=== PATIENT | male | born 1970 | race American Indian/Alaskan Native ===

== ENCOUNTER 2019-11-04 17:10 | Emergency (ER) | payer MEDICARE, MEDICAID ==
[2019-11-04 18:23] LABS: BLOOD UREA NITROGEN,BUN 11 mg/dL (7.0-18.0); CARBON DIOXIDE,CO2 25.1 mmol/L (21.0-32.0); CHLORIDE,CL 106 mmol/L (98-107); GLUCOSE RANDOM 159 mg/dL (74-106); POTASSIUM,K 3.9 mmol/L (3.5-5.1); SODIUM,NA 140 mmol/L (136-148)
[2019-11-04] MEDS ORDERED: HYDROmorphone 1 MG/ML Syringe IVPUSH ONE (18:59)
[2019-11-04] MEDS ORDERED: Ondansetron 4 MG/2 ML SDV IVPUSH ONE (18:59)
--- NOTE | 2019-11-04 19:00 | CR ---
Chest: Portable view of the chest was obtained. Comparison: Prior chest x-ray of 09/29/19. Heart size and mediastinum are normal. Lungs are clear with no acute parenchymal change. Bony structures are grossly intact. Impression: 1. Nothing acute is seen on portable chest x-ray. Diagnostic code #1 This report was dictated in MDT
[2019-11-04] MEDS ORDERED: Iopamidol 755 MG/ML 200 ML Multipack Bottle IVPUSH ONE (19:15)
[2019-11-04] MEDS ORDERED: Iopamidol 755 Mg/ML 100 ML Bottle IVPUSH ONE (19:16)
--- NOTE | 2019-11-04 19:49 | CT ---
CT chest Technique: Multiple axial sections through the chest were obtained. Intravenous contrast was not was utilized. Comparison: Prior CT chest of 09/29/19. Findings: Visualized upper abdominal structures shows no abnormality. No pericardial thickening is seen. Mild coronary artery calcification is seen. Aorta shows no aneurysm. Mediastinum and hilar region show no adenopathy. Lungs are clear with no acute parenchymal change. No pleural effusions are seen. Bone window settings were reviewed which shows no acute osseous finding. Impression: 1. Nothing acute is appreciated on CT study of the chest. Diagnostic code #1 This report was dictated in MDT
--- NOTE | 2019-11-04 19:49 | CT ---
CT abdomen and pelvis Technique: Multiple axial sections were obtained from above the dome of the diaphragm inferiorly through the pubic symphysis. Intravenous contrast was utilized. No oral contrast has been given. Comparison: No prior abdominal imaging is available. Liver contains no focal abnormality. Spleen appears within normal limits. Adrenal glands show no nodule. Pancreas is normal. Gallbladder contains no calcified gallstones. Aorta shows no aneurysm. Mild atherosclerotic calcification is noted within the aorta and iliac vessels. Right kidney shows no hydronephrosis or mass. No left kidney is seen. No pelvic mass or adenopathy is seen. No free fluid or inflammator change is seen. Small fat-containing bilateral inguinal hernias are noted. Bone window settings were reviewed which shows no acute osseous finding. Mild scattered degenerative change is seen within the spine. Slight areas of abdominal wall thinning are seen with mild bulging containing fat. Mild subcutaneous edema noted within the right lateral and anterior abdomen. Impression: 1. Subcutaneous edema within the fat within the anterior and right lateral abdomen. 2. Absent left kidney. 3. No other acute finding is seen on CT abdomen and pelvis study. Diagnostic code #2 This report was dictated in MDT
--- NOTE | 2019-11-04 20:28 | EDM.PDOC ---
ED HPI GENERAL MEDICAL PROBLEM - General Chief Complaint: Abdominal Pain Stated Complaint: BRUSING ON ABDOMIN Time Seen by Provider: 11/04/19 17:30 Source of Information: Reports: Patient History Limitations: Reports: No Limitations - History of Present Illness INITIAL COMMENTS - FREE TEXT/NARRATIVE: This 49 year old male is admitted to the ED with a chief complaint of pain in his left upper abdomen and left lateral rib cage after falling striking the left side of his body on the side of his toilet Wednesday night. He states that his daughter applied ice to the injured area but because he was not getting better he decided to come in for evaluation. Abdomen Pain Score (Numeric/FACES): 9 - Related Data Allergies Allergy/AdvReac Type Severity Reaction Status Date / Time No Known Allergies Allergy Verified 11/04/19 17:20 Home Meds: Home Meds metFORMIN [Glucophage] 850 mg PO BIDMEALS 09/29/19 [History] Aspirin 81 mg PO DAILY #30 tab.chew 09/30/19 [Rx] atorvaSTATin [Lipitor] 40 mg PO BEDTIME #30 tablet 09/30/19 [Rx] Dutasteride [Avodart] 0.5 mg PO DAILY #30 cap 10/01/19 [Rx] Gabapentin [Neurontin] 300 mg PO TID #15 cap 10/01/19 [Rx] Tamsulosin HCl [Flomax] 0.4 mg PO BID #60 capsule 10/01/19 [Rx] oxyCODONE ER [OxyCONTIN] 10 mg PO Q12H PRN #10 tab.er 10/01/19 [Rx] Mag Hydrox/Aluminum Hyd/Simeth [Maalox Maximum Strength Susp] 1 ml PO DAILY PRN 11/04/19 [History] oxyCODONE HCl/Acetaminophen [Percocet 7.5-325 mg Tablet] 1 each PO Q8HR PRN 4 Days #12 tablet 11/04/19 [Rx] Past Medical History HEENT History: Reports: Impaired Vision Cardiovascular History: Reports: Hypertension Respiratory History: Reports: None Gastrointestinal History: Reports: None Genitourinary History: Reports: BPH Other Genitourinary History: Renal CA, Left Kidney removed. Musculoskeletal History: Reports: Back Pain, Chronic Neurological History: Reports: Neuropathy, Diabetic, Neuropathy, Peripheral Psychiatric History: Reports: None Endocrine/Metabolic History: Reports: Diabetes, Type II, Obesity/BMI 30+ Hematologic History: Reports: None Immunologic History: Reports: None Oncologic (Cancer) History: Reports: Renal Dermatologic History: Reports: Cellulitis - Infectious Disease History Infectious Disease History: Reports: MRSA Other Infectious Disease History: MRSA - Past Surgical History Head Surgeries/Procedures: Reports: None HEENT Surgical History: Reports: None Cardiovascular Surgical History: Reports: None GI Surgical History: Reports: Hernia, Abdominal Male Surgical History: Reports: Nephrectomy Endocrine Surgical History: Reports: None Neurological Surgical History: Reports: None Musculoskeletal Surgical History: Reports: Amputation Other Musculoskeletal Surgeries/Procedures:: L BTK amputation Oncologic Surgical History: Reports: None Dermatological Surgical History: Reports: None Social & Family History - Family History Family Medical History: Noncontributory - Tobacco Use Smoking Status *Q: Current Every Day Smoker Years of Tobacco use: 24 Packs/Tins Daily: 0.4 - Caffeine Use Caffeine Use: Reports: Tea - Recreational Drug Use Recreational Drug Use: No Review of Systems - Review of Systems Review Of Systems: See Below Constitutional: Reports: No Symptoms Eyes: Reports: No Symptoms Ears: Reports: No Symptoms Nose: Reports: No Symptoms Mouth/Throat: Reports: No Symptoms Respiratory: Reports: No Symptoms Cardiovascular: Reports: No Symptoms GI/Abdominal: Reports: Abdominal Pain (abdominal wall pain on the left), Other ( pain in left upper abdomen with large bruise.) Genitourinary: Reports: No Symptoms Musculoskeletal: Reports: Other (pain over left anterior lateral 6-10 ribs. Status post AKA) Skin: Reports: No Symptoms Neurological: Reports: No Symptoms ED EXAM, GENERAL - Physical Exam Exam: See Below Exam Limited By: No Limitations General Appearance: Alert, WD/WN, Moderate Distress (complaining of pain in left upper abdomen. Very large area of ecchymosis noted with probable hematoma of same. Also complains of pain in the left lateral lower chest area) Eye Exam: Bilateral Eye: EOMI, Normal Inspection, PERRL Ears: Normal External Exam, Normal Canal, Hearing Grossly Normal, Normal TMs Nose: Normal Inspection, Normal Mucosa, No Blood Throat/Mouth: Normal Inspection, Normal Oropharynx Head: Atraumatic, Normocephalic Neck: Normal Inspection, Supple, Non-Tender Respiratory/Chest: No Respiratory Distress, Lungs Clear, Normal Breath Sounds, Other (Tenderness is noted over left anterior lateral chest wall around the 7- 10th ribs. No crepitus.). No: Decreased Breath Sounds, Crackles, Rales Cardiovascular: Normal Peripheral Pulses, Regular Rate, Rhythm, No Edema, No Rub GI/Abdominal: Normal Bowel Sounds, Soft, Tender (over the entire upper abdomen with a extensive area of ecchymosis and hematoma.). No: Guarding, Rigid, Rebound (Male) Exam: Deferred Rectal (Males) Exam: Deferred Back Exam: Normal Inspection Extremities: No Pedal Edema, Normal Capillary Refill (of all extremities except for the left leg which is an AKA) Neurological: Alert, Oriented, CN II-XII Intact, Normal Cognition, Normal Reflexes, No Motor/Sensory Deficits Psychiatric: Normal Affect, Normal Mood Skin Exam: Warm, Dry, Intact, Normal Color, No Rash Lymphatic: No Adenopathy Course - Vital Signs Text/Narrative:: I reviewed all of the patients imaging studies. No acute pathology. I discussed this with the patient. He will be discharged. He agrees with the discharge plan. Last Recorded V/S: Last Vital Signs Temp 98.9 F 11/04/19 17:22 Pulse 89 11/04/19 17:22 Resp 19 11/04/19 17:22 BP 155/105 H 11/04/19 17:22 Pulse Ox 99 11/04/19 17:22 - Orders/Labs/Meds Orders: Active Orders 24 hr Category Date Time Status EKG Documentation Completion [RC] STAT Care 11/04/19 17:50 Active UA RFX JEFFERY AND CULT IF INDIC [URIN] Stat Lab 11/04/19 17:50 Ordered Labs: Laboratory Tests 11/04/19 11/04/19 11/04/19 Range/Units 17:47 17:47 17:47 WBC 7.90 (4.0-11.0) K/uL RBC 5.04 (4.50-5.90) M/uL Hgb 12.4 L (13.0-17.0) g/dL Hct 38.9 (38.0-50.0) % MCV 77.2 L (80.0-98.0) fL MCH 24.6 L (27.0-32.0) pg MCHC 31.9 (31.0-37.0) g/dL RDW Std Deviation 47.7 (28.0-62.0) fl RDW Coeff of Candy 17 H (11.0-15.0) % Plt Count 357 (150-400) K/uL MPV 9.40 (7.40-12.00) fL Neut % (Auto) 56.0 (48.0-80.0) % Lymph % (Auto) 33.7 (16.0-40.0) % Sen[place] % (Auto) 5.8 (0.0-15.0) % Eos % (Auto) 4.1 (0.0-7.0) % Baso % (Auto) 0.4 (0.0-1.5) % Neut # (Auto) 4.4 (1.4-5.7) K/uL Lymph # (Auto) 2.7 H (0.6-2.4) K/uL Seneca # (Auto) 0.5 (0.0-0.8) K/uL Eos # (Auto) 0.3 (0.0-0.7) K/uL Baso # (Auto) 0.0 (0.0-0.1) K/uL Nucleated RBC % 0.0 /100WBC Nucleated RBCs # 0 K/uL INR 0.90 Sodium 140 (136-148) mmol/L Potassium 3.9 (3.5-5.1) mmol/L Chloride 106 (98-107) mmol/L Carbon Dioxide 25.1 (21.0-32.0) mmol/L BUN 11 (7.0-18.0) mg/dL Creatinine 1.0 (0.8-1.3) mg/dL Est Cr Clr Drug Dosing 81.52 mL/min Estimated GFR (MDRD) > 60.0 ml/min Glucose 159 H (74-106) mg/dL POC Glucose (60-110) mg/dL Calcium 8.8 (8.5-10.1) mg/dL Magnesium 1.9 (1.8-2.4) mg/dL Total Bilirubin 0.3 (0.2-1.0) mg/dL AST 16 (15-37) IU/L ALT 21 (14-63) IU/L Alkaline Phosphatase 122 H (46-116) U/L Troponin I < 0.050 (0.000-0.056) ng/mL Total Protein 7.7 (6.4-8.2) g/dL Albumin 3.6 (3.4-5.0) g/dL Globulin 4.1 H (2.6-4.0) g/dL Albumin/Globulin Ratio 0.9 (0.9-1.6) 11/04/19 Range/Units 17:48 WBC (4.0-11.0) K/uL RBC (4.50-5.90) M/uL Hgb (13.0-17.0) g/dL Hct (38.0-50.0) % MCV (80.0-98.0) fL MCH (27.0-32.0) pg MCHC (31.0-37.0) g/dL RDW Std Deviation (28.0-62.0) fl RDW Coeff of Candy (11.0-15.0) % Plt Count (150-400) K/uL MPV (7.40-12.00) fL Neut % (Auto) (48.0-80.0) % Lymph % (Auto) (16.0-40.0) % Seneca % (Auto) (0.0-15.0) % Eos % (Auto) (0.0-7.0) % Baso % (Auto) (0.0-1.5) % Neut # (Auto) (1.4-5.7) K/uL Lymph # (Auto) (0.6-2.4) K/uL Seneca # (Auto) (0.0-0.8) K/uL Eos # (Auto) (0.0-0.7) K/uL Baso # (Auto) (0.0-0.1) K/uL Nucleated RBC % /100WBC Nucleated RBCs # K/uL INR Sodium (136-148) mmol/L Potassium (3.5-5.1) mmol/L Chloride (98-107) mmol/L Carbon Dioxide (21.0-32.0) mmol/L BUN (7.0-18.0) mg/dL Creatinine (0.8-1.3) mg/dL Est Cr Clr Drug Dosing mL/min Estimated GFR (MDRD) ml/min Glucose (74-106) mg/dL POC Glucose 163 H (60-110) mg/dL Calcium (8.5-10.1) mg/dL Magnesium (1.8-2.4) mg/dL Total Bilirubin (0.2-1.0) mg/dL AST (15-37) IU/L ALT (14-63) IU/L Alkaline Phosphatase (46-116) U/L Troponin I (0.000-0.056) ng/mL Total Protein (6.4-8.2) g/dL Albumin (3.4-5.0) g/dL Globulin (2.6-4.0) g/dL Albumin/Globulin Ratio (0.9-1.6) Meds: Medications Discontinued Medications Generic Name Dose Route Start Last Admin Trade Name Freq PRN Reason Stop Dose Admin Hydromorphone HCl 1 mg 11/04/19 18:59 11/04/19 19:50 Dilaudid IVPUSH 11/04/19 19:00 1 mg Q1H ONE Administration Iopamidol 100 ml 11/04/19 19:15 Isovue Multipack-370 (76%) IVPUSH 11/04/19 19:16 ONETIME ONE Iopamidol 100 ml 11/04/19 19:16 11/04/19 19:16 Isovue-370 (76%) IVPUSH 11/04/19 19:17 100 ml ONETIME ONE Administration Ondansetron HCl 4 mg 11/04/19 18:59 11/04/19 19:50 Zofran IVPUSH 11/04/19 19:00 4 mg ONETIME ONE Administration Departure - Departure Time of Disposition: 20:38 Disposition: Home, Self-Care 01 Condition: Good Clinical Impression: Abdominal wall contusion Qualifiers: Encounter type: initial encounter Qualified Code(s): S30.1XXA - Contusion of abdominal wall, initial encounter Chest wall contusion Qualifiers: Encounter type: initial encounter Laterality: left Qualified Code(s): S20.212A - Contusion of left front wall of thorax, initial encounter - Discharge Information *PRESCRIPTION DRUG MONITORING PROGRAM REVIEWED*: Yes *COPY OF PRESCRIPTION DRUG MONITORING REPORT IN PATIENT JUDY: Yes Instructions: Blunt Abdominal Trauma, Blunt Chest Trauma Referrals: PCP,None [Primary Care Provider] - Additional Instructions: Take all medications as directed. Follow up with your PCP in the next two to four days. Rest for the next 24 hours. Return to the ED if your condition gets worse or should you have any questions or concerns. The following information is given to patients seen in the emergency department who are being discharged to home. This information is to outline your options for follow-up care. We provide all patients seen in our emergency department with a follow-up referral. The need for follow-up, as well as the timing and circumstances, are variable depending upon the specifics of your emergency department visit. If you don't have a primary care physician on staff, we will provide you with a referral. We always advise you to contact your personal physician following an emergency department visit to inform them of the circumstance of the visit and for follow-up with them and/or the need for any referrals to a consulting specialist. The emergency department will also refer you to a specialist when appropriate. This referral assures that you have the opportunity for follow-up care with a specialist. All of these measure are taken in an effort to provide you with optimal care, which includes your follow-up. Under all circumstances we always encourage you to contact your private physician who remains a resource for coordinating your care. When calling for follow-up care, please make the office aware that this follow-up is from your recent emergency room visit. If for any reason you are refused follow-up, please contact the [facility] Emergency Department at and asked to speak to the emergency department charge nurse. Sepsis Event Note - Evaluation Sepsis Screening Result: No Definite Risk - Focused Exam Vital Signs: Vital Signs Temp Pulse Resp BP Pulse Ox 11/04/19 17:22 98.9 F 89 19 155/105 H 99 Date Exam was Performed: 11/04/19 Time Exam was Performed: 20:22 - My Orders Last 24 Hours: My Active Orders 11/04/19 17:50 EKG Documentation Completion [RC] STAT UA RFX JEFFERY AND CULT IF INDIC [URIN] Stat - Assessment/Plan Last 24 Hours: My Active Orders 11/04/19 17:50 EKG Documentation Completion [RC] STAT UA RFX JEFFERY AND CULT IF INDIC [URIN] Stat
== END 2019-11-04 21:04 | disposition home or self-care (01) ==
LOC: MW.ED 17:10
DX: S30.1XXA Contusion of abdominal wall, initial encounter (principal); S20.212A Contusion of left front wall of thorax, initial encounter; I10 Essential (primary) hypertension; E11.42 Type 2 diabetes mellitus with diabetic polyneuropathy; E66.9 Obesity, unspecified; F17.210 Nicotine dependence, cigarettes, uncomplicated; Z79.82 Long term (current) use of aspirin; Z79.899 Other long term (current) drug therapy; Z68.37 Body mass index [BMI] 37.0-37.9, adult; W22.8XXA Striking against or struck by other objects, initial encounter
CPT/HCPCS: 36415; 71045; 71260; 74177; 80053; 81001; 82962; 83735; 84484; 85025; 85610; 93005; 96374; 96375; 99284; J1170; J2405; Q9967

== ENCOUNTER 2019-11-23 05:04 | Emergency (ER) | payer MEDICARE, MEDICAID ==
--- NOTE | 2019-11-23 05:33 | EDM.PDOC ---
ED HPI GENERAL MEDICAL PROBLEM - General Chief Complaint: Lower Extremity Injury/Pain Stated Complaint: RIGHT FOOT PAIN AND SWELLING Time Seen by Provider: 11/23/19 05:23 - History of Present Illness INITIAL COMMENTS - FREE TEXT/NARRATIVE: 49-year-old male presents with right foot pain. Patient reports a 4 days ago he ran over his right foot with a "rascal." This is a small immobilization device that is battery driven. Patient reports increasing pain for the past 4 days. He reports he now is unable to walk on his right foot. There is increasing pain and swelling. Patient endorses previous dysesthesia of that foot secondary to diabetes. Patient denies any other injury or illness. No chest pain, shortness of breath, fever chills, nausea vomiting, loose stools. No harleen weakness. Patient has been taking Tylenol for the pain and also took a gabapentin the last 12 hours which did not seem to help much either. Pain is sharp, worse with movement and weightbearing, of 8/10 in severity. Most the pain is on the lateral aspect of the foot. right foot Pain Score (Numeric/FACES): 9 - Related Data Allergies Allergy/AdvReac Type Severity Reaction Status Date / Time No Known Allergies Allergy Verified 11/23/19 05:19 Home Meds: Home Meds metFORMIN [Glucophage] 850 mg PO BIDMEALS 09/29/19 [History] Aspirin 81 mg PO DAILY #30 tab.chew 09/30/19 [Rx] atorvaSTATin [Lipitor] 40 mg PO BEDTIME #30 tablet 09/30/19 [Rx] Dutasteride [Avodart] 0.5 mg PO DAILY #30 cap 10/01/19 [Rx] Gabapentin [Neurontin] 300 mg PO TID #15 cap 10/01/19 [Rx] Tamsulosin HCl [Flomax] 0.4 mg PO BID #60 capsule 10/01/19 [Rx] oxyCODONE ER [OxyCONTIN] 10 mg PO Q12H PRN #10 tab.er 10/01/19 [Rx] Mag Hydrox/Aluminum Hyd/Simeth [Maalox Maximum Strength Susp] 1 ml PO DAILY PRN 11/04/19 [History] oxyCODONE HCl/Acetaminophen [Percocet 7.5-325 mg Tablet] 1 each PO Q8HR PRN 4 Days #12 tablet 04/25/20 [Rx] Clindamycin HCl 450 mg PO Q6HR 7 Days #84 capsule 11/23/19 [Rx] Lactobacillus Rhamnosus GG [Culturelle] 1 cap PO DAILY 10 Days #10 cap 11/23/19 [Rx] Past Medical History HEENT History: Reports: Impaired Vision Cardiovascular History: Reports: Hypertension Respiratory History: Reports: None Gastrointestinal History: Reports: None Genitourinary History: Reports: BPH Other Genitourinary History: Renal CA, Left Kidney removed. 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 Hematologic History: Reports: None Immunologic History: Reports: None Oncologic (Cancer) History: Reports: Renal Dermatologic History: Reports: Cellulitis - Infectious Disease History Infectious Disease History: Reports: None Other Infectious Disease History: MRSA - Past Surgical History Head Surgeries/Procedures: Reports: None HEENT Surgical History: Reports: None Cardiovascular Surgical History: Reports: None GI Surgical History: Reports: Hernia, Abdominal Male Surgical History: Reports: Nephrectomy Endocrine Surgical History: Reports: None Neurological Surgical History: Reports: None Musculoskeletal Surgical History: Reports: Amputation Other Musculoskeletal Surgeries/Procedures:: L BTK amputation Oncologic Surgical History: Reports: None Dermatological Surgical History: Reports: None Social & Family History - Family History Family Medical History: Noncontributory - Tobacco Use Smoking Status *Q: Current Every Day Smoker Years of Tobacco use: 10 Packs/Tins Daily: 0.5 - Caffeine Use Caffeine Use: Reports: Tea - Recreational Drug Use Recreational Drug Use: No Review of Systems - Review of Systems Review Of Systems: Comprehensive ROS is negative, except as noted in HPI. ED EXAM, GENERAL - Physical Exam Exam: See Below Free Text/Narrative:: General: No acute distress from pain. Extremities: Some mild erythema of the lateral dorsal right foot. DP and PT pulses noted. Some discomfort with circular compression of the distal lower leg. The discomfort is actually more in the proximal lower leg with the lower leg compression. Patient can wiggle his toes. Tenderness on the distal dorsal foot along the metatarsals. Course - Vital Signs Text/Narrative:: Foot appears to be primarily traumatic. There is no evidence of fracture after high-quality imaging. We will place the patient in a boot given his report of significant pain. Will have him reassessed by orthopedics first available appointment. He also has concern for infection. This is clearly not a significantly infected foot but there is some mild erythema around the distal dorsal fourth and fifth digits. Will start clindamycin. We discussed the risk of GI infection using this medication. Lactobacillus ordered as well. Patient need to follow-up with primary care as well as orthopedics. Return precautions for any worsening redness, swelling. Overall presentation not consistent with compartment syndrome or deep space infection given the 4-day time course with very gradual slow progression. Last Recorded V/S: Last Vital Signs Temp 97.7 F 11/23/19 05:15 Pulse 87 11/23/19 05:15 Resp 18 11/23/19 05:15 BP 170/94 H 11/23/19 05:15 Pulse Ox 96 11/23/19 05:15 - Orders/Labs/Meds Orders: Active Orders 24 hr Category Date Time Status DME for Discharge [COMM] Stat Oth 11/23/19 06:09 Ordered Meds: Medications Discontinued Medications Generic Name Dose Route Start Last Admin Trade Name Lori PRN Reason Stop Dose Admin Naproxen 250 mg 11/23/19 05:38 11/23/19 05:45 Naprosyn PO 11/23/19 05:39 250 mg ONETIME ONE Administration Departure - Departure Time of Disposition: 06:11 Disposition: Home, Self-Care 01 Condition: Good Clinical Impression: Foot pain, right - Discharge Information Prescriptions: Clindamycin HCl 450 mg PO Q6HR 7 Days #84 capsule Lactobacillus Rhamnosus GG [Culturelle] 1 cap PO DAILY 10 Days #10 cap Instructions: Ankle Pain, Foot Pain Referrals: Jose Paul MD [Primary Care Provider] - Forms: ED Department Discharge Additional Instructions: You to follow-up with your primary care provider to have your foot reassessed for any possible infection. This is because you have a small break in the skin by your right fifth digit nail. Cuticular lactobacillus to help decrease the chances of abdominal infection. You also need to follow-up with an orthopedic doctor to have your foot reassessed. There is no evidence of fracture but your report of pain suggest the possibility of a hidden fracture. Follow-up with orthopedics first available appointment. You can use your existing pain medication for pain control. You can also use anti-inflammatories as needed although there is a risk with these medications of causing kidney irritation, heart attack and stroke. Call: [facility] [address] [place] [address], [address] [place] [address] The following information is given to patients seen in the emergency department who are being discharged to home. This information is to outline your options for follow-up care. We provide all patients seen in our emergency department with a follow-up referral. The need for follow-up, as well as the timing and circumstances, are variable depending upon the specifics of your emergency department visit. If you don't have a primary care physician on staff, we will provide you with a referral. We always advise you to contact your personal physician following an emergency department visit to inform them of the circumstance of the visit and for follow-up with them and/or the need for any referrals to a consulting specialist. The emergency department will also refer you to a specialist when appropriate. This referral assures that you have the opportunity for follow-up care with a specialist. All of these measure are taken in an effort to provide you with optimal care, which includes your follow-up. Under all circumstances we always encourage you to contact your private physician who remains a resource for coordinating your care. When calling for follow-up care, please make the office aware that this follow-up is from your recent emergency room visit. If for any reason you are refused follow-up, please contact the [facility] Emergency Department at and asked to speak to the emergency department charge nurse. Sepsis Event Note - Evaluation Sepsis Screening Result: No Definite Risk - Focused Exam Vital Signs: Vital Signs Temp Pulse Resp BP Pulse Ox 11/23/19 05:15 97.7 F 87 18 170/94 H 96 Date Exam was Performed: 11/23/19 Time Exam was Performed: 06:27 - My Orders Last 24 Hours: My Active Orders 11/23/19 06:09 DME for Discharge [COMM] Stat - Assessment/Plan Last 24 Hours: My Active Orders 11/23/19 06:09 DME for Discharge [COMM] Stat
[2019-11-23] MEDS ORDERED: Naproxen 500 MG Tab PO ONE (05:38)
--- NOTE | 2019-11-23 06:06 | CR ---
Indication: Pain involving the right foot and right ankle Technique: Three images of the right ankle and 3 images of the right foot were acquired. Comparison: None Findings: There is no lytic or blastic lesion, fracture or dislocation identified. There are moderate degenerative changes diffusely. There is small plantar and dorsal calcaneal spurs. There is no visible fracture, dislocation or destructive process. No radiopaque foreign body, gas within soft tissues or periosteal reaction. Impression: Degenerative changes. Calcaneal spurs. No visible acute finding. Dictated by Wesley Lopez MD @ Nov 23 2019 6:03AM Signed by Dr. Wesley Lopez @ Nov 23 2019 6:05AM
--- NOTE | 2019-11-23 06:08 | CR ---
Indication: Pain involving the right foot and right ankle Technique: Three images of the right ankle and 3 images of the right foot were acquired. Comparison: None Findings: There is no lytic or blastic lesion, fracture or dislocation identified. There are moderate degenerative changes diffusely. There is small plantar and dorsal calcaneal spurs. There is no visible fracture, dislocation or destructive process. No radiopaque foreign body, gas within soft tissues or periosteal reaction. Impression: Degenerative changes. Calcaneal spurs. No visible acute finding. Dictated by Wesley Lopez MD @ Nov 23 2019 6:05AM Signed by Dr. Wesley Lopez @ Nov 23 2019 6:06AM
== END 2019-11-23 06:40 | disposition home or self-care (01) ==
LOC: MW.ED 05:04
DX: M79.671 Pain in right foot (principal); I10 Essential (primary) hypertension; E11.42 Type 2 diabetes mellitus with diabetic polyneuropathy; E66.9 Obesity, unspecified; Z68.39 Body mass index [BMI] 39.0-39.9, adult; Z79.82 Long term (current) use of aspirin; Z79.84 Long term (current) use of oral hypoglycemic drugs; Z79.899 Other long term (current) drug therapy
CPT/HCPCS: 73610; 73630; 99283; A9270

== ENCOUNTER 2020-02-16 20:55 | Emergency (ER) | payer MEDICARE, MEDICAID ==
--- NOTE | 2020-02-16 21:14 | EDM.PDOC ---
<Pawan Henderson - Last Filed: 02/17/20 03:00> ED HPI GENERAL MEDICAL PROBLEM - General Chief Complaint: Back Pain or Injury Stated Complaint: FELL AND INJURED BACK Time Seen by Provider: 02/16/20 21:05 - Related Data Allergies Allergy/AdvReac Type Severity Reaction Status Date / Time No Known Allergies Allergy Verified 02/16/20 21:12 Home Meds: Home Meds metFORMIN [Glucophage] 850 mg PO BIDMEALS 09/29/19 [History] Aspirin 81 mg PO DAILY #30 tab.chew 09/30/19 [Rx] atorvaSTATin [Lipitor] 40 mg PO BEDTIME #30 tablet 09/30/19 [Rx] Dutasteride [Avodart] 0.5 mg PO DAILY #30 cap 10/01/19 [Rx] Tamsulosin HCl [Flomax] 0.4 mg PO BID #60 capsule 10/01/19 [Rx] oxyCODONE ER [OxyCONTIN] 10 mg PO Q12H PRN #10 tab.er 10/01/19 [Rx] Mag Hydrox/Aluminum Hyd/Simeth [Maalox Maximum Strength Susp] 1 ml PO DAILY PRN 11/04/19 [History] Lactobacillus Rhamnosus GG [Culturelle] 1 cap PO DAILY 10 Days #10 cap 11/23/19 [Rx] Gabapentin [Neurontin] 400 mg PO TID 02/16/20 [History] Gabapentin [Neurontin] 400 mg PO TID 14 Days #42 cap 02/17/20 [Rx] oxyCODONE ER [OxyCONTIN] 10 mg PO Q12H 7 Days #14 tab.er 02/17/20 [Rx] ED ROS GENERAL - Review of Systems Review Of Systems: See Below ED EXAM, UPPER BACK/NECK PAIN - Physical Exam Exam: See Below Course - Re-Assessments/Exams Free Text/Narrative Re-Assessment/Exam: 02/17/20 03:01 possible L2 fracture, otherwise unremarkable imaging spine. Ground glass opacities in CT chest w/ lymphadenopathy; COVID-19 swab negative. Will tx pain, d/c with PMD f/u Departure - Departure Time of Disposition: 02:51 Disposition: Home, Self-Care 01 Condition: Good (e) Clinical Impression: Back pain Qualifiers: Back pain location: low back pain Chronicity: acute Back pain laterality: midline Sciatica presence: without sciatica Qualified Code(s): M54.5 - Low back pain Compression fracture of L2 Qualifiers: Encounter type: initial encounter Qualified Code(s): S32.020A - Wedge compression fracture of second lumbar vertebra, initial encounter for closed fracture - Discharge Information Prescriptions: Gabapentin [Neurontin] 400 mg PO TID 14 Days #42 cap oxyCODONE ER [OxyCONTIN] 10 mg PO Q12H 7 Days #14 tab.er Instructions: Lumbar Spine Fracture Referrals: PCP,None [Primary Care Provider] - Forms: ED Department Discharge Additional Instructions: The following information is given to patients seen in the emergency department who are being discharged to home. This information is to outline your options for follow-up care. We provide all patients seen in our emergency department with a follow-up referral. The need for follow-up, as well as the timing and circumstances, are variable depending upon the specifics of your emergency department visit. If you don't have a primary care physician on staff, we will provide you with a referral. We always advise you to contact your personal physician following an emergency department visit to inform them of the circumstance of the visit and for follow-up with them and/or the need for any referrals to a consulting specialist. The emergency department will also refer you to a specialist when appropriate. This referral assures that you have the opportunity for follow-up care with a specialist. All of these measure are taken in an effort to provide you with optimal care, which includes your follow-up. Under all circumstances we always encourage you to contact your private physician who remains a resource for coordinating your care. When calling for follow-up care, please make the office aware that this follow-up is from your recent emergency room visit. If for any reason you are refused follow-up, please contact the [facility] Emergency Department at and asked to speak to the emergency department charge nurse. <Tiana Briscoe - Last Filed: 02/17/20 10:21> ED HPI GENERAL MEDICAL PROBLEM - General Source of Information: Reports: Patient History Limitations: Reports: No Limitations - History of Present Illness INITIAL COMMENTS - FREE TEXT/NARRATIVE: HISTORY AND PHYSICAL: History of present illness: Patient is a 50-year-old male who presents to the emergency room with complaints of various complaints. Patient states he fell while in the shower approximately 1 week ago landing on his back. He denies hitting his head or having any loss of consciousness. He has an [id number] amputation and does experience falls occasionally balance issues. He states the fall was related to slipping, was not experiencing any stomach complaints. He states he was able to get up and into his wheelchair although had moderate back pain. He states it was tolerable as he does have pain medications prescribed to him for his chronic pain related to his amputation. He ran out of this medication 2 days ago. He has attempted to make an appointment with his primary care provider, although Dr Scanlon has been working in the respiratory clinic and has not been available. He decided to come to the emergency room for evaluation and pain management. He does have neuropathy in the existing right lower extremity and states he has been able to ambulate without any difficulty, weakness or increase in numbness/tingling sensation. He states over the past 1 month he has had some frequency with urination and feeling like he is not fully emptying his bladder. He states this is concerning to him as he was admitted and hospitalized at [facility] for urosepsis. Patient denies any fever, chills, headache, change in vision, syncope or near syncope. Denies any chest pain, back pain, shortness of breath or cough. Denies any abdominal pain, nausea, vomiting, diarrhea, constipation or dysuria. Has not noted any blood in urine or stool. Patient has been eating and drinking appropriately. Review of systems: As per history of present illness and below otherwise all systems reviewed and negative. Past medical history: As per history of present illness and as reviewed below otherwise noncontributory. Surgical history: As per history of present illness and as reviewed below otherwise noncontributory. Social history: See social history for further information Family history: As per history of present illness and as reviewed below otherwise noncontributory. Physical exam: General: Well-developed and well-nourished 50-year-old male. Alert and oriented. Nontoxic-appearing and in no acute distress. HEENT: Atraumatic, normocephalic, pupils equal and reactive bilaterally, negative for conjunctival pallor or scleral icterus, mucous membranes moist, TMs normal bilaterally, throat clear, neck supple, nontender, trachea midline. No drooling or trismus noted. No meningeal signs. No hot potato voice noted. Lungs: Clear to auscultation, breath sounds equal bilaterally, chest nontender. Heart: S1S2, regular rate and rhythm without overt murmur Abdomen: Soft, nondistended, nontender. Negative for masses or hepatosplenomegaly. Negative for costovertebral tenderness. Pelvis: Stable nontender. C-spine/Back: No pinpoint vertebral tenderness upon palpation. No crepitus, step-offs or obvious deformities. Generalized paraspinous tenderness from cervical spine to tailbone. Patient is ambulatory while in the emergency room without difficulty or deficit, per patient baseline without assistance but does use a wheelchair for main ambulation purposes. Able to rock back on heels and walk on toes. Denies any urinary or fecal incontinence. Denies any numbness, tingling or saddle paresthesia. No concerns of serious infection, fracture or cord compression, or cauda equina syndrome. Deep tendon reflexes brisk bilaterally. Skin: Midline healing scar to lumbar region of back. Intact, warm, dry. No lesions or rashes noted. Hematologic: No petechiae or purpra. Mucosa appropriate color and normal nail bed color and refill. Extremities: Atraumatic, moves all extremities per self without difficulty or deficits, negative for cords or calf pain. Has an [id number] amputation of the left lower extremity. Patient has baseline of neuropathy to his right distal extremity, no worse than past history. Neurovascular unremarkable. Neuro: Awake, alert, oriented. Cranial nerves II through XII unremarkable. Cerebellum unremarkable. Motor and sensory unremarkable throughout. Exam nonfocal. Notes: Dr Henderson, attending ED physician, was involved in this case. I am waiting for lab and imaging results. Dr Henderson will disposition patient appropriately. Please see his note for details. Diagnostics: CBC, CMP, EKG, lactate, C-spine/thoracic/lumbar spine CT Therapeutics: Morphine Impression: Back pain Encounter for pain management Definitive disposition and diagnosis as appropriate pending reevaluation and review of above. back and chest Pain Score (Numeric/FACES): 10 Past Medical History HEENT History: Reports: Impaired Vision Cardiovascular History: Reports: Hypertension Respiratory History: Reports: None Gastrointestinal History: Reports: None Genitourinary History: Reports: BPH Other Genitourinary History: Renal CA, Left Kidney removed. Musculoskeletal History: Reports: Back Pain, Chronic Neurological History: Reports: Neuropathy, Diabetic, Neuropathy, Peripheral Psychiatric History: Reports: None Endocrine/Metabolic History: Reports: Diabetes, Type II, Obesity/BMI 30+ Insulin Pump Model and Economic Consultant: None Hematologic History: Reports: None Immunologic History: Reports: None Oncologic (Cancer) History: Reports: Renal Dermatologic History: Reports: Cellulitis - Infectious Disease History Infectious Disease History: Reports: None Other Infectious Disease History: MRSA - Past Surgical History Head Surgeries/Procedures: Reports: None HEENT Surgical History: Reports: None Cardiovascular Surgical History: Reports: None GI Surgical History: Reports: Hernia, Abdominal Male Surgical History: Reports: Nephrectomy Endocrine Surgical History: Reports: None Neurological Surgical History: Reports: None Musculoskeletal Surgical History: Reports: Amputation Other Musculoskeletal Surgeries/Procedures:: L BTK amputation Oncologic Surgical History: Reports: None Dermatological Surgical History: Reports: None Social & Family History - Family History Family Medical History: Noncontributory - Caffeine Use Caffeine Use: Reports: Tea ED ROS GENERAL - Review of Systems Review Of Systems: Comprehensive ROS is negative, except as noted in HPI. ED EXAM, UPPER BACK/NECK PAIN - Physical Exam Exam: See Below (See dictation) Course - Vital Signs Last Recorded V/S: Last Vital Signs Temp 211.3 F H 02/16/20 21:09 Pulse 78 02/17/20 03:05 Resp 18 02/17/20 03:05 BP 135/60 02/17/20 03:05 Pulse Ox 99 02/17/20 03:05 - Orders/Labs/Meds Orders: Active Orders 24 hr Category Date Time Status EKG 12 Lead [EKG Documentation Completion] [RC] ROUTINE Care 02/16/20 21:12 Active Saline Lock Insert [OM.PC] Stat Oth 02/16/20 21:15 Ordered Labs: Laboratory Tests 02/16/20 02/16/20 02/16/20 Range/Units 21:15 21:15 21:15 WBC 10.56 (4.0-11.0) K/uL RBC 5.21 (4.50-5.90) M/uL Hgb 12.5 L (13.0-17.0) g/dL Hct 39.3 (38.0-50.0) % MCV 75.4 L (80.0-98.0) fL MCH 24.0 L (27.0-32.0) pg MCHC 31.8 (31.0-37.0) g/dL RDW Std Deviation 43.9 (28.0-62.0) fl RDW Coeff of Candy 16 H (11.0-15.0) % Plt Count 382 (150-400) K/uL MPV 9.60 (7.40-12.00) fL Neut % (Auto) 66.2 (48.0-80.0) % Lymph % (Auto) 20.9 (16.0-40.0) % Piatt % (Auto) 7.9 (0.0-15.0) % Eos % (Auto) 4.5 (0.0-7.0) % Baso % (Auto) 0.5 (0.0-1.5) % Neut # (Auto) 7.0 H (1.4-5.7) K/uL Lymph # (Auto) 2.2 (0.6-2.4) K/uL Piatt # (Auto) 0.8 (0.0-0.8) K/uL Eos # (Auto) 0.5 (0.0-0.7) K/uL Baso # (Auto) 0.1 (0.0-0.1) K/uL Nucleated RBC % 0.0 /100WBC Nucleated RBCs # 0 K/uL Sodium 131 L (136-148) mmol/L Potassium 3.9 (3.5-5.1) mmol/L Chloride 96 L (98-107) mmol/L Carbon Dioxide 24.7 (21.0-32.0) mmol/L BUN 11 (7.0-18.0) mg/dL Creatinine 1.2 (0.8-1.3) mg/dL Est Cr Clr Drug Dosing 67.20 mL/min Estimated GFR (MDRD) > 60.0 ml/min Glucose 375 H (74-106) mg/dL Calcium 8.6 (8.5-10.1) mg/dL Total Bilirubin 0.3 (0.2-1.0) mg/dL AST 18 (15-37) IU/L ALT 22 (14-63) IU/L Alkaline Phosphatase 150 H (46-116) U/L Troponin I < 0.050 (0.000-0.056) ng/mL Total Protein 8.3 H (6.4-8.2) g/dL Albumin 3.3 L (3.4-5.0) g/dL Globulin 5.0 H (2.6-4.0) g/dL Albumin/Globulin Ratio 0.7 L (0.9-1.6) Urine Color Urine Appearance Urine pH (5.0-8.0) Ur Specific [place] (1.001-1.035) Urine Protein (NEGATIVE) mg/dL Urine Glucose (UA) (NEGATIVE) mg/dL Urine Ketones (NEGATIVE) mg/dL Urine Occult Blood (NEGATIVE) Urine Nitrite (NEGATIVE) Urine Bilirubin (NEGATIVE) Urine Urobilinogen (<2.0) EU/dL Ur Leukocyte Esterase (NEGATIVE) Urine RBC (0-2/HPF) Urine WBC (0-5/HPF) Ur Epithelial Cells (NONE-FEW) Urine Bacteria (NEGATIVE) COVID-19 (ISABEL) (NEGATIVE) 02/16/20 02/17/20 Range/Units 21:17 01:55 WBC (4.0-11.0) K/uL RBC (4.50-5.90) M/uL Hgb (13.0-17.0) g/dL Hct (38.0-50.0) % MCV (80.0-98.0) fL MCH (27.0-32.0) pg MCHC (31.0-37.0) g/dL RDW Std Deviation (28.0-62.0) fl RDW Coeff of Candy (11.0-15.0) % Plt Count (150-400) K/uL MPV (7.40-12.00) fL Neut % (Auto) (48.0-80.0) % Lymph % (Auto) (16.0-40.0) % Piatt % (Auto) (0.0-15.0) % Eos % (Auto) (0.0-7.0) % Baso % (Auto) (0.0-1.5) % Neut # (Auto) (1.4-5.7) K/uL Lymph # (Auto) (0.6-2.4) K/uL Piatt # (Auto) (0.0-0.8) K/uL Eos # (Auto) (0.0-0.7) K/uL Baso # (Auto) (0.0-0.1) K/uL Nucleated RBC % /100WBC Nucleated RBCs # K/uL Sodium (136-148) mmol/L Potassium (3.5-5.1) mmol/L Chloride (98-107) mmol/L Carbon Dioxide (21.0-32.0) mmol/L BUN (7.0-18.0) mg/dL Creatinine (0.8-1.3) mg/dL Est Cr Clr Drug Dosing mL/min Estimated GFR (MDRD) ml/min Glucose (74-106) mg/dL Calcium (8.5-10.1) mg/dL Total Bilirubin (0.2-1.0) mg/dL AST (15-37) IU/L ALT (14-63) IU/L Alkaline Phosphatase (46-116) U/L Troponin I (0.000-0.056) ng/mL Total Protein (6.4-8.2) g/dL Albumin (3.4-5.0) g/dL Globulin (2.6-4.0) g/dL Albumin/Globulin Ratio (0.9-1.6) Urine Color YELLOW Urine Appearance SLT CLOUDY Urine pH 6.0 (5.0-8.0) Ur Specific [place] 1.020 (1.001-1.035) Urine Protein 30 H (NEGATIVE) mg/dL Urine Glucose (UA) >=1000 (NEGATIVE) mg/dL Urine Ketones NEGATIVE (NEGATIVE) mg/dL Urine Occult Blood LARGE H (NEGATIVE) Urine Nitrite NEGATIVE (NEGATIVE) Urine Bilirubin NEGATIVE (NEGATIVE) Urine Urobilinogen 1.0 (<2.0) EU/dL Ur Leukocyte Esterase NEGATIVE (NEGATIVE) Urine RBC 35-40 (0-2/HPF) Urine WBC 0-1 (0-5/HPF) Ur Epithelial Cells RARE (NONE-FEW) Urine Bacteria RARE (NEGATIVE) COVID-19 (ISABEL) NEGATIVE (NEGATIVE) Meds: Medications Discontinued Medications Generic Name Dose Route Start Last Admin Trade Name Freq PRN Reason Stop Dose Admin Aspirin Confirm 02/16/20 22:28 02/16/20 22:32 Aspirin Administered 02/16/20 22:29 Not Given Dose 324 mg .ROUTE .STK-MED ONE Aspirin 324 mg 02/16/20 22:30 08/07/20 22:31 Aspirin PO 02/16/20 22:31 324 mg ONETIME ONE Administration Sodium Chloride 1,000 mls @ 999 mls/hr 02/16/20 22:15 02/16/20 22:16 Normal Saline IV 999 mls/hr ASDIRECTED CAYDEN Administration Iopamidol 75 ml 02/17/20 02:34 02/17/20 02:35 Isovue-370 (76%) IVPUSH 02/17/20 02:35 75 ml ONETIME STA Administration Morphine Sulfate 4 mg 02/16/20 21:15 02/16/20 21:22 Morphine IVPUSH 02/16/20 21:16 4 mg ONETIME ONE Administration Morphine Sulfate 4 mg 02/16/20 22:06 02/16/20 22:18 Morphine IVPUSH 02/16/20 22:07 4 mg ONETIME ONE Administration Morphine Sulfate 4 mg 02/17/20 02:52 02/17/20 03:02 Morphine IVPUSH 02/17/20 02:53 4 mg ONETIME ONE Administration Sodium Chloride 10 ml 02/16/20 21:15 Saline Flush FLUSH ASDIRECTED PRN Keep Vein Open Sodium Chloride 2.5 ml 02/16/20 21:15 Saline Flush FLUSH ASDIRECTED PRN Keep Vein Open Sepsis Event Note (ED) - Evaluation Sepsis Screening Result: No Definite Risk - Focused Exam Vital Signs: Vital Signs Pulse Resp BP Pulse Ox 02/17/20 03:05 78 18 135/60 99 02/17/20 02:51 71 18 129/75 94 L 02/17/20 02:37 82 18 116/84 97 02/17/20 02:18 78 20 119/69 97 - My Orders Last 24 Hours: My Active Orders 02/16/20 21:12 EKG 12 Lead [EKG Documentation Completion] [RC] ROUTINE 02/16/20 21:15 Saline Lock Insert [OM.PC] Stat - Assessment/Plan Last 24 Hours: My Active Orders 02/16/20 21:12 EKG 12 Lead [EKG Documentation Completion] [RC] ROUTINE 02/16/20 21:15 Saline Lock Insert [OM.PC] Stat
[2020-02-16] MEDS ORDERED: Morphine 4 MG/ML Syringe IVPUSH ONE ×2 (21:15→22:06)
[2020-02-16] MEDS ORDERED: Sodium Chloride 0.9% 10 ML Syringe FLUSH PRN (21:15)
[2020-02-16] MEDS ORDERED: Sodium Chloride 0.9% 2.5 ML Syringe FLUSH PRN (21:15)
[2020-02-16 21:58] LABS: BLOOD UREA NITROGEN,BUN 11 mg/dL (7.0-18.0); CARBON DIOXIDE,CO2 24.7 mmol/L (21.0-32.0); CHLORIDE,CL 96 mmol/L (98-107); GLUCOSE RANDOM 375 mg/dL (74-106); POTASSIUM,K 3.9 mmol/L (3.5-5.1); SODIUM,NA 131 mmol/L (136-148)
[2020-02-16] MEDS ORDERED: Sodium Chloride 0.9% 1,000 ML IV SCH (22:15)
[2020-02-16] MEDS ORDERED: Aspirin 81 MG Tab.Chew ONE (22:28)
[2020-02-16] MEDS ORDERED: Aspirin 81 MG Tab.Chew PO ONE (22:30)
--- NOTE | 2020-02-16 22:51 | CR ---
Chest: Portable view of the chest was obtained. Comparison: Prior chest x-ray of 11/04/19. Heart size and mediastinum are within normal limits for portable technique. Parenchymal density is noted within the left upper chest. Lucency is noted along the lateral left chest and difficult to exclude a pneumothorax at this time. Slight parenchymal density is also noted within the right upper chest. Impression: 1. Possible areas of pneumonia within the left and right upper chest. 2. Difficult to exclude left-sided pneumothorax. Upright PA, expiratory and lateral chest x-ray recommended to further evaluate. Diagnostic code #5 This report was dictated in MDT
--- NOTE | 2020-02-17 00:03 | CT ---
INDICATION: Status post cervical spine injury from fall 1 week ago TECHNIQUE: CT cervical spine without i.v. contrast. Coronal and sagittal reformats were obtained. COMPARISON: None FINDINGS: Alignment: Straightening of the cervical spine is noted. Bone: No acute fractures or aggressive bone lesions are identified. Hypoplasia of the C1 ring is present and causes mild central canal stenosis. Disc: The disc spaces are unremarkable in appearance. The facet joints are unremarkable. Soft tissue: The prevertebral soft tissues are unremarkable in appearance. A region of geographic ground-glass infiltrate is seen in the left apex, better characterized by recent chest CT. IMPRESSION: 1. No acute osseous injuries are identified. Dictated by Herson Martinez MD @ 02/17/2020 12:03:13 AM Please note that all CT scans at this facility use dose modulation, iterative reconstruction, and/or weight-based dosing when appropriate to reduce radiation dose to as low as reasonably achievable. Dictated by: Herson Martinez MD @ 02/17/2020 00:03:16 (Electronically Signed)
--- NOTE | 2020-02-17 00:26 | CT ---
INDICATION: Chest pain radiating to the left shoulder from a fall 1 week ago TECHNIQUE: CT chest with i.v. contrast using pulmonary angiographic technique. Coronal and sagittal reformats were obtained. CONTRAST: 75 mL Isovue 370 COMPARISON: None FINDINGS: Cardiovascular: No CT evidence of central pulmonary embolism seen. The 3rd and higher order pulmonary vessels cannot be evaluated due to patient motion. Moderate biventricular cardiomegaly is present. No sign of aneurysm in the thoracic aorta. Mediastinum: Multiple right paratracheal lymph nodes are present measuring up to 1 4 cm. Bilateral hilar adenopathy is seen the large left lymph node measuring 2.2 cm and the largest on right measuring 1.6 cm. There is a subcarinal lymph node measuring 1.9 cm. Lung: Geographic areas of ground-glass infiltrates are present in the central aspects of both upper lobes. Pleura and pericardium: No sign of pleural effusion seen. No significant pericardial effusion is present. Chest wall and axilla: No mass or adenopathy seen. Bone: Unremarkable for age. Upper abdomen: Unremarkable. IMPRESSIONS: 1. No CT evidence of central pulmonary embolism seen. The 3rd and higher order pulmonary vessels cannot be evaluated due to patient motion. 2. Moderate to severe mediastinal and bilateral hilar adenopathy seen. Clinical correlation is recommended to exclude granulomatous disease, lymphoma, or metastatic disease. 3. Geographic areas of ground-glass infiltrates are present in the central aspects of both upper lobes. The differential diagnosis includes viral pneumonia, cryptogenic organizing pneumonia, eosinophilic pneumonia, or pulmonary edema. Dictated by Herson Martinez MD @ 02/17/2020 12:24:40 AM Please note that all CT scans at this facility use dose modulation, iterative reconstruction, and/or weight-based dosing when appropriate to reduce radiation dose to as low as reasonably achievable. Dictated by: Herson Martinez MD @ 02/17/2020 00:25:01 (Electronically Signed)
--- NOTE | 2020-02-17 00:37 | CT ---
INDICATION: Status post lumbar spine injury from Fall for 1 week TECHNIQUE: CT lumbar spine without i.v. contrast. Coronal and sagittal reformats were obtained. 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 Bone: No acute fractures or aggressive bone lesions are identified. On image 114, there is a linear lucency at the junction of the L2 vertebral body and the right pedicle. Disc: Broad-based disc protrusions are present at L3-4 and L4-5. Severe right facet osteoarthritis is present at L5-S1. Moderate bilateral facet osteoarthritis noted L2-3 through L4-5. Soft tissue: The perivertebral soft tissues and visualized retroperitoneum are unremarkable in appearance. IMPRESSION: 1. On image 114, there is a linear lucency at the junction of the L2 vertebral body and the right pedicle. Correlation with physical exam for focal tenderness in this region is recommended to distinguish between an incomplete fracture or a nutrient vessel. Dictated by Herson Martinez MD @ 02/17/2020 12:35:21 AM Please note that all CT scans at this facility use dose modulation, iterative reconstruction, and/or weight-based dosing when appropriate to reduce radiation dose to as low as reasonably achievable. Dictated by: Herson Martinez MD @ 02/17/2020 00:35:27 (Electronically Signed)
[2020-02-17] MEDS ORDERED: Iopamidol 755 Mg/ML 100 ML Bottle IVPUSH STA (02:34)
--- NOTE | 2020-02-17 02:38 | CT ---
Indication: Back pain status post fall 1 week ago. Technique: Noncontrast axial CT of the thoracic spine with coronal and sagittal reformats are provided. Comparison: No prior studies available for comparison at this institution. Findings: Thoracic kyphosis is preserved. There is mild dextrocurvature of the lumbar spine in this supine nonweightbearing study. No convincing evidence of suspicious bony fragments narrowing the central canal or neural foramina. Sagittal and coronal reformats are limited by misregistration artifacts. Mild bilateral neural foraminal narrowing at T8-9 due to facet osteophytes. No significant spinal canal stenosis. Prevertebral and paraspinal soft tissues are within normal limits. Ground-glass infiltrates in the left upper lobe is discussed in separate report. Impression: 1. No convincing radiographic evidence of acute osseous injury. 2. No significant spinal canal stenosis or neural foramen narrowing. 3. There is mild dextrocurvature of the lumbar spine in this supine nonweightbearing study. 4. Ground-glass infiltrates in the left upper lobe is discussed in separate report. Please note that all CT scans at this facility use dose modulation, iterative reconstruction, and/or weight-based dosing when appropriate to reduce radiation dose to as low as reasonably achievable. Dictated by Nilson Simpson MD @ Feb 17 2020 9:01AM Signed by Dr. Nilson Simpson @ Feb 17 2020 9:10AM
[2020-02-17] MEDS ORDERED: Morphine 4 MG/ML Syringe IVPUSH ONE (02:52)
== END 2020-02-17 03:21 | disposition home or self-care (01) ==
LOC: MW.ED 20:55
DX: S32.029A Unspecified fracture of second lumbar vertebra, initial encounter for closed fracture (principal); I10 Essential (primary) hypertension; E11.42 Type 2 diabetes mellitus with diabetic polyneuropathy; E66.9 Obesity, unspecified; Z20.828 Contact with and (suspected) exposure to other viral communicable diseases; Z79.82 Long term (current) use of aspirin; Z79.84 Long term (current) use of oral hypoglycemic drugs; Z79.899 Other long term (current) drug therapy; W18.2XXA Fall in (into) shower or empty bathtub, initial encounter
CPT/HCPCS: 36415; 71045; 71275; 72125; 72128; 72131; 80053; 81001; 84484; 85025; 93005; 96374; 96376; 99284; A9270; J2270; J7030; Q9967; U0002; 72129

== ENCOUNTER 2020-03-16 13:03 | Emergency (ER) | payer MEDICARE, MEDICAID ==
--- NOTE | 2020-03-16 13:48 | EDM.PDOC ---
ED HPI GENERAL MEDICAL PROBLEM - General Chief Complaint: Back Pain or Injury Stated Complaint: BACK PAIN Time Seen by Provider: 03/16/20 13:09 Source of Information: Reports: Patient History Limitations: Reports: No Limitations - History of Present Illness INITIAL COMMENTS - FREE TEXT/NARRATIVE: HISTORY AND PHYSICAL: History of present illness: Patient is a 50-year-old male who presents to the emergency room requesting a refill of his OxyContin. He states that he has been having to take his OxyContin sooner than every 12 hours and is running out of his medication. He is unable to fill his prescription until 03/23/2020 and would like this filled sooner. He denies no new injury, trauma or falls. Does have a history of an L2 compression fracture, that is why he is taking the pain medication. Patient denies any fever, chills, headache, change in vision, syncope or near syncope. Denies any chest pain, back pain, shortness of breath or cough. Denies any abdominal pain, nausea, vomiting, diarrhea, constipation or dysuria. Has not noted any blood in urine or stool. Patient has been eating and drinking appropriately. Review of systems: As per history of present illness and below otherwise all systems reviewed and negative. Past medical history: As per history of present illness and as reviewed below otherwise noncontributory. Surgical history: As per history of present illness and as reviewed below otherwise noncontributory. Social history: See social history for further information Family history: As per history of present illness and as reviewed below otherwise noncontributory. Physical exam: General: Well developed and well nourished 50 year old male. Alert and orientated x 3. Nontoxic in appearance and in no acute distress. Vital signs are stable and have been reviewed by me. Nursing notes were reviewed. HEENT: Atraumatic, normocephalic, pupils equal and reactive bilaterally, negative for conjunctival pallor or scleral icterus, mucous membranes moist, trachea midline. No drooling or trismus noted. No meningeal signs. No hot potato voice noted. Lungs: Clear to auscultation, breath sounds equal bilaterally, chest nontender. Normal work of breathing, no accessory muscles used. Heart: S1S2, regular rate and rhythm without overt murmur Abdomen: Soft, nondistended, nontender. Skin: Intact, warm, dry. No lesions or rashes noted. C-spine/Back: No pinpoint vertebral tenderness upon palpation. No crepitus, step-offs or obvious deformities. Patient is in wheelchair due to back pain and LLE BKE. Denies any urinary or fecal incontinence. Denies any numbness, tingling or saddle paresthesia. No concerns of serious infection, fracture or cord compression, or cauda equina syndrome. Deep tendon reflexes brisk Hematologic: No petechiae or purpra. Mucosa appropriate color and normal nail bed color and refill. 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 Neurovascular unremarkable. Neuro: Awake, alert, oriented. Cranial nerves II through XII unremarkable. Cerebellum unremarkable. Motor and sensory unremarkable throughout. Exam nonfocal. Notes: Patient did just have an MRI of the lumbar spine by his primary care provider. He denies any new injury, trauma or falls. No new symptoms or concerns other than requesting to have his narcotic pain medication refilled. I did call his pharmacy and they stated he filled his medications on 02/22/2020, #60 of oxycodone 10 and 20 tablets of [place]. Informed the patient I would not be refilling his narcotics and did offer him some Toradol while he was here. We discussed signs and symptoms that would prompt them to return to the Emergency Department. Medication, follow up and supportive care measures were reviewed and discussed. Voices understanding and is agreeable to plan of care. Denies any further questions or concerns at this time. Diagnostics: None Therapeutics: Toradol Prescription: Diclofenac Impression: Encounter for pain medication refill Plan: 1. The medications you are taking for your chronic back pain are controlled and are monitored by the state. Your OxyContin prescription is not yet to be filled until February 20. If you have any concerns of this you need to talk to your primary care provider or see a pain specialist for further care and management. 2. When resting please lay on a flat firm surface. Limit your immobility to prevent muscle stiffness. Get up to ambulate/move around/gentle stretching multiple times throughout the day. May alternate heat and ice to the painful areas 3. Tylenol as needed for back pain. Diclofenac is an anti-inflammatory so do not take any additional NSAIDs with this medication, such as ibuprofen or Aleve. 4. Please follow-up with your primary care provider as we discussed. Return to the ED as needed and as discussed. Definitive disposition and diagnosis as appropriate pending reevaluation and review of above. Lower Back Pain Score (Numeric/FACES): 10 - Related Data Allergies Allergy/AdvReac Type Severity Reaction Status Date / Time No Known Allergies Allergy Verified 03/16/20 13:20 Home Meds: Home Meds metFORMIN [Glucophage] 850 mg PO BIDMEALS 09/29/19 [History] Aspirin 81 mg PO DAILY #30 tab.chew 09/30/19 [Rx] atorvaSTATin [Lipitor] 40 mg PO BEDTIME #30 tablet 09/30/19 [Rx] Dutasteride [Avodart] 0.5 mg PO DAILY #30 cap 10/01/19 [Rx] Tamsulosin HCl [Flomax] 0.4 mg PO BID #60 capsule 10/01/19 [Rx] oxyCODONE ER [OxyCONTIN] 10 mg PO Q12H PRN #10 tab.er 10/01/19 [Rx] Mag Hydrox/Aluminum Hyd/Simeth [Maalox Maximum Strength Susp] 1 ml PO DAILY PRN 11/04/19 [History] Lactobacillus Rhamnosus GG [Culturelle] 1 cap PO DAILY 10 Days #10 cap 11/23/19 [Rx] Gabapentin [Neurontin] 400 mg PO TID 02/16/20 [History] Gabapentin [Neurontin] 400 mg PO TID 14 Days #42 cap 02/17/20 [Rx] oxyCODONE ER [OxyCONTIN] 10 mg PO Q12H 7 Days #14 tab.er 02/17/20 [Rx] Diclofenac Sodium [Voltaren] 75 mg PO BIDMEALS PRN #30 tab.cr 03/16/20 [Rx] Past Medical History HEENT History: Reports: Impaired Vision Cardiovascular History: Reports: Hypertension Respiratory History: Reports: None Gastrointestinal History: Reports: None Genitourinary History: Reports: BPH Other Genitourinary History: Renal CA, Left Kidney removed. 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 Hematologic History: Reports: None Immunologic History: Reports: None Oncologic (Cancer) History: Reports: Renal Dermatologic History: Reports: Cellulitis - Infectious Disease History Infectious Disease History: Reports: None Other Infectious Disease History: MRSA - Past Surgical History Head Surgeries/Procedures: Reports: None HEENT Surgical History: Reports: None Cardiovascular Surgical History: Reports: None GI Surgical History: Reports: Hernia, Abdominal Male Surgical History: Reports: Nephrectomy Endocrine Surgical History: Reports: None Neurological Surgical History: Reports: None Musculoskeletal Surgical History: Reports: Amputation Other Musculoskeletal Surgeries/Procedures:: L BTK amputation Oncologic Surgical History: Reports: None Dermatological Surgical History: Reports: None Social & Family History - Family History Family Medical History: Noncontributory - Tobacco Use Smoking Status *Q: Current Every Day Smoker Years of Tobacco use: 10 Packs/Tins Daily: 0.3 - Caffeine Use Caffeine Use: Reports: Tea - Recreational Drug Use Recreational Drug Use: No ED ROS GENERAL - Review of Systems Review Of Systems: Comprehensive ROS is negative, except as noted in HPI. ED EXAM,LOWER BACK PAIN/INJURY - Physical Exam Exam: See Below (See dictation) Course - Vital Signs Last Recorded V/S: Last Vital Signs Temp 96.6 F L 03/16/20 13:17 Pulse 102 H 03/16/20 13:17 Resp 18 03/16/20 13:17 BP 132/103 H 03/16/20 13:17 Pulse Ox 98 03/16/20 13:17 - Orders/Labs/Meds Meds: Medications Discontinued Medications Generic Name Dose Route Start Last Admin Trade Name Freq PRN Reason Stop Dose Admin Ketorolac Tromethamine 60 mg 03/16/20 13:51 03/16/20 13:58 Toradol IM 03/16/20 13:52 60 mg ONETIME ONE Administration Departure - Departure Time of Disposition: 14:08 Disposition: Home, Self-Care 01 Clinical Impression: Encounter for medication refill - Discharge Information Prescriptions: Diclofenac Sodium [Voltaren] 75 mg PO BIDMEALS PRN #30 tab.cr PRN Reason: Pain Instructions: Medicine Refill at the Emergency Department Referrals: Jerome Witt MD [Primary Care Provider] - Forms: ED Department Discharge Additional Instructions: The following information is given to patients seen in the emergency department who are being discharged to home. This information is to outline your options for follow-up care. We provide all patients seen in our emergency department with a follow-up referral. The need for follow-up, as well as the timing and circumstances, are variable depending upon the specifics of your emergency department visit. If you don't have a primary care physician on staff, we will provide you with a referral. We always advise you to contact your personal physician following an emergency department visit to inform them of the circumstance of the visit and for follow-up with them and/or the need for any referrals to a consulting specialist. The emergency department will also refer you to a specialist when appropriate. This referral assures that you have the opportunity for follow-up care with a specialist. All of these measure are taken in an effort to provide you with optimal care, which includes your follow-up. Under all circumstances we always encourage you to contact your private physician who remains a resource for coordinating your care. When calling for follow-up care, please make the office aware that this follow-up is from your recent emergency room visit. If for any reason you are refused follow-up, please contact the [facility] Emergency Department at and asked to speak to the emergency department charge nurse. [facility] [address] [place] [address] [place] [address] Thank you for choosing the [facility] emergency department in [place] for your medical needs today. It was a pleasure caring for you. Today you were seen in the emergency department for medication refill. 1. The medications you are taking for your chronic back pain are controlled and are monitored by the state. Your OxyContin prescription is not yet to be filled until February 20. If you have any concerns of this you need to talk to your primary care provider or see a pain specialist for further care and management. 2. When resting please lay on a flat firm surface. Limit your immobility to prevent muscle stiffness. Get up to ambulate/move around/gentle stretching multiple times throughout the day. May alternate heat and ice to the painful areas 3. Tylenol as needed for back pain. Diclofenac is an anti-inflammatory so do not take any additional NSAIDs with this medication, such as ibuprofen or Aleve. 4. Please follow-up with your primary care provider as we discussed. Return to the ED as needed and as discussed. Sepsis Event Note (ED) - Evaluation Sepsis Screening Result: No Definite Risk - Focused Exam Vital Signs: Vital Signs Temp Pulse Resp BP Pulse Ox 03/16/20 13:17 96.6 F L 102 H 18 132/103 H 98
[2020-03-16] MEDS ORDERED: Ketorolac 60 MG/2 ML SDV IM ONE (13:51)
[2020-03-16] MEDS ORDERED: diphenhydrAMINE 50 MG/ML SDV IM ONE (14:13)
== END 2020-03-16 14:54 | disposition home or self-care (01) ==
LOC: MW.ED 13:03
DX: Z76.0 Encounter for issue of repeat prescription (principal); N40.0 Benign prostatic hyperplasia without lower urinary tract symptoms; F17.210 Nicotine dependence, cigarettes, uncomplicated; E11.42 Type 2 diabetes mellitus with diabetic polyneuropathy; E66.9 Obesity, unspecified; I10 Essential (primary) hypertension; Z68.41 Body mass index [BMI] 40.0-44.9, adult; Z79.82 Long term (current) use of aspirin; Z79.899 Other long term (current) drug therapy; Z79.84 Long term (current) use of oral hypoglycemic drugs
CPT/HCPCS: 96372; 99281; J1200; J1885

== ENCOUNTER 2020-03-22 15:21 | Emergency (ER) | payer MEDICARE, MEDICAID ==
[2020-03-22] MEDS ORDERED: Sodium Chloride 0.9% 2.5 ML Syringe FLUSH PRN (15:38)
[2020-03-22] MEDS ORDERED: Sodium Chloride 0.9% 10 ML Syringe FLUSH PRN (15:38)
[2020-03-22] MEDS ORDERED: Morphine 4 MG/ML Syringe IVPUSH ONE (15:38)
[2020-03-22] MEDS ORDERED: Sodium Chloride 0.9% 1,000 ML IV ONE (15:38)
[2020-03-22] MEDS ORDERED: Ketorolac 15 MG/ML SDV IVPUSH ONE (15:38)
--- NOTE | 2020-03-22 15:50 | EDM.PDOC ---
<Miles Salcedo - Last Filed: 03/22/20 21:05> ED HPI GENERAL MEDICAL PROBLEM - General Chief Complaint: Abdominal Pain Stated Complaint: ABDOMINAL PAIN RT SIDE BACK PAIN Time Seen by Provider: 03/22/20 15:26 - Related Data Allergies Allergy/AdvReac Type Severity Reaction Status Date / Time ketorolac Allergy Hives Verified 03/22/20 15:40 Home Meds: Home Meds metFORMIN [Glucophage] 850 mg PO BIDMEALS 09/29/19 [History] Aspirin 81 mg PO DAILY #30 tab.chew 09/30/19 [Rx] atorvaSTATin [Lipitor] 40 mg PO BEDTIME #30 tablet 09/30/19 [Rx] Dutasteride [Avodart] 0.5 mg PO DAILY #30 cap 10/01/19 [Rx] Tamsulosin HCl [Flomax] 0.4 mg PO BID #60 capsule 10/01/19 [Rx] Mag Hydrox/Aluminum Hyd/Simeth [Maalox Maximum Strength Susp] 1 ml PO DAILY PRN 11/04/19 [History] Gabapentin [Neurontin] 400 mg PO TID 14 Days #42 cap 02/17/20 [Rx] oxyCODONE ER [OxyCONTIN] 10 mg PO Q12H 7 Days #14 tab.er 02/17/20 [Rx] oxyCODONE HCl/Acetaminophen [Percocet 10-325 mg Tablet] 1 each PO Q6H PRN #4 tablet 03/22/20 [Rx] Course - Vital Signs Text/Narrative:: Patient continues to have pain. He points to the right costal margin in the mid to anterior axillary line. There is prominence of the costal margin there and he says since he fell a few weeks ago that is where his pain is. His chronic pain is in his back and left AKA stump. 8:58 PM the patient's ultrasound showed some sludge in the gallbladder but otherwise unremarkable except for fatty infiltration of the liver. This patient is a chronic pain patient. It is the beginning of the weekend. I give him a prescription for 4 double strength Percocets to take in the evening for the next 2 nights until he can talk to his pain management doctor and primary doctor on Wednesday. Departure - Departure Time of Disposition: 21:05 Disposition: Home, Self-Care 01 Condition: Good Clinical Impression: Abdominal pain - Discharge Information Prescriptions: oxyCODONE HCl/Acetaminophen [Percocet 10-325 mg Tablet] 1 each PO Q6H PRN #4 tablet PRN Reason: Pain Instructions: Abdominal Pain, Adult, [id number] Referrals: Thang Weiner [Primary Care Provider] - Forms: ED Department Discharge Additional Instructions: The following information is given to patients seen in the emergency department who are being discharged to home. This information is to outline your options for follow-up care. We provide all patients seen in our emergency department with a follow-up referral. The need for follow-up, as well as the timing and circumstances, are variable depending upon the specifics of your emergency department visit. If you don't have a primary care physician on staff, we will provide you with a referral. We always advise you to contact your personal physician following an emergency department visit to inform them of the circumstance of the visit and for follow-up with them and/or the need for any referrals to a consulting specialist. The emergency department will also refer you to a specialist when appropriate. This referral assures that you have the opportunity for follow-up care with a specialist. All of these measure are taken in an effort to provide you with optimal care, which includes your follow-up. Under all circumstances we always encourage you to contact your private physician who remains a resource for coordinating your care. When calling for follow-up care, please make the office aware that this follow-up is from your recent emergency room visit. If for any reason you are refused follow-up, please contact the [facility] Emergency Department at and asked to speak to the emergency department charge nurse. <Carmel Martines - Last Filed: 03/23/20 07:45> ED HPI GENERAL MEDICAL PROBLEM - General Source of Information: Reports: Patient - History of Present Illness INITIAL COMMENTS - FREE TEXT/NARRATIVE: History of present illness: 50-year-old male presenting with right flank and right upper quadrant pain, ongoing for the last 2 weeks and has been slowly worsening. Currently he saw his PCP 2 days ago who did a urine sample and today called him and told him there was blood in the urine they recommended he come to the ER to get a CT scan. Reports his pain is 10 out of 10. He does report he has had some feeling of need to pass stool when the pain becomes more severe. He also reports the pain on the right side is similar to the pain that he previously had on the left side when he had a nephrectomy for renal cell carcinoma. Review of systems: As per history of present illness and below otherwise all systems reviewed and negative. Past medical history: As per history of present illness and as reviewed below otherwise noncontributory. Diabetes, renal cell carcinoma Surgical history: As per history of present illness and as reviewed below otherwise noncontributory. Left leg amputation, left nephrectomy, hernia repair Social history: No reported history of drug or alcohol abuse. Daily tobacco smoker Family history: As per history of present illness and as reviewed below otherwise noncontributory. Physical exam: GEN: Mild distress due to pain, obese, otherwise generally well appearing HEENT: Atraumatic, normocephalic, mucous membranes moist, Neck: supple, nontender, trachea midline. Lungs: No respiratory distress. Heart: RRR Abdomen: Soft, tender to palpation right upper quadrant, right lower quadrant and right CVA, distended, no rebound or guarding Back: right CVA tenderness, no left CVA tenderness. Extremities: Left lower extremity amputation. Neurovascularly intact. Neuro: Awake, alert, oriented. Neuro Exam nonfocal. Skin: warm, dry, no lesions Diagnostics: Lab, EKG, UA, CT abdomen/pelvis, ultrasound right upper quadrant Therapeutics: Morphine, Dilaudid MDM: Impression: [] Plan: [] Definitive disposition and diagnosis as appropriate pending reevaluation and review of above. Abdominal Pain Score (Numeric/FACES): 10 Past Medical History HEENT History: Reports: Impaired Vision Cardiovascular History: Reports: Hypertension Respiratory History: Reports: None Gastrointestinal History: Reports: None Genitourinary History: Reports: BPH Other Genitourinary History: Renal CA, Left Kidney removed. Musculoskeletal History: Reports: Back Pain, Chronic Neurological History: Reports: Neuropathy, Diabetic, Neuropathy, Peripheral Psychiatric History: Reports: None Endocrine/Metabolic History: Reports: Diabetes, Type II, Obesity/BMI 30+ Insulin Pump Model and Rv Detailer: None Hematologic History: Reports: None Immunologic History: Reports: None Oncologic (Cancer) History: Reports: Renal Dermatologic History: Reports: Cellulitis - Infectious Disease History Infectious Disease History: Reports: None Other Infectious Disease History: MRSA - Past Surgical History Head Surgeries/Procedures: Reports: None HEENT Surgical History: Reports: None Cardiovascular Surgical History: Reports: None GI Surgical History: Reports: Hernia, Abdominal Male Surgical History: Reports: Nephrectomy Endocrine Surgical History: Reports: None Neurological Surgical History: Reports: None Musculoskeletal Surgical History: Reports: Amputation Other Musculoskeletal Surgeries/Procedures:: L BTK amputation Oncologic Surgical History: Reports: None Dermatological Surgical History: Reports: None Social & Family History - Family History Family Medical History: Noncontributory - Caffeine Use Caffeine Use: Reports: Tea ED ROS GENERAL - Review of Systems Review Of Systems: See Below (See HPI) ED EXAM, GI/ABD - Physical Exam Exam: See Below (See HPI) EKG INTERPRETATION EKG Interpretation Comments: EKG performed today at 4:06 PM, sinus tachycardia, rate 104, borderline intraventricular conduction delay with left axis deviation, QTC 490, no acute ischemia, no STEMI. Independently interpreted by me Course - Vital Signs Text/Narrative:: Patient with right-sided abdominal pain, right upper quadrant, right lower quadrant and right CVA. Outpatient labs showed hematuria. He did have mild hematuria here on lab work as well. CT scan shows intrarenal stones though no ureteral stones. Pain continued despite pain medications and therefore ultrasound was checked to evaluate the gallbladder as well. Bilirubin not elevated in serum or urine. However his glucose is elevated both in serum and urine. He is a diabetic and takes metformin twice daily. No ketones. Patient signed out to Dr. Salcedo pending ultrasound completion. Last Recorded V/S: Last Vital Signs Temp 98.4 F 03/22/20 15:50 Pulse 95 03/22/20 18:24 Resp 16 03/22/20 18:24 BP 119/84 03/22/20 18:24 Pulse Ox 98 03/22/20 18:24 - Orders/Labs/Meds Orders: Active Orders 24 hr Category Date Time Status Saline Lock Insert [OM.PC] Stat Oth 03/22/20 15:39 Ordered Labs: Laboratory Tests 03/22/20 03/22/20 03/22/20 Range/Units 16:12 16:12 16:30 WBC 7.63 (4.0-11.0) K/uL RBC 5.19 (4.50-5.90) M/uL Hgb 12.6 L (13.0-17.0) g/dL Hct 39.4 (38.0-50.0) % MCV 75.9 L (80.0-98.0) fL MCH 24.3 L (27.0-32.0) pg MCHC 32.0 (31.0-37.0) g/dL RDW Std Deviation 46.0 (28.0-62.0) fl RDW Coeff of Candy 17 H (11.0-15.0) % Plt Count 303 (150-400) K/uL MPV 9.60 (7.40-12.00) fL Neut % (Auto) 60.3 (48.0-80.0) % Lymph % (Auto) 25.0 (16.0-40.0) % Stanley % (Auto) 6.3 (0.0-15.0) % Eos % (Auto) 7.9 H (0.0-7.0) % Baso % (Auto) 0.5 (0.0-1.5) % Neut # (Auto) 4.6 (1.4-5.7) K/uL Lymph # (Auto) 1.9 (0.6-2.4) K/uL Stanley # (Auto) 0.5 (0.0-0.8) K/uL Eos # (Auto) 0.6 (0.0-0.7) K/uL Baso # (Auto) 0.0 (0.0-0.1) K/uL Nucleated RBC % 0.0 /100WBC Nucleated RBCs # 0 K/uL Sodium 132 L (136-148) mmol/L Potassium 4.2 (3.5-5.1) mmol/L Chloride 97 L (98-107) mmol/L Carbon Dioxide 22.2 (21.0-32.0) mmol/L BUN 10 (7.0-18.0) mg/dL Creatinine 1.2 (0.8-1.3) mg/dL Est Cr Clr Drug Dosing 67.20 mL/min Estimated GFR (MDRD) > 60.0 ml/min Glucose 428 H (74-106) mg/dL Calcium 8.7 (8.5-10.1) mg/dL Total Bilirubin 0.3 (0.2-1.0) mg/dL AST 25 (15-37) IU/L ALT 29 (14-63) IU/L Alkaline Phosphatase 124 H (46-116) U/L Total Protein 7.4 (6.4-8.2) g/dL Albumin 3.3 L (3.4-5.0) g/dL Globulin 4.1 H (2.6-4.0) g/dL Albumin/Globulin Ratio 0.8 L (0.9-1.6) Urine Color YELLOW Urine Appearance HAZY Urine pH 5.5 (5.0-8.0) Ur Specific Maxwell 1.020 (1.001-1.035) Urine Protein NEGATIVE (NEGATIVE) mg/dL Urine Glucose (UA) >=1000 (NEGATIVE) mg/dL Urine Ketones NEGATIVE (NEGATIVE) mg/dL Urine Occult Blood LARGE H (NEGATIVE) Urine Nitrite NEGATIVE (NEGATIVE) Urine Bilirubin NEGATIVE (NEGATIVE) Urine Urobilinogen 1.0 (<2.0) EU/dL Ur Leukocyte Esterase NEGATIVE (NEGATIVE) Urine RBC 10-15 (0-2/HPF) Urine WBC 0-2 (0-5/HPF) Ur Epithelial Cells RARE (NONE-FEW) Urine Bacteria RARE (NEGATIVE) Meds: Medications Discontinued Medications Generic Name Dose Route Start Last Admin Trade Name Freq PRN Reason Stop Dose Admin Hydromorphone HCl 1 mg 03/22/20 17:28 03/22/20 17:34 Dilaudid IVPUSH 03/22/20 17:29 1 mg ONETIME ONE Administration Hydromorphone HCl 0.5 mg 03/22/20 20:48 03/22/20 20:53 Dilaudid IVPUSH 03/22/20 20:49 0.5 mg ONETIME ONE Administration Sodium Chloride 1,000 mls @ 999 mls/hr 03/22/20 15:38 03/22/20 16:10 Normal Saline IV 03/22/20 16:38 999 mls/hr .Bolus ONE Administration Ketorolac Tromethamine 15 mg 03/22/20 15:38 03/22/20 16:11 Toradol IVPUSH 03/22/20 15:39 Not Given ONETIME ONE Morphine Sulfate 4 mg 03/22/20 15:38 03/22/20 16:10 Morphine IVPUSH 03/22/20 15:39 4 mg ONETIME ONE Administration Sodium Chloride 10 ml 03/22/20 15:38 03/22/20 16:11 Saline Flush FLUSH 10 ml ASDIRECTED PRN Administration Keep Vein Open Sodium Chloride 2.5 ml 03/22/20 15:38 03/22/20 16:11 Saline Flush FLUSH 2.5 ml ASDIRECTED PRN Administration Keep Vein Open - Re-Assessments/Exams Free Text/Narrative Re-Assessment/Exam: 03/22/20 17:29 Patient reports that he is still in moderate to severe pain after returning from the CT scan where he had to lay flat. The pain is now more located in the right upper quadrant. I did discuss the results of the CT scan, blood work and urinalysis with the patient. There are some stones in the kidney intrarenally though no ureteral stones and not clear if this is the etiology of his pain the likely the etiology of the hematuria. No UTI. Does have an elevated glucose level. I did discuss this with the patient. He reports he is taking metformin 850 mg twice daily and I discussed with the patient he will likely need to increase his dose and discuss with his primary care physician if he needs to be started on insulin if his glucose is still this high and he did take his metformin earlier today. As the pain is still moderate to severe and in the right upper quadrant I will order an ultrasound although his liver function tests and bilirubin levels were not elevated and CT scan showed no gallstones. - My Orders Last 24 Hours: My Active Orders 03/22/20 15:39 Saline Lock Insert [OM.PC] Stat - Assessment/Plan Last 24 Hours: My Active Orders 03/22/20 15:39 Saline Lock Insert [OM.PC] Stat
[2020-03-22 16:45] LABS: BLOOD UREA NITROGEN,BUN 10 mg/dL (7.0-18.0); CARBON DIOXIDE,CO2 22.2 mmol/L (21.0-32.0); CHLORIDE,CL 97 mmol/L (98-107); GLUCOSE RANDOM 428 mg/dL (74-106); POTASSIUM,K 4.2 mmol/L (3.5-5.1); SODIUM,NA 132 mmol/L (136-148)
--- NOTE | 2020-03-22 17:17 | CT ---
The abdomen and pelvis Technique: Multiple axial sections were obtained from above the dome of the diaphragm inferiorly through the pubic symphysis. Intravenous and oral contrast not utilized. Comparison: Prior CT abdomen and pelvis exam of 11/04/19. Findings: Visualized lung bases show nothing acute. Noncontrast appearance of the liver shows no discrete abnormality. Spleen appears within normal limits. Adrenal glands show no nodule. Pancreas shows no discrete abnormality. Gallbladder contains no calcified gallstones. Right kidney is visualized and show several nonobstructing calculi. No ureteral dilatation or ureteral stone is seen. Absent left kidney is noted. Aorta shows atherosclerotic calcification which continues into the iliac vessels. No aneurysm is seen. No retroperitoneal adenopathy or mesenteric abnormalities are seen. No pelvic mass or adenopathy is seen. Fat-containing bilateral inguinal hernias are noted. No free fluid or inflammatory change is appreciated. Appendix is seen and appears normal in size. Cecal diverticulum is seen without diverticulitis. Bone window settings were reviewed. Scoliosis and degenerative change is noted within the spine. No acute osseous abnormality is appreciated. Impression: 1. Findings as described above. 2. Nothing acute is appreciated on noncontrast CT study of the abdomen and pelvis. No etiology is seen for the patient's right flank pain or hematuria. Diagnostic code #2 This report was dictated in MDT
[2020-03-22] MEDS ORDERED: HYDROmorphone 1 MG/ML Syringe IVPUSH ONE ×2 (17:28→20:48)
--- NOTE | 2020-03-22 20:56 | US ---
Limited abdominal ultrasound: Multiple real-time images of the right upper abdomen were obtained. Note: This exam was not sent to me for interpretation by the scanning technologist, study needed to be retrieved directly from the hospital which resulted in delayed time for dictation. Comparison: Prior abdominal and pelvic CT study performed earlier on the same day (4:53 PM). Findings: Liver is slightly enlarged and appears echogenic most likely representing fatty infiltration. Gallbladder shows no calcified gallstones but shows evidence of sludge. No gallbladder wall thickening is seen. No biliary duct dilatation is seen. Right kidney shows no hydronephrosis or discrete mass. Right kidney has a length of 13.3 cm. Inferior acute vena cava, pancreas and aorta not well seen due to bowel gas. Impression: 1. Mild fatty infiltration within the liver with liver size being slightly prominent. 2. Sludge within the gallbladder with no gallstones. 3. Limited evaluation of the inferior vena cava, pancreas and aorta due to bowel gas. Diagnostic code #3 This report was dictated in MDT
== END 2020-03-22 21:27 | disposition home or self-care (01) ==
LOC: MW.ED 15:21
DX: R10.11 Right upper quadrant pain (principal); R10.31 Right lower quadrant pain; R31.9 Hematuria, unspecified; I10 Essential (primary) hypertension; E11.42 Type 2 diabetes mellitus with diabetic polyneuropathy; E66.9 Obesity, unspecified; Z88.6 Allergy status to analgesic agent; Z79.82 Long term (current) use of aspirin; Z79.84 Long term (current) use of oral hypoglycemic drugs; Z79.899 Other long term (current) drug therapy; Z68.41 Body mass index [BMI] 40.0-44.9, adult
CPT/HCPCS: 36415; 74176; 76705; 80053; 81001; 85025; 96361; 96374; 96375; 96376; 99284; J1170; J2270; J7030

== ENCOUNTER 2020-04-28 19:59 | Emergency (ER) | payer MEDICARE, MEDICAID, OTHER ==
--- NOTE | 2020-04-28 20:17 | EDM.PDOC ---
ED HPI GENERAL MEDICAL PROBLEM - General Chief Complaint: General Stated Complaint: COUGH, FEVER, STOMACH PAIN Time Seen by Provider: 04/28/20 20:01 Source of Information: Reports: Patient History Limitations: Reports: No Limitations - History of Present Illness INITIAL COMMENTS - FREE TEXT/NARRATIVE: HISTORY AND PHYSICAL: History of present illness: Patient is a 50-year-old male who is well-known to our emergency department who presents with complaints of cough, subjective fever and rib pain. Patient states he has had a cough and fever for the past 1 week. "I have been coughing so hard my ribs hurt". This morning he was trying to get out of his wheelchair when he fell from seated wheelchair height to the ground and his epigastric/left anterior lower chest hit his wheelchair, now has pain at the site. Increased pain with deep breathes and palpation. Denies hitting his head or having any LOC. Patient does have multiple chronic health problems: hypertension, renal cancer with (L) nephrectomy, neuropathy, type 2 diabetes, left below the knee amputation, and chronic pain. He does take gabapentin and OxyContin routinely for his pain, but states his OxyContin is not working for him today after hitting his chest this morning. Patient denies any headache, change in vision, syncope or near syncope. Denies any chest pain, back pain, shortness of breath or neck pain/stiffness. Denies any abdominal pain, nausea, vomiting, diarrhea, constipation or dysuria. Has not noted any blood in urine or stool. Patient has been eating and drinking appropriately. Review of systems: As per history of present illness and below otherwise all systems reviewed and negative. Past medical history: As per history of present illness and as reviewed below otherwise noncontribu tory. Surgical history: As per history of present illness and as reviewed below otherwise noncontributory. Social history: See social history for further information Family history: As per history of present illness and as reviewed below otherwise noncontributory. Physical exam: General: Well developed and well nourished. Alert and orientated x 3. Nontoxic in appearance and in no acute distress. Vital signs are stable and have been reviewed by me. Nursing notes were reviewed. HEENT: Atraumatic, normocephalic, pupils equal and reactive bilaterally, negative for conjunctival pallor or scleral icterus, mucous membranes moist, trachea midline. No drooling or trismus noted. No meningeal signs. No hot potato voice noted. Lungs: Slightly diminished to auscultation, breath sounds equal bilaterally, left sided anterior chest tenderness. Normal work of breathing, no accessory muscles used. Heart: S1S2, regular rate and rhythm without overt murmur Abdomen: Soft, nondistended, nontender. Negative for masses or hepatosplenomegaly. Negative for costovertebral tenderness. Pelvis: Stable nontender. C-spine/Back: No pinpoint vertebral tenderness upon palpation. No crepitus, step-offs or obvious deformities. (He has chronic back pain he reports -nothing new on today's assessment). Patient is ambulatory from wheelchair to chair without difficulty (has a left BKA - usually requires assistive devices - no changes). Denies any urinary or fecal incontinence. Denies any numbness, tingling or saddle paresthesia. No concerns of serious infection, fracture or cord compression, or cauda equina syndrome. Deep tendon reflexes brisk Skin: Intact, warm, dry. No lesions or rashes noted. Hematologic: No petechiae or purpra. Mucosa appropriate color and normal nail bed color and refill. Extremities: Atraumatic, moves all extremities per self without difficulty or deficits, negative for cords or calf pain of RLE. Neurovascular unremarkable. Neuro: Awake, alert, oriented. Cerebellum unremarkable. Motor and sensory unremarkable throughout. Exam nonfocal. Psychiatric: Mood and affect are appropriate. Normal thought process. Answering questions appropriately. Notes: Chest x-ray shows very small lung volumes are present with diffuse groundglass opacities and more confluent opacity in the right lung base. Findings may be due to perihilar and right basilar atelectasis. The radiologist recommends a repeat erect x-ray to exclude pulmonary edema. Patient's oxygen saturation is between 99 and 100% on room air. He has no edema to his right lower extremity. He denies any shortness of breath. EKG shows sinus rhythm rate of 84. Denies any history of congestive heart failure or ever having to take any form of diuretics in the past. COVID screening is negative. After speaking with the attending physician, I do not feel that repeat chest x-ray or adding a CT of his chest will change the plan of care. With the patient's physical examination being within normal limits and his vital signs in normal limits as well. We will treat with azithromycin for viral versus bacterial right lower lobe pneumonia. Patient's heart score is 3, low. I have spoken with the patient and discussed today's findings, in addition to providing specific details for plan of care. Reassessment at the time of disposition demonstrates that the patient is in no acute distress. The patient has remained stable throughout the entire ED visit and is without objective evidence for acute process requiring urgent intervention or hospitalization. The patient is stable for discharge, counseling was provided and we discussed in great detail signs and symptoms that would prompt them to return to the Emergency Department. Medication, follow up and supportive care measures were reviewed and discussed. Voices understanding and is agreeable to plan of care. Denies any further questions or concerns at this time. Diagnostics: CBC, CMP, EKG, CXR 2 view, COVID Therapeutics: Tramadol, Lidoderm patch, azithromycin Prescription: Azithromycin Impression: Viral vs bacterial pneumonia Rib injury from fall Plan: 1. Today your lab work is within normal limits. Your chest x-ray does show a possible right lower lobe pneumonia, azithromycin has been given to you while here and you can sisal picker the remaining 4 days for home. Your COVID-19 screening . 2. Take your home prescription pain medication as directed. 3. We encourage you to follow up with your primary care provider and/or recommended specialist in the next few days for re-evaluation and further care/management. If your symptoms should worsen, new symptoms develop or any of the signs and symptoms we discussed should arise please return to the emergency room or call 911 (if needed). Definitive disposition and diagnosis as appropriate pending reevaluation and review of above. Middleback Pain Score (Numeric/FACES): 9 - Related Data Allergies Allergy/AdvReac Type Severity Reaction Status Date / Time ketorolac Allergy Hives Verified 04/28/20 20:07 Home Meds: Home Meds metFORMIN [Glucophage] 850 mg PO BIDMEALS 09/29/19 [History] Aspirin 81 mg PO DAILY #30 tab.chew 09/30/19 [Rx] Dutasteride [Avodart] 0.5 mg PO DAILY #30 cap 10/01/19 [Rx] Tamsulosin HCl [Flomax] 0.4 mg PO BID #60 capsule 10/01/19 [Rx] Gabapentin [Neurontin] 400 mg PO TID 14 Days #42 cap 02/17/20 [Rx] oxyCODONE ER [OxyCONTIN] 10 mg PO Q12H 7 Days #14 tab.er 02/17/20 [Rx] lisinopriL [Lisinopril] 10 mg PO DAILY 04/28/20 [History] Past Medical History HEENT History: Reports: Impaired Vision Cardiovascular History: Reports: Hypertension Respiratory History: Reports: None Gastrointestinal History: Reports: None Genitourinary History: Reports: BPH Other Genitourinary History: Renal CA, Left Kidney removed. Musculoskeletal History: Reports: Back Pain, Chronic Neurological History: Reports: Neuropathy, Diabetic, Neuropathy, Peripheral Psychiatric History: Reports: None Endocrine/Metabolic History: Reports: Diabetes, Type II, Obesity/BMI 30+ Insulin Pump Model and Agent Broker: None Hematologic History: Reports: None Immunologic History: Reports: None Oncologic (Cancer) History: Reports: Renal Dermatologic History: Reports: Cellulitis - Infectious Disease History Infectious Disease History: Reports: None Other Infectious Disease History: MRSA - Past Surgical History Head Surgeries/Procedures: Reports: None HEENT Surgical History: Reports: None Cardiovascular Surgical History: Reports: None GI Surgical History: Reports: Hernia, Abdominal Male Surgical History: Reports: Nephrectomy Endocrine Surgical History: Reports: None Neurological Surgical History: Reports: None Musculoskeletal Surgical History: Reports: Amputation Other Musculoskeletal Surgeries/Procedures:: L BTK amputation Oncologic Surgical History: Reports: None Dermatological Surgical History: Reports: None Social & Family History - Family History Family Medical History: Noncontributory - Caffeine Use Caffeine Use: Reports: Tea ED ROS GENERAL - Review of Systems Review Of Systems: Comprehensive ROS is negative, except as noted in HPI. ED EXAM, GENERAL - Physical Exam Exam: See Below (See dictation) Course - Vital Signs Last Recorded V/S: Last Vital Signs Temp 98.7 F 04/28/20 20:10 Pulse 80 04/28/20 20:54 Resp 18 04/28/20 20:54 BP 118/95 H 04/28/20 20:54 Pulse Ox 100 04/28/20 20:54 - Orders/Labs/Meds Orders: Active Orders 24 hr Category Date Time Status EKG 12 Lead [EKG Documentation Completion] [RC] STAT Care 04/28/20 20:15 Active CORONAVIRUS COVID-19 PCR PHL Stat Lab 04/28/20 20:15 Received Labs: Laboratory Tests 04/28/20 04/28/20 04/28/20 Range/Units 20:50 20:50 20:50 WBC 7.48 (4.0-11.0) K/uL RBC 5.34 (4.50-5.90) M/uL Hgb 13.0 (13.0-17.0) g/dL Hct 40.7 (38.0-50.0) % MCV 76.2 L (80.0-98.0) fL MCH 24.3 L (27.0-32.0) pg MCHC 31.9 (31.0-37.0) g/dL RDW Std Deviation 50.0 (28.0-62.0) fl RDW Coeff of Candy 18 H (11.0-15.0) % Plt Count 344 (150-400) K/uL MPV 9.50 (7.40-12.00) fL Neut % (Auto) 71.0 (48.0-80.0) % Lymph % (Auto) 18.9 (16.0-40.0) % Granite % (Auto) 5.1 (0.0-15.0) % Eos % (Auto) 4.7 (0.0-7.0) % Baso % (Auto) 0.3 (0.0-1.5) % Neut # (Auto) 5.3 (1.4-5.7) K/uL Lymph # (Auto) 1.4 (0.6-2.4) K/uL Granite # (Auto) 0.4 (0.0-0.8) K/uL Eos # (Auto) 0.4 (0.0-0.7) K/uL Baso # (Auto) 0.0 (0.0-0.1) K/uL Nucleated RBC % 0.0 /100WBC Nucleated RBCs # 0 K/uL Sodium 134 L (136-148) mmol/L Potassium 3.8 (3.5-5.1) mmol/L Chloride 99 (98-107) mmol/L Carbon Dioxide 24.1 (21.0-32.0) mmol/L BUN 4 L (7.0-18.0) mg/dL Creatinine 1.0 (0.8-1.3) mg/dL Est Cr Clr Drug Dosing 80.64 mL/min Estimated GFR (MDRD) > 60.0 ml/min Glucose 342 H (74-106) mg/dL Calcium 8.5 (8.5-10.1) mg/dL Total Bilirubin 0.4 (0.2-1.0) mg/dL AST 25 (15-37) IU/L ALT 18 (14-63) IU/L Alkaline Phosphatase 128 H (46-116) U/L Troponin I < 0.050 (0.000-0.056) ng/mL Total Protein 7.3 (6.4-8.2) g/dL Albumin 2.9 L (3.4-5.0) g/dL Globulin 4.4 H (2.6-4.0) g/dL Albumin/Globulin Ratio 0.7 L (0.9-1.6) SARS CoV-2 RNA Rapid ISABEL NEGATIVE (NEGATIVE) Meds: Medications Discontinued Medications Generic Name Dose Route Start Last Admin Trade Name Freq PRN Reason Stop Dose Admin Azithromycin 500 mg 04/28/20 21:32 Zithromax PO 04/28/20 21:33 NOW STA Lidocaine 700 mg 04/28/20 21:37 Lidoderm 5% TOP 04/28/20 21:38 ONETIME ONE Tramadol HCl 50 mg 04/28/20 20:51 04/28/20 20:58 Ultram PO 04/28/20 20:52 50 mg ONETIME ONE Administration Departure - Departure Time of Disposition: 21:43 Disposition: Home, Self-Care 01 Clinical Impression: Rib contusion Qualifiers: Encounter type: initial encounter Laterality: unspecified laterality Qualified Code(s): S20.219A - Contusion of unspecified front wall of thorax, initial encounter Pneumonia Qualifiers: Pneumonia type: due to unspecified organism Laterality: right Lung location: lower lobe of lung Qualified Code(s): J18.9 - Pneumonia, unspecified organism - Discharge Information Instructions: Contusion, [id number] Referrals: PCP,Not In Area [Primary Care Provider] - Forms: ED Department Discharge Additional Instructions: The following information is given to patients seen in the emergency department who are being discharged to home. This information is to outline your options for follow-up care. We provide all patients seen in our emergency department with a follow-up referral. The need for follow-up, as well as the timing and circumstances, are variable depending upon the specifics of your emergency department visit. If you don't have a primary care physician on staff, we will provide you with a referral. We always advise you to contact your personal physician following an emergency department visit to inform them of the circumstance of the visit and for follow-up with them and/or the need for any referrals to a consulting specialist. The emergency department will also refer you to a specialist when appropriate. This referral assures that you have the opportunity for follow-up care with a specialist. All of these measure are taken in an effort to provide you with optimal care, which includes your follow-up. Under all circumstances we always encourage you to contact your private physician who remains a resource for coordinating your care. When calling for follow-up care, please make the office aware that this follow-up is from your recent emergency room visit. If for any reason you are refused follow-up, please contact the [facility] Emergency Department at and asked to speak to the emergency department charge nurse. [facility] [address] [place] [id number] [place] [address] Thank you for choosing the [facility] emergency department in [place] for your medical needs today. It was a pleasure caring for you. Today you were seen in the emergency department for rib injury and cough. 1. Today your lab work is within normal limits. Your chest x-ray does show a possible right lower lobe pneumonia, azithromycin has been given to you while here and you can sisal picker the remaining 4 days for home. Your COVID-19 screening . 2. Take your home prescription pain medication as directed. 3. We encourage you to follow up with your primary care provider and/or recommended specialist in the next few days for re-evaluation and further care/management. If your symptoms should worsen, new symptoms develop or any of the signs and symptoms we discussed should arise please return to the emergency room or call 911 (if needed). Sepsis Event Note (ED) - Focused Exam Vital Signs: Vital Signs Temp Pulse Resp BP Pulse Ox 04/28/20 20:54 80 18 118/95 H 100 04/28/20 20:10 98.7 F 87 20 139/93 H 98 - My Orders Last 24 Hours: My Active Orders 04/28/20 20:15 EKG 12 Lead [EKG Documentation Completion] [RC] STAT CORONAVIRUS COVID-19 PCR PHL Stat - Assessment/Plan Last 24 Hours: My Active Orders 04/28/20 20:15 EKG 12 Lead [EKG Documentation Completion] [RC] STAT CORONAVIRUS COVID-19 PCR PHL Stat
--- NOTE | 2020-04-28 20:42 | CR ---
INDICATION: Cough, hit chest on wheelchair TECHNIQUE: Chest radiograph 2 views COMPARISON: 02/16/2020 FINDINGS: Severe degradation of image quality noted due to body habitus. Mediastinum: The cardiac silhouette and mediastinum are unremarkable. Lungs: Very small lung volumes are present with diffuse ground-glass opacities and more confluent opacity in the right lung base. IMPRESSION: 1. Very small lung volumes are present with diffuse ground-glass opacities and more confluent opacity in the right lung base. Findings may be due to perihilar and right basilar atelectasis. Repeat erect radiograph may be helpful to exclude pulmonary edema. Dictated by Herson Martinez MD @ 04/28/2020 8:40:15 PM Dictated by: Herson Martinez MD @ 04/28/2020 20:41:13 (Electronically Signed)
--- NOTE | 2020-04-28 20:49 | PCM.SN.2 ---
#1 Interpretation EKG Date: 04/28/20 Time: 20:34 Rhythm: NSR Rate (Beats/Min): 84 [place]: LAD-Left [place] Deviation P-Wave: Present QRS: Normal ST-T: Normal QT: Normal Comparison: No Change (compared to 03/22/2020) EKG Interpretation Comments: Sinus Rhythm with inferior and anterior Q waves unchanged from prior EKG
[2020-04-28] MEDS ORDERED: traMADol 50 MG Tab PO ONE (20:51)
[2020-04-28 21:24] LABS: BLOOD UREA NITROGEN,BUN 4 mg/dL (7.0-18.0); CARBON DIOXIDE,CO2 24.1 mmol/L (21.0-32.0); CHLORIDE,CL 99 mmol/L (98-107); GLUCOSE RANDOM 342 mg/dL (74-106); POTASSIUM,K 3.8 mmol/L (3.5-5.1); SODIUM,NA 134 mmol/L (136-148)
[2020-04-28] MEDS ORDERED: Azithromycin 250 MG Tab PO STA (21:32)
[2020-04-28] MEDS ORDERED: Lidocaine 5% 700 MG Patch TOP ONE (21:37)
== END 2020-04-28 22:15 | disposition home or self-care (01) ==
LOC: MW.ED 19:59
DX: S20.212A Contusion of left front wall of thorax, initial encounter (principal); J18.9 Pneumonia, unspecified organism; I10 Essential (primary) hypertension; E11.42 Type 2 diabetes mellitus with diabetic polyneuropathy; E66.9 Obesity, unspecified; N40.0 Benign prostatic hyperplasia without lower urinary tract symptoms; Z90.5 Acquired absence of kidney; Z79.82 Long term (current) use of aspirin; Z79.899 Other long term (current) drug therapy; Z79.84 Long term (current) use of oral hypoglycemic drugs; Z20.828 Contact with and (suspected) exposure to other viral communicable diseases; Z88.6 Allergy status to analgesic agent; Z68.39 Body mass index [BMI] 39.0-39.9, adult; W05.0XXA Fall from non-moving wheelchair, initial encounter
CPT/HCPCS: 36415; 71046; 80053; 84484; 85025; 93005; 99284; A9270; U0002; 93010

== ENCOUNTER 2020-05-24 17:23 | Emergency (ER) | payer MEDICARE, MEDICAID ==
[2020-05-24] MEDS ORDERED: Sulfamethoxazole/Trimethoprim 800-160 MG Tab PO ONE (17:55)
[2020-05-24] MEDS ORDERED: Acetaminophen/HYDROcodone 325-5 MG Tab PO ONE ×2 (18:00→19:13)
--- NOTE | 2020-05-24 18:00 | EDM.PDOC ---
ED HPI GENERAL MEDICAL PROBLEM - General Chief Complaint: Skin Complaint Stated Complaint: BLEEDING ON THE NECK Time Seen by Provider: 05/24/20 17:24 Source of Information: Reports: Patient History Limitations: Reports: No Limitations - History of Present Illness INITIAL COMMENTS - FREE TEXT/NARRATIVE: HISTORY AND PHYSICAL: History of present illness: Patient is a 50-year-old male who presents to the emergency room with complaints of drainage from a boil that he had I&D done on 05/21/2020. States the general surgeon, Dr Zayas looked at the site and an I&D was done at the bedside. He is concerned as it "has not stopped bleeding". He did call the clinic office today informing them of his concerns and the encouraged him to come to the emergency room as they felt he needed to be placed on Bactrim DS. He is also concerned as he is out of his OxyContin for pain, would like pain medication refill. Patient denies any fever, chills, headache, change in vision, syncope or near syncope. Denies any chest pain, back pain, shortness of breath or cough. Denies any abdominal pain, nausea, vomiting, diarrhea, constipation or dysuria. Has not noted any blood in urine or stool. Patient has been eating and drinking appropriately. Past medical history of left below knee amputation, hypertension, type 2 diabetes and chronic pain. Review of systems: As per history of present illness and below otherwise all systems reviewed and negative. Past medical history: As per history of present illness and as reviewed below otherwise noncontributory. Surgical history: As per history of present illness and as reviewed below otherwise noncontributory. Social history: See social history for further information Family history: As per history of present illness and as reviewed below otherwise noncontributory. Physical exam: General: Well developed and well nourished. Alert and orientated x 3. Nontoxic in appearance and in no acute distress. Vital signs are stable and have been reviewed by me. Nursing notes were reviewed. HEENT: Atraumatic, normocephalic, pupils equal and reactive bilaterally, negative for conjunctival pallor or scleral icterus, mucous membranes moist, TMs normal bilaterally, throat clear, neck supple, nontender, trachea midline. No drooling or trismus noted. No meningeal signs. No hot potato voice noted. Lungs: Clear to auscultation, breath sounds equal bilaterally, chest nontender. Normal work of breathing, no accessory muscles used. Heart: S1S2, regular rate and rhythm without overt murmur Abdomen: Soft, nondistended, nontender. Skin: Quarter sized area to posterior neck that was previously drained. Now is firm to touch with mild erythema around its border. Noted a small amount of purulent/serosanguineous drainage noted on the 4 x 4. Remaining skin is intact, warm, dry. No lesions or rashes noted. Hematologic: No petechiae or purpra. Mucosa appropriate color and normal nail bed color and refill. Extremities: Atraumatic, moves all extremities per self without difficulty or deficits, negative for cords or calf pain. Longstanding history of below the knee amputation, left. Neurovascular unremarkable. Neuro: Awake, alert, oriented. Cranial nerves II through XII unremarkable. Cerebellum unremarkable. Motor and sensory unremarkable throughout. Exam nonfocal. Psychiatric: Mood and affect are appropriate. Normal thought process. Answering questions appropriately. Notes: Patient states he has not changed the dressing on the back of his neck in several hours, upon removing the dressing there is only a small amount of puru lent/serosanguineous drainage noted on the 4 x 4. The site does not appear to be able to be drained any further. We will do some basic lab work at this time. CMP shows the patient is slightly dehydrated, spoke with the patient about increasing his fluids. We will give him some IV fluids as his lactate slightly elevated. He states he needs OxyContin for his pain, had previously given him Branscomb. With his chronic pain medication I am not comfortable adding an additional OxyContin on top of what he is already received. He is very disgruntled about not receiving his OxyContin and states he is now having pain to where he previously had a port site in his left upper chest, just below his clavicle. I have ordered a chest x-ray and EKG which are unremarkable. He does have a follow-up with his primary care provider for reevaluation of his I&D site and refill of his Oxycotin on Wednesday. Will start on Bactrim DS as I feel this is appropriate, and was recommended by his primary care provider - patient statement. I have talked with the patient about today's findings, in addition to providing specific details for plan of care. Reassessment at the time of disposition demonstrates that the patient is in no acute distress. The patient is stable for discharge, counseling was provided and we discussed in great detail signs and symptoms that would prompt them to return to the Emergen cy Department. Medication, follow up and supportive care measures were reviewed and discussed. Voices understanding and is agreeable to plan of care. Denies any further questions or concerns at this time. Diagnostics: CBC, CMP, lactate Therapeutics: Bactrim DS, Branscomb Prescription: Bactrim DS, Percocet (#15) Impression: Infected Wound Dehydration Encounter for pain management Plan: 1. Today your lab work shows you are slightly dehydration. Increase your fluids at home. Take your antibiotic as directed. Otherwise your lab work is normal. The drainage on your dressing is within normal limits. 2. Gently wash the wound with mild soap and water, dressing changes as directed. 3. We encourage you to follow up with your primary care provider and/or recommended specialist in the next few days for re-evaluation and further care/management. If your symptoms should worsen, new symptoms develop or any of the signs and symptoms we discussed should arise please return to the emergency room or call 911 (if needed). Definitive disposition and diagnosis as appropriate pending reevaluation and review of above. Duration: Day(s): Location: Reports: Neck neck Pain Score (Numeric/FACES): 8 - Related Data Allergies Allergy/AdvReac Type Severity Reaction Status Date / Time ketorolac Allergy Hives Verified 05/24/20 17:50 Home Meds: Home Meds metFORMIN [Glucophage] 850 mg PO BIDMEALS 09/29/19 [History] Aspirin 81 mg PO DAILY #30 tab.chew 09/30/19 [Rx] Tamsulosin HCl [Flomax] 0.4 mg PO BID #60 capsule 10/01/19 [Rx] Gabapentin [Neurontin] 400 mg PO TID 14 Days #42 cap 02/17/20 [Rx] lisinopriL [Lisinopril] 10 mg PO DAILY 04/28/20 [History] Acetaminophen/oxyCODONE [Percocet 325-5 MG] 1 each PO TID #15 tab 05/24/20 [Rx] Sulfamethoxazole/Trimethoprim [Bactrim Ds Tablet] 1 each PO BID 7 Days #14 tablet 05/24/20 [Rx] Past Medical History HEENT History: Reports: Impaired Vision Cardiovascular History: Reports: Hypertension Respiratory History: Reports: None Gastrointestinal History: Reports: None Genitourinary History: Reports: BPH Other Genitourinary History: Renal CA, Left Kidney removed. 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 Maintenance: None Hematologic History: Reports: None Immunologic History: Reports: None Oncologic (Cancer) History: Reports: Renal Dermatologic History: Reports: Cellulitis - Infectious Disease History Infectious Disease History: Reports: None Other Infectious Disease History: MRSA - Past Surgical History Head Surgeries/Procedures: Reports: None HEENT Surgical History: Reports: None Cardiovascular Surgical History: Reports: None Respiratory Surgical History: Reports: None GI Surgical History: Reports: Hernia, Abdominal Male Surgical History: Reports: Nephrectomy Endocrine Surgical History: Reports: None Neurological Surgical History: Reports: None Musculoskeletal Surgical History: Reports: Amputation Other Musculoskeletal Surgeries/Procedures:: L BTK amputation Oncologic Surgical History: Reports: None Dermatological Surgical History: Reports: None Social & Family History - Family History Family Medical History: No Pertinent Family History - Tobacco Use Tobacco Use Status *Q: Current Every Day Tobacco User Years of Tobacco use: 25 Packs/Tins Daily: 0.1 - Caffeine Use Caffeine Use: Reports: Tea - Recreational Drug Use Recreational Drug Use: No ED ROS GENERAL - Review of Systems Review Of Systems: Comprehensive ROS is negative, except as noted in HPI. ED EXAM, SKIN/RASH Exam: See Below (See dictation) Course - Vital Signs Last Recorded V/S: Last Vital Signs Temp 98.8 F 05/24/20 17:53 Pulse 83 05/24/20 20:35 Resp 18 05/24/20 20:35 BP 134/82 05/24/20 20:35 Pulse Ox 99 05/24/20 20:35 - Orders/Labs/Meds Orders: Active Orders 24 hr Category Date Time Status EKG Documentation Completion [RC] STAT Care 05/24/20 19:32 Active LACTATE WITH REFLEX [BG] Stat Lab 05/24/20 21:03 Received Acetaminophen/oxyCODONE [Percocet 325-10 MG] Med 05/24/20 21:24 Once 1 tab PO ONETIME ONE Labs: Laboratory Tests 05/24/20 05/24/20 05/24/20 Range/Units 18:10 18:10 18:10 WBC 9.49 (4.0-11.0) K/uL RBC 5.05 (4.50-5.90) M/uL Hgb 12.4 L (13.0-17.0) g/dL Hct 39.2 (38.0-50.0) % MCV 77.6 L (80.0-98.0) fL MCH 24.6 L (27.0-32.0) pg MCHC 31.6 (31.0-37.0) g/dL RDW Std Deviation 51.8 (28.0-62.0) fl RDW Coeff of Candy 18 H (11.0-15.0) % Plt Count 381 (150-400) K/uL MPV 9.40 (7.40-12.00) fL Neut % (Auto) 68.4 (48.0-80.0) % Lymph % (Auto) 20.1 (16.0-40.0) % Leslie % (Auto) 6.1 (0.0-15.0) % Eos % (Auto) 5.1 (0.0-7.0) % Baso % (Auto) 0.3 (0.0-1.5) % Neut # (Auto) 6.5 H (1.4-5.7) K/uL Lymph # (Auto) 1.9 (0.6-2.4) K/uL Leslie # (Auto) 0.6 (0.0-0.8) K/uL Eos # (Auto) 0.5 (0.0-0.7) K/uL Baso # (Auto) 0.0 (0.0-0.1) K/uL Nucleated RBC % 0.0 /100WBC Nucleated RBCs # 0 K/uL Lactate 2.8 H* (0.20-2.00) mmol/L Sodium 125 L (136-148) mmol/L Potassium 3.1 L (3.5-5.1) mmol/L Chloride 95 L (98-107) mmol/L Carbon Dioxide 23.8 (21.0-32.0) mmol/L BUN 4 L (7.0-18.0) mg/dL Creatinine 0.9 (0.8-1.3) mg/dL Est Cr Clr Drug Dosing 89.60 mL/min Estimated GFR (MDRD) > 60.0 ml/min Glucose 324 H (74-106) mg/dL Calcium 8.4 L (8.5-10.1) mg/dL Total Bilirubin 0.3 (0.2-1.0) mg/dL AST 12 L (15-37) IU/L ALT 12 L (14-63) IU/L Alkaline Phosphatase 109 (46-116) U/L Total Protein 7.3 (6.4-8.2) g/dL Albumin 3.0 L (3.4-5.0) g/dL Globulin 4.3 H (2.6-4.0) g/dL Albumin/Globulin Ratio 0.7 L (0.9-1.6) Meds: Medications Discontinued Medications Generic Name Dose Route Start Last Admin Trade Name Freq PRN Reason Stop Dose Admin Hydrocodone Bitart/Acetaminophen 1 tab 05/24/20 18:00 05/24/20 18:29 Branscomb 325-5 Mg PO 05/24/20 18:01 1 tab ONETIME ONE Administration Hydrocodone Bitart/Acetaminophen 1 tab 05/24/20 19:13 05/24/20 19:27 Branscomb 325-5 Mg PO 05/24/20 19:14 1 tab ONETIME ONE Administration Sodium Chloride 1,000 mls @ 999 mls/hr 05/24/20 19:51 05/24/20 20:19 Normal Saline IV 05/24/20 20:51 999 mls/hr STAT ONE Administration Sodium Chloride 1,000 mls @ 999 mls/hr 05/24/20 19:52 Normal Saline IV 05/24/20 20:52 STAT ONE Trimethoprim/Sulfamethoxazole 1 tab 05/24/20 17:55 05/24/20 18:29 Septra Ds PO 05/24/20 17:56 1 tab ONETIME ONE Administration Departure - Departure Time of Disposition: 19:02 Disposition: Home, Self-Care 01 Clinical Impression: Infected wound, Dehydration, Encounter for pain management - Discharge Information Prescriptions: Sulfamethoxazole/Trimethoprim [Bactrim Ds Tablet] 1 each PO BID 7 Days #14 tablet Acetaminophen/oxyCODONE [Percocet 325-5 MG] 1 each PO TID #15 tab Instructions: Cellulitis, Adult, [id number] Referrals: PCP,None [Primary Care Provider] - Forms: ED Department Discharge Additional Instructions: The following information is given to patients seen in the emergency department who are being discharged to home. This information is to outline your options for follow-up care. We provide all patients seen in our emergency department with a follow-up referral. The need for follow-up, as well as the timing and circumstances, are variable depending upon the specifics of your emergency department visit. If you don't have a primary care physician on staff, we will provide you with a referral. We always advise you to contact your personal physician following an emergency department visit to inform them of the circumstance of the visit and for follow-up with them and/or the need for any referrals to a consulting specialist. The emergency department will also refer you to a specialist when appropriate. This referral assures that you have the opportunity for follow-up care with a specialist. All of these measure are taken in an effort to provide you with optimal care, which includes your follow-up. Under all circumstances we always encourage you to contact your private physician who remains a resource for coordinating your care. When calling for follow-up care, please make the office aware that this follow-up is from your recent emergency room visit. If for any reason you are refused follow-up, please contact the [facility] Emergency Department at and asked to speak to the emergency department charge nurse. [facility] [address] [place] [id number] [address] [address] Thank you for choosing the [facility] emergency department in [place] for your medical needs today. It was a pleasure caring for you. Today you were seen in the emergency department for evaluation of wound. 1. Today your lab work shows you are slightly dehydration. Increase your fluids at home. Take your antibiotic as directed. Otherwise your lab work is normal. The drainage on your dressing is within normal limits. 2. Gently wash the wound with mild soap and water, dressing changes as directed. 3. We encourage you to follow up with your primary care provider and/or recommended specialist in the next few days for re-evaluation and further care/management. If your symptoms should worsen, new symptoms develop or any of the signs and symptoms we discussed should arise please return to the emergency room or call 911 (if needed). Sepsis Event Note (ED) - Evaluation Sepsis Screening Result: No Definite Risk - Focused Exam Vital Signs: Vital Signs Temp Pulse Resp BP Pulse Ox 05/24/20 20:35 83 18 134/82 99 05/24/20 19:07 96 18 126/80 96 05/24/20 18:32 105 H 20 139/89 100 05/24/20 17:53 98.8 F 100 16 133/103 H 98 - My Orders Last 24 Hours: My Active Orders 05/24/20 19:32 EKG Documentation Completion [RC] STAT 05/24/20 21:03 LACTATE WITH REFLEX [BG] Stat 05/24/20 21:24 Acetaminophen/oxyCODONE [Percocet 325-10 MG] 1 tab PO ONETIME ONE - Assessment/Plan Last 24 Hours: My Active Orders 05/24/20 19:32 EKG Documentation Completion [RC] STAT 05/24/20 21:03 LACTATE WITH REFLEX [BG] Stat 05/24/20 21:24 Acetaminophen/oxyCODONE [Percocet 325-10 MG] 1 tab PO ONETIME ONE
[2020-05-24 18:39] LABS: BLOOD UREA NITROGEN,BUN 4 mg/dL (7.0-18.0); CARBON DIOXIDE,CO2 23.8 mmol/L (21.0-32.0); CHLORIDE,CL 95 mmol/L (98-107); GLUCOSE RANDOM 324 mg/dL (74-106); POTASSIUM,K 3.1 mmol/L (3.5-5.1); SODIUM,NA 125 mmol/L (136-148)
[2020-05-24] MEDS ORDERED: Sodium Chloride 0.9% 1,000 ML IV ONE ×2 (19:51→19:52)
--- NOTE | 2020-05-24 19:51 | PCM.SN.2 ---
- Free Text/Narrative Note: EKG done 05/24/2020 at 745 for chest pain. Sinus rhythm heart rate 86 WV interval 182 and axis -28. QT 438. There R waves that are diminished in inferior and anterior leads raising the possibility of old infarct. This EKG is compared to 03/22/2020 and there is no change impression no acute injury
--- NOTE | 2020-05-24 19:56 | CR ---
Indication: Pain and shortness of breath Comparison: Single view chest February 16, 2020 Technique: Single AP view chest Findings: There is increased interstitial markings seen throughout the bilateral hemithoraces with questionable basilar atelectasis versus infiltrates. The cardiac silhouette is stably prominence. The bony thorax is grossly intact. Impression: Increased interstitial markings seen throughout the bilateral hemithoraces which may represent pulmonary vascular congestion with basilar atelectasis versus infiltrate. Dictated by Aniceto Braxton MD @ May 24 2020 7:54PM Signed by Dr. Aniceto Braxton @ May 24 2020 7:55PM
[2020-05-24] MEDS ORDERED: Acetaminophen/oxyCODONE 325-10 MG Tab PO ONE (21:24)
== END 2020-05-24 21:53 | disposition home or self-care (01) ==
LOC: MW.ED 17:23
DX: T81.49XA Infection following a procedure, other surgical site, initial encounter (principal); E86.0 Dehydration; I10 Essential (primary) hypertension; N40.0 Benign prostatic hyperplasia without lower urinary tract symptoms; E11.42 Type 2 diabetes mellitus with diabetic polyneuropathy; F17.210 Nicotine dependence, cigarettes, uncomplicated; E66.9 Obesity, unspecified; Z68.39 Body mass index [BMI] 39.0-39.9, adult; Z79.899 Other long term (current) drug therapy; Z88.5 Allergy status to narcotic agent; Z79.82 Long term (current) use of aspirin
CPT/HCPCS: 36415; 71045; 80053; 83605; 85025; 93005; 99284; A9270; J7030; 93010

== ENCOUNTER 2020-09-02 14:04 | Emergency (ER) | payer MEDICARE, MEDICAID ==
[2020-09-02] MEDS ORDERED: Morphine 4 MG/ML Syringe IVPUSH ONE (14:26)
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
[2020-09-02 15:24] LABS: BLOOD UREA NITROGEN,BUN 7 mg/dL (7.0-18.0); CARBON DIOXIDE,CO2 25.1 mmol/L (21.0-32.0); CHLORIDE,CL 97 mmol/L (98-107); GLUCOSE RANDOM 373 mg/dL (74-106); LIPASE 380 U/L (73-393); POTASSIUM,K 3.9 mmol/L (3.5-5.1); SODIUM,NA 134 mmol/L (136-148)
[2020-09-02] MEDS ORDERED: Iopamidol 755 MG/ML 500 ML Multipack Bottle IVPUSH STA (16:04)
--- NOTE | 2020-09-02 16:40 | CT ---
INDICATION: Abdominal pain TECHNIQUE: CT abdomen and pelvis acquired with 100 cc Isovue 370 IV contrast. COMPARISON: March 22, 2020 FINDINGS: Lower chest: Unremarkable. Liver: Hepatic steatosis. Spleen: Unremarkable. Pancreas: Unremarkable. Gallbladder and bile ducts: Unremarkable. Adrenal glands: Unremarkable. Kidneys: There is a solitary right kidney. GI tract: Unremarkable. Vascular structures: Unremarkable. Lymph nodes: Unremarkable. Miscellaneous: Unremarkable. No free air or significant free fluid. Pelvic Organs: Unremarkable. Bones: Mild levoscoliosis of the lumbar spine. IMPRESSION: Solitary right kidney. Hepatic steatosis. Please note that all CT scans at this facility use dose modulation, iterative reconstruction, and/or weight-based dosing when appropriate to reduce radiation dose to as low as reasonably achievable. Dictated by Harleen Camargo MD @ Sep 02 2020 4:26PM Signed by Dr. Harleen Camargo @ Sep 02 2020 4:40PM
[2020-09-02] MEDS ORDERED: 50% Dextrose in Water 50 ML Syringe IV PRN (16:55)
[2020-09-02] MEDS ORDERED: Gabapentin 100 MG Cap PO ONE (16:55)
[2020-09-02] MEDS ORDERED: Glucagon,Human Recombinant 1 MG Vial IM PRN (16:55)
[2020-09-02] MEDS ORDERED: Insulin Regular, Human 100 Units/ML 10 ML Vial SUBCUT ONE (16:55)
== END 2020-09-02 17:39 | disposition home or self-care (01) ==
LOC: MW.ED 14:04
DX: R10.84 Generalized abdominal pain (principal); I10 Essential (primary) hypertension; N40.0 Benign prostatic hyperplasia without lower urinary tract symptoms; E11.42 Type 2 diabetes mellitus with diabetic polyneuropathy; E66.9 Obesity, unspecified; Z68.38 Body mass index [BMI] 38.0-38.9, adult; Z88.8 Allergy status to other drugs, medicaments and biological substances; Z79.82 Long term (current) use of aspirin; Z79.899 Other long term (current) drug therapy
CPT/HCPCS: 36415; 74177; 80053; 81001; 82550; 82962; 83690; 83735; 84100; 84484; 85025; 85730; 96374; 99284; A9270; J2270; Q9967; 99283; J1815-GY

== ENCOUNTER 2020-09-06 17:26 | Emergency (ER) | payer MEDICARE, MEDICAID ==
--- NOTE | 2020-09-06 18:03 | EDM.PDOC ---
ED HPI GENERAL MEDICAL PROBLEM - General Chief Complaint: Genitourinary Problem Stated Complaint: SICK Time Seen by Provider: 09/06/20 17:35 Source of Information: Reports: Patient History Limitations: Reports: No Limitations - History of Present Illness INITIAL COMMENTS - FREE TEXT/NARRATIVE: Patient is a 50-year-old male who presents today for urinary retention. Patient went to his PMD office today and was sent here because he had a large bladder. Patient states he has not urinated since yesterday. Patient also reports not having bowel movements but was seen here few days ago for same complaint and CT scan was negative. Patient denies any fever chills nausea vomiting other complaints. Abdomen Pain Score (Numeric/FACES): 10 - Related Data Allergies Allergy/AdvReac Type Severity Reaction Status Date / Time ketorolac Allergy Hives Verified 09/06/20 17:45 Home Meds: Home Meds metFORMIN [Glucophage] 850 mg PO BIDMEALS 09/29/19 [History] Aspirin 81 mg PO DAILY #30 tab.chew 09/30/19 [Rx] Tamsulosin HCl [Flomax] 0.4 mg PO BID #60 capsule 10/01/19 [Rx] Gabapentin [Neurontin] 400 mg PO TID 14 Days #42 cap 02/17/20 [Rx] lisinopriL [Lisinopril] 10 mg PO DAILY 04/28/20 [History] Acetaminophen/oxyCODONE [Percocet 325-5 MG] 1 each PO TID #15 tab 05/24/20 [Rx] Acetaminophen/HYDROcodone [Alvin 325-5 MG] 1 tab PO Q4H PRN 3 Days #12 tablet 09/02/20 [Rx] Past Medical History HEENT History: Reports: Impaired Vision Cardiovascular History: Reports: Hypertension Respiratory History: Reports: None Gastrointestinal History: Reports: None Genitourinary History: Reports: BPH Other Genitourinary History: Renal CA, Left Kidney removed. Musculoskeletal History: Reports: Back Pain, Chronic Neurological History: Reports: Neuropathy, Diabetic, Neuropathy, Peripheral Psychiatric History: Reports: None Endocrine/Metabolic History: Reports: Diabetes, Type II, Obesity/BMI 30+ Insulin Pump Model and Bankruptcy Judge: None Hematologic History: Reports: None Immunologic History: Reports: None Oncologic (Cancer) History: Reports: Renal Dermatologic History: Reports: Cellulitis - Infectious Disease History Infectious Disease History: Reports: None, MRSA Other Infectious Disease History: MRSA - Past Surgical History Head Surgeries/Procedures: Reports: None HEENT Surgical History: Reports: None Cardiovascular Surgical History: Reports: None Respiratory Surgical History: Reports: None GI Surgical History: Reports: Hernia, Abdominal Male Surgical History: Reports: Nephrectomy Endocrine Surgical History: Reports: None Neurological Surgical History: Reports: None Musculoskeletal Surgical History: Reports: Amputation Other Musculoskeletal Surgeries/Procedures:: L BTK amputation Oncologic Surgical History: Reports: None Dermatological Surgical History: Reports: None Social & Family History - Family History Family Medical History: No Pertinent Family History - Tobacco Use Tobacco Use Status *Q: Current Every Day Tobacco User Years of Tobacco use: 30 Packs/Tins Daily: 0.2 - Caffeine Use Caffeine Use: Reports: Coffee, Soda - Recreational Drug Use Recreational Drug Use: No ED ROS GENERAL - Review of Systems Review Of Systems: See Below Constitutional: Reports: No Symptoms HEENT: Reports: No Symptoms Respiratory: Reports: No Symptoms Cardiovascular: Reports: No Symptoms Endocrine: Reports: No Symptoms GI/Abdominal: Reports: Abdominal Pain : Reports: Incontinence Musculoskeletal: Reports: No Symptoms Skin: Reports: No Symptoms Neurological: Reports: No Symptoms Psychiatric: Reports: No Symptoms Hematologic/Lymphatic: Reports: No Symptoms Immunologic: Reports: No Symptoms ED EXAM, RENAL/ - Physical Exam Exam: See Below Exam Limited By: No Limitations General Appearance: Alert, WD/WN Respiratory/Chest: No Respiratory Distress, Lungs Clear Cardiovascular: Normal Peripheral Pulses, Regular Rate, Rhythm GI/Abdominal: Normal Bowel Sounds, Soft, Non-Tender Extremities: Other (bka) Neurological: Alert, Oriented Course - Vital Signs Last Recorded V/S: Last Vital Signs Temp 97.4 F 09/06/20 17:42 Pulse 122 H 09/06/20 17:42 Resp 20 09/06/20 17:42 BP 136/79 09/06/20 17:42 Pulse Ox 96 09/06/20 17:42 - Orders/Labs/Meds Orders: Active Orders 24 hr Category Date Time Status Casillas Catheter Insertion [Insert Urinary Catheter] [OM. Care 09/06/20 18:00 Ordered PC] Q24H Urinary Catheter Assessment [RC] ASDIRECTED Care 09/06/20 17:50 Active Labs: Laboratory Tests 09/06/20 09/06/20 09/06/20 Range/Units 17:55 18:00 18:00 WBC 8.83 (4.0-11.0) K/uL RBC 5.43 (4.50-5.90) M/uL Hgb 14.3 (13.0-17.0) g/dL Hct 44.0 (38.0-50.0) % MCV 81.0 (80.0-98.0) fL MCH 26.3 L (27.0-32.0) pg MCHC 32.5 (31.0-37.0) g/dL RDW Std Deviation 50.5 (28.0-62.0) fl RDW Coeff of Candy 17 H (11.0-15.0) % Plt Count 353 (150-400) K/uL MPV 9.90 (7.40-12.00) fL Neut % (Auto) 56.4 (48.0-80.0) % Lymph % (Auto) 32.7 (16.0-40.0) % [place] % (Auto) 6.5 (0.0-15.0) % Eos % (Auto) 3.9 (0.0-7.0) % Baso % (Auto) 0.5 (0.0-1.5) % Neut # (Auto) 5.0 (1.4-5.7) K/uL Lymph # (Auto) 2.9 H (0.6-2.4) K/uL [place] # (Auto) 0.6 (0.0-0.8) K/uL Eos # (Auto) 0.3 (0.0-0.7) K/uL Baso # (Auto) 0.0 (0.0-0.1) K/uL Nucleated RBC % 0.0 /100WBC Nucleated RBCs # 0 K/uL Sodium 132 L (136-148) mmol/L Potassium 4.1 (3.5-5.1) mmol/L Chloride 96 L (98-107) mmol/L Carbon Dioxide 25.3 (21.0-32.0) mmol/L BUN 8 (7.0-18.0) mg/dL Creatinine 1.0 (0.8-1.3) mg/dL Est Cr Clr Drug Dosing 80.64 mL/min Estimated GFR (MDRD) > 60.0 ml/min Glucose 394 H (74-106) mg/dL Calcium 9.0 (8.5-10.1) mg/dL Urine Color YELLOW Urine Appearance CLEAR Urine pH 7.0 (5.0-8.0) Ur Specific [place] 1.010 (1.001-1.035) Urine Protein TRACE H (NEGATIVE) mg/dL Urine Glucose (UA) >=1000 (NEGATIVE) mg/dL Urine Ketones NEGATIVE (NEGATIVE) mg/dL Urine Occult Blood NEGATIVE (NEGATIVE) Urine Nitrite NEGATIVE (NEGATIVE) Urine Bilirubin NEGATIVE (NEGATIVE) Urine Urobilinogen 1.0 (<2.0) EU/dL Ur Leukocyte Esterase NEGATIVE (NEGATIVE) Urine RBC 1-3 (0-2/HPF) Urine WBC 0-1 (0-5/HPF) Ur Epithelial Cells RARE (NONE-FEW) Urine Bacteria RARE (NEGATIVE) Meds: Medications Discontinued Medications Generic Name Dose Route Start Last Admin Trade Name Freq PRN Reason Stop Dose Admin Hydromorphone HCl 1 mg 09/06/20 18:08 09/06/20 18:16 Dilaudid IVPUSH 09/06/20 18:09 1 mg ONETIME ONE Administration - Re-Assessments/Exams Free Text/Narrative Re-Assessment/Exam: 09/06/20 18:26 Patient had a Casillas placed and less than 500 cc an hour. Will leave Casillas in and patient will see urology this Wednesday. Patient creatinine review is normal. Patient has an elevated glucose as he take his Metformin but not symptomatic patient will be discharged home. 09/06/20 18:28 Patient second visit. Patient initial CAT scan was negative. Patient PMD Dr. Juan states the patient had a large bladder here patient only had 500 cc of output in Casillas bag. Patient states his pain was still present even after the Casillas was placed and bladder decompressed. Patient was then given Dilaudid patient pain is improved. For the patient PMD patient PMD will and should provide the patient pain control and switch the patient next week. Departure - Departure Time of Disposition: 18:26 Disposition: Home, Self-Care 01 Condition: Good Clinical Impression: Urinary retention - Discharge Information *PRESCRIPTION DRUG MONITORING PROGRAM REVIEWED*: Not Applicable *COPY OF PRESCRIPTION DRUG MONITORING REPORT IN PATIENT JUDY: Not Applicable Instructions: Indwelling Urinary Catheter Care, Adult Referrals: Thang Weiner [Primary Care Provider] - Forms: ED Department Discharge Additional Instructions: The following information is given to patients seen in the emergency department who are being discharged to home. This information is to outline your options for follow-up care. We provide all patients seen in our emergency department with a follow-up referral. The need for follow-up, as well as the timing and circumstances, are variable depending upon the specifics of your emergency department visit. If you don't have a primary care physician on staff, we will provide you with a referral. We always advise you to contact your personal physician following an emergency department visit to inform them of the circumstance of the visit and for follow-up with them and/or the need for any referrals to a consulting specialist. The emergency department will also refer you to a specialist when appropriate. This referral assures that you have the opportunity for follow-up care with a specialist. All of these measure are taken in an effort to provide you with optimal care, which includes your follow-up. Under all circumstances we always encourage you to contact your private physician who remains a resource for coordinating your care. When calling for follow-up care, please make the office aware that this follow-up is from your recent emergency room visit. If for any reason you are refused follow-up, please contact the [facility] Emergency Department at and asked to speak to the emergency department charge nurse. Please follow up with your primary care physician. If you do not have a primary care physician, see below: [facility] [address] [place] [address] [id number] [address] [address] [facility] [address] [place] [id number] Please follow-up with urology next week. We will leave the Casillas in place. We will give instructions on how to deal with the leg bag. If you have any increased pain fever chills please call your primary care physician. Sepsis Event Note (ED) - Evaluation Sepsis Screening Result: No Definite Risk - Focused Exam Vital Signs: Vital Signs Temp Pulse Resp BP Pulse Ox 09/06/20 17:42 97.4 F 122 H 20 136/79 96 - My Orders Last 24 Hours: My Active Orders 09/06/20 17:50 Urinary Catheter Assessment [RC] ASDIRECTED 09/06/20 18:00 Casillas Catheter Insertion [Insert Urinary Catheter] [OM.PC] Q24H - Assessment/Plan Last 24 Hours: My Active Orders 09/06/20 17:50 Urinary Catheter Assessment [RC] ASDIRECTED 09/06/20 18:00 Casillas Catheter Insertion [Insert Urinary Catheter] [OM.PC] Q24H Plan: Patient is a 50-year-old male presents today for urinary retention. Patient has a bladder more than a liter. Will insert Casillas check creatinine and reassess.
[2020-09-06] MEDS ORDERED: HYDROmorphone 1 MG/ML Syringe IVPUSH ONE (18:08)
[2020-09-06 18:18] LABS: BLOOD UREA NITROGEN,BUN 8 mg/dL (7.0-18.0); CARBON DIOXIDE,CO2 25.3 mmol/L (21.0-32.0); CHLORIDE,CL 96 mmol/L (98-107); GLUCOSE RANDOM 394 mg/dL (74-106); POTASSIUM,K 4.1 mmol/L (3.5-5.1); SODIUM,NA 132 mmol/L (136-148)
== END 2020-09-06 19:12 | disposition home or self-care (01) ==
LOC: MW.ED 17:26
DX: N40.1 Benign prostatic hyperplasia with lower urinary tract symptoms (principal); R33.8 Other retention of urine; I10 Essential (primary) hypertension; E11.42 Type 2 diabetes mellitus with diabetic polyneuropathy; E66.9 Obesity, unspecified; Z68.41 Body mass index [BMI] 40.0-44.9, adult; Z79.82 Long term (current) use of aspirin; Z79.84 Long term (current) use of oral hypoglycemic drugs; Z72.0 Tobacco use
CPT/HCPCS: 36415; 51702; 80048; 81001; 85025; 96374; 99283; J1170

== ENCOUNTER 2020-10-28 16:44 | Emergency (ER) | payer MEDICARE, MEDICAID ==
[2020-10-28] MEDS ORDERED: Acetaminophen 500 MG Tab PO ONE (17:20)
[2020-10-28] MEDS ORDERED: Acetaminophen/oxyCODONE 325-5 MG Tab PO ONE (17:20)
--- NOTE | 2020-10-28 17:47 | PCM.EKG ---
#1 Interpretation EKG Date: 10/28/20 Time: 17:46 EKG Interpretation Comments: Sinus rhythm rate of 96 Q waves anteriorly could suggest old infarct but no acute ischemia isolated PVC intervals unremarkable.
--- NOTE | 2020-10-28 19:28 | CT ---
Indication: Fall, injury Technique: Nonenhanced axial CT imaging through the thoracic spine. Sagittal and coronal reconstructions are provided. Comparison: CT thoracic spine without contrast at 7:20 Findings: Examination is severely motion degraded. The thoracic vertebral bodies are normal in height. No fracture is demonstrated. There is no prevertebral edema or paraspinal hematoma. There is normal spinal alignment. Mild degenerative changes are present. There is no significant narrowing of the spinal canal and neural foramina. Impression: No acute fracture or traumatic malalignment. Please note that all CT scans at this facility use dose modulation, iterative reconstruction, and/or weight-based dosing when appropriate to reduce radiation dose to as low as reasonably achievable. Dictated by Su Roque MD @ Oct 28 2020 7:11PM Signed by Dr. Su Roque @ Oct 28 2020 7:26PM
--- NOTE | 2020-10-28 19:36 | EDM.PDOC ---
ED HPI GENERAL MEDICAL PROBLEM - General Chief Complaint: Back Pain or Injury Stated Complaint: FALL YESTERDAY, BACK PAIN Time Seen by Provider: 10/28/20 16:52 Source of Information: Reports: Patient History Limitations: Reports: No Limitations - History of Present Illness INITIAL COMMENTS - FREE TEXT/NARRATIVE: HISTORY AND PHYSICAL: History of present illness: Patient is a 50-year-old male who presents to the ED today with concern of mid back injury that occurred earlier this morning when patient was showering. Patient states that he has a handicap shower but his daughter had used the shower. Patient states that she had moved his shower chair and had "conditioner all over the bottom of the shower "and patient states that due to only having 1 leg, he slipped on the conditioner and hit his mid back on the shower chair. Patient states that he did not hit his head or lose consciousness but since then has had mid back pain. Patient states that he has been able to move per his usual, and uses a wheelchair at baseline to get around but has pain with doing so. 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 He denies any other symptoms or concerns. Patient denies fever, chills, chest pain, shortness of breath, or cough. Denies headache, neck stiff ness, change in vision, syncope, or near syncope. Denies nausea, vomiting, abdominal pain, diarrhea, constipation, or dysuria. Has not noted any blood in urine or stool. Patient has been eating and drinking appropriately. Review of systems: As per history of present illness and below otherwise all systems reviewed and negative. Past medical history: As per history of present illness and as reviewed below otherwise noncontributory. Surgical history: As per history of present illness and as reviewed below otherwise noncontributory. Social history: See social history for further information Family history: As per history of present illness and as reviewed below otherwise noncontributory. Physical exam: General: Patient is alert, oriented, and in no acute distress. Patient sitting comfortably on exam table. Vitals stable and reviewed by me. HEENT: There is a 2cm mass noted to the posterior neck without erythema, increased warmth, fluctuance, or edema. Otherwise, atraumatic, normocephalic, pupils equal and reactive bilaterally, negative for conjunctival pallor or scleral icterus, mucous membranes moist, TMs normal bilaterally, throat clear, neck supple, nontender, trachea midline. No drooling or trismus noted. No meningeal signs. No hot potato voice noted. Lungs: Clear to auscultation, breath sounds equal bilaterally, chest nontender. Heart: S1S2, regular rate and rhythm without overt murmur Abdomen: Soft, nondistended, nontender. Negative for masses or hepatosplenomegaly. Negative for costovertebral tenderness. Pelvis: Stable nontender. Genitourinary: Deferred. Rectal: Deferred. Skin: Intact, warm, dry. No lesions or rashes noted. Extremities: No obvious deformity of the complete spine. No step-offs or crepitus noted to palpation of the complete spine. Patient does have moderate to severe pain with palpation of the thoracic spine without any obvious deformity. Patient was able to stand up and ambulate according to his baseline into the ED today. Below left thigh amputation of the LLE noted. Otherwise, atraumatic, negative for cords or calf pain. Neurovascular unremarkable. Neuro: Awake, alert, oriented. Cranial nerves II through XII unremarkable. Cerebellum unremarkable. Motor and sensory unremarkable throughout. Exam nonfocal. Notes: Upon arrival to the ED, patient is non toxic, vitally stable, and in no acute distress. He does have significant tenderness of his thoracic spine. Due to the amount of discomfort patient is exhibiting, will obtain CT scan of his thoracic spine given nature of injury. While awaiting diagnostic completion, patient mentioned to nursing staff that he would like to address the "cyst" on his neck "while he is here." He states that he has had this cyst drained multiple times by the ER and primary care providers and "blood and clear stuff" comes out. He states that the "cyst" grows back and has been back for 3 months now. While patient was down in imaging, he states he was trying to "pop" the cyst and it opened up and started draining while in the CT scanner. On my reevaluation of the mass of his posterior neck, noted to have sebum/blood/ purulent drainage. I did completely drain the remaining fluid. Will place patient on antibiotics for possible subcutaneous abscess. Due to medication interaction with Bactrim, will place on Clindamycin Thoracic spine CT shows no acute fracture or traumatic malalignment. Upon reevaluation of patient, he is more comfortable given therapeutics today in the emergency room. Due to patients reoccurrence of possible abscess vs cyst, will refer to dermatology. Symptoms are prompt return the ED thoroughly discussed with patient. 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 Denies any further questions or concerns at this time. Diagnostics: Thoracic spine CT Therapeutics: Oxycodone, Tylenol Prescription: Clindamycin Impression: Mid back injury Subcutaneous abscess, posterior neck, reoccurring Plan: 1. Take medication as prescribed. You can alternate ibuprofen and Tylenol as directed for pain and discomfort. 2. Follow-up with a primary care provider / ball mill operator as discussed. Return to the ED as needed and as discussed. Definitive disposition and diagnosis as appropriate pending reevaluation and review of above. back Pain Score (Numeric/FACES): 9 - Related Data Allergies Allergy/AdvReac Type Severity Reaction Status Date / Time ketorolac Allergy Hives Verified 10/28/20 17:02 Home Meds: Home Meds metFORMIN [Glucophage] 850 mg PO BIDMEALS 09/29/19 [History] Aspirin 81 mg PO DAILY #30 tab.chew 09/30/19 [Rx] Tamsulosin HCl [Flomax] 0.4 mg PO BID #60 capsule 10/01/19 [Rx] Gabapentin [Neurontin] 400 mg PO TID 14 Days #42 cap 02/17/20 [Rx] lisinopriL [Lisinopril] 10 mg PO DAILY 04/28/20 [History] Clindamycin HCl 300 mg PO TID 10 Days #30 capsule 10/28/20 [Rx] Past Medical History HEENT History: Reports: Impaired Vision Cardiovascular History: Reports: Hypertension Respiratory History: Reports: None Gastrointestinal History: Reports: None Genitourinary History: Reports: BPH Other Genitourinary History: Renal CA, Left Kidney removed. Musculoskeletal History: Reports: Back Pain, Chronic Neurological History: Reports: Neuropathy, Diabetic, Neuropathy, Peripheral Psychiatric History: Reports: None Endocrine/Metabolic History: Reports: Diabetes, Type II, Obesity/BMI 30+ Insulin Pump Model and Machinery Dismantler: None Hematologic History: Reports: None Immunologic History: Reports: None Oncologic (Cancer) History: Reports: Renal Dermatologic History: Reports: Cellulitis - Infectious Disease History Infectious Disease History: Reports: None, MRSA Other Infectious Disease History: MRSA - Past Surgical History Head Surgeries/Procedures: Reports: None HEENT Surgical History: Reports: None Cardiovascular Surgical History: Reports: None Respiratory Surgical History: Reports: None GI Surgical History: Reports: Hernia, Abdominal Male Surgical History: Reports: Nephrectomy Endocrine Surgical History: Reports: None Neurological Surgical History: Reports: None Musculoskeletal Surgical History: Reports: Amputation Other Musculoskeletal Surgeries/Procedures:: L BTK amputation Oncologic Surgical History: Reports: None Dermatological Surgical History: Reports: None Social & Family History - Family History Family Medical History: No Pertinent Family History - Tobacco Use Tobacco Use Status *Q: Current Every Day Tobacco User Years of Tobacco use: 10 Packs/Tins Daily: 1 - Caffeine Use Caffeine Use: Reports: Coffee - Recreational Drug Use Recreational Drug Use: No ED ROS GENERAL - Review of Systems Review Of Systems: Comprehensive ROS is negative, except as noted in HPI. ED EXAM, GENERAL - Physical Exam Exam: See Below (see dictation) Course - Vital Signs Last Recorded V/S: Last Vital Signs Temp 96.0 F L 10/28/20 17:03 Pulse 99 10/28/20 19:26 Resp 18 10/28/20 19:26 BP 128/76 10/28/20 19:26 Pulse Ox 98 10/28/20 19:26 - Orders/Labs/Meds Meds: Medications Discontinued Medications Generic Name Dose Route Start Last Admin Trade Name Lori PRN Reason Stop Dose Admin Acetaminophen 1,000 mg 10/28/20 17:20 10/28/20 17:49 Acetaminophen 500 Mg Tab PO 10/28/20 17:21 1,000 mg ONETIME ONE Administration Oxycodone/Acetaminophen 1 tab 10/28/20 17:20 10/28/20 17:49 Acetaminophen/Oxycodone 325-5 Mg Tab PO 10/28/20 17:21 1 tab ONETIME ONE Administration Departure - Departure Time of Disposition: 19:34 Disposition: Home, Self-Care 01 Clinical Impression: Back injury Qualifiers: Encounter type: initial encounter Qualified Code(s): S39.92XA - Unspecified injury of lower back, initial encounter Subcutaneous abscess Qualifiers: Site of cutaneous abscess: neck Qualified Code(s): L02.11 - Cutaneous abscess of neck - Discharge Information Prescriptions: Clindamycin HCl 300 mg PO TID 10 Days #30 capsule Referrals: Zeyad Juan MD [Primary Care Provider] - Forms: ED Department Discharge Additional Instructions: The following information is given to patients seen in the emergency department who are being discharged to home. This information is to outline your options for follow-up care. We provide all patients seen in our emergency department with a follow-up referral. The need for follow-up, as well as the timing and circumstances, are variable depending upon the specifics of your emergency department visit. If you don't have a primary care physician on staff, we will provide you with a referral. We always advise you to contact your personal physician following an emergency department visit to inform them of the circumstance of the visit and for follow-up with them and/or the need for any referrals to a consulting specialist. The emergency department will also refer you to a specialist when appropriate. This referral assures that you have the opportunity for follow-up care with a specialist. All of these measure are taken in an effort to provide you with optimal care, which includes your follow-up. Under all circumstances we always encourage you to contact your private physician who remains a resource for coordinating your care. When calling for follow-up care, please make the office aware that this follow-up is from your recent emergency room visit. If for any reason you are refused follow-up, please contact the [facility] Emergency Department at and asked to speak to the emergency department charge nurse. [facility] / Dermatology [address] [place] [address] [place] [address] 1. Take medication as prescribed. You can alternate ibuprofen and Tylenol as directed for pain and discomfort. 2. Follow-up with a primary care provider / ball mill operator as discussed. Return to the ED as needed and as discussed. Sepsis Event Note (ED) - Evaluation Sepsis Screening Result: No Definite Risk - Focused Exam Vital Signs: Vital Signs Temp Pulse Resp BP Pulse Ox 10/28/20 19:26 99 18 128/76 98 10/28/20 18:03 90 17 130/84 96 10/28/20 17:03 96.0 F L 115 H 20 149/108 H 98
== END 2020-10-28 19:39 | disposition home or self-care (01) ==
LOC: MW.ED 16:44
DX: S29.9XXA Unspecified injury of thorax, initial encounter (principal); L02.11 Cutaneous abscess of neck; I10 Essential (primary) hypertension; N40.0 Benign prostatic hyperplasia without lower urinary tract symptoms; E11.42 Type 2 diabetes mellitus with diabetic polyneuropathy; E66.9 Obesity, unspecified; Z68.41 Body mass index [BMI] 40.0-44.9, adult; Z79.82 Long term (current) use of aspirin; Z79.84 Long term (current) use of oral hypoglycemic drugs; Z79.899 Other long term (current) drug therapy; Z72.0 Tobacco use; W01.10XA Fall on same level from slipping, tripping and stumbling with subsequent striking against unspecified object, initial encounter
CPT/HCPCS: 72128; 93005; 99284; A9270; 99283

== ENCOUNTER 2020-12-23 17:48 | Inpatient (IN) | payer MEDICARE, MEDICAID ==
[2020-12-23] MEDS ORDERED: Sodium Chloride 0.9% 2.5 ML Syringe FLUSH PRN (18:47)
[2020-12-23] MEDS ORDERED: Sodium Chloride 0.9% 1,000 ML IV ONE ×2 (18:47→19:53)
[2020-12-23] MEDS ORDERED: Sodium Chloride 0.9% 10 ML Syringe FLUSH PRN (18:47)
--- NOTE | 2020-12-23 18:56 | PCM.EKG ---
#1 Interpretation EKG Date: 12/23/20 Time: 18:49 Rhythm: NSR Rate (Beats/Min): 119 P-Wave: Present QRS: Normal ST-T: Normal QT: Normal TX/PQ Interval: 167 EKG Interpretation Comments: Poor quality EKG secondary to patient movement obscures interpretation however there are no overt ischemic changes noted.
[2020-12-23] MEDS ORDERED: Piperacillin/Tazobactam 3.375 GM in Sodium Chloride 0.9% 50 ML IV ONE (19:09)
[2020-12-23] MEDS ORDERED: Aspirin 81 MG Tab.Chew PO ONE (19:10)
[2020-12-23] MEDS ORDERED: Morphine 4 MG/ML Syringe IVPUSH ONE ×2 (19:11→22:16)
--- NOTE | 2020-12-23 19:43 | CR ---
INDICATION: Pain, shortness of breath TECHNIQUE: Chest 1 view. COMPARISON: 05/24/2020 FINDINGS: Cardiovascular and mediastinum: Stable heart size. Mediastinum is within normal limits. Lungs and pleural space: Lungs are clear. No sign of infiltrate or mass. No sign of pleural effusion. No pneumothorax. Bones and soft tissues: No significant findings. IMPRESSION: No acute pulmonary cardiac abnormalities. Dictated by Nilson Rodríguez MD @ 12/23/2020 7:42:[address] Nilson Rodríguez @ Dec 23 2020 7:42PM
[2020-12-23 19:48] LABS: BLOOD UREA NITROGEN,BUN 8 mg/dL (7.0-18.0); CHLORIDE,CL 101 mmol/L (98-107); GLUCOSE RANDOM 322 mg/dL (74-106); LIPASE 493 U/L (73-393); POTASSIUM,K 4.1 mmol/L (3.5-5.1); SODIUM,NA 137 mmol/L (136-148)
--- NOTE | 2020-12-23 19:52 | PCM.EKG ---
#1 Interpretation EKG Date: 12/23/20 Time: 19:52 EKG Interpretation Comments: Sinus tachycardia rate of 116 no findings of acute ischemia unremarkable intervals.
[2020-12-23 20:10] LABS: CORONAVIRUS COVID-19 NAA NEGATIVE (NEGATIVE); INFLUENZA A NAA NEGATIVE (NEGATIVE); INFLUENZA B NAA NEGATIVE (NEGATIVE)
--- NOTE | 2020-12-23 20:12 | EDM.PDOC ---
<Alton Dawson - Last Filed: 12/24/20 00:16> ED HPI GENERAL MEDICAL PROBLEM - General Chief Complaint: Skin Complaint Stated Complaint: BACK OF NECK PAIN Time Seen by Provider: 12/23/20 18:10 - Related Data Allergies Allergy/AdvReac Type Severity Reaction Status Date / Time ketorolac Allergy Hives Verified 12/23/20 18:22 Home Meds: Home Meds metFORMIN [Glucophage] 1,000 mg PO BIDMEALS 09/29/19 [History] Aspirin 81 mg PO DAILY #30 tab.chew 09/30/19 [Rx] Tamsulosin HCl [Flomax] 0.4 mg PO BID #60 capsule 10/01/19 [Rx] lisinopriL [Lisinopril] 10 mg PO DAILY 04/28/20 [History] Hydrocodone/Acetaminophen [Hydrocodone-Acetamin 7.5-325] 12/23/20 [History] Gabapentin [Neurontin] 600 mg PO QID 12/24/20 [History] metFORMIN [Glucophage] 1,000 mg PO BIDMEALS 12/24/20 [History] oxyCODONE 10 mg PO Q6H 12/24/20 [History] Departure - Departure Time of Disposition: 00:20 Disposition: Admitted As Inpatient 67 Condition: Good Clinical Impression: Cellulitis and abscess of neck UTI (urinary tract infection) Qualifiers: Urinary tract infection type: site unspecified Hematuria presence: without hematuria Qualified Code(s): N39.0 - Urinary tract infection, site not specified - Discharge Information *PRESCRIPTION DRUG MONITORING PROGRAM REVIEWED*: Not Applicable *COPY OF PRESCRIPTION DRUG MONITORING REPORT IN PATIENT JUDY: Not Applicable - Assessment/Plan Assessment:: Patient received in signout from prior provider at [address] scans pending to assess for any deep space infection of the neck pulmonary embolism or acute intra-abdominal process given the signs of sepsis with UTI, known neck abscess, and pancreatitis. Patient will likely need admission but final disposition pending imaging results. Abscess with serosanguineous drainage on packing material. 2340: CT scan shows the expected abscess cavity with some signs of an overlying cellulitis again as expected. Patient is already received IV antibiotics. I repacked the abscess. Regarding the chest abdomen pelvis no other acute pathology is found. Given his mildly elevated lactic acid and his mild leukocytosis the signs of mild cellulitis over his neck wound as well as the urinary tract infection I think he requires admission for further evaluation and care. Will discuss with hospitalist. 0015: Patient discussed in full with Dr. Zayas. He will be admitted for further care and evaluation. Patient also discussed with Dr. Davis the general surgeon on-call and he will evaluate the patient in the morning. <Kavita Carreno - Last Filed: 12/24/20 10:22> ED HPI GENERAL MEDICAL PROBLEM - General Source of Information: Reports: Patient History Limitations: Reports: No Limitations - History of Present Illness INITIAL COMMENTS - FREE TEXT/NARRATIVE: HISTORY AND PHYSICAL: History of present illness: Patient is a 50-year-old male that presents emergency department secondary to a 1 week history of increasing neck pain and discharge from an abscess he had drained on the back of his neck approximately 1 month ago by someone in [place] but he is unsure of the provider. Patient reports that 1 month ago he was seen for an abscess on the back of his neck and at that time the doctors drained and packed the abscess. Patient reports that at that time the doctors wanted to k eep him in the hospital and start him on an IV antibiotic for concerns of sepsis. Patient reports that where he lives prevented him from staying in the hospital receiving antibiotics through an IV. Patient reports that he was given pain medications and started on a course of Bactrim for approximately 28 days. Patient reports that during the course of his antibiotics that his symptoms had generally improved. Patient reports that after stopping his antibiotics 1 week ago, and finishing his prescription for pain medications that his neck pain increased and he noted that his wound site had increased drainage. Patient attempted to schedule an appointment with his primary care provider but his provider did not have any appointments available short-term so they advised him to come to the emergency department. Patient also reports that over the last week he had a fever of 101. Patient states that over the last couple of days he has started to have chest pain which is squeezing in nature but comes and goes and is non exertional. Patient believes that his chest pain is related to the pain in his neck and radiates into his upper abdomen. Patient denies chills, shortness of breath, or cough. Denies headache, change in vision, syncope, or near syncope. Denies nausea, vomiting, diarrhea, constipation, or dysuria. Has not noted any blood in urine or stool. Patient has been eating and drinking appropriately. Review of systems: As per history of present illness and below otherwise all systems reviewed and negative. Past medical history: As per history of present illness and as reviewed below otherwise noncontributory. Surgical history: As per history of present illness and as reviewed below otherwise noncontributory. Social history: See social history for further information Family history: As per history of present illness and as reviewed below otherwise noncontributory. Physical exam: General: Patient is alert, oriented, and in mild distress holding posterior neck and lower chest. Patient sitting on exam table. Patient is noted to be tachycardic in the 110s but is otherwise vitally stable. HEENT: There is a 2 cm incision on the left just off midline in the posterior of the neck with iodoform packing, there is mild erythema of the left of the abscess and mild induration around the area, tender to palpation around the incision, no drainage noted but bandages noted to have blood/serosanguineous fluid, 4 cm scar noted on right side from previous abscess I&D. Otherwise atraumatic, normocephalic, pupils equal and reactive bilaterally, negative for conjunctival pallor or scleral icterus, mucous membranes moist, TMs normal bilaterally, throat clear, neck supple, nontender, trachea midline. No drooling or trismus noted. No meningeal signs. No hot potato voice noted. Lungs: Mild expiratory wheeze left lower lung field. Otherwise, clear to auscultation, breath sounds equal bilaterally, chest nontender. Heart: S1S2, regular rate and rhythm without overt murmur Abdomen: Scarring of abdomen consistent with surgical history and well healed. Soft, nondistended,tender to palpation right upper and right lower quadrant no rebound tenderness negative Bennett's. Negative for masses or hepatosplenomegaly. Positive for for costovertebral tenderness on right side. Pelvis: Stable nontender. Genitourinary: Deferred. Rectal: Deferred. Skin: Intact, warm, dry. No lesions or rashes noted. Extremities: [id number] amputation of the left leg. Otherwise atraumatic, negative for cords or calf pain. Neurovascular unremarkable. Neuro: Awake, alert, oriented. Cranial nerves II through XII unremarkable. Cerebellum unremarkable. Motor and sensory unremarkable throughout. Exam nonfocal. Notes: Patient is a 50-year-old male who presents the emergency department secondary to a 1 week history of increasing neck pain and drainage from an incision where he had an abscess drained and packed in his neck approximately 1 month ago. On examination patient is noted to be tachycardic in the 110s but is otherwise vitally stable. Patient is in mild distress and rocking back and forth is complaining of significant pain in the back of his neck and up into his scalp. Inspection of the abscess incision site demonstrates a 2 cm incision with packing with noted tenderness around the incision. Area around the incision is mildly fluctuant but has no erythema no discharge noted coming from the incision at this time. Bandaging covering the abscess is noted to have blood with some serosanguineous fluid. Patient is noted to have mild expiratory wheezes in the left side, otherwise lungs are clear to auscultation. During examination patient noted that he was having chest pain which was coming and going and seem to be increasing in intensity. Will obtain cardiac evaluation, blood cultures x2, lactate, soft tissue contrast CT of neck. Upon arrival to the ED, concern for possible SEPSIS given source of abscess on the back of neck and tachycardia. Fluid bolus initiated. For official EKG interpretation see Dr. Dawson dictation, otherwise sinus tachycardia with no signs of ischemia or STEMI. Patient was started on a bolus of normal saline and IV vancomycin and Zosyn was started for SEPSIS given soft tissue infection of posterior neck and tachycardia. Patient CBC shows WBC mildly elevated at 11.08, platelet count 424, lymph percent 15.0, and neutrophil count 8.7. D-dimer elevated 0.67 (will obtain Ang CT chest). CMP shows glucose elevated 322, POC glucose 270, lactic acid elevated 2.5, alkaline phosphatase elevated 133, globulin 4.7, Albumin/globulin ratio 1.7, and lipase elevated 493 (will obtain abd/pelvic ct w cont for pancreatitis concern. UA shows urine protein 100, glucose 500, occult blood large, nitrite positive, leukocyte esterase small, and bacteria 2+ concerning for UTI. Troponin negative. On reexamination following fluid bolus for SEPSIS reevaluation, patient is more comfortable at 21:40. HR normalized to 87 bmp, BP stable 130/90. Vitals otherwise stable. Dr. Dawson has assumed care of patient at 22:00 pending Ang Chest, Soft tissue neck CT and Abd/Pelvic CT and will follow remaining diagnostics and disposition for patient. Diagnostics: CBC, CMP, blood cultures x2, troponin, D-dimer, lipase, lactate, UA, chest x- ray, soft tissue contrast CT of neck, chest CTA, CT of chest abdomen pelvis with contrast Therapeutics: NS, morphine, IV vancomycin, Zosyn, ASA Prescription: Impression: SIRS r/o sepsis Abscess, posterior neck Urinary tract infection Pancreatitis Hyperglycemia with diabetes Plan: Definitive disposition and diagnosis as appropriate pending reevaluation and review of above. back of neck Pain Score (Numeric/FACES): 5 Past Medical History HEENT History: Reports: Impaired Vision Cardiovascular History: Reports: Hypertension Respiratory History: Reports: None Gastrointestinal History: Reports: None Genitourinary History: Reports: BPH Other Genitourinary History: Renal CA, Left Kidney removed. Musculoskeletal History: Reports: Back Pain, Chronic Neurological History: Reports: Neuropathy, Diabetic, Neuropathy, Peripheral Psychiatric History: Reports: None Endocrine/Metabolic History: Reports: Diabetes, Type II, Obesity/BMI 30+ Insulin Pump Model and Security Systems Integrator: None Hematologic History: Reports: None Immunologic History: Reports: None Oncologic (Cancer) History: Reports: Renal Dermatologic History: Reports: Cellulitis - Infectious Disease History Infectious Disease History: Reports: None, MRSA Other Infectious Disease History: MRSA - Past Surgical History Head Surgeries/Procedures: Reports: None HEENT Surgical History: Reports: None Cardiovascular Surgical History: Reports: None Respiratory Surgical History: Reports: None GI Surgical History: Reports: Hernia, Abdominal Male Surgical History: Reports: Nephrectomy Endocrine Surgical History: Reports: None Neurological Surgical History: Reports: None Musculoskeletal Surgical History: Reports: Amputation Other Musculoskeletal Surgeries/Procedures:: L BTK amputation Oncologic Surgical History: Reports: None Dermatological Surgical History: Reports: None Social & Family History - Family History Family Medical History: No Pertinent Family History - Tobacco Use Tobacco Use Status *Q: Current Every Day Tobacco User Years of Tobacco use: 25 Packs/Tins Daily: 0.2 - Caffeine Use Caffeine Use: Reports: None - Recreational Drug Use Recreational Drug Use: No ED ROS GENERAL - Review of Systems Review Of Systems: Comprehensive ROS is negative, except as noted in HPI. ED EXAM, GENERAL - Physical Exam Exam: See Below (see dictation) Course - Vital Signs Last Recorded V/S: Last Vital Signs Temp 97.1 F 12/24/20 08:30 Pulse 68 12/24/20 08:30 Resp 18 12/24/20 08:30 BP 108/75 06/15/21 08:30 Pulse Ox 98 12/24/20 08:30 - Orders/Labs/Meds Orders: Active Orders 24 hr Category Date Time Status Patient Status [ADT] Routine ADT 12/24/20 00:22 Active CULTURE BLOOD [BC] Stat Lab 12/23/20 19:08 Received CULTURE BLOOD [BC] Stat Lab 12/23/20 19:27 Received CULTURE URINE [MREF] Stat Lab 12/23/20 19:02 Received Sodium Chloride 0.9% [Saline Flush] Med 12/23/20 18:47 Active 10 ml FLUSH ASDIRECTED PRN Sodium Chloride 0.9% [Saline Flush] Med 12/23/20 18:47 Active 2.5 ml FLUSH ASDIRECTED PRN Blood Culture x2 Reflex Set [OM.PC] Stat Oth 12/23/20 19:09 Ordered Saline Lock Insert [OM.PC] Stat Oth 12/23/20 18:47 Ordered Medication Orders Albuterol (Albuterol 0.083% 2.5 Mg/3 Ml Neb Soln) 2.5 mg NEB ONETIME PRN PRN Reason: Wheezing Dextrose/Water (50% Dextrose In Water 50 Ml Syringe) 50 ml IVPUSH ASDIRECTED PRN PRN Reason: Hypoglycemia Droperidol (Droperidol 5 Mg/2 Ml Sdv) 0.625 mg IVPUSH ONETIME PRN PRN Reason: Nausea/Vomiting Fentanyl (Fentanyl 100 Mcg/2 Ml Sdv) 50 mcg IVPUSH Q5M PRN PRN Reason: Pain (mild 1-3) Gabapentin (Gabapentin 300 Mg Cap) 600 mg PO QID [facility] Last Admin: 12/24/20 06:29 Dose: 600 mg Documented by: Admin: 12/24/20 02:37 Dose: 600 mg Documented by: JUANPABLO Glucagon (Glucagon,Human Recombinant 1 Mg Vial) 1 mg IM ASDIRECTED PRN PRN Reason: Hypoglycemia Heparin Sodium (Porcine) (Heparin Sodium 5,000 Units/Ml Vial) 5,000 units SUBCUT Q8H [facility] Last Admin: 12/24/20 09:00 Dose: 5,000 units Documented by: Admin: 12/24/20 02:12 Dose: 5,000 units Documented by: JUANPABLO Hydromorphone HCl (Hydromorphone 2 Mg/Ml Syringe) 0.5 mg IVPUSH Q10M PRN PRN Reason: Pain (moderate 4-6) Vancomycin HCl 1.5 gm/ Premix 300 mls @ 200 mls/hr IV Q12H [facility] Last Admin: 12/24/20 06:30 Dose: 200 mls/hr Documented by: JUANPABLO Piperacillin Sod/Tazobactam (Sod 3.375 gm/ Sodium Chloride) 50 mls @ 100 mls/hr IV Q6H [facility] Last Admin: 12/24/20 08:52 Dose: 100 mls/hr Documented by: Infusion: 12/24/20 03:10 Dose: 100 mls/hr Documented by: Admin: 12/24/20 02:40 Dose: 100 mls/hr Documented by: JUANPABLO Sodium Chloride (Normal Saline) 1,000 mls @ 150 mls/hr IV ASDIRECTED [facility] Last Admin: 12/24/20 02:31 Dose: 150 mls/hr Documented by: JUANPABLO Insulin Aspart (Insulin Aspart 100 Units/Ml 3 Ml Pen) [facility]; Protocol Last Admin: 12/24/20 07:38 Dose: Not Given Documented by: JUANPABLO Lisinopril (Lisinopril 10 Mg Tab) 10 mg PO DAILY [facility] Last Admin: 12/24/20 08:30 Dose: Not Given Documented by: RUSSELL Metoclopramide HCl (Metoclopramide 10 Mg/2 Ml Sdv) 10 mg IVPUSH ONETIME PRN PRN Reason: Nausea/Vomiting Morphine Sulfate (Morphine 2 Mg/Ml Syringe) 2 mg IVPUSH Q2H PRN PRN Reason: Pain (severe 7-10) Stop: 12/25/20 01:18 Last Admin: 12/24/20 08:51 Dose: 2 mg Documented by: Admin: 12/24/20 06:26 Dose: 2 mg Documented by: Admin: 12/24/20 02:07 Dose: 2 mg Documented by: JUANPABLO Naloxone HCl (Naloxone 0.4 Mg/Ml Syringe) 0.1 mg IVPUSH ASDIRECTED PRN PRN Reason: Respiratory Depression Ondansetron HCl (Ondansetron 4 Mg/2 Ml Sdv) 4 mg IVPUSH ONETIME PRN PRN Reason: Nausea/Vomiting Oxycodone HCl (Oxycodone 5 Mg Tab) 5 mg PO Q4H PRN PRN Reason: Pain (moderate 4-6) Last Admin: 12/24/20 07:49 Dose: 5 mg Documented by: JUANPABLO Sodium Chloride (Sodium Chloride 0.9% 10 Ml Syringe) 10 ml FLUSH ASDIRECTED PRN PRN Reason: Keep Vein Open Sodium Chloride (Sodium Chloride 0.9% 2.5 Ml Syringe) 2.5 ml FLUSH ASDIRECTED PRN PRN Reason: Keep Vein Open Tamsulosin HCl (Tamsulosin 0.4 Mg Cap.Er) 0.4 mg PO BID [facility] Last Admin: 12/24/20 09:26 Dose: Not Given Documented by: Admin: 12/24/20 02:37 Dose: 0.4 mg Documented by: JUANPABLO Vancomycin HCl (Pharmacy To Dose - Vancomycin) 1 dose .XX ASDIRECTED [facility] Labs: Laboratory Tests 12/23/20 12/23/20 12/23/20 Range/Units 19:02 19:08 19:08 WBC 11.08 H (4.0-11.0) K/uL RBC 5.23 (4.50-5.90) M/uL Hgb 15.1 (13.0-17.0) g/dL Hct 44.4 (38.0-50.0) % MCV 84.9 (80.0-98.0) fL MCH 28.9 (27.0-32.0) pg MCHC 34.0 (31.0-37.0) g/dL RDW Std Deviation 46.9 (28.0-62.0) fl RDW Coeff of Candy 15 (11.0-15.0) % Plt Count 424 H (150-400) K/uL MPV 10.10 (7.40-12.00) fL Neut % (Auto) 78.0 (48.0-80.0) % Lymph % (Auto) 15.0 L (16.0-40.0) % Eaton % (Auto) 5.7 (0.0-15.0) % Eos % (Auto) 1.1 (0.0-7.0) % Baso % (Auto) 0.2 (0.0-1.5) % Neut # (Auto) 8.7 H (1.4-5.7) K/uL Lymph # (Auto) 1.7 (0.6-2.4) K/uL Eaton # (Auto) 0.6 (0.0-0.8) K/uL Eos # (Auto) 0.1 (0.0-0.7) K/uL Baso # (Auto) 0.0 (0.0-0.1) K/uL Nucleated RBC % 0.0 /100WBC Nucleated RBCs # 0 K/uL D-Dimer, Quantitative (0.0-0.50) mg/L FEU Sodium 137 (136-148) mmol/L Potassium 4.1 (3.5-5.1) mmol/L Chloride 101 (98-107) mmol/L Carbon Dioxide 22.0 (21.0-32.0) mmol/L BUN 8 (7.0-18.0) mg/dL Creatinine 1.1 (0.8-1.3) mg/dL Est Cr Clr Drug Dosing 73.31 mL/min Estimated GFR (MDRD) > 60.0 ml/min Glucose 322 H (74-106) mg/dL POC Glucose (70-99) mg/dL Lactic Acid (0.4-2.0) mmol/L Calcium 9.5 (8.5-10.1) mg/dL Total Bilirubin 0.5 (0.2-1.0) mg/dL AST 26 (15-37) IU/L ALT 23 (14-63) IU/L Alkaline Phosphatase 133 H (46-116) U/L Troponin I < 0.050 (0.000-0.056) ng/mL Total Protein 8.2 (6.4-8.2) g/dL Albumin 3.5 (3.4-5.0) g/dL Globulin 4.7 H (2.6-4.0) g/dL Albumin/Globulin Ratio 0.7 L (0.9-1.6) Lipase 493 H (73-393) U/L Urine Color YELLOW Urine Appearance SLT CLOUDY Urine pH 6.0 (5.0-8.0) Ur Specific Mayo 1.015 (1.001-1.035) Urine Protein 100 H (NEGATIVE) mg/dL Urine Glucose (UA) 500 H (NEGATIVE) mg/dL Urine Ketones NEGATIVE (NEGATIVE) mg/dL Urine Occult Blood LARGE H (NEGATIVE) Urine Nitrite POSITIVE H (NEGATIVE) Urine Bilirubin NEGATIVE (NEGATIVE) Urine Urobilinogen 1.0 (<2.0) EU/dL Ur Leukocyte Esterase SMALL H (NEGATIVE) Urine RBC 8-10 (0-2/HPF) Urine WBC 3-5 (0-5/HPF) Ur Epithelial Cells FEW (NONE-FEW) Urine Bacteria 2+ H (NEGATIVE) Influenza Type A RNA (NEGATIVE) Influenza Type B RNA (NEGATIVE) SARS-CoV-2 RNA (ISABEL) (NEGATIVE) 12/23/20 12/23/20 12/23/20 Range/Units 19:08 19:08 19:15 WBC (4.0-11.0) K/uL RBC (4.50-5.90) M/uL Hgb (13.0-17.0) g/dL Hct (38.0-50.0) % MCV (80.0-98.0) fL MCH (27.0-32.0) pg MCHC (31.0-37.0) g/dL RDW Std Deviation (28.0-62.0) fl RDW Coeff of Candy (11.0-15.0) % Plt Count (150-400) K/uL MPV (7.40-12.00) fL Neut % (Auto) (48.0-80.0) % Lymph % (Auto) (16.0-40.0) % Eaton % (Auto) (0.0-15.0) % Eos % (Auto) (0.0-7.0) % Baso % (Auto) (0.0-1.5) % Neut # (Auto) (1.4-5.7) K/uL Lymph # (Auto) (0.6-2.4) K/uL Eaton # (Auto) (0.0-0.8) K/uL Eos # (Auto) (0.0-0.7) K/uL Baso # (Auto) (0.0-0.1) K/uL Nucleated RBC % /100WBC Nucleated RBCs # K/uL D-Dimer, Quantitative 0.67 H (0.0-0.50) mg/L FEU Sodium (136-148) mmol/L Potassium (3.5-5.1) mmol/L Chloride (98-107) mmol/L Carbon Dioxide (21.0-32.0) mmol/L BUN (7.0-18.0) mg/dL Creatinine (0.8-1.3) mg/dL Est Cr Clr Drug Dosing mL/min Estimated GFR (MDRD) ml/min Glucose (74-106) mg/dL POC Glucose (70-99) mg/dL Lactic Acid 2.5 H* (0.4-2.0) mmol/L Calcium (8.5-10.1) mg/dL Total Bilirubin (0.2-1.0) mg/dL AST (15-37) IU/L ALT (14-63) IU/L Alkaline Phosphatase (46-116) U/L Troponin I (0.000-0.056) ng/mL Total Protein (6.4-8.2) g/dL Albumin (3.4-5.0) g/dL Globulin (2.6-4.0) g/dL Albumin/Globulin Ratio (0.9-1.6) Lipase (73-393) U/L Urine Color Urine Appearance Urine pH (5.0-8.0) Ur Specific Mayo (1.001-1.035) Urine Protein (NEGATIVE) mg/dL Urine Glucose (UA) (NEGATIVE) mg/dL Urine Ketones (NEGATIVE) mg/dL Urine Occult Blood (NEGATIVE) Urine Nitrite (NEGATIVE) Urine Bilirubin (NEGATIVE) Urine Urobilinogen (<2.0) EU/dL Ur Leukocyte Esterase (NEGATIVE) Urine RBC (0-2/HPF) Urine WBC (0-5/HPF) Ur Epithelial Cells (NONE-FEW) Urine Bacteria (NEGATIVE) Influenza Type A RNA NEGATIVE (NEGATIVE) Influenza Type B RNA NEGATIVE (NEGATIVE) SARS-CoV-2 RNA (ISABEL) NEGATIVE (NEGATIVE) 12/23/20 12/24/20 Range/Units 19:36 00:00 WBC (4.0-11.0) K/uL RBC (4.50-5.90) M/uL Hgb (13.0-17.0) g/dL Hct (38.0-50.0) % MCV (80.0-98.0) fL MCH (27.0-32.0) pg MCHC (31.0-37.0) g/dL RDW Std Deviation (28.0-62.0) fl RDW Coeff of Candy (11.0-15.0) % Plt Count (150-400) K/uL MPV (7.40-12.00) fL Neut % (Auto) (48.0-80.0) % Lymph % (Auto) (16.0-40.0) % Eaton % (Auto) (0.0-15.0) % Eos % (Auto) (0.0-7.0) % Baso % (Auto) (0.0-1.5) % Neut # (Auto) (1.4-5.7) K/uL Lymph # (Auto) (0.6-2.4) K/uL Eaton # (Auto) (0.0-0.8) K/uL Eos # (Auto) (0.0-0.7) K/uL Baso # (Auto) (0.0-0.1) K/uL Nucleated RBC % /100WBC Nucleated RBCs # K/uL D-Dimer, Quantitative (0.0-0.50) mg/L FEU Sodium (136-148) mmol/L Potassium (3.5-5.1) mmol/L Chloride (98-107) mmol/L Carbon Dioxide (21.0-32.0) mmol/L BUN (7.0-18.0) mg/dL Creatinine (0.8-1.3) mg/dL Est Cr Clr Drug Dosing mL/min Estimated GFR (MDRD) ml/min Glucose (74-106) mg/dL POC Glucose 270 H (70-99) mg/dL Lactic Acid 1.3 (0.4-2.0) mmol/L Calcium (8.5-10.1) mg/dL Total Bilirubin (0.2-1.0) mg/dL AST (15-37) IU/L ALT (14-63) IU/L Alkaline Phosphatase (46-116) U/L Troponin I (0.000-0.056) ng/mL Total Protein (6.4-8.2) g/dL Albumin (3.4-5.0) g/dL Globulin (2.6-4.0) g/dL Albumin/Globulin Ratio (0.9-1.6) Lipase (73-393) U/L Urine Color Urine Appearance Urine pH (5.0-8.0) Ur Specific Mayo (1.001-1.035) Urine Protein (NEGATIVE) mg/dL Urine Glucose (UA) (NEGATIVE) mg/dL Urine Ketones (NEGATIVE) mg/dL Urine Occult Blood (NEGATIVE) Urine Nitrite (NEGATIVE) Urine Bilirubin (NEGATIVE) Urine Urobilinogen (<2.0) EU/dL Ur Leukocyte Esterase (NEGATIVE) Urine RBC (0-2/HPF) Urine WBC (0-5/HPF) Ur Epithelial Cells (NONE-FEW) Urine Bacteria (NEGATIVE) Influenza Type A RNA (NEGATIVE) Influenza Type B RNA (NEGATIVE) SARS-CoV-2 RNA (ISABEL) (NEGATIVE) Meds: Medications Generic Name Dose Route Start Last Admin Trade Name Freq PRN Reason Stop Dose Admin Albuterol 2.5 mg 12/24/20 09:10 Albuterol 0.083% 2.5 Mg/3 Ml Neb Soln NEB ONETIME PRN Wheezing Dextrose/Water 50 ml 12/24/20 00:56 50% Dextrose In Water 50 Ml Syringe IVPUSH ASDIRECTED PRN Hypoglycemia Droperidol 0.625 mg 12/24/20 09:10 Droperidol 5 Mg/2 Ml Sdv IVPUSH ONETIME PRN Nausea/Vomiting Fentanyl 50 mcg 12/24/20 09:10 Fentanyl 100 Mcg/2 Ml Sdv IVPUSH Q5M PRN Pain (mild 1-3) Gabapentin 600 mg 12/24/20 02:17 12/24/20 06:29 Gabapentin 300 Mg Cap PO 600 mg QID [facility] Administration Glucagon 1 mg 12/24/20 00:56 Glucagon,Human Recombinant 1 Mg Vial IM ASDIRECTED PRN Hypoglycemia Heparin Sodium (Porcine) 5,000 units 12/24/20 01:30 12/24/20 09:00 Heparin Sodium 5,000 Units/Ml Vial SUBCUT 5,000 units Q8H [facility] Administration Hydromorphone HCl 0.5 mg 12/24/20 09:10 Hydromorphone 2 Mg/Ml Syringe IVPUSH Q10M PRN Pain (moderate 4-6) Vancomycin HCl 1.5 gm/ Premix 300 mls @ 200 mls/hr 12/24/20 07:00 12/24/20 06:30 IV 200 mls/hr Q12H [facility] Administration Piperacillin Sod/Tazobactam 50 mls @ 100 mls/hr 12/24/20 03:00 12/24/20 08:52 Sod 3.375 gm/ Sodium Chloride IV 100 mls/hr Q6H [facility] Administration Sodium Chloride 1,000 mls @ 150 mls/hr 12/24/20 01:30 12/24/20 02:31 Normal Saline IV 150 mls/hr ASDIRECTED [facility] Administration Insulin Aspart 0 unit 12/24/20 07:30 12/24/20 07:38 Insulin Aspart 100 Units/Ml 3 Ml Pen SUBCUT Not Given TIDAC [facility] Protocol Lisinopril 10 mg 12/24/20 09:00 12/24/20 08:30 Lisinopril 10 Mg Tab PO Not Given DAILY [facility] Metoclopramide HCl 10 mg 12/24/20 09:10 Metoclopramide 10 Mg/2 Ml Sdv IVPUSH ONETIME PRN Nausea/Vomiting Morphine Sulfate 2 mg 12/24/20 01:17 12/24/20 08:51 Morphine 2 Mg/Ml Syringe IVPUSH 12/25/20 01:18 2 mg Q2H PRN Administration Pain (severe 7-10) Naloxone HCl 0.1 mg 12/24/20 09:10 Naloxone 0.4 Mg/Ml Syringe IVPUSH ASDIRECTED PRN Respiratory Depression Ondansetron HCl 4 mg 12/24/20 09:10 Ondansetron 4 Mg/2 Ml Sdv IVPUSH ONETIME PRN Nausea/Vomiting Oxycodone HCl 5 mg 12/24/20 01:17 12/24/20 07:49 Oxycodone 5 Mg Tab PO 5 mg Q4H PRN Administration Pain (moderate 4-6) Sodium Chloride 10 ml 12/23/20 18:47 Sodium Chloride 0.9% 10 Ml Syringe FLUSH ASDIRECTED PRN Keep Vein Open Sodium Chloride 2.5 ml 12/23/20 18:47 Sodium Chloride 0.9% 2.5 Ml Syringe FLUSH ASDIRECTED PRN Keep Vein Open Tamsulosin HCl 0.4 mg 12/24/20 02:30 12/24/20 09:26 Tamsulosin 0.4 Mg Cap.Er PO Not Given BID [facility] Vancomycin HCl 1 dose 12/24/20 01:00 Pharmacy To Dose - Vancomycin .XX ASDIRECTED CAYDEN Discontinued Medications Generic Name Dose Route Start Last Admin Trade Name Lori PRN Reason Stop Dose Admin Aspirin 243 mg 12/23/20 19:10 12/23/20 19:30 Aspirin 81 Mg Tab.Chew PO 12/23/20 19:11 243 mg ONETIME ONE Administration Sodium Chloride 1,000 mls @ 999 mls/hr 12/23/20 18:47 12/23/20 19:10 Normal Saline IV 12/23/20 19:47 999 mls/hr BOLUS ONE Administration Piperacillin Sod/Tazobactam 50 mls @ 100 mls/hr 12/23/20 19:09 12/23/20 19:30 Sod 3.375 gm/ Sodium Chloride IV 12/23/20 19:38 100 mls/hr ONETIME ONE Administration Vancomycin HCl 1 gm/ Sodium 250 mls @ 166 mls/hr 12/23/20 19:09 12/23/20 19:30 Chloride IV 12/23/20 20:39 166 mls/hr ONETIME ONE Administration Sodium Chloride 1,000 mls @ 999 mls/hr 12/23/20 19:53 12/23/20 20:32 Normal Saline IV 12/23/20 20:53 999 mls/hr STAT ONE Administration Piperacillin Sod/Tazobactam 50 mls @ 100 mls/hr 12/24/20 01:00 12/24/20 03:27 Sod 3.375 gm/ Sodium Chloride IV Not Given Q6H CAYDEN Iopamidol 140 ml 12/23/20 21:41 12/23/20 21:43 Iopamidol 755 Mg/Ml 500 Ml Multipack Bottle IVPUSH 12/23/20 21:42 140 ml ONETIME STA Administration Morphine Sulfate 4 mg 12/23/20 19:11 12/23/20 19:29 Morphine 4 Mg/Ml Syringe IVPUSH 12/23/20 19:12 4 mg ONETIME ONE Administration Morphine Sulfate 2 mg 12/23/20 20:22 12/23/20 20:31 Morphine 2 Mg/Ml Syringe IVPUSH 12/23/20 20:23 2 mg ONETIME ONE Administration Morphine Sulfate 4 mg 12/23/20 22:16 12/23/20 22:24 Morphine 4 Mg/Ml Syringe IVPUSH 12/23/20 22:17 4 mg ONETIME ONE Administration Sepsis Event Note (ED) - Evaluation Sepsis Screening Result: Possible Sepsis Risk - Focused Exam Vital Signs: Vital Signs Pulse Resp BP Pulse Ox 12/23/20 22:25 78 20 133/82 99 - My Orders Last 24 Hours: My Active Orders 12/23/20 18:47 Sodium Chloride 0.9% [Saline Flush] 10 ml FLUSH ASDIRECTED PRN Sodium Chloride 0.9% [Saline Flush] 2.5 ml FLUSH ASDIRECTED PRN Saline Lock Insert [OM.PC] Stat 12/23/20 19:02 CULTURE URINE [MREF] Stat 12/23/20 19:08 CULTURE BLOOD [BC] Stat 12/23/20 19:09 Blood Culture x2 Reflex Set [OM.PC] Stat 12/23/20 19:27 CULTURE BLOOD [BC] Stat - Assessment/Plan Last 24 Hours: My Active Orders 12/23/20 18:47 Sodium Chloride 0.9% [Saline Flush] 10 ml FLUSH ASDIRECTED PRN Sodium Chloride 0.9% [Saline Flush] 2.5 ml FLUSH ASDIRECTED PRN Saline Lock Insert [OM.PC] Stat 12/23/20 19:02 CULTURE URINE [MREF] Stat 12/23/20 19:08 CULTURE BLOOD [BC] Stat 12/23/20 19:09 Blood Culture x2 Reflex Set [OM.PC] Stat 12/23/20 19:27 CULTURE BLOOD [BC] Stat
[2020-12-23] MEDS ORDERED: Morphine 2 MG/ML SYRINGE IVPUSH ONE (20:22)
[2020-12-23] MEDS ORDERED: Iopamidol 755 MG/ML 500 ML Multipack Bottle IVPUSH STA (21:41)
--- NOTE | 2020-12-23 22:56 | CT ---
INDICATION: Shortness breath and tachycardia. Chest pain. COMPARISON: CT pulmonary angiogram from 02/16/[address] of the abdomen from 09/02/2020 TECHNIQUE: CT examination of the chest was performed with the uneventful intravenous administration of 80 cc of Isovue 370 while 1 and 3 mm thick axial sections were obtained through the pulmonary arteries. Please note that all CT scans at this facility use dose modulation, iterative reconstruction, and/or weight-based dosing when appropriate to reduce radiation dose to as low as reasonably achievable. FINDINGS: : There is no sign of pulmonary embolism, with normal enhancement and branching of the pulmonary arteries. The lungs are clear with no sign of significant infiltrate or mass. There is no sign of mediastinal or hilar mass or adenopathy. The heart is normal in appearance for the patient`s age. There is age appropriate appearance of the thoracic aorta and ascending great vessels. There is no sign of supraclavicular or axillary mass or adenopathy. The visualized superior liver, spleen, pancreas, right kidney, and adrenals are normal in appearance. The left kidney is again seen to be absent. The osseous structures are normal in appearance for the patient`s age. IMPRESSION: No sign of pulmonary embolism. Normal CT of the chest with contrast. Again seen is absence of the left kidney. Please note that all CT scans at this facility use dose modulation, iterative reconstruction, and/or weight-based dosing when appropriate to reduce radiation dose to as low as reasonably achievable. Dictated by Deny Chicas MD @ 12/23/2020 10:54:[address] Deny Chicas @ Dec 23 2020 10:54PM
--- NOTE | 2020-12-23 23:10 | CT ---
INDICATION: Tachycardia, chest pain. Elevated lipase, concern for pancreatitis. Concern for systemic inflammatory response syndrome. COMPARISON: CT of the abdomen and pelvis with contrast from 09/02/2020 TECHNIQUE: CT examination of the abdomen and pelvis was performed with the uneventful intravenous administration of Isovue 370 as part of the accompanying CT pulmonary angiogram while 2.5 mm thick axial sections were obtained from the lung bases through the pubic symphysis. Oral contrast was not administered. Please note that all CT scans at this facility use dose modulation, iterative reconstruction, and/or weight-based dosing when appropriate to reduce radiation dose to as low as reasonably achievable. FINDINGS: In the abdomen, the liver remains mildly low in density, representing mild fatty infiltration. There is no sign of mass. The spleen, pancreas and adrenals are normal in appearance. Again seen is a solitary right kidney. The kidney is normal in appearance with no sign of mass, calculus, or hydronephrosis. The gallbladder is normal in appearance. The abdominal aorta is normal in caliber with no sign of dilatation. There is no sign of retroperitoneal mass or adenopathy. The stomach, loops of small bowel, and colon in the abdomen are normal in appearance. Again seen is mesh hernia repair of the mid abdominal ventral wall at the midline. There is no sign of any recurrence of a hernia. In the pelvis, the appendix is normal in appearance with no sign of inflammatory process. The loops of small bowel and colon in the pelvis are normal in appearance. The prostate is normal in appearance. The urinary bladder is normal in appearance. There is no sign of pelvic or inguinal mass or adenopathy. There is no sign of free air or free fluid in the abdomen or pelvis. The lung bases are clear. There is developmental abnormality of segmentation of the L2 vertebral body, with 2 pairs of pedicles on the left resulting in increased height of the left L2 vertebral body. This results in the moderate scoliosis of the lumbar spine convex towards the left. IMPRESSION: CT of the abdomen shows normal appearance of the pancreas with nothing seen to suggest pancreatitis. Stable mild fatty infiltration of the liver. Again seen is a solitary right kidney. Stable satisfactory appearance of mesh hernia repair of midline mid abdominal ventral hernia. Normal CT of the pelvis with contrast. 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 No sign of any deep-seated inflammatory process or infection in the abdomen or pelvis. Please note that all CT scans at this facility use dose modulation, iterative reconstruction, and/or weight-based dosing when appropriate to reduce radiation dose to as low as reasonably achievable. Dictated by Deny Chicas MD @ 12/23/2020 11:10:[address] Deny Chicas @ Dec 23 2020 11:10PM
--- NOTE | 2020-12-23 23:23 | CT ---
INDICATION: Worsening abscess of the posterior neck. COMPARISON: CT of the chest from today and from 02/16/2020 TECHNIQUE: CT examination of the neck is performed using spiral technique during the uneventful intravenous administration of 60 cc of Isovue 370. 3 mm thick axial sections were made along with coronal and sagittal sections. Please note that all CT scans at this facility use dose modulation, iterative reconstruction, and/or weight-based dosing when appropriate to reduce radiation dose to as low as reasonably achievable. FINDINGS: There is a deep ulcer in the posterior left paramedian subcutaneous fat of the superior neck at the C2 level. The area of inflammation and central cavity measures 3.2 x 2.0 x 2.4 centimeters. The inflammation extends to the left posterior paraspinous muscles which are moderately thickened. There is high-density material within the central portion of the ulcer which extends to the skin surface which could be hemorrhage. This could also be extravasated intravenous contrast, although I think this is less likely since I do not see any dilated feeding vessels. There is mild diffuse soft tissue stranding throughout the deep subcutaneous fat around the ulceration, consistent with cellulitis. There is an area of scarring with retraction in the posterior-lateral right neck at the C4 level consistent with previous inflammation. This is not associated with any active appearing inflammatory findings. There is mild patchy inflammatory stranding in the subcutaneous fat of the left posterior-lateral mid neck located at the C4 level which could be additional cellulitis. There is mild soft tissue stranding in the subcutaneous fat of the posterior left upper chest, unchanged from the previous CT from 2019, consistent with previous inflammatory disease. The airway structures are normal in appearance. There is no sign of cervical mass or adenopathy on today`s study. The salivary glands are normal in appearance. The visualized posterior fossa, mastoids, skull base, and orbits are normal in appearance. The paranasal sinuses are clear. The great vessels are unremarkable. The thyroid gland is normal in appearance. The visualized upper chest is clear. The visualized upper mediastinum is normal in appearance. The osseous structures are unremarkable. IMPRESSION: Deep ulcer in the posterior left paramedian subcutaneous fat of the superior neck measuring 3.2 x 2.0 x 2.4 centimeters, extending to the posterior paraspinous muscles which are moderately thickened. Separate appearing area of mild cellulitis located more inferiorly and laterally in the left posterior mid neck. Area of scarring from previous inflammatory disease in the right posterior-lateral mid neck. Please note that all CT scans at this facility use dose modulation, iterative reconstruction, and/or weight-based dosing when appropriate to reduce radiation dose to as low as reasonably achievable. Dictated by Deny Chicas MD @ 12/23/2020 11:22:[address] Deny Chicas @ Dec 23 2020 11:22PM
[2020-12-24] MEDS ORDERED: 50% Dextrose in Water 50 ML Syringe IVPUSH PRN (00:56)
[2020-12-24] MEDS ORDERED: Glucagon,Human Recombinant 1 MG Vial IM PRN (00:56)
[2020-12-24] MEDS ORDERED: Piperacillin/Tazobactam 3.375 GM in Sodium Chloride 0.9% 50 ML IV SCH (01:00)
[2020-12-24] MEDS ORDERED: oxyCODONE 5 MG Tab PO PRN (01:17)
--- NOTE | 2020-12-24 01:27 | PCM.HP.2 ---
H&P History of Present Illness - General Date of Service: 12/24/20 Admit Problem/Dx: Admission Diagnosis/Problem Admission Diagnosis/Problem Cellulitis - History of Present Illness Initial Comments - Free Text/Narative: 50 yo male with pmh BKA, HTN, Dm type 2, renal cell ca with subsequent L nephrectomy and recent hospitalization for posterior neck abscess. Patient reports he was hospitalized for a week and a half in [place] with IV antibiotics after and I&D of his neck abscess with bacteremia. He was then on Bactrim for 28 days. He finished his antibiotics last week. He reports he was on oxycodone 30mg at discharge. [facility] had him on 7.5mg prior to his admission. Patient reports he ran out of his pain medications and does not have refills until Wednesday. He has reported an increase in his neck pain as well as fevers and chills. He reports increase drainage from his neck wound. Jhon lo also reports pain in his right flank radiated to his mid abdomen. He tried to get in to his PCP clinic but they did not have any availability so he came to the ED. back of neck Pain Score (Numeric/FACES): 5 - Related Data Allergies/Adverse Reactions: Allergies Allergy/AdvReac Type Severity Reaction Status Date / Time ketorolac Allergy Hives Verified 12/27/20 21:03 Home Medications: Home Meds metFORMIN [Glucophage] 1,000 mg PO BIDMEALS 09/29/19 [History] Aspirin 81 mg PO DAILY #30 tab.chew 09/30/19 [Rx] Tamsulosin HCl [Flomax] 0.4 mg PO BID #60 capsule 10/01/19 [Rx] lisinopriL [Lisinopril] 20 mg PO DAILY 04/28/20 [History] Hydrocodone/Acetaminophen [Hydrocodone-Acetamin 7.5-325] 12/23/20 [History] Gabapentin [Neurontin] 600 mg PO QID 12/24/20 [History] metFORMIN [Glucophage] 1,000 mg PO BIDMEALS 12/24/20 [History] levoFLOXacin [Levaquin] 750 mg PO DAILY 11 Days #11 tab 12/26/20 [Rx] oxyCODONE 10 mg PO Q6H 3 Days #24 tab 12/26/20 [Rx] Past Medical History HEENT History: Reports: Impaired Vision Cardiovascular History: Reports: Hypertension Respiratory History: Reports: None Gastrointestinal History: Reports: None Genitourinary History: Reports: BPH Other Genitourinary History: Renal CA, Left Kidney removed. Musculoskeletal History: Reports: Back Pain, Chronic Neurological History: Reports: Neuropathy, Diabetic, Neuropathy, Peripheral Psychiatric History: Reports: None Endocrine/Metabolic History: Reports: Diabetes, Type II, Obesity/BMI 30+ Insulin Pump Model and Echocardiograph Technician: None Hematologic History: Reports: None Immunologic History: Reports: None Oncologic (Cancer) History: Reports: Renal Dermatologic History: Reports: Cellulitis - Infectious Disease History Infectious Disease History: Reports: None, MRSA Other Infectious Disease History: MRSA - Past Surgical History Head Surgeries/Procedures: Reports: None HEENT Surgical History: Reports: None Cardiovascular Surgical History: Reports: None Respiratory Surgical History: Reports: None GI Surgical History: Reports: Hernia, Abdominal Male Surgical History: Reports: Nephrectomy Endocrine Surgical History: Reports: None Neurological Surgical History: Reports: None Musculoskeletal Surgical History: Reports: Amputation Other Musculoskeletal Surgeries/Procedures:: L BTK amputation Oncologic Surgical History: Reports: None Dermatological Surgical History: Reports: None Social & Family History - Family History Family Medical History: No Pertinent Family History - Tobacco Use Tobacco Use Status *Q: Current Every Day Tobacco User Years of Tobacco use: 25 Packs/Tins Daily: 0.2 - Caffeine Use Caffeine Use: Reports: None - Recreational Drug Use Recreational Drug Use: No H&P Review of Systems - Review of Systems: Review Of Systems: Comprehensive ROS is negative, except as noted in HPI. Exam - Exam Exam: See Below - Vital Signs Vital Signs: Last Vital Signs Temp 36.6 C 12/23/20 18:17 Pulse 66 12/24/20 00:39 Resp 20 12/24/20 00:39 BP 133/82 12/24/20 00:39 Pulse Ox 95 12/24/20 00:39 Weight: 109.316 kg - Exam General: Alert, Oriented Neck: Other (3-4mm wound with backing, mild induration surounding wound) Lungs: Clear to Auscultation, Normal Respiratory Effort Cardiovascular: Regular Rate, Regular Rhythm GI/Abdominal Exam: Normal Bowel Sounds, Soft, Non-Tender Back Exam: CVA Tenderness (R). No: CVA Tenderness (L) Extremities: Non-Tender, No Pedal Edema Skin: Warm, Dry, Intact Neurological: Cranial Nerves Intact. No: Focal Deficit - Patient Data Lab Results Last 24 hrs: Laboratory Results - last 24 hr 12/23/20 12/23/20 12/23/20 Range/Units 19:02 19:08 19:08 WBC 11.08 H (4.0-11.0) K/uL RBC 5.23 (4.50-5.90) M/uL Hgb 15.1 (13.0-17.0) g/dL Hct 44.4 (38.0-50.0) % MCV 84.9 (80.0-98.0) fL MCH 28.9 (27.0-32.0) pg MCHC 34.0 (31.0-37.0) g/dL RDW Std Deviation 46.9 (28.0-62.0) fl RDW Coeff of Candy 15 (11.0-15.0) % Plt Count 424 H (150-400) K/uL MPV 10.10 (7.40-12.00) fL Neut % (Auto) 78.0 (48.0-80.0) % Lymph % (Auto) 15.0 L (16.0-40.0) % Door % (Auto) 5.7 (0.0-15.0) % Eos % (Auto) 1.1 (0.0-7.0) % Baso % (Auto) 0.2 (0.0-1.5) % Neut # (Auto) 8.7 H (1.4-5.7) K/uL Lymph # (Auto) 1.7 (0.6-2.4) K/uL Door # (Auto) 0.6 (0.0-0.8) K/uL Eos # (Auto) 0.1 (0.0-0.7) K/uL Baso # (Auto) 0.0 (0.0-0.1) K/uL Nucleated RBC % 0.0 /100WBC Nucleated RBCs # 0 K/uL D-Dimer, Quantitative (0.0-0.50) mg/L FEU Sodium 137 (136-148) mmol/L Potassium 4.1 (3.5-5.1) mmol/L Chloride 101 (98-107) mmol/L Carbon Dioxide 22.0 (21.0-32.0) mmol/L BUN 8 (7.0-18.0) mg/dL Creatinine 1.1 (0.8-1.3) mg/dL Est Cr Clr Drug Dosing 73.31 mL/min Estimated GFR (MDRD) > 60.0 ml/min Glucose 322 H (74-106) mg/dL POC Glucose (70-99) mg/dL Lactic Acid (0.4-2.0) mmol/L Calcium 9.5 (8.5-10.1) mg/dL Total Bilirubin 0.5 (0.2-1.0) mg/dL AST 26 (15-37) IU/L ALT 23 (14-63) IU/L Alkaline Phosphatase 133 H (46-116) U/L Troponin I < 0.050 (0.000-0.056) ng/mL Total Protein 8.2 (6.4-8.2) g/dL Albumin 3.5 (3.4-5.0) g/dL Globulin 4.7 H (2.6-4.0) g/dL Albumin/Globulin Ratio 0.7 L (0.9-1.6) Lipase 493 H (73-393) U/L Urine Color YELLOW Urine Appearance SLT CLOUDY Urine pH 6.0 (5.0-8.0) Ur Specific [place] 1.015 (1.001-1.035) Urine Protein 100 H (NEGATIVE) mg/dL Urine Glucose (UA) 500 H (NEGATIVE) mg/dL Urine Ketones NEGATIVE (NEGATIVE) mg/dL Urine Occult Blood LARGE H (NEGATIVE) Urine Nitrite POSITIVE H (NEGATIVE) Urine Bilirubin NEGATIVE (NEGATIVE) Urine Urobilinogen 1.0 (<2.0) EU/dL Ur Leukocyte Esterase SMALL H (NEGATIVE) Urine RBC 8-10 (0-2/HPF) Urine WBC 3-5 (0-5/HPF) Ur Epithelial Cells FEW (NONE-FEW) Urine Bacteria 2+ H (NEGATIVE) Influenza Type A RNA (NEGATIVE) Influenza Type B RNA (NEGATIVE) SARS-CoV-2 RNA (ISABEL) (NEGATIVE) 12/23/20 12/23/20 12/23/20 Range/Units 19:08 19:08 19:15 WBC (4.0-11.0) K/uL RBC (4.50-5.90) M/uL Hgb (13.0-17.0) g/dL Hct (38.0-50.0) % MCV (80.0-98.0) fL MCH (27.0-32.0) pg MCHC (31.0-37.0) g/dL RDW Std Deviation (28.0-62.0) fl RDW Coeff of Candy (11.0-15.0) % Plt Count (150-400) K/uL MPV (7.40-12.00) fL Neut % (Auto) (48.0-80.0) % Lymph % (Auto) (16.0-40.0) % Door % (Auto) (0.0-15.0) % Eos % (Auto) (0.0-7.0) % Baso % (Auto) (0.0-1.5) % Neut # (Auto) (1.4-5.7) K/uL Lymph # (Auto) (0.6-2.4) K/uL Door # (Auto) (0.0-0.8) K/uL Eos # (Auto) (0.0-0.7) K/uL Baso # (Auto) (0.0-0.1) K/uL Nucleated RBC % /100WBC Nucleated RBCs # K/uL D-Dimer, Quantitative 0.67 H (0.0-0.50) mg/L FEU Sodium (136-148) mmol/L Potassium (3.5-5.1) mmol/L Chloride (98-107) mmol/L Carbon Dioxide (21.0-32.0) mmol/L BUN (7.0-18.0) mg/dL Creatinine (0.8-1.3) mg/dL Est Cr Clr Drug Dosing mL/min Estimated GFR (MDRD) ml/min Glucose (74-106) mg/dL POC Glucose (70-99) mg/dL Lactic Acid 2.5 H* (0.4-2.0) mmol/L Calcium (8.5-10.1) mg/dL Total Bilirubin (0.2-1.0) mg/dL AST (15-37) IU/L ALT (14-63) IU/L Alkaline Phosphatase (46-116) U/L Troponin I (0.000-0.056) ng/mL Total Protein (6.4-8.2) g/dL Albumin (3.4-5.0) g/dL Globulin (2.6-4.0) g/dL Albumin/Globulin Ratio (0.9-1.6) Lipase (73-393) U/L Urine Color Urine Appearance Urine pH (5.0-8.0) Ur Specific [place] (1.001-1.035) Urine Protein (NEGATIVE) mg/dL Urine Glucose (UA) (NEGATIVE) mg/dL Urine Ketones (NEGATIVE) mg/dL Urine Occult Blood (NEGATIVE) Urine Nitrite (NEGATIVE) Urine Bilirubin (NEGATIVE) Urine Urobilinogen (<2.0) EU/dL Ur Leukocyte Esterase (NEGATIVE) Urine RBC (0-2/HPF) Urine WBC (0-5/HPF) Ur Epithelial Cells (NONE-FEW) Urine Bacteria (NEGATIVE) Influenza Type A RNA NEGATIVE (NEGATIVE) Influenza Type B RNA NEGATIVE (NEGATIVE) SARS-CoV-2 RNA (ISABEL) NEGATIVE (NEGATIVE) 12/23/20 12/24/20 Range/Units 19:36 00:00 WBC (4.0-11.0) K/uL RBC (4.50-5.90) M/uL Hgb (13.0-17.0) g/dL Hct (38.0-50.0) % MCV (80.0-98.0) fL MCH (27.0-32.0) pg MCHC (31.0-37.0) g/dL RDW Std Deviation (28.0-62.0) fl RDW Coeff of Candy (11.0-15.0) % Plt Count (150-400) K/uL MPV (7.40-12.00) fL Neut % (Auto) (48.0-80.0) % Lymph % (Auto) (16.0-40.0) % Door % (Auto) (0.0-15.0) % Eos % (Auto) (0.0-7.0) % Baso % (Auto) (0.0-1.5) % Neut # (Auto) (1.4-5.7) K/uL Lymph # (Auto) (0.6-2.4) K/uL Door # (Auto) (0.0-0.8) K/uL Eos # (Auto) (0.0-0.7) K/uL Baso # (Auto) (0.0-0.1) K/uL Nucleated RBC % /100WBC Nucleated RBCs # K/uL D-Dimer, Quantitative (0.0-0.50) mg/L FEU Sodium (136-148) mmol/L Potassium (3.5-5.1) mmol/L Chloride (98-107) mmol/L Carbon Dioxide (21.0-32.0) mmol/L BUN (7.0-18.0) mg/dL Creatinine (0.8-1.3) mg/dL Est Cr Clr Drug Dosing mL/min Estimated GFR (MDRD) ml/min Glucose (74-106) mg/dL POC Glucose 270 H (70-99) mg/dL Lactic Acid 1.3 (0.4-2.0) mmol/L Calcium (8.5-10.1) mg/dL Total Bilirubin (0.2-1.0) mg/dL AST (15-37) IU/L ALT (14-63) IU/L Alkaline Phosphatase (46-116) U/L Troponin I (0.000-0.056) ng/mL Total Protein (6.4-8.2) g/dL Albumin (3.4-5.0) g/dL Globulin (2.6-4.0) g/dL Albumin/Globulin Ratio (0.9-1.6) Lipase (73-393) U/L Urine Color Urine Appearance Urine pH (5.0-8.0) Ur Specific [place] (1.001-1.035) Urine Protein (NEGATIVE) mg/dL Urine Glucose (UA) (NEGATIVE) mg/dL Urine Ketones (NEGATIVE) mg/dL Urine Occult Blood (NEGATIVE) Urine Nitrite (NEGATIVE) Urine Bilirubin (NEGATIVE) Urine Urobilinogen (<2.0) EU/dL Ur Leukocyte Esterase (NEGATIVE) Urine RBC (0-2/HPF) Urine WBC (0-5/HPF) Ur Epithelial Cells (NONE-FEW) Urine Bacteria (NEGATIVE) Influenza Type A RNA (NEGATIVE) Influenza Type B RNA (NEGATIVE) SARS-CoV-2 RNA (ISABEL) (NEGATIVE) Result Diagrams: 12/26/20 05:35 12/26/20 05:35 Sepsis Event Note - Evaluation Sepsis Screening Result: Possible Sepsis Risk - Focused Exam Vital Signs: Vital Signs Temp Pulse Pulse Resp BP Pulse Ox 12/24/20 00:39 66 20 133/82 95 12/23/20 22:25 78 20 133/82 99 12/23/20 20:30 99 20 126/91 H 98 12/23/20 19:55 110 H 20 137/63 95 12/23/20 18:17 36.6 C 114 H 18 135/96 H 98 Problem List Initiated/Reviewed/Updated: Yes Orders Last 24hrs: Active Orders 24 hr Category Date Time Status Patient Status [ADT] Routine ADT 12/24/20 00:22 Active Antiembolic Devices [RC] PER UNIT ROUTINE Care 12/24/20 01:18 Active Blood Glucose Check, Bedside [RC] TIDAC Care 12/24/20 00:56 Active Oxygen Therapy [RC] PRN Care 12/24/20 01:17 Active VTE/DVT Education [RC] PER UNIT ROUTINE Care 12/24/20 01:17 Active Vital Signs [RC] Q4H Care 12/24/20 01:17 Active Nothing per Oral Now Diet [DIET] Diet 12/24/20 Breakfast Active CBC WITH AUTO DIFF [HEME] AM Lab 12/24/20 05:11 Ordered COMPREHENSIVE METABOLIC PN,CMP [CHEM] AM Lab 12/24/20 05:11 Ordered CULTURE BLOOD [BC] Stat Lab 12/23/20 19:08 Received CULTURE BLOOD [BC] Stat Lab 12/23/20 19:27 Received CULTURE URINE [MREF] Stat Lab 12/23/20 19:02 Received LIPASE [CHEM] AM Lab 12/24/20 05:11 Ordered TROPONIN I [CHEM] Q6H Lab 12/24/20 01:19 Ordered TROPONIN I [CHEM] Q6H Lab 12/24/20 07:19 Ordered VANCOMYCIN TROUGH [CHEM] Timed Lab 12/25/20 18:00 Ordered Dextrose 50% in Water Med 12/24/20 00:56 Active 50 ml IVPUSH ASDIRECTED PRN Glucagon,Human Recombinant [GlucaGen] Med 12/24/20 00:56 Active 1 mg IM ASDIRECTED PRN Heparin Sodium Med 12/24/20 01:30 Ordered 5,000 units SUBCUT Q8H Insulin Aspart [NovoLOG] Med 12/24/20 07:30 Active See Protocol SUBCUT TIDAC Morphine Med 12/24/20 01:17 Ordered 2 mg IVPUSH Q2H PRN Pharmacy to Dose - Vancomycin Med 12/24/20 01:00 Pending 1 dose .XX ASDIRECTED Piperacillin/Tazobactam [Piperacil-Tazobact] 3.375 gm Med 12/24/20 01:00 Active Sodium Chloride 0.9% [Normal Saline] 50 ml IV Q6H Sodium Chloride 0.9% [Saline Flush] Med 12/23/20 18:47 Active 10 ml FLUSH ASDIRECTED PRN Sodium Chloride 0.9% [Saline Flush] Med 12/23/20 18:47 Active 2.5 ml FLUSH ASDIRECTED PRN VANCOmycin 1.5 GM/300 ML 1.5 gm Med 12/24/20 07:00 Active Premix Bag 1 bag IV Q12H oxyCODONE Med 12/24/20 01:17 Ordered 5 mg PO Q4H PRN Blood Culture x2 Reflex Set [OM.PC] Stat Ot 12/23/20 19:09 Ordered Obtain Past Medical Record [OM.PC] Routine Ot 12/24/20 01:21 Ordered Saline Lock Insert [OM.PC] Stat Ot 12/23/20 18:47 Ordered Sequential Compression Device [OM.PC] Per Unit Routine Ot 12/24/20 01:17 Ordered Resuscitation Status Routine Resus Stat 12/24/20 01:17 Ordered Medication Orders Dextrose/Water (50% Dextrose In Water 50 Ml Syringe) 50 ml IVPUSH ASDIRECTED PRN PRN Reason: Hypoglycemia Glucagon (Glucagon,Human Recombinant 1 Mg Vial) 1 mg IM ASDIRECTED PRN PRN Reason: Hypoglycemia Heparin Sodium (Porcine) (Heparin Sodium 5,000 Units/Ml Vial) 5,000 units SUBCUT Q8H [facility] Piperacillin Sod/Tazobactam (Sod 3.375 gm/ Sodium Chloride) 50 mls @ 100 mls/hr IV Q6H [facility] Vancomycin HCl 1.5 gm/ Premix 300 mls @ 200 mls/hr IV Q12H [facility] Insulin Aspart (Insulin Aspart 100 Units/Ml 3 Ml Pen) 0 unit SUBCUT TIDAC [facility]; Protocol Morphine Sulfate (Morphine 10 Mg/Ml Syringe) 2 mg IVPUSH Q2H PRN PRN Reason: Pain (severe 7-10) Stop: 12/25/20 01:18 Oxycodone HCl (Oxycodone 5 Mg Tab) 5 mg PO Q4H PRN PRN Reason: Pain (moderate 4-6) Sodium Chloride (Sodium Chloride 0.9% 10 Ml Syringe) 10 ml FLUSH ASDIRECTED PRN PRN Reason: Keep Vein Open Sodium Chloride (Sodium Chloride 0.9% 2.5 Ml Syringe) 2.5 ml FLUSH ASDIRECTED PRN PRN Reason: Keep Vein Open Vancomycin HCl (Pharmacy To Dose - Vancomycin) 1 dose .XX ASDIRECTED [facility] Assessment/Plan Comment:: 50 yo male with pmh BKA, HTN, Dm type 2, renal cell ca with subsequent L nephrectomy who presented with increasing neck, flank and abdominal pain. Differential diagnosis includes, slow to resolve cellulitis with abscess, UTI, Pancreatitis and narcotic withdrawal Cellulitis/abscess: continue packing, vancomycin and Zosyn, pain control with IV morphine, obtain records from recent hospitalization in [place] UTI: on broad spectrum antibiotics, cultures pending Possible mild pancreatitis: IV fluids and bowel rest DM: sliding scale insulin, hold metformin
[2020-12-24] MEDS: Morphine 2 MG/ML SYRINGE IVPUSH PRN ×9 (02:07→23:05)
[2020-12-24] MEDS: Heparin Sodium 5,000 Units/ML Vial SUBCUT SCH ×3 (02:12→18:05)
[2020-12-24] MEDS: Sodium Chloride 0.9% 1,000 ML IV SCH ×3 (02:31→22:50)
[2020-12-24] MEDS: Tamsulosin 0.4 MG Cap.ER PO SCH ×3 (02:37→20:27)
[2020-12-24] MEDS: Gabapentin 300 MG Cap PO SCH ×4 (02:37→17:39)
[2020-12-24] MEDS: Piperacillin/Tazobactam 3.375 GM in Sodium Chloride 0.9% 50 ML IV SCH ×4 (02:40→20:27)
[2020-12-24] MEDS: VANCOmycin 1.5 GM/300 ML 1.5 GM in Premix Bag 1 BAG IV SCH ×2 (06:30→18:05)
[2020-12-24] MEDS: Insulin Aspart 100 Units/ML 3 ML Pen SUBCUT SCH ×3 (07:38→16:01)
[2020-12-24 08:09] LABS: BLOOD UREA NITROGEN,BUN 6 mg/dL (7.0-18.0); CHLORIDE,CL 106 mmol/L (98-107); GLUCOSE RANDOM 124 mg/dL (74-106); LIPASE 146 U/L (73-393); POTASSIUM,K 3.8 mmol/L (3.5-5.1); SODIUM,NA 140 mmol/L (136-148)
[2020-12-24] MEDS: Lisinopril 10 MG Tab PO SCH ×2 (08:30→17:38)
--- NOTE | 2020-12-24 09:09 | PCM.PREANE ---
Preanesthetic Assessment - Anesthesia/Transfusion/Family Hx Anesthesia History: Prior Anesthesia Without Reaction Family History of Anesthesia Reaction: No Transfusion History: Prior Transfusion Without Reaction - Review of Systems General: Fever, Fatigue Pulmonary: No Symptoms Cardiovascular: No Symptoms Gastrointestinal: Abdominal Pain Neurological: Numbness, Paresthesia, Tingling, Weakness Other: Reports: Diabetes - Physical Assessment NPO Status Date: 12/24/20 NPO Status Time: 00:00 Vital Signs: Last Vital Signs Temp 97.1 F 12/24/20 08:30 Pulse 68 12/24/20 08:30 Resp 18 12/24/20 08:30 BP 108/75 12/24/20 08:30 Pulse Ox 98 12/24/20 08:30 Height: 5 ft 6 in Weight: 221 lb 1.6 oz ASA Class: 3E Airway Class: Mallampati = 2 Dentition: Reports: Normal Dentition ROM/Head Extension: Limited/Partial Lungs: Clear to Auscultation, Normal Respiratory Effort Cardiovascular: Regular Rate, Regular Rhythm - Lab Values: Laboratory Last Values WBC 10.27 K/uL (4.0-11.0) 12/24/20 07:29 RBC 4.50 M/uL (4.50-5.90) 12/24/20 07:29 Hgb 12.8 g/dL (13.0-17.0) L 12/24/20 07:29 Hct 39.1 % (38.0-50.0) 12/24/20 07:29 MCV 86.9 fL (80.0-98.0) 12/24/20 07:29 MCH 28.4 pg (27.0-32.0) 12/24/20 07:29 MCHC 32.7 g/dL (31.0-37.0) 12/24/20 07:29 RDW Std Deviation 48.3 fl (28.0-62.0) 12/24/20 07:29 RDW Coeff of Candy 15 % (11.0-15.0) 12/24/20 07:29 Plt Count 313 K/uL (150-400) 12/24/20 07:29 MPV 9.60 fL (7.40-12.00) 12/24/20 07:29 Neut % (Auto) 57.6 % (48.0-80.0) 12/24/20 07:29 Lymph % (Auto) 30.0 % (16.0-40.0) 12/24/20 07: [place] % (Auto) 7.9 % (0.0-15.0) 12/24/20 07: Eos % (Auto) 4.2 % (0.0-7.0) 12/24/20 07: Baso % (Auto) 0.3 % (0.0-1.5) 12/24/20 07:29 Neut # (Auto) 5.9 K/uL (1.4-5.7) H 12/24/20 07: Lymph # (Auto) 3.1 K/uL (0.6-2.4) H 12/24/20 07: [place] # (Auto) 0.8 K/uL (0.0-0.8) 12/24/20 07: Eos # (Auto) 0.4 K/uL (0.0-0.7) 12/24/20 07: Baso # (Auto) 0.0 K/uL (0.0-0.1) 12/24/20 07: Nucleated RBC % 0.0 /100WBC 12/24/20 07: Nucleated RBCs # 0 K/uL 12/24/20 07:29 D-Dimer, Quantitative 0.67 mg/L FEU (0.0-0.50) H 12/23/20 19:08 Sodium 140 mmol/L (136-148) 12/24/20 07:29 Potassium 3.8 mmol/L (3.5-5.1) 12/24/20 07: Chloride 106 mmol/L (98-107) 12/24/20 07:29 Carbon Dioxide 26.0 mmol/L (21.0-32.0) 12/24/20 07:29 BUN 6 mg/dL (7.0-18.0) L 12/24/20 07:29 Creatinine 1.0 mg/dL (0.8-1.3) 12/24/20 07:29 Est Cr Clr Drug Dosing 80.64 mL/min 12/24/20 07:29 Estimated GFR (MDRD) > 60.0 ml/min 12/24/20 07:29 Glucose 124 mg/dL (74-106) H 12/24/20 07:29 POC Glucose 120 mg/dL (70-99) H 12/24/20 07:28 Lactic Acid 1.3 mmol/L (0.4-2.0) 12/24/20 00:00 Calcium 8.3 mg/dL (8.5-10.1) L 12/24/20 07:29 Total Bilirubin 0.7 mg/dL (0.2-1.0) 12/24/20 07:29 AST 15 IU/L (15-37) 12/24/20 07:29 ALT 16 IU/L (14-63) 12/24/20 07:29 Alkaline Phosphatase 105 U/L (46-116) 12/24/20 07:29 Troponin I < 0.050 ng/mL (0.000-0.056) 12/24/20 07:29 Total Protein 6.5 g/dL (6.4-8.2) 12/24/20 07:29 Albumin 2.7 g/dL (3.4-5.0) L 12/24/20 07:29 Globulin 3.8 g/dL (2.6-4.0) 12/24/20 07:29 Albumin/Globulin Ratio 0.7 (0.9-1.6) L 12/24/20 07: Lipase 146 U/L (73-393) 12/24/20 07:29 Urine Color YELLOW 12/23/20 19:02 Urine Appearance SLT CLOUDY 12/23/20 19:02 Urine pH 6.0 (5.0-8.0) 12/23/20 19:02 Ur Specific [place] 1.015 (1.001-1.035) 12/23/20 19:02 Urine Protein 100 mg/dL (NEGATIVE) H 12/23/20 19:02 Urine Glucose (UA) 500 mg/dL (NEGATIVE) H 12/23/20 19:02 Urine Ketones NEGATIVE mg/dL (NEGATIVE) 12/23/20 19:02 Urine Occult Blood LARGE (NEGATIVE) H 12/23/20 19:02 Urine Nitrite POSITIVE (NEGATIVE) H 12/23/20 19:02 Urine Bilirubin NEGATIVE (NEGATIVE) 12/23/20 19: Urine Urobilinogen 1.0 EU/dL (<2.0) 12/23/20 19:02 Ur Leukocyte Esterase SMALL (NEGATIVE) H 12/23/20 19:02 Urine RBC 8-10 (0-2/HPF) 12/23/20 19:02 Urine WBC 3-5 (0-5/HPF) 12/23/20 19:02 Ur Epithelial Cells FEW (NONE-FEW) 12/23/20 19:02 Urine Bacteria 2+ (NEGATIVE) H 12/23/20 19:02 Influenza Type A RNA NEGATIVE (NEGATIVE) 12/23/20 19:15 Influenza Type B RNA NEGATIVE (NEGATIVE) 12/23/20 19:15 SARS-CoV-2 RNA (ISABEL) NEGATIVE (NEGATIVE) 12/23/20 19:15 - Allergies Allergies/Adverse Reactions: Allergies Allergy/AdvReac Type Severity Reaction Status Date / Time ketorolac Allergy Hives Verified 12/23/20 18:22 - Blood Blood Available: No - Acknowledgements Anesthesia Type Planned: General Anesthesia Pt an Appropriate Candidate for the Planned Anesthesia: Yes Alternatives and Risks of Anesthesia Discussed w Pt/Guardian: Yes Pt/Guardian Understands and Agrees with Anesthesia Plan: Yes PreAnesthesia Questionnaire HEENT History: Reports: Impaired Vision, Other (See Below) Other HEENT History: wears glasses Cardiovascular History: Reports: Hypertension Respiratory History: Reports: None Gastrointestinal History: Reports: None Genitourinary History: Reports: BPH Other Genitourinary History: Renal CA, Left Kidney removed. Musculoskeletal History: Reports: Back Pain, Chronic Neurological History: Reports: Neuropathy, Diabetic, Neuropathy, Peripheral Psychiatric History: Reports: None Endocrine/Metabolic History: Reports: Diabetes, Type II, Obesity/BMI 30+ Hematologic History: Reports: Blood Transfusion(s) Immunologic History: Reports: None Oncologic (Cancer) History: Reports: Renal Dermatologic History: Reports: Cellulitis - Infectious Disease History Infectious Disease History: Reports: None, MRSA Other Infectious Disease History: MRSA - Past Surgical History Head Surgeries/Procedures: Reports: None HEENT Surgical History: Reports: None Cardiovascular Surgical History: Reports: None Respiratory Surgical History: Reports: None GI Surgical History: Reports: Colonoscopy, Hernia, Abdominal Male Surgical History: Reports: Nephrectomy Other Male Surgeries/Procedures: nephrectomy 2014 Endocrine Surgical History: Reports: None Neurological Surgical History: Reports: None Musculoskeletal Surgical History: Reports: Amputation Other Musculoskeletal Surgeries/Procedures:: L BTK amputation 2017 Oncologic Surgical History: Reports: None Dermatological Surgical History: Reports: None - SUBSTANCE USE Tobacco Use Status *Q: Light Tobacco User Tobacco Use Within Last Twelve Months: Cigarettes Second Hand Smoke Exposure: No Recreational Drug Use History: No - HOME MEDS Home Medications: Home Meds metFORMIN [Glucophage] 1,000 mg PO BIDMEALS 09/29/19 [History] Aspirin 81 mg PO DAILY #30 tab.chew 09/30/19 [Rx] Tamsulosin HCl [Flomax] 0.4 mg PO BID #60 capsule 10/01/19 [Rx] lisinopriL [Lisinopril] 10 mg PO DAILY 04/28/20 [History] Hydrocodone/Acetaminophen [Hydrocodone-Acetamin 7.5-325] 12/23/20 [History] Gabapentin [Neurontin] 600 mg PO QID 12/24/20 [History] metFORMIN [Glucophage] 1,000 mg PO BIDMEALS 12/24/20 [History] oxyCODONE 10 mg PO Q6H 12/24/20 [History] - CURRENT (IN HOUSE) MEDS Current Meds: Current Medications Dextrose/Water (50% Dextrose In Water 50 Ml Syringe) 50 ml IVPUSH ASDIRECTED PRN PRN Reason: Hypoglycemia Gabapentin (Gabapentin 300 Mg Cap) 600 mg PO QID [facility] Last Admin: 12/24/20 06:29 Dose: 600 mg Documented by: Glucagon (Glucagon,Human Recombinant 1 Mg Vial) 1 mg IM ASDIRECTED PRN PRN Reason: Hypoglycemia Heparin Sodium (Porcine) (Heparin Sodium 5,000 Units/Ml Vial) 5,000 units SUBCUT Q8H [facility] Last Admin: 12/24/20 09:00 Dose: 5,000 units Documented by: Vancomycin HCl 1.5 gm/ Premix 300 mls @ 200 mls/hr IV Q12H [facility] Last Admin: 12/24/20 06:30 Dose: 200 mls/hr Documented by: Piperacillin Sod/Tazobactam (Sod 3.375 gm/ Sodium Chloride) 50 mls @ 100 mls/hr IV Q6H [facility] Last Admin: 12/24/20 08:52 Dose: 100 mls/hr Documented by: Sodium Chloride (Normal Saline) 1,000 mls @ 150 mls/hr IV ASDIRECTED [facility] Last Admin: 12/24/20 02:31 Dose: 150 mls/hr Documented by: Insulin Aspart (Insulin Aspart 100 Units/Ml 3 Ml Pen) 0 unit SUBCUT TIDAC [facility]; Protocol Last Admin: 12/24/20 07:38 Dose: Not Given Documented by: Lisinopril (Lisinopril 10 Mg Tab) 10 mg PO DAILY [facility] Morphine Sulfate (Morphine 2 Mg/Ml Syringe) 2 mg IVPUSH Q2H PRN PRN Reason: Pain (severe 7-10) Stop: 12/25/20 01:18 Last Admin: 12/24/20 08:51 Dose: 2 mg Documented by: Oxycodone HCl (Oxycodone 5 Mg Tab) 5 mg PO Q4H PRN PRN Reason: Pain (moderate 4-6) Last Admin: 12/24/20 07:49 Dose: 5 mg Documented by: Sodium Chloride (Sodium Chloride 0.9% 10 Ml Syringe) 10 ml FLUSH ASDIRECTED PRN PRN Reason: Keep Vein Open Sodium Chloride (Sodium Chloride 0.9% 2.5 Ml Syringe) 2.5 ml FLUSH ASDIRECTED PRN PRN Reason: Keep Vein Open Tamsulosin HCl (Tamsulosin 0.4 Mg Cap.Er) 0.4 mg PO BID [facility] Last Admin: 12/24/20 02:37 Dose: 0.4 mg Documented by: Vancomycin HCl (Pharmacy To Dose - Vancomycin) 1 dose .XX ASDIRECTED [facility] Discontinued Medications Aspirin (Aspirin 81 Mg Tab.Chew) 243 mg PO ONETIME ONE Stop: 12/23/20 19:11 Last Admin: 12/23/20 19:30 Dose: 243 mg Documented by: Sodium Chloride (Normal Saline) 1,000 mls @ 999 mls/hr IV BOLUS ONE Stop: 12/23/20 19:47 Last Admin: 12/23/20 19:10 Dose: 999 mls/hr Documented by: Piperacillin Sod/Tazobactam (Sod 3.375 gm/ Sodium Chloride) 50 mls @ 100 mls/hr IV ONETIME ONE Stop: 12/23/20 19:38 Last Admin: 12/23/20 19:30 Dose: 100 mls/hr Documented by: Vancomycin HCl 1 gm/ Sodium (Chloride) 250 mls @ 166 mls/hr IV ONETIME ONE Stop: 12/23/20 20:39 Last Admin: 12/23/20 19:30 Dose: 166 mls/hr Documented by: Sodium Chloride (Normal Saline) 1,000 mls @ 999 mls/hr IV STAT ONE Stop: 12/23/20 20:53 Last Admin: 12/23/20 20:32 Dose: 999 mls/hr Documented by: Piperacillin Sod/Tazobactam (Sod 3.375 gm/ Sodium Chloride) 50 mls @ 100 mls/hr IV Q6H [facility] Last Admin: 12/24/20 03:27 Dose: Not Given Documented by: Iopamidol (Iopamidol 755 Mg/Ml 500 Ml Multipack Bottle) 140 ml IVPUSH ONETIME STA Stop: 12/23/20 21:42 Last Admin: 12/23/20 21:43 Dose: 140 ml Documented by: Morphine Sulfate (Morphine 4 Mg/Ml Syringe) 4 mg IVPUSH ONETIME ONE Stop: 12/23/20 19:12 Last Admin: 12/23/20 19:29 Dose: 4 mg Documented by: Morphine Sulfate (Morphine 2 Mg/Ml Syringe) 2 mg IVPUSH ONETIME ONE Stop: 12/23/20 20:23 Last Admin: 12/23/20 20:31 Dose: 2 mg Documented by: Morphine Sulfate (Morphine 4 Mg/Ml Syringe) 4 mg IVPUSH ONETIME ONE Stop: 12/23/20 22:17 Last Admin: 12/23/20 22:24 Dose: 4 mg Documented by:
[2020-12-24] MEDS ORDERED: Naloxone 0.4 MG/ML Syringe IVPUSH PRN (09:10)
[2020-12-24] MEDS ORDERED: Albuterol 0.083% 2.5 MG/3 ML Neb Soln NEB PRN (09:10)
[2020-12-24] MEDS ORDERED: Ondansetron 4 MG/2 ML SDV IVPUSH PRN (09:10)
[2020-12-24] MEDS ORDERED: fentaNYL 100 MCG/2 ML SDV IVPUSH PRN (09:10)
[2020-12-24] MEDS ORDERED: HYDROmorphone 2 MG/ML Syringe IVPUSH PRN (09:10)
[2020-12-24] MEDS ORDERED: Metoclopramide 10 MG/2 ML SDV IVPUSH PRN (09:10)
--- NOTE | 2020-12-24 09:13 | PCM.PN ---
- General Info Date of Service: 12/24/20 Admission Dx/Problem (Free Text): Admission Diagnosis/Problem Admission Diagnosis/Problem Cellulitis recurrent left neck abscess Subjective Update: Patient is a 50-year-old male with past medical history of BKA on the left, neph rectomy due to renal cell carcinoma, mellitus, hypertension, peripheral neuropathy. Was admitted for recurrent abscess versus cellulitis on the posterior aspect of his neck. Approximately a week ago he was seen in [place] at [facility] treated for this. Patient returned due to associated pain, fever and chills. This morning states he has not feeling fever chills however has some improvement in the pain due to pain medication. But still has discomfort and concerns regarding the abscess versus cellulitis. Patient was seen at bedside, appears to be stable in no acute distress, was seen by Dr. Davis in surgery and patient is aware that he will be taken to surgery around noon for his I&D. Functional Status: Reports: Pain Controlled - Review of Systems General: Reports: No Symptoms HEENT: Reports: Other (Abscess neck) Pulmonary: Reports: No Symptoms Cardiovascular: Reports: No Symptoms Gastrointestinal: Reports: No Symptoms Genitourinary: Reports: No Symptoms Musculoskeletal: Reports: No Symptoms Skin: Reports: Other (Abscess) - Patient Data Vitals - Most Recent: Last Vital Signs Temp 97.1 F 12/24/20 08:30 Pulse 68 12/24/20 08:30 Resp 18 12/24/20 08:30 BP 108/75 12/24/20 08:30 Pulse Ox 98 12/24/20 08:30 Weight - Most Recent: 221 lb 1.6 oz I&O - Last 24 Hours: Intake & Output 12/23/20 12/24/20 12/24/20 22:59 06:59 14:59 Intake Total 676 Output Total 280 Balance 396 Lab Results Last 24 Hours: Laboratory Results - last 24 hr 12/23/20 12/23/20 12/23/20 Range/Units 19:02 19:08 19:08 WBC 11.08 H (4.0-11.0) K/uL RBC 5.23 (4.50-5.90) M/uL Hgb 15.1 (13.0-17.0) g/dL Hct 44.4 (38.0-50.0) % MCV 84.9 (80.0-98.0) fL MCH 28.9 (27.0-32.0) pg MCHC 34.0 (31.0-37.0) g/dL RDW Std Deviation 46.9 (28.0-62.0) fl RDW Coeff of Candy 15 (11.0-15.0) % Plt Count 424 H (150-400) K/uL MPV 10.10 (7.40-12.00) fL Neut % (Auto) 78.0 (48.0-80.0) % Lymph % (Auto) 15.0 L (16.0-40.0) % Fisher % (Auto) 5.7 (0.0-15.0) % Eos % (Auto) 1.1 (0.0-7.0) % Baso % (Auto) 0.2 (0.0-1.5) % Neut # (Auto) 8.7 H (1.4-5.7) K/uL Lymph # (Auto) 1.7 (0.6-2.4) K/uL Fisher # (Auto) 0.6 (0.0-0.8) K/uL Eos # (Auto) 0.1 (0.0-0.7) K/uL Baso # (Auto) 0.0 (0.0-0.1) K/uL Nucleated RBC % 0.0 /100WBC Nucleated RBCs # 0 K/uL D-Dimer, Quantitative (0.0-0.50) mg/L FEU Sodium 137 (136-148) mmol/L Potassium 4.1 (3.5-5.1) mmol/L Chloride 101 (98-107) mmol/L Carbon Dioxide 22.0 (21.0-32.0) mmol/L BUN 8 (7.0-18.0) mg/dL Creatinine 1.1 (0.8-1.3) mg/dL Est Cr Clr Drug Dosing 73.31 mL/min Estimated GFR (MDRD) > 60.0 ml/min Glucose 322 H (74-106) mg/dL POC Glucose (70-99) mg/dL Lactic Acid (0.4-2.0) mmol/L Calcium 9.5 (8.5-10.1) mg/dL Total Bilirubin 0.5 (0.2-1.0) mg/dL AST 26 (15-37) IU/L ALT 23 (14-63) IU/L Alkaline Phosphatase 133 H (46-116) U/L Troponin I < 0.050 (0.000-0.056) ng/mL Total Protein 8.2 (6.4-8.2) g/dL Albumin 3.5 (3.4-5.0) g/dL Globulin 4.7 H (2.6-4.0) g/dL Albumin/Globulin Ratio 0.7 L (0.9-1.6) Lipase 493 H (73-393) U/L Urine Color YELLOW Urine Appearance SLT CLOUDY Urine pH 6.0 (5.0-8.0) Ur Specific Lucas 1.015 (1.001-1.035) Urine Protein 100 H (NEGATIVE) mg/dL Urine Glucose (UA) 500 H (NEGATIVE) mg/dL Urine Ketones NEGATIVE (NEGATIVE) mg/dL Urine Occult Blood LARGE H (NEGATIVE) Urine Nitrite POSITIVE H (NEGATIVE) Urine Bilirubin NEGATIVE (NEGATIVE) Urine Urobilinogen 1.0 (<2.0) EU/dL Ur Leukocyte Esterase SMALL H (NEGATIVE) Urine RBC 8-10 (0-2/HPF) Urine WBC 3-5 (0-5/HPF) Ur Epithelial Cells FEW (NONE-FEW) Urine Bacteria 2+ H (NEGATIVE) Influenza Type A RNA (NEGATIVE) Influenza Type B RNA (NEGATIVE) SARS-CoV-2 RNA (ISABEL) (NEGATIVE) 12/23/20 12/23/20 12/23/20 Range/Units 19:08 19:08 19:15 WBC (4.0-11.0) K/uL RBC (4.50-5.90) M/uL Hgb (13.0-17.0) g/dL Hct (38.0-50.0) % MCV (80.0-98.0) fL MCH (27.0-32.0) pg MCHC (31.0-37.0) g/dL RDW Std Deviation (28.0-62.0) fl RDW Coeff of Candy (11.0-15.0) % Plt Count (150-400) K/uL MPV (7.40-12.00) fL Neut % (Auto) (48.0-80.0) % Lymph % (Auto) (16.0-40.0) % Fisher % (Auto) (0.0-15.0) % Eos % (Auto) (0.0-7.0) % Baso % (Auto) (0.0-1.5) % Neut # (Auto) (1.4-5.7) K/uL Lymph # (Auto) (0.6-2.4) K/uL Fisher # (Auto) (0.0-0.8) K/uL Eos # (Auto) (0.0-0.7) K/uL Baso # (Auto) (0.0-0.1) K/uL Nucleated RBC % /100WBC Nucleated RBCs # K/uL D-Dimer, Quantitative 0.67 H (0.0-0.50) mg/L FEU Sodium (136-148) mmol/L Potassium (3.5-5.1) mmol/L Chloride (98-107) mmol/L Carbon Dioxide (21.0-32.0) mmol/L BUN (7.0-18.0) mg/dL Creatinine (0.8-1.3) mg/dL Est Cr Clr Drug Dosing mL/min Estimated GFR (MDRD) ml/min Glucose (74-106) mg/dL POC Glucose (70-99) mg/dL Lactic Acid 2.5 H* (0.4-2.0) mmol/L Calcium (8.5-10.1) mg/dL Total Bilirubin (0.2-1.0) mg/dL AST (15-37) IU/L ALT (14-63) IU/L Alkaline Phosphatase (46-116) U/L Troponin I (0.000-0.056) ng/mL Total Protein (6.4-8.2) g/dL Albumin (3.4-5.0) g/dL Globulin (2.6-4.0) g/dL Albumin/Globulin Ratio (0.9-1.6) Lipase (73-393) U/L Urine Color Urine Appearance Urine pH (5.0-8.0) Ur Specific Lucas (1.001-1.035) Urine Protein (NEGATIVE) mg/dL Urine Glucose (UA) (NEGATIVE) mg/dL Urine Ketones (NEGATIVE) mg/dL Urine Occult Blood (NEGATIVE) Urine Nitrite (NEGATIVE) Urine Bilirubin (NEGATIVE) Urine Urobilinogen (<2.0) EU/dL Ur Leukocyte Esterase (NEGATIVE) Urine RBC (0-2/HPF) Urine WBC (0-5/HPF) Ur Epithelial Cells (NONE-FEW) Urine Bacteria (NEGATIVE) Influenza Type A RNA NEGATIVE (NEGATIVE) Influenza Type B RNA NEGATIVE (NEGATIVE) SARS-CoV-2 RNA (ISABEL) NEGATIVE (NEGATIVE) 12/23/20 12/24/20 12/24/20 Range/Units 19:36 00:00 01:30 WBC (4.0-11.0) K/uL RBC (4.50-5.90) M/uL Hgb (13.0-17.0) g/dL Hct (38.0-50.0) % MCV (80.0-98.0) fL MCH (27.0-32.0) pg MCHC (31.0-37.0) g/dL RDW Std Deviation (28.0-62.0) fl RDW Coeff of Candy (11.0-15.0) % Plt Count (150-400) K/uL MPV (7.40-12.00) fL Neut % (Auto) (48.0-80.0) % Lymph % (Auto) (16.0-40.0) % Fisher % (Auto) (0.0-15.0) % Eos % (Auto) (0.0-7.0) % Baso % (Auto) (0.0-1.5) % Neut # (Auto) (1.4-5.7) K/uL Lymph # (Auto) (0.6-2.4) K/uL Fisher # (Auto) (0.0-0.8) K/uL Eos # (Auto) (0.0-0.7) K/uL Baso # (Auto) (0.0-0.1) K/uL Nucleated RBC % /100WBC Nucleated RBCs # K/uL D-Dimer, Quantitative (0.0-0.50) mg/L FEU Sodium (136-148) mmol/L Potassium (3.5-5.1) mmol/L Chloride (98-107) mmol/L Carbon Dioxide (21.0-32.0) mmol/L BUN (7.0-18.0) mg/dL Creatinine (0.8-1.3) mg/dL Est Cr Clr Drug Dosing mL/min Estimated GFR (MDRD) ml/min Glucose (74-106) mg/dL POC Glucose 270 H (70-99) mg/dL Lactic Acid 1.3 (0.4-2.0) mmol/L Calcium (8.5-10.1) mg/dL Total Bilirubin (0.2-1.0) mg/dL AST (15-37) IU/L ALT (14-63) IU/L Alkaline Phosphatase (46-116) U/L Troponin I < 0.050 (0.000-0.056) ng/mL Total Protein (6.4-8.2) g/dL Albumin (3.4-5.0) g/dL Globulin (2.6-4.0) g/dL Albumin/Globulin Ratio (0.9-1.6) Lipase (73-393) U/L Urine Color Urine Appearance Urine pH (5.0-8.0) Ur Specific Lucas (1.001-1.035) Urine Protein (NEGATIVE) mg/dL Urine Glucose (UA) (NEGATIVE) mg/dL Urine Ketones (NEGATIVE) mg/dL Urine Occult Blood (NEGATIVE) Urine Nitrite (NEGATIVE) Urine Bilirubin (NEGATIVE) Urine Urobilinogen (<2.0) EU/dL Ur Leukocyte Esterase (NEGATIVE) Urine RBC (0-2/HPF) Urine WBC (0-5/HPF) Ur Epithelial Cells (NONE-FEW) Urine Bacteria (NEGATIVE) Influenza Type A RNA (NEGATIVE) Influenza Type B RNA (NEGATIVE) SARS-CoV-2 RNA (ISABEL) (NEGATIVE) 12/24/20 12/24/20 12/24/20 Range/Units 01:34 07:28 07:29 WBC 10.27 (4.0-11.0) K/uL RBC 4.50 (4.50-5.90) M/uL Hgb 12.8 L (13.0-17.0) g/dL Hct 39.1 (38.0-50.0) % MCV 86.9 (80.0-98.0) fL MCH 28.4 (27.0-32.0) pg MCHC 32.7 (31.0-37.0) g/dL RDW Std Deviation 48.3 (28.0-62.0) fl RDW Coeff of Candy 15 (11.0-15.0) % Plt Count 313 (150-400) K/uL MPV 9.60 (7.40-12.00) fL Neut % (Auto) 57.6 (48.0-80.0) % Lymph % (Auto) 30.0 (16.0-40.0) % Fisher % (Auto) 7.9 (0.0-15.0) % Eos % (Auto) 4.2 (0.0-7.0) % Baso % (Auto) 0.3 (0.0-1.5) % Neut # (Auto) 5.9 H (1.4-5.7) K/uL Lymph # (Auto) 3.1 H (0.6-2.4) K/uL Fisher # (Auto) 0.8 (0.0-0.8) K/uL Eos # (Auto) 0.4 (0.0-0.7) K/uL Baso # (Auto) 0.0 (0.0-0.1) K/uL Nucleated RBC % 0.0 /100WBC Nucleated RBCs # 0 K/uL D-Dimer, Quantitative (0.0-0.50) mg/L FEU Sodium (136-148) mmol/L Potassium (3.5-5.1) mmol/L Chloride (98-107) mmol/L Carbon Dioxide (21.0-32.0) mmol/L BUN (7.0-18.0) mg/dL Creatinine (0.8-1.3) mg/dL Est Cr Clr Drug Dosing mL/min Estimated GFR (MDRD) ml/min Glucose (74-106) mg/dL POC Glucose 126 H 120 H (70-99) mg/dL Lactic Acid (0.4-2.0) mmol/L Calcium (8.5-10.1) mg/dL Total Bilirubin (0.2-1.0) mg/dL AST (15-37) IU/L ALT (14-63) IU/L Alkaline Phosphatase (46-116) U/L Troponin I (0.000-0.056) ng/mL Total Protein (6.4-8.2) g/dL Albumin (3.4-5.0) g/dL Globulin (2.6-4.0) g/dL Albumin/Globulin Ratio (0.9-1.6) Lipase (73-393) U/L Urine Color Urine Appearance Urine pH (5.0-8.0) Ur Specific Lucas (1.001-1.035) Urine Protein (NEGATIVE) mg/dL Urine Glucose (UA) (NEGATIVE) mg/dL Urine Ketones (NEGATIVE) mg/dL Urine Occult Blood (NEGATIVE) Urine Nitrite (NEGATIVE) Urine Bilirubin (NEGATIVE) Urine Urobilinogen (<2.0) EU/dL Ur Leukocyte Esterase (NEGATIVE) Urine RBC (0-2/HPF) Urine WBC (0-5/HPF) Ur Epithelial Cells (NONE-FEW) Urine Bacteria (NEGATIVE) Influenza Type A RNA (NEGATIVE) Influenza Type B RNA (NEGATIVE) SARS-CoV-2 RNA (ISABEL) (NEGATIVE) 12/24/20 12/24/20 Range/Units 07:29 07:29 WBC (4.0-11.0) K/uL RBC (4.50-5.90) M/uL Hgb (13.0-17.0) g/dL Hct (38.0-50.0) % MCV (80.0-98.0) fL MCH (27.0-32.0) pg MCHC (31.0-37.0) g/dL RDW Std Deviation (28.0-62.0) fl RDW Coeff of Candy (11.0-15.0) % Plt Count (150-400) K/uL MPV (7.40-12.00) fL Neut % (Auto) (48.0-80.0) % Lymph % (Auto) (16.0-40.0) % Fisher % (Auto) (0.0-15.0) % Eos % (Auto) (0.0-7.0) % Baso % (Auto) (0.0-1.5) % Neut # (Auto) (1.4-5.7) K/uL Lymph # (Auto) (0.6-2.4) K/uL Fisher # (Auto) (0.0-0.8) K/uL Eos # (Auto) (0.0-0.7) K/uL Baso # (Auto) (0.0-0.1) K/uL Nucleated RBC % /100WBC Nucleated RBCs # K/uL D-Dimer, Quantitative (0.0-0.50) mg/L FEU Sodium 140 (136-148) mmol/L Potassium 3.8 (3.5-5.1) mmol/L Chloride 106 (98-107) mmol/L Carbon Dioxide 26.0 (21.0-32.0) mmol/L BUN 6 L (7.0-18.0) mg/dL Creatinine 1.0 (0.8-1.3) mg/dL Est Cr Clr Drug Dosing 80.64 mL/min Estimated GFR (MDRD) > 60.0 ml/min Glucose 124 H (74-106) mg/dL POC Glucose (70-99) mg/dL Lactic Acid (0.4-2.0) mmol/L Calcium 8.3 L (8.5-10.1) mg/dL Total Bilirubin 0.7 (0.2-1.0) mg/dL AST 15 (15-37) IU/L ALT 16 (14-63) IU/L Alkaline Phosphatase 105 (46-116) U/L Troponin I < 0.050 (0.000-0.056) ng/mL Total Protein 6.5 (6.4-8.2) g/dL Albumin 2.7 L (3.4-5.0) g/dL Globulin 3.8 (2.6-4.0) g/dL Albumin/Globulin Ratio 0.7 L (0.9-1.6) Lipase 146 (73-393) U/L Urine Color Urine Appearance Urine pH (5.0-8.0) Ur Specific Lucas (1.001-1.035) Urine Protein (NEGATIVE) mg/dL Urine Glucose (UA) (NEGATIVE) mg/dL Urine Ketones (NEGATIVE) mg/dL Urine Occult Blood (NEGATIVE) Urine Nitrite (NEGATIVE) Urine Bilirubin (NEGATIVE) Urine Urobilinogen (<2.0) EU/dL Ur Leukocyte Esterase (NEGATIVE) Urine RBC (0-2/HPF) Urine WBC (0-5/HPF) Ur Epithelial Cells (NONE-FEW) Urine Bacteria (NEGATIVE) Influenza Type A RNA (NEGATIVE) Influenza Type B RNA (NEGATIVE) SARS-CoV-2 RNA (ISABEL) (NEGATIVE) Med Orders - Current: Current Medications Albuterol (Albuterol 0.083% 2.5 Mg/3 Ml Neb Soln) 2.5 mg NEB ONETIME PRN PRN Reason: Wheezing Dextrose/Water (50% Dextrose In Water 50 Ml Syringe) 50 ml IVPUSH ASDIRECTED PRN PRN Reason: Hypoglycemia Droperidol (Droperidol 5 Mg/2 Ml Sdv) 0.625 mg IVPUSH ONETIME PRN PRN Reason: Nausea/Vomiting Fentanyl (Fentanyl 100 Mcg/2 Ml Sdv) 50 mcg IVPUSH Q5M PRN PRN Reason: Pain (mild 1-3) Gabapentin (Gabapentin 300 Mg Cap) 600 mg PO QID [facility] Last Admin: 12/24/20 06:29 Dose: 600 mg Documented by: Glucagon (Glucagon,Human Recombinant 1 Mg Vial) 1 mg IM ASDIRECTED PRN PRN Reason: Hypoglycemia Heparin Sodium (Porcine) (Heparin Sodium 5,000 Units/Ml Vial) 5,000 units SUBCUT Q8H [facility] Last Admin: 12/24/20 09:00 Dose: 5,000 units Documented by: Hydromorphone HCl (Hydromorphone 2 Mg/Ml Syringe) 0.5 mg IVPUSH Q10M PRN PRN Reason: Pain (moderate 4-6) Vancomycin HCl 1.5 gm/ Premix 300 mls @ 200 mls/hr IV Q12H [facility] Last Admin: 12/24/20 06:30 Dose: 200 mls/hr Documented by: Piperacillin Sod/Tazobactam (Sod 3.375 gm/ Sodium Chloride) 50 mls @ 100 mls/hr IV Q6H [facility] Last Admin: 12/24/20 08:52 Dose: 100 mls/hr Documented by: Sodium Chloride (Normal Saline) 1,000 mls @ 150 mls/hr IV ASDIRECTED [facility] Last Admin: 12/24/20 02:31 Dose: 150 mls/hr Documented by: Insulin Aspart (Insulin Aspart 100 Units/Ml 3 Ml Pen) 0 unit SUBCUT TIDAC [facility]; Protocol Last Admin: 12/24/20 07:38 Dose: Not Given Documented by: Lisinopril (Lisinopril 10 Mg Tab) 10 mg PO DAILY [facility] Metoclopramide HCl (Metoclopramide 10 Mg/2 Ml Sdv) 10 mg IVPUSH ONETIME PRN PRN Reason: Nausea/Vomiting Morphine Sulfate (Morphine 2 Mg/Ml Syringe) 2 mg IVPUSH Q2H PRN PRN Reason: Pain (severe 7-10) Stop: 12/25/20 01:18 Last Admin: 12/24/20 08:51 Dose: 2 mg Documented by: Naloxone HCl (Naloxone 0.4 Mg/Ml Syringe) 0.1 mg IVPUSH ASDIRECTED PRN PRN Reason: Respiratory Depression Ondansetron HCl (Ondansetron 4 Mg/2 Ml Sdv) 4 mg IVPUSH ONETIME PRN PRN Reason: Nausea/Vomiting Oxycodone HCl (Oxycodone 5 Mg Tab) 5 mg PO Q4H PRN PRN Reason: Pain (moderate 4-6) Last Admin: 12/24/20 07:49 Dose: 5 mg Documented by: Sodium Chloride (Sodium Chloride 0.9% 10 Ml Syringe) 10 ml FLUSH ASDIRECTED PRN PRN Reason: Keep Vein Open Sodium Chloride (Sodium Chloride 0.9% 2.5 Ml Syringe) 2.5 ml FLUSH ASDIRECTED PRN PRN Reason: Keep Vein Open Tamsulosin HCl (Tamsulosin 0.4 Mg Cap.Er) 0.4 mg PO BID [facility] Last Admin: 12/24/20 02:37 Dose: 0.4 mg Documented by: Vancomycin HCl (Pharmacy To Dose - Vancomycin) 1 dose .XX ASDIRECTED [facility] Discontinued Medications Aspirin (Aspirin 81 Mg Tab.Chew) 243 mg PO ONETIME ONE Stop: 12/23/20 19:11 Last Admin: 12/23/20 19:30 Dose: 243 mg Documented by: Sodium Chloride (Normal Saline) 1,000 mls @ 999 mls/hr IV BOLUS ONE Stop: 12/23/20 19:47 Last Admin: 12/23/20 19:10 Dose: 999 mls/hr Documented by: Piperacillin Sod/Tazobactam (Sod 3.375 gm/ Sodium Chloride) 50 mls @ 100 mls/hr IV ONETIME ONE Stop: 12/23/20 19:38 Last Admin: 12/23/20 19:30 Dose: 100 mls/hr Documented by: Vancomycin HCl 1 gm/ Sodium (Chloride) 250 mls @ 166 mls/hr IV ONETIME ONE Stop: 12/23/20 20:39 Last Admin: 12/23/20 19:30 Dose: 166 mls/hr Documented by: Sodium Chloride (Normal Saline) 1,000 mls @ 999 mls/hr IV STAT ONE Stop: 12/23/20 20:53 Last Admin: 12/23/20 20:32 Dose: 999 mls/hr Documented by: Piperacillin Sod/Tazobactam (Sod 3.375 gm/ Sodium Chloride) 50 mls @ 100 mls/hr IV Q6H [facility] Last Admin: 12/24/20 03:27 Dose: Not Given Documented by: Iopamidol (Iopamidol 755 Mg/Ml 500 Ml Multipack Bottle) 140 ml IVPUSH ONETIME STA Stop: 12/23/20 21:42 Last Admin: 12/23/20 21:43 Dose: 140 ml Documented by: Morphine Sulfate (Morphine 4 Mg/Ml Syringe) 4 mg IVPUSH ONETIME ONE Stop: 12/23/20 19:12 Last Admin: 12/23/20 19:29 Dose: 4 mg Documented by: Morphine Sulfate (Morphine 2 Mg/Ml Syringe) 2 mg IVPUSH ONETIME ONE Stop: 12/23/20 20:23 Last Admin: 12/23/20 20:31 Dose: 2 mg Documented by: Morphine Sulfate (Morphine 4 Mg/Ml Syringe) 4 mg IVPUSH ONETIME ONE Stop: 12/23/20 22:17 Last Admin: 12/23/20 22:24 Dose: 4 mg Documented by: - Patient Data Lab Results Last 24 hrs: Laboratory Results - last 24 hr 12/23/20 12/23/20 12/23/20 Range/Units 19:02 19:08 19:08 WBC 11.08 H (4.0-11.0) K/uL RBC 5.23 (4.50-5.90) M/uL Hgb 15.1 (13.0-17.0) g/dL Hct 44.4 (38.0-50.0) % MCV 84.9 (80.0-98.0) fL MCH 28.9 (27.0-32.0) pg MCHC 34.0 (31.0-37.0) g/dL RDW Std Deviation 46.9 (28.0-62.0) fl RDW Coeff of Candy 15 (11.0-15.0) % Plt Count 424 H (150-400) K/uL MPV 10.10 (7.40-12.00) fL Neut % (Auto) 78.0 (48.0-80.0) % Lymph % (Auto) 15.0 L (16.0-40.0) % Fisher % (Auto) 5.7 (0.0-15.0) % Eos % (Auto) 1.1 (0.0-7.0) % Baso % (Auto) 0.2 (0.0-1.5) % Neut # (Auto) 8.7 H (1.4-5.7) K/uL Lymph # (Auto) 1.7 (0.6-2.4) K/uL Fisher # (Auto) 0.6 (0.0-0.8) K/uL Eos # (Auto) 0.1 (0.0-0.7) K/uL Baso # (Auto) 0.0 (0.0-0.1) K/uL Nucleated RBC % 0.0 /100WBC Nucleated RBCs # 0 K/uL D-Dimer, Quantitative (0.0-0.50) mg/L FEU Sodium 137 (136-148) mmol/L Potassium 4.1 (3.5-5.1) mmol/L Chloride 101 (98-107) mmol/L Carbon Dioxide 22.0 (21.0-32.0) mmol/L BUN 8 (7.0-18.0) mg/dL Creatinine 1.1 (0.8-1.3) mg/dL Est Cr Clr Drug Dosing 73.31 mL/min Estimated GFR (MDRD) > 60.0 ml/min Glucose 322 H (74-106) mg/dL POC Glucose (70-99) mg/dL Lactic Acid (0.4-2.0) mmol/L Calcium 9.5 (8.5-10.1) mg/dL Total Bilirubin 0.5 (0.2-1.0) mg/dL AST 26 (15-37) IU/L ALT 23 (14-63) IU/L Alkaline Phosphatase 133 H (46-116) U/L Troponin I < 0.050 (0.000-0.056) ng/mL Total Protein 8.2 (6.4-8.2) g/dL Albumin 3.5 (3.4-5.0) g/dL Globulin 4.7 H (2.6-4.0) g/dL Albumin/Globulin Ratio 0.7 L (0.9-1.6) Lipase 493 H (73-393) U/L Urine Color YELLOW Urine Appearance SLT CLOUDY Urine pH 6.0 (5.0-8.0) Ur Specific Lucas 1.015 (1.001-1.035) Urine Protein 100 H (NEGATIVE) mg/dL Urine Glucose (UA) 500 H (NEGATIVE) mg/dL Urine Ketones NEGATIVE (NEGATIVE) mg/dL Urine Occult Blood LARGE H (NEGATIVE) Urine Nitrite POSITIVE H (NEGATIVE) Urine Bilirubin NEGATIVE (NEGATIVE) Urine Urobilinogen 1.0 (<2.0) EU/dL Ur Leukocyte Esterase SMALL H (NEGATIVE) Urine RBC 8-10 (0-2/HPF) Urine WBC 3-5 (0-5/HPF) Ur Epithelial Cells FEW (NONE-FEW) Urine Bacteria 2+ H (NEGATIVE) Influenza Type A RNA (NEGATIVE) Influenza Type B RNA (NEGATIVE) SARS-CoV-2 RNA (ISABEL) (NEGATIVE) 12/23/20 12/23/20 12/23/20 Range/Units 19:08 19:08 19:15 WBC (4.0-11.0) K/uL RBC (4.50-5.90) M/uL Hgb (13.0-17.0) g/dL Hct (38.0-50.0) % MCV (80.0-98.0) fL MCH (27.0-32.0) pg MCHC (31.0-37.0) g/dL RDW Std Deviation (28.0-62.0) fl RDW Coeff of Candy (11.0-15.0) % Plt Count (150-400) K/uL MPV (7.40-12.00) fL Neut % (Auto) (48.0-80.0) % Lymph % (Auto) (16.0-40.0) % Fisher % (Auto) (0.0-15.0) % Eos % (Auto) (0.0-7.0) % Baso % (Auto) (0.0-1.5) % Neut # (Auto) (1.4-5.7) K/uL Lymph # (Auto) (0.6-2.4) K/uL Fisher # (Auto) (0.0-0.8) K/uL Eos # (Auto) (0.0-0.7) K/uL Baso # (Auto) (0.0-0.1) K/uL Nucleated RBC % /100WBC Nucleated RBCs # K/uL D-Dimer, Quantitative 0.67 H (0.0-0.50) mg/L FEU Sodium (136-148) mmol/L Potassium (3.5-5.1) mmol/L Chloride (98-107) mmol/L Carbon Dioxide (21.0-32.0) mmol/L BUN (7.0-18.0) mg/dL Creatinine (0.8-1.3) mg/dL Est Cr Clr Drug Dosing mL/min Estimated GFR (MDRD) ml/min Glucose (74-106) mg/dL POC Glucose (70-99) mg/dL Lactic Acid 2.5 H* (0.4-2.0) mmol/L Calcium (8.5-10.1) mg/dL Total Bilirubin (0.2-1.0) mg/dL AST (15-37) IU/L ALT (14-63) IU/L Alkaline Phosphatase (46-116) U/L Troponin I (0.000-0.056) ng/mL Total Protein (6.4-8.2) g/dL Albumin (3.4-5.0) g/dL Globulin (2.6-4.0) g/dL Albumin/Globulin Ratio (0.9-1.6) Lipase (73-393) U/L Urine Color Urine Appearance Urine pH (5.0-8.0) Ur Specific Lucas (1.001-1.035) Urine Protein (NEGATIVE) mg/dL Urine Glucose (UA) (NEGATIVE) mg/dL Urine Ketones (NEGATIVE) mg/dL Urine Occult Blood (NEGATIVE) Urine Nitrite (NEGATIVE) Urine Bilirubin (NEGATIVE) Urine Urobilinogen (<2.0) EU/dL Ur Leukocyte Esterase (NEGATIVE) Urine RBC (0-2/HPF) Urine WBC (0-5/HPF) Ur Epithelial Cells (NONE-FEW) Urine Bacteria (NEGATIVE) Influenza Type A RNA NEGATIVE (NEGATIVE) Influenza Type B RNA NEGATIVE (NEGATIVE) SARS-CoV-2 RNA (ISABEL) NEGATIVE (NEGATIVE) 12/23/20 12/24/20 12/24/20 Range/Units 19:36 00:00 01:30 WBC (4.0-11.0) K/uL RBC (4.50-5.90) M/uL Hgb (13.0-17.0) g/dL Hct (38.0-50.0) % MCV (80.0-98.0) fL MCH (27.0-32.0) pg MCHC (31.0-37.0) g/dL RDW Std Deviation (28.0-62.0) fl RDW Coeff of Candy (11.0-15.0) % Plt Count (150-400) K/uL MPV (7.40-12.00) fL Neut % (Auto) (48.0-80.0) % Lymph % (Auto) (16.0-40.0) % Fisher % (Auto) (0.0-15.0) % Eos % (Auto) (0.0-7.0) % Baso % (Auto) (0.0-1.5) % Neut # (Auto) (1.4-5.7) K/uL Lymph # (Auto) (0.6-2.4) K/uL Fisher # (Auto) (0.0-0.8) K/uL Eos # (Auto) (0.0-0.7) K/uL Baso # (Auto) (0.0-0.1) K/uL Nucleated RBC % /100WBC Nucleated RBCs # K/uL D-Dimer, Quantitative (0.0-0.50) mg/L FEU Sodium (136-148) mmol/L Potassium (3.5-5.1) mmol/L Chloride (98-107) mmol/L Carbon Dioxide (21.0-32.0) mmol/L BUN (7.0-18.0) mg/dL Creatinine (0.8-1.3) mg/dL Est Cr Clr Drug Dosing mL/min Estimated GFR (MDRD) ml/min Glucose (74-106) mg/dL POC Glucose 270 H (70-99) mg/dL Lactic Acid 1.3 (0.4-2.0) mmol/L Calcium (8.5-10.1) mg/dL Total Bilirubin (0.2-1.0) mg/dL AST (15-37) IU/L ALT (14-63) IU/L Alkaline Phosphatase (46-116) U/L Troponin I < 0.050 (0.000-0.056) ng/mL Total Protein (6.4-8.2) g/dL Albumin (3.4-5.0) g/dL Globulin (2.6-4.0) g/dL Albumin/Globulin Ratio (0.9-1.6) Lipase (73-393) U/L Urine Color Urine Appearance Urine pH (5.0-8.0) Ur Specific Lucas (1.001-1.035) Urine Protein (NEGATIVE) mg/dL Urine Glucose (UA) (NEGATIVE) mg/dL Urine Ketones (NEGATIVE) mg/dL Urine Occult Blood (NEGATIVE) Urine Nitrite (NEGATIVE) Urine Bilirubin (NEGATIVE) Urine Urobilinogen (<2.0) EU/dL Ur Leukocyte Esterase (NEGATIVE) Urine RBC (0-2/HPF) Urine WBC (0-5/HPF) Ur Epithelial Cells (NONE-FEW) Urine Bacteria (NEGATIVE) Influenza Type A RNA (NEGATIVE) Influenza Type B RNA (NEGATIVE) SARS-CoV-2 RNA (ISABEL) (NEGATIVE) 12/24/20 12/24/20 12/24/20 Range/Units 01:34 07:28 07:29 WBC 10.27 (4.0-11.0) K/uL RBC 4.50 (4.50-5.90) M/uL Hgb 12.8 L (13.0-17.0) g/dL Hct 39.1 (38.0-50.0) % MCV 86.9 (80.0-98.0) fL MCH 28.4 (27.0-32.0) pg MCHC 32.7 (31.0-37.0) g/dL RDW Std Deviation 48.3 (28.0-62.0) fl RDW Coeff of Candy 15 (11.0-15.0) % Plt Count 313 (150-400) K/uL MPV 9.60 (7.40-12.00) fL Neut % (Auto) 57.6 (48.0-80.0) % Lymph % (Auto) 30.0 (16.0-40.0) % Fisher % (Auto) 7.9 (0.0-15.0) % Eos % (Auto) 4.2 (0.0-7.0) % Baso % (Auto) 0.3 (0.0-1.5) % Neut # (Auto) 5.9 H (1.4-5.7) K/uL Lymph # (Auto) 3.1 H (0.6-2.4) K/uL Fisher # (Auto) 0.8 (0.0-0.8) K/uL Eos # (Auto) 0.4 (0.0-0.7) K/uL Baso # (Auto) 0.0 (0.0-0.1) K/uL Nucleated RBC % 0.0 /100WBC Nucleated RBCs # 0 K/uL D-Dimer, Quantitative (0.0-0.50) mg/L FEU Sodium (136-148) mmol/L Potassium (3.5-5.1) mmol/L Chloride (98-107) mmol/L Carbon Dioxide (21.0-32.0) mmol/L BUN (7.0-18.0) mg/dL Creatinine (0.8-1.3) mg/dL Est Cr Clr Drug Dosing mL/min Estimated GFR (MDRD) ml/min Glucose (74-106) mg/dL POC Glucose 126 H 120 H (70-99) mg/dL Lactic Acid (0.4-2.0) mmol/L Calcium (8.5-10.1) mg/dL Total Bilirubin (0.2-1.0) mg/dL AST (15-37) IU/L ALT (14-63) IU/L Alkaline Phosphatase (46-116) U/L Troponin I (0.000-0.056) ng/mL Total Protein (6.4-8.2) g/dL Albumin (3.4-5.0) g/dL Globulin (2.6-4.0) g/dL Albumin/Globulin Ratio (0.9-1.6) Lipase (73-393) U/L Urine Color Urine Appearance Urine pH (5.0-8.0) Ur Specific Lucas (1.001-1.035) Urine Protein (NEGATIVE) mg/dL Urine Glucose (UA) (NEGATIVE) mg/dL Urine Ketones (NEGATIVE) mg/dL Urine Occult Blood (NEGATIVE) Urine Nitrite (NEGATIVE) Urine Bilirubin (NEGATIVE) Urine Urobilinogen (<2.0) EU/dL Ur Leukocyte Esterase (NEGATIVE) Urine RBC (0-2/HPF) Urine WBC (0-5/HPF) Ur Epithelial Cells (NONE-FEW) Urine Bacteria (NEGATIVE) Influenza Type A RNA (NEGATIVE) Influenza Type B RNA (NEGATIVE) SARS-CoV-2 RNA (ISABEL) (NEGATIVE) 12/24/20 12/24/20 Range/Units 07:29 07:29 WBC (4.0-11.0) K/uL RBC (4.50-5.90) M/uL Hgb (13.0-17.0) g/dL Hct (38.0-50.0) % MCV (80.0-98.0) fL MCH (27.0-32.0) pg MCHC (31.0-37.0) g/dL RDW Std Deviation (28.0-62.0) fl RDW Coeff of Candy (11.0-15.0) % Plt Count (150-400) K/uL MPV (7.40-12.00) fL Neut % (Auto) (48.0-80.0) % Lymph % (Auto) (16.0-40.0) % Fisher % (Auto) (0.0-15.0) % Eos % (Auto) (0.0-7.0) % Baso % (Auto) (0.0-1.5) % Neut # (Auto) (1.4-5.7) K/uL Lymph # (Auto) (0.6-2.4) K/uL Fisher # (Auto) (0.0-0.8) K/uL Eos # (Auto) (0.0-0.7) K/uL Baso # (Auto) (0.0-0.1) K/uL Nucleated RBC % /100WBC Nucleated RBCs # K/uL D-Dimer, Quantitative (0.0-0.50) mg/L FEU Sodium 140 (136-148) mmol/L Potassium 3.8 (3.5-5.1) mmol/L Chloride 106 (98-107) mmol/L Carbon Dioxide 26.0 (21.0-32.0) mmol/L BUN 6 L (7.0-18.0) mg/dL Creatinine 1.0 (0.8-1.3) mg/dL Est Cr Clr Drug Dosing 80.64 mL/min Estimated GFR (MDRD) > 60.0 ml/min Glucose 124 H (74-106) mg/dL POC Glucose (70-99) mg/dL Lactic Acid (0.4-2.0) mmol/L Calcium 8.3 L (8.5-10.1) mg/dL Total Bilirubin 0.7 (0.2-1.0) mg/dL AST 15 (15-37) IU/L ALT 16 (14-63) IU/L Alkaline Phosphatase 105 (46-116) U/L Troponin I < 0.050 (0.000-0.056) ng/mL Total Protein 6.5 (6.4-8.2) g/dL Albumin 2.7 L (3.4-5.0) g/dL Globulin 3.8 (2.6-4.0) g/dL Albumin/Globulin Ratio 0.7 L (0.9-1.6) Lipase 146 (73-393) U/L Urine Color Urine Appearance Urine pH (5.0-8.0) Ur Specific [place] (1.001-1.035) Urine Protein (NEGATIVE) mg/dL Urine Glucose (UA) (NEGATIVE) mg/dL Urine Ketones (NEGATIVE) mg/dL Urine Occult Blood (NEGATIVE) Urine Nitrite (NEGATIVE) Urine Bilirubin (NEGATIVE) Urine Urobilinogen (<2.0) EU/dL Ur Leukocyte Esterase (NEGATIVE) Urine RBC (0-2/HPF) Urine WBC (0-5/HPF) Ur Epithelial Cells (NONE-FEW) Urine Bacteria (NEGATIVE) Influenza Type A RNA (NEGATIVE) Influenza Type B RNA (NEGATIVE) SARS-CoV-2 RNA (ISABEL) (NEGATIVE) Result Diagrams: 12/24/20 07:29 12/24/20 07:29 Sepsis Event Note - Evaluation Sepsis Screening Result: No Definite Risk - Focused Exam Vital Signs: Vital Signs Temp Pulse Pulse Resp BP Pulse Ox 12/24/20 08:30 97.1 F 68 18 108/75 98 12/24/20 04:00 97.5 F 65 16 107/85 100 12/24/20 01:33 97.8 F 69 18 126/78 100 12/24/20 00:39 66 20 133/82 95 12/23/20 22:25 78 20 133/82 99 - My Orders Last 24 Hours: My Active Orders 12/24/20 08:22 Consult to Physician [CONS] Routine 12/24/20 08:24 Notify Provider Consults [RC] ASDIRECTED - Plan Plan:: 50 yo male with pmh BKA, HTN, Dm type 2, renal cell ca with subsequent L nephrectomy who presented with increasing neck, flank and abdominal pain. Differential diagnosis includes, slow to resolve cellulitis with abscess, UTI, Pancreatitis and narcotic withdrawal Cellulitis/abscess: continue packing, vancomycin and Zosyn, pain control with IV morphine, obtain records from recent hospitalization in [place] UTI: on broad spectrum antibiotics, cultures pending Possible mild pancreatitis: IV fluids and bowel rest DM: sliding scale insulin, hold metformin
--- NOTE | 2020-12-24 09:46 | PCM.CONS ---
H&P History of Present Illness - General Date of Service: 12/24/20 Admit Problem/Dx: Admission Diagnosis/Problem Admission Diagnosis/Problem Cellulitis recurrent left neck abscess Source of Information: Patient History Limitations: Reports: No Limitations - History of Present Illness Initial Comments - Free Text/Narative: Patient is a 50 y/o gentleman who presented to the ER late last night with a recurrent left neck abscess. he had this drained in [place] about 3 weeks ago. The wound was packed open. Then he was placed on antibiotics. He did not stay hospitalized with a full run of IV antibiotics and was discharged on Bactrim. For the last 2 days. He's been having more neck pain, and running fevers. CT scan of the neck done in the emergency room last night does reveal what appears to be a recurrent left neck abscess. Patient is currently a DNR but does agree to be a full code perioperatively and for at least 24 hours. Onset of Symptoms: Reports: Other (3-4 weeks ago) Duration of Symptoms: Reports: Getting Worse Location: Reports: Neck Quality: Reports: Burning, Pressure, Throbbing Severity: Moderate Improves with: Reports: None Worsens with: Reports: None Context: Reports: Sick Contact Associated Symptoms: Reports: Confusion, Fever/Chills back of neck Pain Score (Numeric/FACES): 9 - Related Data Allergies/Adverse Reactions: Allergies Allergy/AdvReac Type Severity Reaction Status Date / Time ketorolac Allergy Hives Verified 12/23/20 18:22 Home Medications: Home Meds metFORMIN [Glucophage] 1,000 mg PO BIDMEALS 09/29/19 [History] Aspirin 81 mg PO DAILY #30 tab.chew 09/30/19 [Rx] Tamsulosin HCl [Flomax] 0.4 mg PO BID #60 capsule 10/01/19 [Rx] lisinopriL [Lisinopril] 10 mg PO DAILY 04/28/20 [History] Hydrocodone/Acetaminophen [Hydrocodone-Acetamin 7.5-325] 12/23/20 [History] Gabapentin [Neurontin] 600 mg PO QID 12/24/20 [History] metFORMIN [Glucophage] 1,000 mg PO BIDMEALS 12/24/20 [History] oxyCODONE 10 mg PO Q6H 12/24/20 [History] Past Medical History HEENT History: Reports: Impaired Vision, Other (See Below) Other HEENT History: wears glasses Cardiovascular History: Reports: Hypertension Respiratory History: Reports: None Gastrointestinal History: Reports: None Genitourinary History: Reports: BPH Other Genitourinary History: Renal CA, Left Kidney removed. 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 Cardiovascular Surgical History: Reports: None Respiratory Surgical History: Reports: None GI Surgical History: Reports: Colonoscopy, Hernia, Abdominal Male Surgical History: Reports: Nephrectomy (left) Other Male Surgeries/Procedures: nephrectomy 2014 Endocrine Surgical History: Reports: None Neurological Surgical History: Reports: None Musculoskeletal Surgical History: Reports: Amputation Other Musculoskeletal Surgeries/Procedures:: L BTK amputation 2017 Oncologic Surgical History: Reports: None Dermatological Surgical History: Reports: None Social & Family History - Family History Family Medical History: No Pertinent Family History - Tobacco Use Tobacco Use Status *Q: Light Tobacco User Years of Tobacco use: 15 Packs/Tins Daily: 0 Used Tobacco, but Quit: No Second Hand Smoke Exposure: No - Caffeine Use Caffeine Use: Reports: Coffee, Tea - Recreational Drug Use Recreational Drug Use: No H&P Review of Systems - Review of Systems: Review Of Systems: See Below General: Reports: Fever, Malaise, Decreased Appetite HEENT: Reports: Other (recurrent left neck abscess) Pulmonary: Denies: Shortness of Breath, Wheezing, Pleuritic Chest Pain Cardiovascular: Denies: Chest Pain, Palpitations, Lightheadedness, Syncope Gastrointestinal: Reports: Anorexia. Denies: Abdominal Pain, Black Stool, Bloody Stool, Constipation, Diarrhea, Nausea, Vomiting Genitourinary: Denies: Dysuria, Frequency, Burning, Pain, Urgency Musculoskeletal: Reports: Neck Pain ( knee) Skin: Denies: Cyanosis, Jaundice, Mottled, Pallor, Diaphoresis Psychiatric: Reports: Confusion. Denies: Depression, Mood Lability, Anxiety Exam - Exam Exam: See Below - Vital Signs Vital Signs: Last Vital Signs Temp 97.1 F 12/24/20 08:30 Pulse 68 12/24/20 08:30 Resp 18 12/24/20 08:30 BP 108/75 12/24/20 08:30 Pulse Ox 98 12/24/20 08:30 Weight: 221 lb 1.6 oz - Exam Quality Assessment: DVT Prophylaxis. No: Central Line/PICC, Urinary Catheter, Skin Breakdown General: Alert, Oriented, Cooperative, Mild Distress HEENT: Conjunctiva Clear, Pupils Equal, Pupils Reactive, PERRLA Neck: Supple, Trachea Midline, Other (cellulitis with recurrent left neck abscess) Lungs: Clear to Auscultation, Normal Respiratory Effort Cardiovascular: Regular Rate, Regular Rhythm, Normal S1, Normal S2. No: Tachycardia GI/Abdominal Exam: Normal Bowel Sounds, Soft, Non-Tender, Other (patient has a well-healed upper midline incision.) (Male) Exam: No Hernia Rectal (Males) Exam: Deferred Back Exam: Normal Inspection Extremities: Non-Tender, No Pedal Edema, Other (left below the knee amputation) Skin: Warm, Dry, Intact Neurological: Cranial Nerves Intact Neuro Extensive - Mental Status: Alert, Oriented x3, Normal Mood/Affect Psychiatric: Alert, Normal Affect, Normal Mood - Patient Data Lab Results Last 24 hrs: Laboratory Results - last 24 hr 12/23/20 12/23/20 12/23/20 Range/Units 19:02 19:08 19:08 WBC 11.08 H (4.0-11.0) K/uL RBC 5.23 (4.50-5.90) M/uL Hgb 15.1 (13.0-17.0) g/dL Hct 44.4 (38.0-50.0) % MCV 84.9 (80.0-98.0) fL MCH 28.9 (27.0-32.0) pg MCHC 34.0 (31.0-37.0) g/dL RDW Std Deviation 46.9 (28.0-62.0) fl RDW Coeff of Candy 15 (11.0-15.0) % Plt Count 424 H (150-400) K/uL MPV 10.10 (7.40-12.00) fL Neut % (Auto) 78.0 (48.0-80.0) % Lymph % (Auto) 15.0 L (16.0-40.0) % [place] % (Auto) 5.7 (0.0-15.0) % Eos % (Auto) 1.1 (0.0-7.0) % Baso % (Auto) 0.2 (0.0-1.5) % Neut # (Auto) 8.7 H (1.4-5.7) K/uL Lymph # (Auto) 1.7 (0.6-2.4) K/uL [place] # (Auto) 0.6 (0.0-0.8) K/uL Eos # (Auto) 0.1 (0.0-0.7) K/uL Baso # (Auto) 0.0 (0.0-0.1) K/uL Nucleated RBC % 0.0 /100WBC Nucleated RBCs # 0 K/uL D-Dimer, Quantitative (0.0-0.50) mg/L FEU Sodium 137 (136-148) mmol/L Potassium 4.1 (3.5-5.1) mmol/L Chloride 101 (98-107) mmol/L Carbon Dioxide 22.0 (21.0-32.0) mmol/L BUN 8 (7.0-18.0) mg/dL Creatinine 1.1 (0.8-1.3) mg/dL Est Cr Clr Drug Dosing 73.31 mL/min Estimated GFR (MDRD) > 60.0 ml/min Glucose 322 H (74-106) mg/dL POC Glucose (70-99) mg/dL Lactic Acid (0.4-2.0) mmol/L Calcium 9.5 (8.5-10.1) mg/dL Total Bilirubin 0.5 (0.2-1.0) mg/dL AST 26 (15-37) IU/L ALT 23 (14-63) IU/L Alkaline Phosphatase 133 H (46-116) U/L Troponin I < 0.050 (0.000-0.056) ng/mL Total Protein 8.2 (6.4-8.2) g/dL Albumin 3.5 (3.4-5.0) g/dL Globulin 4.7 H (2.6-4.0) g/dL Albumin/Globulin Ratio 0.7 L (0.9-1.6) Lipase 493 H (73-393) U/L Urine Color YELLOW Urine Appearance SLT CLOUDY Urine pH 6.0 (5.0-8.0) Ur Specific [place] 1.015 (1.001-1.035) Urine Protein 100 H (NEGATIVE) mg/dL Urine Glucose (UA) 500 H (NEGATIVE) mg/dL Urine Ketones NEGATIVE (NEGATIVE) mg/dL Urine Occult Blood LARGE H (NEGATIVE) Urine Nitrite POSITIVE H (NEGATIVE) Urine Bilirubin NEGATIVE (NEGATIVE) Urine Urobilinogen 1.0 (<2.0) EU/dL Ur Leukocyte Esterase SMALL H (NEGATIVE) Urine RBC 8-10 (0-2/HPF) Urine WBC 3-5 (0-5/HPF) Ur Epithelial Cells FEW (NONE-FEW) Urine Bacteria 2+ H (NEGATIVE) Influenza Type A RNA (NEGATIVE) Influenza Type B RNA (NEGATIVE) SARS-CoV-2 RNA (IASBEL) (NEGATIVE) 12/23/20 12/23/20 12/23/20 Range/Units 19:08 19:08 19:15 WBC (4.0-11.0) K/uL RBC (4.50-5.90) M/uL Hgb (13.0-17.0) g/dL Hct (38.0-50.0) % MCV (80.0-98.0) fL MCH (27.0-32.0) pg MCHC (31.0-37.0) g/dL RDW Std Deviation (28.0-62.0) fl RDW Coeff of Candy (11.0-15.0) % Plt Count (150-400) K/uL MPV (7.40-12.00) fL Neut % (Auto) (48.0-80.0) % Lymph % (Auto) (16.0-40.0) % [place] % (Auto) (0.0-15.0) % Eos % (Auto) (0.0-7.0) % Baso % (Auto) (0.0-1.5) % Neut # (Auto) (1.4-5.7) K/uL Lymph # (Auto) (0.6-2.4) K/uL [place] # (Auto) (0.0-0.8) K/uL Eos # (Auto) (0.0-0.7) K/uL Baso # (Auto) (0.0-0.1) K/uL Nucleated RBC % /100WBC Nucleated RBCs # K/uL D-Dimer, Quantitative 0.67 H (0.0-0.50) mg/L FEU Sodium (136-148) mmol/L Potassium (3.5-5.1) mmol/L Chloride (98-107) mmol/L Carbon Dioxide (21.0-32.0) mmol/L BUN (7.0-18.0) mg/dL Creatinine (0.8-1.3) mg/dL Est Cr Clr Drug Dosing mL/min Estimated GFR (MDRD) ml/min Glucose (74-106) mg/dL POC Glucose (70-99) mg/dL Lactic Acid 2.5 H* (0.4-2.0) mmol/L Calcium (8.5-10.1) mg/dL Total Bilirubin (0.2-1.0) mg/dL AST (15-37) IU/L ALT (14-63) IU/L Alkaline Phosphatase (46-116) U/L Troponin I (0.000-0.056) ng/mL Total Protein (6.4-8.2) g/dL Albumin (3.4-5.0) g/dL Globulin (2.6-4.0) g/dL Albumin/Globulin Ratio (0.9-1.6) Lipase (73-393) U/L Urine Color Urine Appearance Urine pH (5.0-8.0) Ur Specific [place] (1.001-1.035) Urine Protein (NEGATIVE) mg/dL Urine Glucose (UA) (NEGATIVE) mg/dL Urine Ketones (NEGATIVE) mg/dL Urine Occult Blood (NEGATIVE) Urine Nitrite (NEGATIVE) Urine Bilirubin (NEGATIVE) Urine Urobilinogen (<2.0) EU/dL Ur Leukocyte Esterase (NEGATIVE) Urine RBC (0-2/HPF) Urine WBC (0-5/HPF) Ur Epithelial Cells (NONE-FEW) Urine Bacteria (NEGATIVE) Influenza Type A RNA NEGATIVE (NEGATIVE) Influenza Type B RNA NEGATIVE (NEGATIVE) SARS-CoV-2 RNA (ISABEL) NEGATIVE (NEGATIVE) 12/23/20 12/24/20 12/24/20 Range/Units 19:36 00:00 01:30 WBC (4.0-11.0) K/uL RBC (4.50-5.90) M/uL Hgb (13.0-17.0) g/dL Hct (38.0-50.0) % MCV (80.0-98.0) fL MCH (27.0-32.0) pg MCHC (31.0-37.0) g/dL RDW Std Deviation (28.0-62.0) fl RDW Coeff of Candy (11.0-15.0) % Plt Count (150-400) K/uL MPV (7.40-12.00) fL Neut % (Auto) (48.0-80.0) % Lymph % (Auto) (16.0-40.0) % [place] % (Auto) (0.0-15.0) % Eos % (Auto) (0.0-7.0) % Baso % (Auto) (0.0-1.5) % Neut # (Auto) (1.4-5.7) K/uL Lymph # (Auto) (0.6-2.4) K/uL [place] # (Auto) (0.0-0.8) K/uL Eos # (Auto) (0.0-0.7) K/uL Baso # (Auto) (0.0-0.1) K/uL Nucleated RBC % /100WBC Nucleated RBCs # K/uL D-Dimer, Quantitative (0.0-0.50) mg/L FEU Sodium (136-148) mmol/L Potassium (3.5-5.1) mmol/L Chloride (98-107) mmol/L Carbon Dioxide (21.0-32.0) mmol/L BUN (7.0-18.0) mg/dL Creatinine (0.8-1.3) mg/dL Est Cr Clr Drug Dosing mL/min Estimated GFR (MDRD) ml/min Glucose (74-106) mg/dL POC Glucose 270 H (70-99) mg/dL Lactic Acid 1.3 (0.4-2.0) mmol/L Calcium (8.5-10.1) mg/dL Total Bilirubin (0.2-1.0) mg/dL AST (15-37) IU/L ALT (14-63) IU/L Alkaline Phosphatase (46-116) U/L Troponin I < 0.050 (0.000-0.056) ng/mL Total Protein (6.4-8.2) g/dL Albumin (3.4-5.0) g/dL Globulin (2.6-4.0) g/dL Albumin/Globulin Ratio (0.9-1.6) Lipase (73-393) U/L Urine Color Urine Appearance Urine pH (5.0-8.0) Ur Specific [place] (1.001-1.035) Urine Protein (NEGATIVE) mg/dL Urine Glucose (UA) (NEGATIVE) mg/dL Urine Ketones (NEGATIVE) mg/dL Urine Occult Blood (NEGATIVE) Urine Nitrite (NEGATIVE) Urine Bilirubin (NEGATIVE) Urine Urobilinogen (<2.0) EU/dL Ur Leukocyte Esterase (NEGATIVE) Urine RBC (0-2/HPF) Urine WBC (0-5/HPF) Ur Epithelial Cells (NONE-FEW) Urine Bacteria (NEGATIVE) Influenza Type A RNA (NEGATIVE) Influenza Type B RNA (NEGATIVE) SARS-CoV-2 RNA (ISABEL) (NEGATIVE) 12/24/20 12/24/20 12/24/20 Range/Units 01:34 07:28 07:29 WBC 10.27 (4.0-11.0) K/uL RBC 4.50 (4.50-5.90) M/uL Hgb 12.8 L (13.0-17.0) g/dL Hct 39.1 (38.0-50.0) % MCV 86.9 (80.0-98.0) fL MCH 28.4 (27.0-32.0) pg MCHC 32.7 (31.0-37.0) g/dL RDW Std Deviation 48.3 (28.0-62.0) fl RDW Coeff of Candy 15 (11.0-15.0) % Plt Count 313 (150-400) K/uL MPV 9.60 (7.40-12.00) fL Neut % (Auto) 57.6 (48.0-80.0) % Lymph % (Auto) 30.0 (16.0-40.0) % [place] % (Auto) 7.9 (0.0-15.0) % Eos % (Auto) 4.2 (0.0-7.0) % Baso % (Auto) 0.3 (0.0-1.5) % Neut # (Auto) 5.9 H (1.4-5.7) K/uL Lymph # (Auto) 3.1 H (0.6-2.4) K/uL [place] # (Auto) 0.8 (0.0-0.8) K/uL Eos # (Auto) 0.4 (0.0-0.7) K/uL Baso # (Auto) 0.0 (0.0-0.1) K/uL Nucleated RBC % 0.0 /100WBC Nucleated RBCs # 0 K/uL D-Dimer, Quantitative (0.0-0.50) mg/L FEU Sodium (136-148) mmol/L Potassium (3.5-5.1) mmol/L Chloride (98-107) mmol/L Carbon Dioxide (21.0-32.0) mmol/L BUN (7.0-18.0) mg/dL Creatinine (0.8-1.3) mg/dL Est Cr Clr Drug Dosing mL/min Estimated GFR (MDRD) ml/min Glucose (74-106) mg/dL POC Glucose 126 H 120 H (70-99) mg/dL Lactic Acid (0.4-2.0) mmol/L Calcium (8.5-10.1) mg/dL Total Bilirubin (0.2-1.0) mg/dL AST (15-37) IU/L ALT (14-63) IU/L Alkaline Phosphatase (46-116) U/L Troponin I (0.000-0.056) ng/mL Total Protein (6.4-8.2) g/dL Albumin (3.4-5.0) g/dL Globulin (2.6-4.0) g/dL Albumin/Globulin Ratio (0.9-1.6) Lipase (73-393) U/L Urine Color Urine Appearance Urine pH (5.0-8.0) Ur Specific [place] (1.001-1.035) Urine Protein (NEGATIVE) mg/dL Urine Glucose (UA) (NEGATIVE) mg/dL Urine Ketones (NEGATIVE) mg/dL Urine Occult Blood (NEGATIVE) Urine Nitrite (NEGATIVE) Urine Bilirubin (NEGATIVE) Urine Urobilinogen (<2.0) EU/dL Ur Leukocyte Esterase (NEGATIVE) Urine RBC (0-2/HPF) Urine WBC (0-5/HPF) Ur Epithelial Cells (NONE-FEW) Urine Bacteria (NEGATIVE) Influenza Type A RNA (NEGATIVE) Influenza Type B RNA (NEGATIVE) SARS-CoV-2 RNA (ISABEL) (NEGATIVE) 12/24/20 12/24/20 Range/Units 07:29 07:29 WBC (4.0-11.0) K/uL RBC (4.50-5.90) M/uL Hgb (13.0-17.0) g/dL Hct (38.0-50.0) % MCV (80.0-98.0) fL MCH (27.0-32.0) pg MCHC (31.0-37.0) g/dL RDW Std Deviation (28.0-62.0) fl RDW Coeff of Candy (11.0-15.0) % Plt Count (150-400) K/uL MPV (7.40-12.00) fL Neut % (Auto) (48.0-80.0) % Lymph % (Auto) (16.0-40.0) % [place] % (Auto) (0.0-15.0) % Eos % (Auto) (0.0-7.0) % Baso % (Auto) (0.0-1.5) % Neut # (Auto) (1.4-5.7) K/uL Lymph # (Auto) (0.6-2.4) K/uL [place] # (Auto) (0.0-0.8) K/uL Eos # (Auto) (0.0-0.7) K/uL Baso # (Auto) (0.0-0.1) K/uL Nucleated RBC % /100WBC Nucleated RBCs # K/uL D-Dimer, Quantitative (0.0-0.50) mg/L FEU Sodium 140 (136-148) mmol/L Potassium 3.8 (3.5-5.1) mmol/L Chloride 106 (98-107) mmol/L Carbon Dioxide 26.0 (21.0-32.0) mmol/L BUN 6 L (7.0-18.0) mg/dL Creatinine 1.0 (0.8-1.3) mg/dL Est Cr Clr Drug Dosing 80.64 mL/min Estimated GFR (MDRD) > 60.0 ml/min Glucose 124 H (74-106) mg/dL POC Glucose (70-99) mg/dL Lactic Acid (0.4-2.0) mmol/L Calcium 8.3 L (8.5-10.1) mg/dL Total Bilirubin 0.7 (0.2-1.0) mg/dL AST 15 (15-37) IU/L ALT 16 (14-63) IU/L Alkaline Phosphatase 105 (46-116) U/L Troponin I < 0.050 (0.000-0.056) ng/mL Total Protein 6.5 (6.4-8.2) g/dL Albumin 2.7 L (3.4-5.0) g/dL Globulin 3.8 (2.6-4.0) g/dL Albumin/Globulin Ratio 0.7 L (0.9-1.6) Lipase 146 (73-393) U/L Urine Color Urine Appearance Urine pH (5.0-8.0) Ur Specific [place] (1.001-1.035) Urine Protein (NEGATIVE) mg/dL Urine Glucose (UA) (NEGATIVE) mg/dL Urine Ketones (NEGATIVE) mg/dL Urine Occult Blood (NEGATIVE) Urine Nitrite (NEGATIVE) Urine Bilirubin (NEGATIVE) Urine Urobilinogen (<2.0) EU/dL Ur Leukocyte Esterase (NEGATIVE) Urine RBC (0-2/HPF) Urine WBC (0-5/HPF) Ur Epithelial Cells (NONE-FEW) Urine Bacteria (NEGATIVE) Influenza Type A RNA (NEGATIVE) Influenza Type B RNA (NEGATIVE) SARS-CoV-2 RNA (ISABEL) (NEGATIVE) Result Diagrams: 12/24/20 07:29 12/24/20 07:29 Sepsis Event Note - Evaluation Sepsis Screening Result: No Definite Risk Possible Source of Sepsis: Skin/Soft Tissue - Focused Exam Vital Signs: Vital Signs Temp Pulse Pulse Resp BP BP Pulse Ox 12/24/20 08:30 97.1 F 68 18 108/75 108/75 98 12/24/20 04:00 97.5 F 65 16 107/85 100 12/24/20 01:33 97.8 F 69 18 126/78 100 12/24/20 00:39 66 20 133/82 95 12/23/20 22:25 78 20 133/82 99 Consult PN Assessment/Plan Procedures: Procedures ASSAY OF CK (CPK) (09/02/20) ASSAY OF FERRITIN (09/29/19) ASSAY OF LACTIC ACID (05/24/20) ASSAY OF LIPASE (09/02/20) ASSAY OF MAGNESIUM (09/02/20) ASSAY OF NATRIURETIC PEPTIDE (09/29/19) ASSAY OF PHOSPHORUS (09/02/20) ASSAY OF PSA TOTAL (05/28/20) ASSAY OF TROPONIN QUANT (09/02/20) ASSAY OF VANCOMYCIN (11/25/17) ASSAY THYROID STIM HORMONE (09/29/19) BL SMEAR W/DIFF WBC COUNT (11/25/17) BLOOD CULTURE FOR BACTERIA (04/27/18) C-REACTIVE PROTEIN (11/25/17) COMPLETE CBC AUTOMATED (11/25/17) COMPLETE CBC W/AUTO DIFF WBC (09/06/20) COMPREHEN METABOLIC PANEL (09/02/20) CT ABD & PELV W/CONTRAST (09/02/20) CT ABD & PELVIS W/O CONTRAST (03/22/20) CT ANGIO ABDOM W/O & W/DYE (09/29/19) CT ANGIOGRAPHY CHEST (02/16/20) CT CHEST SPINE W/O DYE (10/28/20) CT LOWER EXTREMITY W/O DYE (11/25/17) CT LUMBAR SPINE W/O DYE (02/16/20) CT NECK SPINE W/O DYE (02/16/20) CT THORAX DX C+ (11/04/19) CULTR BACTERIA EXCEPT BLOOD (10/21/17) CULTURE AEROBIC IDENTIFY (05/21/20) CULTURE OTHR SPECIMN AEROBIC (05/21/20) DRAINAGE OF SKIN ABSCESS (10/21/17) DRUG TEST PRSMV CHEM ANLYZR (05/28/20) DRUG TEST PRSMV DIR OPT OBS (04/11/19) ECHO EXAM OF ABDOMEN (03/22/20) ELECTROCARDIOGRAM TRACING (10/28/20) EMERGENCY DEPT VISIT (10/28/20) EMERGENCY DEPT VISIT (09/06/20) EMERGENCY DEPT VISIT (09/02/20) EMERGENCY DEPT VISIT (03/16/20) EMERGENCY DEPT VISIT (02/16/20) EMERGENCY DEPT VISIT (11/23/19) EMERGENCY DEPT VISIT (11/04/19) EMERGENCY DEPT VISIT (09/29/19) EMERGENCY DEPT VISIT (07/16/19) EMERGENCY DEPT VISIT (09/19/18) EMERGENCY DEPT VISIT (09/16/18) EMERGENCY DEPT VISIT (04/23/18) EMERGENCY DEPT VISIT (04/09/18) EMERGENCY DEPT VISIT (03/09/18) EMERGENCY DEPT VISIT (03/01/18) EMERGENCY DEPT VISIT (02/06/18) EMERGENCY DEPT VISIT (01/11/18) EMERGENCY DEPT VISIT (12/13/17) EXTREMITY STUDY (02/06/18) GLUCOSE BLOOD TEST (09/02/20) GLYCOSYLATED HEMOGLOBIN TEST (05/28/20) HYDRATE IV INFUSION ADD-ON (03/22/20) INSERT TEMP BLADDER CATH (09/06/20) IRON BINDING TEST (09/29/19) LIPID PANEL (05/28/20) METABOLIC PANEL TOTAL CA (09/06/20) MICROBE SUSCEPTIBLE JEFFERY (05/21/20) OFFICE O/P EST HI 40-54 MIN (05/03/20) OFFICE O/P EST LOW 20-29 MIN (10/28/20) OFFICE O/P NEW MOD 45-59 MIN (09/02/17) PROTHROMBIN TIME (11/04/19) PT EVAL LOW COMPLEX 20 MIN (11/25/17) RBC SED RATE AUTOMATED (11/25/17) ROUTINE VENIPUNCTURE (09/06/20) SMEAR GRAM STAIN (10/21/17) THER/PROPH/DIAG INJ IV PUSH (09/06/20) THER/PROPH/DIAG INJ SC/IM (03/16/20) THER/PROPH/DIAG IV INF ADDON (10/21/17) THER/PROPH/DIAG IV INF INIT (09/29/19) THROMBOPLASTIN TIME PARTIAL (09/02/20) TISSUE EXAM BY PATHOLOGIST (10/21/17) TX/PRO/DX INJ NEW DRUG ADDON (03/22/20) TX/PRO/DX INJ SAME DRUG CHILD WELFARE DIRECTOR (03/22/20) TX/PROPH/DG ADDL SEQ IV INF (10/21/17) UPR/L XTREMITY ART 2 LEVELS (12/22/17) UR ALBUMIN SEMIQUANTITATIVE (05/28/20) URINALYSIS AUTO W/SCOPE (09/06/20) URINE BACTERIA CULTURE (09/29/19) URINE CULTURE/COLONY COUNT (09/29/19) US LMTD JT/NONVASC XTR STRUX (01/11/18) US URINE CAPACITY MEASURE (09/29/19) VITAMIN D 25 HYDROXY (05/28/20) X-RAY EXAM CHEST 1 VIEW (05/24/20) X-RAY EXAM CHEST 2 VIEWS (04/28/20) X-RAY EXAM HIP UNI 2-3 VIEWS (09/16/18) X-RAY EXAM L-2 SPINE 4/>VWS (09/02/17) X-RAY EXAM OF ANKLE (11/23/19) X-RAY EXAM OF ANKLE (01/11/18) X-RAY EXAM OF ANKLE (12/13/17) X-RAY EXAM OF FEMUR 2/> (09/16/18) X-RAY EXAM OF FOOT (11/23/19) X-RAY EXAM OF FOOT (02/06/18) X-RAY EXAM OF FOOT (10/05/17) X-RAY EXAM OF LOWER LEG (03/01/18) X-RAY EXAM OF WRIST (03/20/20) (1) Type 2 diabetes mellitus SNOMED Code(s): 61860459 Code(s): E11.9 - TYPE 2 DIABETES MELLITUS WITHOUT COMPLICATIONS Priority: Medium Current Visit: Yes (2) Cellulitis and abscess of neck SNOMED Code(s): 862975246 Code(s): L03.221 - CELLULITIS OF NECK; L02.11 - CUTANEOUS ABSCESS OF NECK Priority: High Current Visit: Yes (3) Abscess SNOMED Code(s): 945489804 Code(s): L02.91 - CUTANEOUS ABSCESS, UNSPECIFIED Priority: High Current Visit: No Problem List Initiated/Reviewed/Updated: Yes Plan: Incision and drainage recurrent left neck abscess. The operative procedure of incision and drainage along with the risks including but not limited to, bleeding, infection, recurrence of the abscess, pneumonia, deep venous thrombosis, pulmonary emboli, cardiac arrest and the need for resuscitation have been discussed with the patient at the bedside today. He states he understands. His questions have been answered. He does wish to proceed and agrees to be a full code perioperatively.
--- NOTE | 2020-12-24 11:01 | PCM.PREANE ---
Preanesthetic Assessment - Anesthesia/Transfusion/Family Hx Anesthesia History: Prior Anesthesia Without Reaction Family History of Anesthesia Reaction: No Transfusion History: Prior Transfusion Without Reaction Intubation History: Unknown - Review of Systems General: Fever, Weakness Pulmonary: No Symptoms, Shortness of Breath Cardiovascular: Dyspnea on Exertion Gastrointestinal: No Symptoms Neurological: Difficulty Walking, Weakness Other: Reports: Diabetes - Physical Assessment NPO Status Date: 12/24/20 NPO Status Time: 00:00 Vital Signs: Last Vital Signs Temp 97.1 F 12/24/20 08:30 Pulse 68 12/24/20 08:30 Resp 18 12/24/20 08:30 BP 108/75 12/24/20 08:30 Pulse Ox 98 12/24/20 08:30 Height: 5 ft 6 in Weight: 221 lb 1.6 oz ASA Class: 3E Mental Status: Alert & Oriented x3 Airway Class: Mallampati = 4 Dentition: Reports: Missing Tooth/Teeth Thyro-Mental Finger Breadths: 2 Mouth Opening Finger Breadths: 3 ROM/Head Extension: Limited/Partial Lungs: Clear to Auscultation, Normal Respiratory Effort Cardiovascular: Regular Rate, Regular Rhythm - Lab Values: Laboratory Last Values WBC 10.27 K/uL (4.0-11.0) 12/24/20 07:29 RBC 4.50 M/uL (4.50-5.90) 12/24/20 07:29 Hgb 12.8 g/dL (13.0-17.0) L 12/24/20 07:29 Hct 39.1 % (38.0-50.0) 12/24/20 07:29 MCV 86.9 fL (80.0-98.0) 12/24/20 07:29 MCH 28.4 pg (27.0-32.0) 12/24/20 07:29 MCHC 32.7 g/dL (31.0-37.0) 12/24/20 07:29 RDW Std Deviation 48.3 fl (28.0-62.0) 12/24/20 07:29 RDW Coeff of Candy 15 % (11.0-15.0) 12/24/20 07:29 Plt Count 313 K/uL (150-400) 12/24/20 07:29 MPV 9.60 fL (7.40-12.00) 12/24/20 07:29 Neut % (Auto) 57.6 % (48.0-80.0) 12/24/20 07: Lymph % (Auto) 30.0 % (16.0-40.0) 12/24/20 07: [place] % (Auto) 7.9 % (0.0-15.0) 12/24/20 07: Eos % (Auto) 4.2 % (0.0-7.0) 12/24/20 07: Baso % (Auto) 0.3 % (0.0-1.5) 12/24/20 07: Neut # (Auto) 5.9 K/uL (1.4-5.7) H 12/24/20 07: Lymph # (Auto) 3.1 K/uL (0.6-2.4) H 12/24/20 07: [place] # (Auto) 0.8 K/uL (0.0-0.8) 12/24/20 07: Eos # (Auto) 0.4 K/uL (0.0-0.7) 12/24/20 07: Baso # (Auto) 0.0 K/uL (0.0-0.1) 12/24/20 07: Nucleated RBC % 0.0 /100WBC 12/24/20 07: Nucleated RBCs # 0 K/uL 12/24/20 07:29 D-Dimer, Quantitative 0.67 mg/L FEU (0.0-0.50) H 12/23/20 19:08 Sodium 140 mmol/L (136-148) 12/24/20 07:29 Potassium 3.8 mmol/L (3.5-5.1) 12/24/20 07: Chloride 106 mmol/L (98-107) 12/24/20 07: Carbon Dioxide 26.0 mmol/L (21.0-32.0) 12/24/20 07: BUN 6 mg/dL (7.0-18.0) L 12/24/20 07:29 Creatinine 1.0 mg/dL (0.8-1.3) 12/24/20 07:29 Est Cr Clr Drug Dosing 80.64 mL/min 12/24/20 07:29 Estimated GFR (MDRD) > 60.0 ml/min 12/24/20 07:29 Glucose 124 mg/dL (74-106) H 12/24/20 07:29 POC Glucose 120 mg/dL (70-99) H 12/24/20 07:28 Lactic Acid 1.3 mmol/L (0.4-2.0) 12/24/20 00:00 Calcium 8.3 mg/dL (8.5-10.1) L 12/24/20 07:29 Total Bilirubin 0.7 mg/dL (0.2-1.0) 12/24/20 07:29 AST 15 IU/L (15-37) 12/24/20 07:29 ALT 16 IU/L (14-63) 12/24/20 07:29 Alkaline Phosphatase 105 U/L (46-116) 12/24/20 07: Troponin I < 0.050 ng/mL (0.000-0.056) 12/24/20 07:29 Total Protein 6.5 g/dL (6.4-8.2) 12/24/20 07:29 Albumin 2.7 g/dL (3.4-5.0) L 12/24/20 07:29 Globulin 3.8 g/dL (2.6-4.0) 12/24/20 07: Albumin/Globulin Ratio 0.7 (0.9-1.6) L 12/24/20 07: Lipase 146 U/L (73-393) 12/24/20 07:29 Urine Color YELLOW 12/23/20 19:02 Urine Appearance SLT CLOUDY 12/23/20 19:02 Urine pH 6.0 (5.0-8.0) 12/23/20 19:02 Ur Specific [place] 1.015 (1.001-1.035) 12/23/20 19:02 Urine Protein 100 mg/dL (NEGATIVE) H 12/23/20 19:02 Urine Glucose (UA) 500 mg/dL (NEGATIVE) H 12/23/20 19:02 Urine Ketones NEGATIVE mg/dL (NEGATIVE) 12/23/20 19:02 Urine Occult Blood LARGE (NEGATIVE) H 12/23/20 19:02 Urine Nitrite POSITIVE (NEGATIVE) H 12/23/20 19:02 Urine Bilirubin NEGATIVE (NEGATIVE) 12/23/20 19:02 Urine Urobilinogen 1.0 EU/dL (<2.0) 12/23/20 19:02 Ur Leukocyte Esterase SMALL (NEGATIVE) H 12/23/20 19:02 Urine RBC 8-10 (0-2/HPF) 12/23/20 19:02 Urine WBC 3-5 (0-5/HPF) 12/23/20 19:02 Ur Epithelial Cells FEW (NONE-FEW) 12/23/20 19:02 Urine Bacteria 2+ (NEGATIVE) H 12/23/20 19:02 Influenza Type A RNA NEGATIVE (NEGATIVE) 12/23/20 19:15 Influenza Type B RNA NEGATIVE (NEGATIVE) 12/23/20 19:15 SARS-CoV-2 RNA (ISABEL) NEGATIVE (NEGATIVE) 12/23/20 19:15 - Allergies Allergies/Adverse Reactions: Allergies Allergy/AdvReac Type Severity Reaction Status Date / Time ketorolac Allergy Hives Verified 12/23/20 18:22 - Blood Blood Available: No - Acknowledgements Anesthesia Type Planned: General Anesthesia Pt an Appropriate Candidate for the Planned Anesthesia: Yes Alternatives and Risks of Anesthesia Discussed w Pt/Guardian: Yes Pt/Guardian Understands and Agrees with Anesthesia Plan: Yes PreAnesthesia Questionnaire HEENT History: Reports: Impaired Vision, Other (See Below) Other HEENT History: wears glasses Cardiovascular History: Reports: Hypertension Respiratory History: Reports: None Gastrointestinal History: Reports: None Genitourinary History: Reports: BPH Other Genitourinary History: Renal CA, Left Kidney removed. Musculoskeletal History: Reports: Back Pain, Chronic Neurological History: Reports: Neuropathy, Diabetic, Neuropathy, Peripheral Psychiatric History: Reports: None Endocrine/Metabolic History: Reports: Diabetes, Type II, Obesity/BMI 30+ Hematologic History: Reports: Blood Transfusion(s) Immunologic History: Reports: None Oncologic (Cancer) History: Reports: Renal Dermatologic History: Reports: Cellulitis - Infectious Disease History Infectious Disease History: Reports: None, MRSA Other Infectious Disease History: MRSA - Past Surgical History Head Surgeries/Procedures: Reports: None HEENT Surgical History: Reports: None Other HEENT Surgeries/Procedures: Incision and drainage left neck abscess 3-4 weeks ago. Cardiovascular Surgical History: Reports: None Respiratory Surgical History: Reports: None GI Surgical History: Reports: Colonoscopy, Hernia, Abdominal Male Surgical History: Reports: Nephrectomy (left) Other Male Surgeries/Procedures: nephrectomy 2015 Endocrine Surgical History: Reports: None Neurological Surgical History: Reports: None Musculoskeletal Surgical History: Reports: Amputation Other Musculoskeletal Surgeries/Procedures:: L BTK amputation 2018 Oncologic Surgical History: Reports: None Dermatological Surgical History: Reports: None - SUBSTANCE USE Tobacco Use Status *Q: Light Tobacco User Tobacco Use Within Last Twelve Months: Cigarettes Second Hand Smoke Exposure: No Recreational Drug Use History: No - HOME MEDS Home Medications: Home Meds metFORMIN [Glucophage] 1,000 mg PO BIDMEALS 09/29/19 [History] Aspirin 81 mg PO DAILY #30 tab.chew 09/30/19 [Rx] Tamsulosin HCl [Flomax] 0.4 mg PO BID #60 capsule 10/01/19 [Rx] lisinopriL [Lisinopril] 10 mg PO DAILY 04/28/20 [History] Hydrocodone/Acetaminophen [Hydrocodone-Acetamin 7.5-325] 12/23/20 [History] Gabapentin [Neurontin] 600 mg PO QID 12/24/20 [History] metFORMIN [Glucophage] 1,000 mg PO BIDMEALS 12/24/20 [History] oxyCODONE 10 mg PO Q6H 12/24/20 [History] - CURRENT (IN HOUSE) MEDS Current Meds: Current Medications Albuterol (Albuterol 0.083% 2.5 Mg/3 Ml Neb Soln) 2.5 mg NEB ONETIME PRN PRN Reason: Wheezing Dextrose/Water (50% Dextrose In Water 50 Ml Syringe) 50 ml IVPUSH ASDIRECTED PRN PRN Reason: Hypoglycemia Droperidol (Droperidol 5 Mg/2 Ml Sdv) 0.625 mg IVPUSH ONETIME PRN PRN Reason: Nausea/Vomiting Fentanyl (Fentanyl 100 Mcg/2 Ml Sdv) 50 mcg IVPUSH Q5M PRN PRN Reason: Pain (mild 1-3) Gabapentin (Gabapentin 300 Mg Cap) 600 mg PO QID [facility] Last Admin: 12/24/20 06:29 Dose: 600 mg Documented by: Glucagon (Glucagon,Human Recombinant 1 Mg Vial) 1 mg IM ASDIRECTED PRN PRN Reason: Hypoglycemia Heparin Sodium (Porcine) (Heparin Sodium 5,000 Units/Ml Vial) 5,000 units SUBCUT Q8H [facility] Last Admin: 12/24/20 09:00 Dose: 5,000 units Documented by: Hydromorphone HCl (Hydromorphone 2 Mg/Ml Syringe) 0.5 mg IVPUSH Q10M PRN PRN Reason: Pain (moderate 4-6) Vancomycin HCl 1.5 gm/ Premix 300 mls @ 200 mls/hr IV Q12H [facility] Last Admin: 12/24/20 06:30 Dose: 200 mls/hr Documented by: Piperacillin Sod/Tazobactam (Sod 3.375 gm/ Sodium Chloride) 50 mls @ 100 mls/hr IV Q6H [facility] Last Admin: 12/24/20 08:52 Dose: 100 mls/hr Documented by: Sodium Chloride (Normal Saline) 1,000 mls @ 150 mls/hr IV ASDIRECTED [facility] Last Admin: 12/24/20 02:31 Dose: 150 mls/hr Documented by: Insulin Aspart (Insulin Aspart 100 Units/Ml 3 Ml Pen) 0 unit SUBCUT TIDAC [facility]; Protocol Last Admin: 12/24/20 07:38 Dose: Not Given Documented by: Lisinopril (Lisinopril 10 Mg Tab) 10 mg PO DAILY [facility] Last Admin: 12/24/20 08:30 Dose: Not Given Documented by: Metoclopramide HCl (Metoclopramide 10 Mg/2 Ml Sdv) 10 mg IVPUSH ONETIME PRN PRN Reason: Nausea/Vomiting Morphine Sulfate (Morphine 2 Mg/Ml Syringe) 2 mg IVPUSH Q2H PRN PRN Reason: Pain (severe 7-10) Stop: 12/25/20 01:18 Last Admin: 12/24/20 08:51 Dose: 2 mg Documented by: Naloxone HCl (Naloxone 0.4 Mg/Ml Syringe) 0.1 mg IVPUSH ASDIRECTED PRN PRN Reason: Respiratory Depression Ondansetron HCl (Ondansetron 4 Mg/2 Ml Sdv) 4 mg IVPUSH ONETIME PRN PRN Reason: Nausea/Vomiting Oxycodone HCl (Oxycodone 5 Mg Tab) 5 mg PO Q4H PRN PRN Reason: Pain (moderate 4-6) Last Admin: 12/24/20 07:49 Dose: 5 mg Documented by: Sodium Chloride (Sodium Chloride 0.9% 10 Ml Syringe) 10 ml FLUSH ASDIRECTED PRN PRN Reason: Keep Vein Open Sodium Chloride (Sodium Chloride 0.9% 2.5 Ml Syringe) 2.5 ml FLUSH ASDIRECTED PRN PRN Reason: Keep Vein Open Tamsulosin HCl (Tamsulosin 0.4 Mg Cap.Er) 0.4 mg PO BID [facility] Last Admin: 12/24/20 09:26 Dose: Not Given Documented by: Vancomycin HCl (Pharmacy To Dose - Vancomycin) 1 dose .XX ASDIRECTED [place] Discontinued Medications Aspirin (Aspirin 81 Mg Tab.Chew) 243 mg PO ONETIME ONE Stop: 12/23/20 19:11 Last Admin: 12/23/20 19:30 Dose: 243 mg Documented by: Sodium Chloride (Normal Saline) 1,000 mls @ 999 mls/hr IV BOLUS ONE Stop: 12/23/20 19:47 Last Admin: 12/23/20 19:10 Dose: 999 mls/hr Documented by: Piperacillin Sod/Tazobactam (Sod 3.375 gm/ Sodium Chloride) 50 mls @ 100 mls/hr IV ONETIME ONE Stop: 12/23/20 19:38 Last Admin: 12/23/20 19:30 Dose: 100 mls/hr Documented by: Vancomycin HCl 1 gm/ Sodium (Chloride) 250 mls @ 166 mls/hr IV ONETIME ONE Stop: 12/23/20 20:39 Last Admin: 12/23/20 19:30 Dose: 166 mls/hr Documented by: Sodium Chloride (Normal Saline) 1,000 mls @ 999 mls/hr IV STAT ONE Stop: 12/23/20 20:53 Last Admin: 12/23/20 20:32 Dose: 999 mls/hr Documented by: Piperacillin Sod/Tazobactam (Sod 3.375 gm/ Sodium Chloride) 50 mls @ 100 mls/hr IV Q6H [facility] Last Admin: 12/24/20 03:27 Dose: Not Given Documented by: Iopamidol (Iopamidol 755 Mg/Ml 500 Ml Multipack Bottle) 140 ml IVPUSH ONETIME STA Stop: 12/23/20 21:42 Last Admin: 12/23/20 21:43 Dose: 140 ml Documented by: Morphine Sulfate (Morphine 4 Mg/Ml Syringe) 4 mg IVPUSH ONETIME ONE Stop: 12/23/20 19:12 Last Admin: 12/23/20 19:29 Dose: 4 mg Documented by: Morphine Sulfate (Morphine 2 Mg/Ml Syringe) 2 mg IVPUSH ONETIME ONE Stop: 12/23/20 20:23 Last Admin: 12/23/20 20:31 Dose: 2 mg Documented by: Morphine Sulfate (Morphine 4 Mg/Ml Syringe) 4 mg IVPUSH ONETIME ONE Stop: 12/23/20 22:17 Last Admin: 12/23/20 22:24 Dose: 4 mg Documented by:
[2020-12-24] MEDS ORDERED: Midazolam 1 MG/ML 2 ML SDV ONE (11:32)
[2020-12-24] MEDS ORDERED: fentaNYL 250 MCG/5 ML SDV ONE (11:32)
[2020-12-24] MEDS ORDERED: Propofol 200 MG/20 ML SDV ONE (11:32)
[2020-12-24] MEDS ORDERED: Ondansetron 4 MG/2 ML SDV ONE (11:33)
[2020-12-24] MEDS ORDERED: Glycopyrrolate 0.2 MG/ML SDV ONE (11:33)
[2020-12-24] MEDS ORDERED: Ketorolac 30 MG/ML SDV ONE (11:33)
[2020-12-24] MEDS ORDERED: Sugammadex Sodium 200 MG/2 ML VIAL ONE (11:33)
[2020-12-24] MEDS ORDERED: Rocuronium Bromide 50 MG/5 ML Syringe ONE (11:33)
[2020-12-24] MEDS ORDERED: Lidocaine 2% 5 ML SDV ONE (11:33)
[2020-12-24] MEDS ORDERED: Bupivacaine 0.5% 30 ML SDV ONE ×2 (12:14→12:26)
--- NOTE | 2020-12-24 13:00 | PCM.PN ---
- General Info Date of Service: 12/24/20 Admission Dx/Problem (Free Text): Admission Diagnosis/Problem Admission Diagnosis/Problem Cellulitis recurrent left neck abscess Subjective Update: Patient is a 50-year-old male with past medical history of BKA on the left, neph rectomy due to renal cell carcinoma, mellitus, hypertension, peripheral neuropathy. Was admitted for recurrent abscess versus cellulitis on the posterior aspect of his neck. Approximately a week ago he was seen in [place] at [facility] treated for this. Patient returned due to associated pain, fever and chills. This morning states he has not feeling fever chills however has some improvement in the pain due to pain medication. But still has discomfort and concerns regarding the abscess versus cellulitis. Patient was seen at bedside, appears to be stable in no acute distress, was seen by Dr. Davis in surgery and patient is aware that he will be taken to surgery around noon for his I&D. Functional Status: Reports: Urinating. Denies: Tolerating Diet - Review of Systems General: Reports: No Symptoms HEENT: Reports: Other (Pain on posterior aspect of neck radiating to back and scalp) Pulmonary: Reports: No Symptoms Cardiovascular: Reports: No Symptoms Gastrointestinal: Reports: No Symptoms Genitourinary: Reports: No Symptoms Musculoskeletal: Reports: Neck Pain Skin: Reports: No Symptoms Neurological: Reports: No Symptoms Psychiatric: Reports: No Symptoms - Patient Data Vitals - Most Recent: Last Vital Signs Temp 97.2 F 12/24/20 11:42 Pulse 59 L 12/24/20 11:42 Resp 14 12/24/20 11:42 BP 111/55 L 12/24/20 11:42 Pulse Ox 99 12/24/20 11:42 Weight - Most Recent: 221 lb 1.6 oz I&O - Last 24 Hours: Intake & Output 12/23/20 12/24/20 12/24/20 22:59 06:59 14:59 Intake Total 676 Output Total 280 Balance 396 Lab Results Last 24 Hours: Laboratory Results - last 24 hr 12/23/20 12/23/20 12/23/20 Range/Units 19:02 19:08 19:08 WBC 11.08 H (4.0-11.0) K/uL RBC 5.23 (4.50-5.90) M/uL Hgb 15.1 (13.0-17.0) g/dL Hct 44.4 (38.0-50.0) % MCV 84.9 (80.0-98.0) fL MCH 28.9 (27.0-32.0) pg MCHC 34.0 (31.0-37.0) g/dL RDW Std Deviation 46.9 (28.0-62.0) fl RDW Coeff of Candy 15 (11.0-15.0) % Plt Count 424 H (150-400) K/uL MPV 10.10 (7.40-12.00) fL Neut % (Auto) 78.0 (48.0-80.0) % Lymph % (Auto) 15.0 L (16.0-40.0) % Andrews % (Auto) 5.7 (0.0-15.0) % Eos % (Auto) 1.1 (0.0-7.0) % Baso % (Auto) 0.2 (0.0-1.5) % Neut # (Auto) 8.7 H (1.4-5.7) K/uL Lymph # (Auto) 1.7 (0.6-2.4) K/uL Andrews # (Auto) 0.6 (0.0-0.8) K/uL Eos # (Auto) 0.1 (0.0-0.7) K/uL Baso # (Auto) 0.0 (0.0-0.1) K/uL Nucleated RBC % 0.0 /100WBC Nucleated RBCs # 0 K/uL D-Dimer, Quantitative (0.0-0.50) mg/L FEU Sodium 137 (136-148) mmol/L Potassium 4.1 (3.5-5.1) mmol/L Chloride 101 (98-107) mmol/L Carbon Dioxide 22.0 (21.0-32.0) mmol/L BUN 8 (7.0-18.0) mg/dL Creatinine 1.1 (0.8-1.3) mg/dL Est Cr Clr Drug Dosing 73.31 mL/min Estimated GFR (MDRD) > 60.0 ml/min Glucose 322 H (74-106) mg/dL POC Glucose (70-99) mg/dL Lactic Acid (0.4-2.0) mmol/L Calcium 9.5 (8.5-10.1) mg/dL Total Bilirubin 0.5 (0.2-1.0) mg/dL AST 26 (15-37) IU/L ALT 23 (14-63) IU/L Alkaline Phosphatase 133 H (46-116) U/L Troponin I < 0.050 (0.000-0.056) ng/mL Total Protein 8.2 (6.4-8.2) g/dL Albumin 3.5 (3.4-5.0) g/dL Globulin 4.7 H (2.6-4.0) g/dL Albumin/Globulin Ratio 0.7 L (0.9-1.6) Lipase 493 H (73-393) U/L Urine Color YELLOW Urine Appearance SLT CLOUDY Urine pH 6.0 (5.0-8.0) Ur Specific [place] 1.015 (1.001-1.035) Urine Protein 100 H (NEGATIVE) mg/dL Urine Glucose (UA) 500 H (NEGATIVE) mg/dL Urine Ketones NEGATIVE (NEGATIVE) mg/dL Urine Occult Blood LARGE H (NEGATIVE) Urine Nitrite POSITIVE H (NEGATIVE) Urine Bilirubin NEGATIVE (NEGATIVE) Urine Urobilinogen 1.0 (<2.0) EU/dL Ur Leukocyte Esterase SMALL H (NEGATIVE) Urine RBC 8-10 (0-2/HPF) Urine WBC 3-5 (0-5/HPF) Ur Epithelial Cells FEW (NONE-FEW) Urine Bacteria 2+ H (NEGATIVE) Influenza Type A RNA (NEGATIVE) Influenza Type B RNA (NEGATIVE) SARS-CoV-2 RNA (ISABEL) (NEGATIVE) 12/23/20 12/23/20 12/23/20 Range/Units 19:08 19:08 19:15 WBC (4.0-11.0) K/uL RBC (4.50-5.90) M/uL Hgb (13.0-17.0) g/dL Hct (38.0-50.0) % MCV (80.0-98.0) fL MCH (27.0-32.0) pg MCHC (31.0-37.0) g/dL RDW Std Deviation (28.0-62.0) fl RDW Coeff of Candy (11.0-15.0) % Plt Count (150-400) K/uL MPV (7.40-12.00) fL Neut % (Auto) (48.0-80.0) % Lymph % (Auto) (16.0-40.0) % Andrews % (Auto) (0.0-15.0) % Eos % (Auto) (0.0-7.0) % Baso % (Auto) (0.0-1.5) % Neut # (Auto) (1.4-5.7) K/uL Lymph # (Auto) (0.6-2.4) K/uL Andrews # (Auto) (0.0-0.8) K/uL Eos # (Auto) (0.0-0.7) K/uL Baso # (Auto) (0.0-0.1) K/uL Nucleated RBC % /100WBC Nucleated RBCs # K/uL D-Dimer, Quantitative 0.67 H (0.0-0.50) mg/L FEU Sodium (136-148) mmol/L Potassium (3.5-5.1) mmol/L Chloride (98-107) mmol/L Carbon Dioxide (21.0-32.0) mmol/L BUN (7.0-18.0) mg/dL Creatinine (0.8-1.3) mg/dL Est Cr Clr Drug Dosing mL/min Estimated GFR (MDRD) ml/min Glucose (74-106) mg/dL POC Glucose (70-99) mg/dL Lactic Acid 2.5 H* (0.4-2.0) mmol/L Calcium (8.5-10.1) mg/dL Total Bilirubin (0.2-1.0) mg/dL AST (15-37) IU/L ALT (14-63) IU/L Alkaline Phosphatase (46-116) U/L Troponin I (0.000-0.056) ng/mL Total Protein (6.4-8.2) g/dL Albumin (3.4-5.0) g/dL Globulin (2.6-4.0) g/dL Albumin/Globulin Ratio (0.9-1.6) Lipase (73-393) U/L Urine Color Urine Appearance Urine pH (5.0-8.0) Ur Specific [place] (1.001-1.035) Urine Protein (NEGATIVE) mg/dL Urine Glucose (UA) (NEGATIVE) mg/dL Urine Ketones (NEGATIVE) mg/dL Urine Occult Blood (NEGATIVE) Urine Nitrite (NEGATIVE) Urine Bilirubin (NEGATIVE) Urine Urobilinogen (<2.0) EU/dL Ur Leukocyte Esterase (NEGATIVE) Urine RBC (0-2/HPF) Urine WBC (0-5/HPF) Ur Epithelial Cells (NONE-FEW) Urine Bacteria (NEGATIVE) Influenza Type A RNA NEGATIVE (NEGATIVE) Influenza Type B RNA NEGATIVE (NEGATIVE) SARS-CoV-2 RNA (ISABEL) NEGATIVE (NEGATIVE) 12/23/20 12/24/20 12/24/20 Range/Units 19:36 00:00 01:30 WBC (4.0-11.0) K/uL RBC (4.50-5.90) M/uL Hgb (13.0-17.0) g/dL Hct (38.0-50.0) % MCV (80.0-98.0) fL MCH (27.0-32.0) pg MCHC (31.0-37.0) g/dL RDW Std Deviation (28.0-62.0) fl RDW Coeff of Candy (11.0-15.0) % Plt Count (150-400) K/uL MPV (7.40-12.00) fL Neut % (Auto) (48.0-80.0) % Lymph % (Auto) (16.0-40.0) % Andrews % (Auto) (0.0-15.0) % Eos % (Auto) (0.0-7.0) % Baso % (Auto) (0.0-1.5) % Neut # (Auto) (1.4-5.7) K/uL Lymph # (Auto) (0.6-2.4) K/uL Andrews # (Auto) (0.0-0.8) K/uL Eos # (Auto) (0.0-0.7) K/uL Baso # (Auto) (0.0-0.1) K/uL Nucleated RBC % /100WBC Nucleated RBCs # K/uL D-Dimer, Quantitative (0.0-0.50) mg/L FEU Sodium (136-148) mmol/L Potassium (3.5-5.1) mmol/L Chloride (98-107) mmol/L Carbon Dioxide (21.0-32.0) mmol/L BUN (7.0-18.0) mg/dL Creatinine (0.8-1.3) mg/dL Est Cr Clr Drug Dosing mL/min Estimated GFR (MDRD) ml/min Glucose (74-106) mg/dL POC Glucose 270 H (70-99) mg/dL Lactic Acid 1.3 (0.4-2.0) mmol/L Calcium (8.5-10.1) mg/dL Total Bilirubin (0.2-1.0) mg/dL AST (15-37) IU/L ALT (14-63) IU/L Alkaline Phosphatase (46-116) U/L Troponin I < 0.050 (0.000-0.056) ng/mL Total Protein (6.4-8.2) g/dL Albumin (3.4-5.0) g/dL Globulin (2.6-4.0) g/dL Albumin/Globulin Ratio (0.9-1.6) Lipase (73-393) U/L Urine Color Urine Appearance Urine pH (5.0-8.0) Ur Specific [place] (1.001-1.035) Urine Protein (NEGATIVE) mg/dL Urine Glucose (UA) (NEGATIVE) mg/dL Urine Ketones (NEGATIVE) mg/dL Urine Occult Blood (NEGATIVE) Urine Nitrite (NEGATIVE) Urine Bilirubin (NEGATIVE) Urine Urobilinogen (<2.0) EU/dL Ur Leukocyte Esterase (NEGATIVE) Urine RBC (0-2/HPF) Urine WBC (0-5/HPF) Ur Epithelial Cells (NONE-FEW) Urine Bacteria (NEGATIVE) Influenza Type A RNA (NEGATIVE) Influenza Type B RNA (NEGATIVE) SARS-CoV-2 RNA (ISABEL) (NEGATIVE) 12/24/20 12/24/20 12/24/20 Range/Units 01:34 07:28 07:29 WBC 10.27 (4.0-11.0) K/uL RBC 4.50 (4.50-5.90) M/uL Hgb 12.8 L (13.0-17.0) g/dL Hct 39.1 (38.0-50.0) % MCV 86.9 (80.0-98.0) fL MCH 28.4 (27.0-32.0) pg MCHC 32.7 (31.0-37.0) g/dL RDW Std Deviation 48.3 (28.0-62.0) fl RDW Coeff of Candy 15 (11.0-15.0) % Plt Count 313 (150-400) K/uL MPV 9.60 (7.40-12.00) fL Neut % (Auto) 57.6 (48.0-80.0) % Lymph % (Auto) 30.0 (16.0-40.0) % Andrews % (Auto) 7.9 (0.0-15.0) % Eos % (Auto) 4.2 (0.0-7.0) % Baso % (Auto) 0.3 (0.0-1.5) % Neut # (Auto) 5.9 H (1.4-5.7) K/uL Lymph # (Auto) 3.1 H (0.6-2.4) K/uL Andrews # (Auto) 0.8 (0.0-0.8) K/uL Eos # (Auto) 0.4 (0.0-0.7) K/uL Baso # (Auto) 0.0 (0.0-0.1) K/uL Nucleated RBC % 0.0 /100WBC Nucleated RBCs # 0 K/uL D-Dimer, Quantitative (0.0-0.50) mg/L FEU Sodium (136-148) mmol/L Potassium (3.5-5.1) mmol/L Chloride (98-107) mmol/L Carbon Dioxide (21.0-32.0) mmol/L BUN (7.0-18.0) mg/dL Creatinine (0.8-1.3) mg/dL Est Cr Clr Drug Dosing mL/min Estimated GFR (MDRD) ml/min Glucose (74-106) mg/dL POC Glucose 126 H 120 H (70-99) mg/dL Lactic Acid (0.4-2.0) mmol/L Calcium (8.5-10.1) mg/dL Total Bilirubin (0.2-1.0) mg/dL AST (15-37) IU/L ALT (14-63) IU/L Alkaline Phosphatase (46-116) U/L Troponin I (0.000-0.056) ng/mL Total Protein (6.4-8.2) g/dL Albumin (3.4-5.0) g/dL Globulin (2.6-4.0) g/dL Albumin/Globulin Ratio (0.9-1.6) Lipase (73-393) U/L Urine Color Urine Appearance Urine pH (5.0-8.0) Ur Specific [place] (1.001-1.035) Urine Protein (NEGATIVE) mg/dL Urine Glucose (UA) (NEGATIVE) mg/dL Urine Ketones (NEGATIVE) mg/dL Urine Occult Blood (NEGATIVE) Urine Nitrite (NEGATIVE) Urine Bilirubin (NEGATIVE) Urine Urobilinogen (<2.0) EU/dL Ur Leukocyte Esterase (NEGATIVE) Urine RBC (0-2/HPF) Urine WBC (0-5/HPF) Ur Epithelial Cells (NONE-FEW) Urine Bacteria (NEGATIVE) Influenza Type A RNA (NEGATIVE) Influenza Type B RNA (NEGATIVE) SARS-CoV-2 RNA (ISABEL) (NEGATIVE) 12/24/20 12/24/20 12/24/20 Range/Units 07:29 07:29 11:54 WBC (4.0-11.0) K/uL RBC (4.50-5.90) M/uL Hgb (13.0-17.0) g/dL Hct (38.0-50.0) % MCV (80.0-98.0) fL MCH (27.0-32.0) pg MCHC (31.0-37.0) g/dL RDW Std Deviation (28.0-62.0) fl RDW Coeff of Candy (11.0-15.0) % Plt Count (150-400) K/uL MPV (7.40-12.00) fL Neut % (Auto) (48.0-80.0) % Lymph % (Auto) (16.0-40.0) % Andrews % (Auto) (0.0-15.0) % Eos % (Auto) (0.0-7.0) % Baso % (Auto) (0.0-1.5) % Neut # (Auto) (1.4-5.7) K/uL Lymph # (Auto) (0.6-2.4) K/uL Andrews # (Auto) (0.0-0.8) K/uL Eos # (Auto) (0.0-0.7) K/uL Baso # (Auto) (0.0-0.1) K/uL Nucleated RBC % /100WBC Nucleated RBCs # K/uL D-Dimer, Quantitative (0.0-0.50) mg/L FEU Sodium 140 (136-148) mmol/L Potassium 3.8 (3.5-5.1) mmol/L Chloride 106 (98-107) mmol/L Carbon Dioxide 26.0 (21.0-32.0) mmol/L BUN 6 L (7.0-18.0) mg/dL Creatinine 1.0 (0.8-1.3) mg/dL Est Cr Clr Drug Dosing 80.64 mL/min Estimated GFR (MDRD) > 60.0 ml/min Glucose 124 H (74-106) mg/dL POC Glucose 142 H (70-99) mg/dL Lactic Acid (0.4-2.0) mmol/L Calcium 8.3 L (8.5-10.1) mg/dL Total Bilirubin 0.7 (0.2-1.0) mg/dL AST 15 (15-37) IU/L ALT 16 (14-63) IU/L Alkaline Phosphatase 105 (46-116) U/L Troponin I < 0.050 (0.000-0.056) ng/mL Total Protein 6.5 (6.4-8.2) g/dL Albumin 2.7 L (3.4-5.0) g/dL Globulin 3.8 (2.6-4.0) g/dL Albumin/Globulin Ratio 0.7 L (0.9-1.6) Lipase 146 (73-393) U/L Urine Color Urine Appearance Urine pH (5.0-8.0) Ur Specific [place] (1.001-1.035) Urine Protein (NEGATIVE) mg/dL Urine Glucose (UA) (NEGATIVE) mg/dL Urine Ketones (NEGATIVE) mg/dL Urine Occult Blood (NEGATIVE) Urine Nitrite (NEGATIVE) Urine Bilirubin (NEGATIVE) Urine Urobilinogen (<2.0) EU/dL Ur Leukocyte Esterase (NEGATIVE) Urine RBC (0-2/HPF) Urine WBC (0-5/HPF) Ur Epithelial Cells (NONE-FEW) Urine Bacteria (NEGATIVE) Influenza Type A RNA (NEGATIVE) Influenza Type B RNA (NEGATIVE) SARS-CoV-2 RNA (ISABEL) (NEGATIVE) Med Orders - Current: Current Medications Albuterol (Albuterol 0.083% 2.5 Mg/3 Ml Neb Soln) 2.5 mg NEB ONETIME PRN PRN Reason: Wheezing Dextrose/Water (50% Dextrose In Water 50 Ml Syringe) 50 ml IVPUSH ASDIRECTED PRN PRN Reason: Hypoglycemia Droperidol (Droperidol 5 Mg/2 Ml Sdv) 0.625 mg IVPUSH ONETIME PRN PRN Reason: Nausea/Vomiting Fentanyl (Fentanyl 100 Mcg/2 Ml Sdv) 50 mcg IVPUSH Q5M PRN PRN Reason: Pain (mild 1-3) Gabapentin (Gabapentin 300 Mg Cap) 600 mg PO QID [facility] Last Admin: 12/24/20 11:56 Dose: Not Given Documented by: Glucagon (Glucagon,Human Recombinant 1 Mg Vial) 1 mg IM ASDIRECTED PRN PRN Reason: Hypoglycemia Heparin Sodium (Porcine) (Heparin Sodium 5,000 Units/Ml Vial) 5,000 units SUBCUT Q8H [facility] Last Admin: 12/24/20 09:00 Dose: 5,000 units Documented by: Hydromorphone HCl (Hydromorphone 2 Mg/Ml Syringe) 0.5 mg IVPUSH Q10M PRN PRN Reason: Pain (moderate 4-6) Vancomycin HCl 1.5 gm/ Premix 300 mls @ 200 mls/hr IV Q12H [facility] Last Admin: 12/24/20 06:30 Dose: 200 mls/hr Documented by: Piperacillin Sod/Tazobactam (Sod 3.375 gm/ Sodium Chloride) 50 mls @ 100 mls/hr IV Q6H [facility] Last Admin: 12/24/20 08:52 Dose: 100 mls/hr Documented by: Sodium Chloride (Normal Saline) 1,000 mls @ 150 mls/hr IV ASDIRECTED [facility] Last Admin: 12/24/20 11:41 Dose: 150 mls/hr Documented by: Insulin Aspart (Insulin Aspart 100 Units/Ml 3 Ml Pen) 0 unit SUBCUT TIDAC [facility]; Protocol Last Admin: 12/24/20 11:55 Dose: Not Given Documented by: Lisinopril (Lisinopril 10 Mg Tab) 10 mg PO DAILY [facility] Last Admin: 12/24/20 08:30 Dose: Not Given Documented by: Metoclopramide HCl (Metoclopramide 10 Mg/2 Ml Sdv) 10 mg IVPUSH ONETIME PRN PRN Reason: Nausea/Vomiting Morphine Sulfate (Morphine 2 Mg/Ml Syringe) 2 mg IVPUSH Q2H PRN PRN Reason: Pain (severe 7-10) Stop: 12/25/20 01:18 Last Admin: 12/24/20 11:48 Dose: 2 mg Documented by: Naloxone HCl (Naloxone 0.4 Mg/Ml Syringe) 0.1 mg IVPUSH ASDIRECTED PRN PRN Reason: Respiratory Depression Ondansetron HCl (Ondansetron 4 Mg/2 Ml Sdv) 4 mg IVPUSH ONETIME PRN PRN Reason: Nausea/Vomiting Oxycodone HCl (Oxycodone 5 Mg Tab) 5 mg PO Q4H PRN PRN Reason: Pain (moderate 4-6) Last Admin: 12/24/20 07:49 Dose: 5 mg Documented by: Sodium Chloride (Sodium Chloride 0.9% 10 Ml Syringe) 10 ml FLUSH ASDIRECTED PRN PRN Reason: Keep Vein Open Sodium Chloride (Sodium Chloride 0.9% 2.5 Ml Syringe) 2.5 ml FLUSH ASDIRECTED PRN PRN Reason: Keep Vein Open Tamsulosin HCl (Tamsulosin 0.4 Mg Cap.Er) 0.4 mg PO BID [facility] Last Admin: 12/24/20 09:26 Dose: Not Given Documented by: Vancomycin HCl (Pharmacy To Dose - Vancomycin) 1 dose .XX ASDIRECTED [facility] Discontinued Medications Aspirin (Aspirin 81 Mg Tab.Chew) 243 mg PO ONETIME ONE Stop: 12/23/20 19:11 Last Admin: 12/23/20 19:30 Dose: 243 mg Documented by: Bupivacaine HCl (Bupivacaine 0.5% 30 Ml Sdv) Confirm Administered Dose 30 ml .ROUTE .STK-MED ONE Stop: 12/24/20 12:15 Bupivacaine HCl (Bupivacaine 0.5% 30 Ml Sdv) Confirm Administered Dose 30 ml .ROUTE .STK-MED ONE Stop: 12/24/20 12:27 Fentanyl (Fentanyl 250 Mcg/5 Ml Sdv) Confirm Administered Dose 250 mcg .ROUTE .STK-MED ONE Stop: 12/24/20 11:33 Glycopyrrolate (Glycopyrrolate 0.2 Mg/Ml Sdv) Confirm Administered Dose 0.2 mg .ROUTE .STK-MED ONE Stop: 12/24/20 11:34 Sodium Chloride (Normal Saline) 1,000 mls @ 999 mls/hr IV BOLUS ONE Stop: 12/23/20 19:47 Last Admin: 12/23/20 19:10 Dose: 999 mls/hr Documented by: Piperacillin Sod/Tazobactam (Sod 3.375 gm/ Sodium Chloride) 50 mls @ 100 mls/hr IV ONETIME ONE Stop: 12/23/20 19:38 Last Admin: 12/23/20 19:30 Dose: 100 mls/hr Documented by: Vancomycin HCl 1 gm/ Sodium (Chloride) 250 mls @ 166 mls/hr IV ONETIME ONE Stop: 12/23/20 20:39 Last Admin: 12/23/20 19:30 Dose: 166 mls/hr Documented by: Sodium Chloride (Normal Saline) 1,000 mls @ 999 mls/hr IV STAT ONE Stop: 12/23/20 20:53 Last Admin: 12/23/20 20:32 Dose: 999 mls/hr Documented by: Piperacillin Sod/Tazobactam (Sod 3.375 gm/ Sodium Chloride) 50 mls @ 100 mls/hr IV Q6H [facility] Last Admin: 12/24/20 03:27 Dose: Not Given Documented by: Iopamidol (Iopamidol 755 Mg/Ml 500 Ml Multipack Bottle) 140 ml IVPUSH ONETIME STA Stop: 12/23/20 21:42 Last Admin: 12/23/20 21:43 Dose: 140 ml Documented by: Ketorolac Tromethamine (Ketorolac 30 Mg/Ml Sdv) Confirm Administered Dose 30 mg .ROUTE .STK-MED ONE Stop: 12/24/20 11:34 Lidocaine (Lidocaine 2% 5 Ml Sdv) Confirm Administered Dose 5 ml .ROUTE .STK-MED ONE Stop: 12/24/20 11:34 Midazolam HCl (Midazolam 1 Mg/Ml 2 Ml Sdv) Confirm Administered Dose 2 mg .ROUTE .STK-MED ONE Stop: 12/24/20 11:33 Morphine Sulfate (Morphine 4 Mg/Ml Syringe) 4 mg IVPUSH ONETIME ONE Stop: 12/23/20 19:12 Last Admin: 12/23/20 19:29 Dose: 4 mg Documented by: Morphine Sulfate (Morphine 2 Mg/Ml Syringe) 2 mg IVPUSH ONETIME ONE Stop: 12/23/20 20:23 Last Admin: 12/23/20 20:31 Dose: 2 mg Documented by: Morphine Sulfate (Morphine 4 Mg/Ml Syringe) 4 mg IVPUSH ONETIME ONE Stop: 12/23/20 22:17 Last Admin: 12/23/20 22:24 Dose: 4 mg Documented by: Ondansetron HCl (Ondansetron 4 Mg/2 Ml Sdv) Confirm Administered Dose 4 mg .ROUTE .STK-MED ONE Stop: 12/24/20 11:34 Propofol (Propofol 200 Mg/20 Ml Sdv) Confirm Administered Dose 200 mg .ROUTE .STK-MED ONE Stop: 12/24/20 11:33 Rocuronium Cosmos (Rocuronium Cosmos 50 Mg/5 Ml Syringe) Confirm Administered Dose 50 mg .ROUTE .STK-MED ONE Stop: 12/24/20 11:34 Sugammadex Sodium (Sugammadex Sodium 200 Mg/2 Ml Vial) Confirm Administered Dose 200 mg .ROUTE .STK-MED ONE Stop: 12/24/20 11:34 - Exam Quality Assessment: Supplemental Oxygen General: Alert, Oriented, Cooperative HEENT: Pupils Equal, Pupils Reactive, EOMI, Mucous Membr. Moist/[place] Neck: Supple Lungs: Clear to Auscultation, Normal Respiratory Effort Cardiovascular: Regular Rate, Regular Rhythm GI/Abdominal Exam: Normal Bowel Sounds, Soft, Non-Tender Back Exam: Normal Inspection Extremities: Normal Range of Motion, Non-Tender, No Pedal Edema, Normal Ca pillary Refill, Other (Left-sided BKA.) Peripheral Pulses: 2+: Carotid (L), Carotid (R), Dorsalis Pedis (L), Dorsalis Pedis (R) Skin: Warm, Dry, Intact Neurological: No New Focal Deficit Psy/Mental Status: Alert, Normal Affect, Normal Mood - Patient Data Lab Results Last 24 hrs: Laboratory Results - last 24 hr 12/23/20 12/23/20 12/23/20 Range/Units 19:02 19:08 19:08 WBC 11.08 H (4.0-11.0) K/uL RBC 5.23 (4.50-5.90) M/uL Hgb 15.1 (13.0-17.0) g/dL Hct 44.4 (38.0-50.0) % MCV 84.9 (80.0-98.0) fL MCH 28.9 (27.0-32.0) pg MCHC 34.0 (31.0-37.0) g/dL RDW Std Deviation 46.9 (28.0-62.0) fl RDW Coeff of Candy 15 (11.0-15.0) % Plt Count 424 H (150-400) K/uL MPV 10.10 (7.40-12.00) fL Neut % (Auto) 78.0 (48.0-80.0) % Lymph % (Auto) 15.0 L (16.0-40.0) % Andrews % (Auto) 5.7 (0.0-15.0) % Eos % (Auto) 1.1 (0.0-7.0) % Baso % (Auto) 0.2 (0.0-1.5) % Neut # (Auto) 8.7 H (1.4-5.7) K/uL Lymph # (Auto) 1.7 (0.6-2.4) K/uL Andrews # (Auto) 0.6 (0.0-0.8) K/uL Eos # (Auto) 0.1 (0.0-0.7) K/uL Baso # (Auto) 0.0 (0.0-0.1) K/uL Nucleated RBC % 0.0 /100WBC Nucleated RBCs # 0 K/uL D-Dimer, Quantitative (0.0-0.50) mg/L FEU Sodium 137 (136-148) mmol/L Potassium 4.1 (3.5-5.1) mmol/L Chloride 101 (98-107) mmol/L Carbon Dioxide 22.0 (21.0-32.0) mmol/L BUN 8 (7.0-18.0) mg/dL Creatinine 1.1 (0.8-1.3) mg/dL Est Cr Clr Drug Dosing 73.31 mL/min Estimated GFR (MDRD) > 60.0 ml/min Glucose 322 H (74-106) mg/dL POC Glucose (70-99) mg/dL Lactic Acid (0.4-2.0) mmol/L Calcium 9.5 (8.5-10.1) mg/dL Total Bilirubin 0.5 (0.2-1.0) mg/dL AST 26 (15-37) IU/L ALT 23 (14-63) IU/L Alkaline Phosphatase 133 H (46-116) U/L Troponin I < 0.050 (0.000-0.056) ng/mL Total Protein 8.2 (6.4-8.2) g/dL Albumin 3.5 (3.4-5.0) g/dL Globulin 4.7 H (2.6-4.0) g/dL Albumin/Globulin Ratio 0.7 L (0.9-1.6) Lipase 493 H (73-393) U/L Urine Color YELLOW Urine Appearance SLT CLOUDY Urine pH 6.0 (5.0-8.0) Ur Specific [place] 1.015 (1.001-1.035) Urine Protein 100 H (NEGATIVE) mg/dL Urine Glucose (UA) 500 H (NEGATIVE) mg/dL Urine Ketones NEGATIVE (NEGATIVE) mg/dL Urine Occult Blood LARGE H (NEGATIVE) Urine Nitrite POSITIVE H (NEGATIVE) Urine Bilirubin NEGATIVE (NEGATIVE) Urine Urobilinogen 1.0 (<2.0) EU/dL Ur Leukocyte Esterase SMALL H (NEGATIVE) Urine RBC 8-10 (0-2/HPF) Urine WBC 3-5 (0-5/HPF) Ur Epithelial Cells FEW (NONE-FEW) Urine Bacteria 2+ H (NEGATIVE) Influenza Type A RNA (NEGATIVE) Influenza Type B RNA (NEGATIVE) SARS-CoV-2 RNA (ISABEL) (NEGATIVE) 12/23/20 12/23/20 12/23/20 Range/Units 19:08 19:08 19:15 WBC (4.0-11.0) K/uL RBC (4.50-5.90) M/uL Hgb (13.0-17.0) g/dL Hct (38.0-50.0) % MCV (80.0-98.0) fL MCH (27.0-32.0) pg MCHC (31.0-37.0) g/dL RDW Std Deviation (28.0-62.0) fl RDW Coeff of Candy (11.0-15.0) % Plt Count (150-400) K/uL MPV (7.40-12.00) fL Neut % (Auto) (48.0-80.0) % Lymph % (Auto) (16.0-40.0) % Andrews % (Auto) (0.0-15.0) % Eos % (Auto) (0.0-7.0) % Baso % (Auto) (0.0-1.5) % Neut # (Auto) (1.4-5.7) K/uL Lymph # (Auto) (0.6-2.4) K/uL Andrews # (Auto) (0.0-0.8) K/uL Eos # (Auto) (0.0-0.7) K/uL Baso # (Auto) (0.0-0.1) K/uL Nucleated RBC % /100WBC Nucleated RBCs # K/uL D-Dimer, Quantitative 0.67 H (0.0-0.50) mg/L FEU Sodium (136-148) mmol/L Potassium (3.5-5.1) mmol/L Chloride (98-107) mmol/L Carbon Dioxide (21.0-32.0) mmol/L BUN (7.0-18.0) mg/dL Creatinine (0.8-1.3) mg/dL Est Cr Clr Drug Dosing mL/min Estimated GFR (MDRD) ml/min Glucose (74-106) mg/dL POC Glucose (70-99) mg/dL Lactic Acid 2.5 H* (0.4-2.0) mmol/L Calcium (8.5-10.1) mg/dL Total Bilirubin (0.2-1.0) mg/dL AST (15-37) IU/L ALT (14-63) IU/L Alkaline Phosphatase (46-116) U/L Troponin I (0.000-0.056) ng/mL Total Protein (6.4-8.2) g/dL Albumin (3.4-5.0) g/dL Globulin (2.6-4.0) g/dL Albumin/Globulin Ratio (0.9-1.6) Lipase (73-393) U/L Urine Color Urine Appearance Urine pH (5.0-8.0) Ur Specific [place] (1.001-1.035) Urine Protein (NEGATIVE) mg/dL Urine Glucose (UA) (NEGATIVE) mg/dL Urine Ketones (NEGATIVE) mg/dL Urine Occult Blood (NEGATIVE) Urine Nitrite (NEGATIVE) Urine Bilirubin (NEGATIVE) Urine Urobilinogen (<2.0) EU/dL Ur Leukocyte Esterase (NEGATIVE) Urine RBC (0-2/HPF) Urine WBC (0-5/HPF) Ur Epithelial Cells (NONE-FEW) Urine Bacteria (NEGATIVE) Influenza Type A RNA NEGATIVE (NEGATIVE) Influenza Type B RNA NEGATIVE (NEGATIVE) SARS-CoV-2 RNA (ISABEL) NEGATIVE (NEGATIVE) 12/23/20 12/24/20 12/24/20 Range/Units 19:36 00:00 01:30 WBC (4.0-11.0) K/uL RBC (4.50-5.90) M/uL Hgb (13.0-17.0) g/dL Hct (38.0-50.0) % MCV (80.0-98.0) fL MCH (27.0-32.0) pg MCHC (31.0-37.0) g/dL RDW Std Deviation (28.0-62.0) fl RDW Coeff of Candy (11.0-15.0) % Plt Count (150-400) K/uL MPV (7.40-12.00) fL Neut % (Auto) (48.0-80.0) % Lymph % (Auto) (16.0-40.0) % Andrews % (Auto) (0.0-15.0) % Eos % (Auto) (0.0-7.0) % Baso % (Auto) (0.0-1.5) % Neut # (Auto) (1.4-5.7) K/uL Lymph # (Auto) (0.6-2.4) K/uL Andrews # (Auto) (0.0-0.8) K/uL Eos # (Auto) (0.0-0.7) K/uL Baso # (Auto) (0.0-0.1) K/uL Nucleated RBC % /100WBC Nucleated RBCs # K/uL D-Dimer, Quantitative (0.0-0.50) mg/L FEU Sodium (136-148) mmol/L Potassium (3.5-5.1) mmol/L Chloride (98-107) mmol/L Carbon Dioxide (21.0-32.0) mmol/L BUN (7.0-18.0) mg/dL Creatinine (0.8-1.3) mg/dL Est Cr Clr Drug Dosing mL/min Estimated GFR (MDRD) ml/min Glucose (74-106) mg/dL POC Glucose 270 H (70-99) mg/dL Lactic Acid 1.3 (0.4-2.0) mmol/L Calcium (8.5-10.1) mg/dL Total Bilirubin (0.2-1.0) mg/dL AST (15-37) IU/L ALT (14-63) IU/L Alkaline Phosphatase (46-116) U/L Troponin I < 0.050 (0.000-0.056) ng/mL Total Protein (6.4-8.2) g/dL Albumin (3.4-5.0) g/dL Globulin (2.6-4.0) g/dL Albumin/Globulin Ratio (0.9-1.6) Lipase (73-393) U/L Urine Color Urine Appearance Urine pH (5.0-8.0) Ur Specific [place] (1.001-1.035) Urine Protein (NEGATIVE) mg/dL Urine Glucose (UA) (NEGATIVE) mg/dL Urine Ketones (NEGATIVE) mg/dL Urine Occult Blood (NEGATIVE) Urine Nitrite (NEGATIVE) Urine Bilirubin (NEGATIVE) Urine Urobilinogen (<2.0) EU/dL Ur Leukocyte Esterase (NEGATIVE) Urine RBC (0-2/HPF) Urine WBC (0-5/HPF) Ur Epithelial Cells (NONE-FEW) Urine Bacteria (NEGATIVE) Influenza Type A RNA (NEGATIVE) Influenza Type B RNA (NEGATIVE) SARS-CoV-2 RNA (ISABEL) (NEGATIVE) 12/24/20 12/24/20 12/24/20 Range/Units 01:34 07:28 07:29 WBC 10.27 (4.0-11.0) K/uL RBC 4.50 (4.50-5.90) M/uL Hgb 12.8 L (13.0-17.0) g/dL Hct 39.1 (38.0-50.0) % MCV 86.9 (80.0-98.0) fL MCH 28.4 (27.0-32.0) pg MCHC 32.7 (31.0-37.0) g/dL RDW Std Deviation 48.3 (28.0-62.0) fl RDW Coeff of Candy 15 (11.0-15.0) % Plt Count 313 (150-400) K/uL MPV 9.60 (7.40-12.00) fL Neut % (Auto) 57.6 (48.0-80.0) % Lymph % (Auto) 30.0 (16.0-40.0) % Andrews % (Auto) 7.9 (0.0-15.0) % Eos % (Auto) 4.2 (0.0-7.0) % Baso % (Auto) 0.3 (0.0-1.5) % Neut # (Auto) 5.9 H (1.4-5.7) K/uL Lymph # (Auto) 3.1 H (0.6-2.4) K/uL Andrews # (Auto) 0.8 (0.0-0.8) K/uL Eos # (Auto) 0.4 (0.0-0.7) K/uL Baso # (Auto) 0.0 (0.0-0.1) K/uL Nucleated RBC % 0.0 /100WBC Nucleated RBCs # 0 K/uL D-Dimer, Quantitative (0.0-0.50) mg/L FEU Sodium (136-148) mmol/L Potassium (3.5-5.1) mmol/L Chloride (98-107) mmol/L Carbon Dioxide (21.0-32.0) mmol/L BUN (7.0-18.0) mg/dL Creatinine (0.8-1.3) mg/dL Est Cr Clr Drug Dosing mL/min Estimated GFR (MDRD) ml/min Glucose (74-106) mg/dL POC Glucose 126 H 120 H (70-99) mg/dL Lactic Acid (0.4-2.0) mmol/L Calcium (8.5-10.1) mg/dL Total Bilirubin (0.2-1.0) mg/dL AST (15-37) IU/L ALT (14-63) IU/L Alkaline Phosphatase (46-116) U/L Troponin I (0.000-0.056) ng/mL Total Protein (6.4-8.2) g/dL Albumin (3.4-5.0) g/dL Globulin (2.6-4.0) g/dL Albumin/Globulin Ratio (0.9-1.6) Lipase (73-393) U/L Urine Color Urine Appearance Urine pH (5.0-8.0) Ur Specific [place] (1.001-1.035) Urine Protein (NEGATIVE) mg/dL Urine Glucose (UA) (NEGATIVE) mg/dL Urine Ketones (NEGATIVE) mg/dL Urine Occult Blood (NEGATIVE) Urine Nitrite (NEGATIVE) Urine Bilirubin (NEGATIVE) Urine Urobilinogen (<2.0) EU/dL Ur Leukocyte Esterase (NEGATIVE) Urine RBC (0-2/HPF) Urine WBC (0-5/HPF) Ur Epithelial Cells (NONE-FEW) Urine Bacteria (NEGATIVE) Influenza Type A RNA (NEGATIVE) Influenza Type B RNA (NEGATIVE) SARS-CoV-2 RNA (ISABEL) (NEGATIVE) 12/24/20 12/24/20 12/24/20 Range/Units 07:29 07:29 11:54 WBC (4.0-11.0) K/uL RBC (4.50-5.90) M/uL Hgb (13.0-17.0) g/dL Hct (38.0-50.0) % MCV (80.0-98.0) fL MCH (27.0-32.0) pg MCHC (31.0-37.0) g/dL RDW Std Deviation (28.0-62.0) fl RDW Coeff of Candy (11.0-15.0) % Plt Count (150-400) K/uL MPV (7.40-12.00) fL Neut % (Auto) (48.0-80.0) % Lymph % (Auto) (16.0-40.0) % Andrews % (Auto) (0.0-15.0) % Eos % (Auto) (0.0-7.0) % Baso % (Auto) (0.0-1.5) % Neut # (Auto) (1.4-5.7) K/uL Lymph # (Auto) (0.6-2.4) K/uL Andrews # (Auto) (0.0-0.8) K/uL Eos # (Auto) (0.0-0.7) K/uL Baso # (Auto) (0.0-0.1) K/uL Nucleated RBC % /100WBC Nucleated RBCs # K/uL D-Dimer, Quantitative (0.0-0.50) mg/L FEU Sodium 140 (136-148) mmol/L Potassium 3.8 (3.5-5.1) mmol/L Chloride 106 (98-107) mmol/L Carbon Dioxide 26.0 (21.0-32.0) mmol/L BUN 6 L (7.0-18.0) mg/dL Creatinine 1.0 (0.8-1.3) mg/dL Est Cr Clr Drug Dosing 80.64 mL/min Estimated GFR (MDRD) > 60.0 ml/min Glucose 124 H (74-106) mg/dL POC Glucose 142 H (70-99) mg/dL Lactic Acid (0.4-2.0) mmol/L Calcium 8.3 L (8.5-10.1) mg/dL Total Bilirubin 0.7 (0.2-1.0) mg/dL AST 15 (15-37) IU/L ALT 16 (14-63) IU/L Alkaline Phosphatase 105 (46-116) U/L Troponin I < 0.050 (0.000-0.056) ng/mL Total Protein 6.5 (6.4-8.2) g/dL Albumin 2.7 L (3.4-5.0) g/dL Globulin 3.8 (2.6-4.0) g/dL Albumin/Globulin Ratio 0.7 L (0.9-1.6) Lipase 146 (73-393) U/L Urine Color Urine Appearance Urine pH (5.0-8.0) Ur Specific [place] (1.001-1.035) Urine Protein (NEGATIVE) mg/dL Urine Glucose (UA) (NEGATIVE) mg/dL Urine Ketones (NEGATIVE) mg/dL Urine Occult Blood (NEGATIVE) Urine Nitrite (NEGATIVE) Urine Bilirubin (NEGATIVE) Urine Urobilinogen (<2.0) EU/dL Ur Leukocyte Esterase (NEGATIVE) Urine RBC (0-2/HPF) Urine WBC (0-5/HPF) Ur Epithelial Cells (NONE-FEW) Urine Bacteria (NEGATIVE) Influenza Type A RNA (NEGATIVE) Influenza Type B RNA (NEGATIVE) SARS-CoV-2 RNA (ISABEL) (NEGATIVE) Result Diagrams: 12/24/20 07:29 12/24/20 07:29 Sepsis Event Note - Evaluation Sepsis Screening Result: No Definite Risk - Focused Exam Vital Signs: Vital Signs Temp Pulse Resp BP BP Pulse Ox 12/24/20 11:42 97.2 F 59 L 14 111/55 L 99 12/24/20 08:30 97.1 F 68 18 108/75 108/75 98 12/24/20 04:00 97.5 F 65 16 107/85 100 12/24/20 01:33 97.8 F 69 18 126/78 100 - Problem List & Annotations (1) Cellulitis and abscess of neck SNOMED Code(s): 840061587 Code(s): L03.221 - CELLULITIS OF NECK; L02.11 - CUTANEOUS ABSCESS OF NECK Status: Acute Priority: High Current Visit: Yes (2) Type 2 diabetes mellitus SNOMED Code(s): 03098872 Code(s): E11.9 - TYPE 2 DIABETES MELLITUS WITHOUT COMPLICATIONS Status: Acute Priority: Medium Current Visit: Yes (3) UTI (urinary tract infection) SNOMED Code(s): 60703981 Code(s): N39.0 - URINARY TRACT INFECTION, SITE NOT SPECIFIED Status: Acute Current Visit: Yes Qualifiers: Urinary tract infection type: site unspecified Hematuria presence: without hematuria Qualified Code(s): N39.0 - Urinary tract infection, site not specified (4) Back pain SNOMED Code(s): 774515638 Code(s): M54.9 - DORSALGIA, UNSPECIFIED Status: Acute Current Visit: No Qualifiers: Back pain location: low back pain Chronicity: acute Back pain laterality: midline Sciatica presence: without sciatica Qualified Code(s): M54.5 - Low back pain (5) Hx of partial nephrectomy SNOMED Code(s): 459992419, 181256198 Code(s): Z90.5 - ACQUIRED ABSENCE OF KIDNEY Status: Chronic Current Visit: No (6) Hx of renal cell cancer SNOMED Code(s): 182723757 Code(s): Z85.528 - PERSONAL HISTORY OF OTHER MALIGNANT NEOPLASM OF KIDNEY Status: Chronic Current Visit: No - Problem List Review Problem List Initiated/Reviewed/Updated: Yes - My Orders Last 24 Hours: My Active Orders 12/24/20 08:22 Consult to Physician [CONS] Routine 12/24/20 08:24 Notify Provider Consults [RC] ASDIRECTED - Plan Plan:: 50 yo male with pmh BKA, HTN, Dm type 2, renal cell ca with subsequent L neph rectomy who presented with increasing neck, flank and abdominal pain. Differential diagnosis includes, slow to resolve cellulitis with abscess, UTI, Pancreatitis and narcotic withdrawal. 1.Cellulitis/abscess: Continue with appropriate pain control with IV morphine, patient started on Vanco and Zosyn, has packing in place, surgery has been consulted, Dr. Davis was kind enough to arrange for I&D at noon today. We obtained his consult and will look to his recommendations. 2. Pancreatitis: Resolved Afebrile, denies midepigastric pain, received approximately 3 L of fluid, continued with bowel rest as patient is n.p.o. for I&D today. Lipase has trended down and normalized to 146 today. We will continue to monitor for any symptoms associated with pancreatitis. 3. UTI: Afebrile, normal WBCs, on admission had UA positive for nitrates, glucose, occult blood and leukocyte esterase. Currently on broad spectrum antibiotics, cultures pending, will narrow antibiotics based on cultures. 4. DM: sliding scale insulin, hold metformin. 5. Past medical history of hypertension, peripheral neuropathy and BKA, continue with home medications.
--- NOTE | 2020-12-24 13:22 | PCM.OPNOTE ---
- General Post-Op/Procedure Note Date of Surgery/Procedure: 12/24/20 Operative Procedure(s): I & D recurrent left neck abscess Pre Op Diagnosis: Recurrent left neck abscess. Post-Op Diagnosis: Recurrent left neck abscess. Retained foreign body(07/15" Nugauze) Anesthesia Technique: General ET Tube (ASA III) Primary Surgeon: Tony Davis Utilization Reviewer: Ifeoma Perez Fluid Replacement, Intraop: 800 EBL in mLs: 10 Condition: Good Free Text/Narrative:: Intake & Output 12/24/20 12/24/20 12/24/20 03:59 11:59 19:59 Intake Total 50 626 Output Total 280 Balance 50 346 DICTATION [id number]
--- NOTE | 2020-12-24 13:42 | PCM48HPAN ---
Post Anesthesia Note - EVALUATION WITHIN 48HRS OF ANESTHETIC Vital Signs in Normal Range: Yes Patient Participated in Evaluation: Yes Respiratory Function Stable: Yes Airway Patent: Yes Cardiovascular Function Stable: Yes Hydration Status Stable: Yes Pain Control Satisfactory: Yes Nausea and Vomiting Control Satisfactory: Yes Mental Status Recovered: Yes Vital Signs: Last Vital Signs Temp 97.7 F 12/24/20 13:25 Pulse 59 L 12/24/20 11:42 Resp 17 12/24/20 13:30 BP 126/71 12/24/20 13:30 Pulse Ox 98 12/24/20 13:30
--- NOTE | 2020-12-24 13:42 | PCM.POSTAN ---
POST ANESTHESIA ASSESSMENT - MENTAL STATUS Mental Status: Alert, Oriented - VITAL SIGNS Vital Signs: Last Vital Signs Temp 97.7 F 12/24/20 13:25 Pulse 59 L 12/24/20 11:42 Resp 17 12/24/20 13:30 BP 126/71 12/24/20 13:30 Pulse Ox 98 12/24/20 13:30 - RESPIRATORY Respiratory Status: Respiratory Rate WNL, Airway Patent, O2 Saturation Stable - CARDIOVASCULAR CV Status: Pulse Rate WNL, Blood Pressure Stable - GASTROINTESTINAL GI Status: No Symptoms - POST OP HYDRATION Hydration Status: Adequate & Stable
--- NOTE | 2020-12-24 15:10 | OR ---
SURGEON: Tony Davis M.D. DATE OF PROCEDURE: 12/24/2020 OPERATION PERFORMED: Incision and drainage, recurrent left neck abscess. PRIMARY SURGEON: Tony Davis M.D. TEST LEAD APPLICATION TESTING: Lye Treater: EMERSON Bajwa student. ANESTHESIA: General endotracheal. ASA CLASSIFICATION: III. PREOPERATIVE DIAGNOSIS: Recurrent left back abscess. POSTOPERATIVE DIAGNOSIS: 1. Recurrent left neck abscess posteriorly. 2. Retained foreign body (Nu Gauze). ESTIMATED BLOOD LOSS: 10 mL. INTRAOPERATIVE FLUID REPLACEMENT: 800 mL of crystalloid. DESCRIPTION OF PROCEDURE: The patient was taken to the operating room and placed on the transfer cart in the supine position. Following satisfactory attainment of general endotracheal anesthesia, he was placed on the operating table in the prone position and care was taken to pad all bony prominences. Time-out was called for appropriate identification of patient and procedure. The surgical site was prepped with Betadine solution and sterile drapes were applied. The old Nu Gauze that could be seen was removed. The skin incision was extended and deepened into the thickened subcutaneous tissue. A small amount of purulent material was noted. Aerobic and anaerobic cultures were obtained and sent for culture, sensitivity, and Gram stain. The wound was further explored and we were able to find retained foreign body in the form of a quarter-inch Nu Gauze in the base of the wound. This was removed and also sent for culture and sensitivity. The wound was then inspected for hemostasis and bleeding controlled with a combination of electrocautery and 3-0 Vicryl ties. The wound was explored digitally and all loculations were broken up. The wound was then irrigated with several 100 mL of sterile saline solution and all fluid was aspirated. The wound was again inspected for hemostasis and only minimal bleeding was noted. One quarter-inch [place] was brought to the table and two segments of the Reginaldo were put into the wound and secured to the skin with 2-0 nylon sutures. The wound was then dressed with sterile fluffs, held in place with tape. Sponge, needle, and instrument counts were all correct. The patient was then returned to the transfer cart in the supine position. Following emergence from anesthesia and extubation, the patient was taken to recovery room in stable condition. JIM / ANGELICA /[id number] ESTHER
[2020-12-24] MEDS: oxyCODONE 5 MG Tab PO SCH (18:04)
[2020-12-25] MEDS: oxyCODONE 5 MG Tab PO SCH ×5 (00:09→23:57)
[2020-12-25] MEDS: Gabapentin 300 MG Cap PO SCH ×5 (00:09→23:57)
[2020-12-25] MEDS: Heparin Sodium 5,000 Units/ML Vial SUBCUT SCH ×3 (00:30→17:27)
[2020-12-25] MEDS: Morphine 2 MG/ML SYRINGE IVPUSH PRN ×5 (01:15→23:22)
[2020-12-25 06:52] LABS: BLOOD UREA NITROGEN,BUN 6 mg/dL (7.0-18.0); CARBON DIOXIDE,CO2 25.2 mmol/L (21.0-32.0); CHLORIDE,CL 108 mmol/L (98-107); GLUCOSE RANDOM 111 mg/dL (74-106); POTASSIUM,K 3.9 mmol/L (3.5-5.1); SODIUM,NA 142 mmol/L (136-148)
[2020-12-25] MEDS: Piperacillin/Tazobactam 3.375 GM in Sodium Chloride 0.9% 50 ML IV SCH ×4 (06:56→20:44)
[2020-12-25] MEDS: VANCOmycin 1.5 GM/300 ML 1.5 GM in Premix Bag 1 BAG IV SCH ×2 (06:57→19:20)
[2020-12-25] MEDS: Insulin Aspart 100 Units/ML 3 ML Pen SUBCUT SCH ×3 (08:00→18:12)
--- NOTE | 2020-12-25 08:42 | PCM.SN.2 ---
- Free Text/Narrative Note: Patient seen and examined this morning. Has had a good night. Dressing changed and wound examined. Minimal tenderness to palpation. No erythema and minimal serosanguineous drainage on dressing. Cary drains remain in place. Patient may remove dressings and shower with Reginaldo drains in. He should keep it covered with a light dressing when outside. I would like to see him next week for a wound recheck and to remove the drains.
[2020-12-25] MEDS: Tamsulosin 0.4 MG Cap.ER PO SCH ×2 (09:17→20:44)
[2020-12-25] MEDS: Aspirin 81 MG Tab.Chew PO SCH (09:18)
[2020-12-25] MEDS: Lisinopril 10 MG Tab PO SCH (09:18)
[2020-12-25] MEDS ORDERED: Ondansetron 4 MG/2 ML SDV IVPUSH PRN (10:14)
--- NOTE | 2020-12-25 10:14 | PCM.PN ---
- General Info Date of Service: 12/25/20 Admission Dx/Problem (Free Text): Posterior neck abscess, pain, UTI Subjective Update: Vomited this morning, feeling nauseated. Boone denies any chest pain shortness of breath. Reports posterior neck pain, patient recently had dressing changed by Dr. Davis. Functional Status: Reports: Pain Controlled, Tolerating Diet, Ambulating, Urinating - Review of Systems General: Reports: Fatigue, Malaise HEENT: Reports: No Symptoms. Denies: Headaches, Sore Throat, Visual Changes Pulmonary: Reports: No Symptoms. Denies: Shortness of Breath Cardiovascular: Reports: No Symptoms. Denies: Chest Pain Gastrointestinal: Reports: Nausea, Vomiting (Undergarments patient had eaten breakfast and then had emesis post breakfast.) Genitourinary: Reports: No Symptoms. Denies: Dysuria, Frequency, Burning Musculoskeletal: Reports: Neck Pain (Neck pain secondary to recent dressing change by surgery and otherwise sternal tenderness of the area.) Skin: Reports: No Symptoms Neurological: Reports: No Symptoms Psychiatric: Reports: No Symptoms - Patient Data Vitals - Most Recent: Last Vital Signs Temp 97.6 F 12/25/20 08:00 Pulse 59 L 12/24/20 11:42 Resp 16 12/25/20 08:00 BP 118/84 12/25/20 09:18 Pulse Ox 97 12/25/20 08:00 Weight - Most Recent: 100.289 kg I&O - Last 24 Hours: Intake & Output 12/24/20 12/25/20 12/25/20 22:59 06:59 14:59 Intake Total 1450 1100 Output Total 1025 2050 Balance 425 -950 Lab Results Last 24 Hours: Laboratory Results - last 24 hr 12/24/20 12/24/20 12/25/20 Range/Units 11:54 16:01 05:50 WBC 8.39 (4.0-11.0) K/uL RBC 3.99 L (4.50-5.90) M/uL Hgb 11.3 L (13.0-17.0) g/dL Hct 34.9 L (38.0-50.0) % MCV 87.5 (80.0-98.0) fL MCH 28.3 (27.0-32.0) pg MCHC 32.4 (31.0-37.0) g/dL RDW Std Deviation 49.3 (28.0-62.0) fl RDW Coeff of Candy 15 (11.0-15.0) % Plt Count 311 (150-400) K/uL MPV 9.80 (7.40-12.00) fL Neut % (Auto) 50.2 (48.0-80.0) % Lymph % (Auto) 36.5 (16.0-40.0) % [place] % (Auto) 7.0 (0.0-15.0) % Eos % (Auto) 5.8 (0.0-7.0) % Baso % (Auto) 0.5 (0.0-1.5) % Neut # (Auto) 4.2 (1.4-5.7) K/uL Lymph # (Auto) 3.1 H (0.6-2.4) K/uL [place] # (Auto) 0.6 (0.0-0.8) K/uL Eos # (Auto) 0.5 (0.0-0.7) K/uL Baso # (Auto) 0.0 (0.0-0.1) K/uL Nucleated RBC % 0.0 /100WBC Nucleated RBCs # 0 K/uL Sodium (136-148) mmol/L Potassium (3.5-5.1) mmol/L Chloride (98-107) mmol/L Carbon Dioxide (21.0-32.0) mmol/L BUN (7.0-18.0) mg/dL Creatinine (0.8-1.3) mg/dL Est Cr Clr Drug Dosing mL/min Estimated GFR (MDRD) ml/min Glucose (74-106) mg/dL POC Glucose 142 H 133 H (70-99) mg/dL Calcium (8.5-10.1) mg/dL Phosphorus (2.6-4.7) mg/dL Magnesium (1.8-2.4) mg/dL Total Bilirubin (0.2-1.0) mg/dL AST (15-37) IU/L ALT (14-63) IU/L Alkaline Phosphatase (46-116) U/L Total Protein (6.4-8.2) g/dL Albumin (3.4-5.0) g/dL Globulin (2.6-4.0) g/dL Albumin/Globulin Ratio (0.9-1.6) 12/25/20 12/25/20 Range/Units 05:50 07:56 WBC (4.0-11.0) K/uL RBC (4.50-5.90) M/uL Hgb (13.0-17.0) g/dL Hct (38.0-50.0) % MCV (80.0-98.0) fL MCH (27.0-32.0) pg MCHC (31.0-37.0) g/dL RDW Std Deviation (28.0-62.0) fl RDW Coeff of Candy (11.0-15.0) % Plt Count (150-400) K/uL MPV (7.40-12.00) fL Neut % (Auto) (48.0-80.0) % Lymph % (Auto) (16.0-40.0) % [place] % (Auto) (0.0-15.0) % Eos % (Auto) (0.0-7.0) % Baso % (Auto) (0.0-1.5) % Neut # (Auto) (1.4-5.7) K/uL Lymph # (Auto) (0.6-2.4) K/uL [place] # (Auto) (0.0-0.8) K/uL Eos # (Auto) (0.0-0.7) K/uL Baso # (Auto) (0.0-0.1) K/uL Nucleated RBC % /100WBC Nucleated RBCs # K/uL Sodium 142 (136-148) mmol/L Potassium 3.9 (3.5-5.1) mmol/L Chloride 108 H (98-107) mmol/L Carbon Dioxide 25.2 (21.0-32.0) mmol/L BUN 6 L (7.0-18.0) mg/dL Creatinine 0.9 (0.8-1.3) mg/dL Est Cr Clr Drug Dosing 89.60 mL/min Estimated GFR (MDRD) > 60.0 ml/min Glucose 111 H (74-106) mg/dL POC Glucose 114 H (70-99) mg/dL Calcium 7.8 L (8.5-10.1) mg/dL Phosphorus 3.9 (2.6-4.7) mg/dL Magnesium 1.8 (1.8-2.4) mg/dL Total Bilirubin 0.3 (0.2-1.0) mg/dL AST 17 (15-37) IU/L ALT 16 (14-63) IU/L Alkaline Phosphatase 93 (46-116) U/L Total Protein 5.9 L (6.4-8.2) g/dL Albumin 2.4 L (3.4-5.0) g/dL Globulin 3.5 (2.6-4.0) g/dL Albumin/Globulin Ratio 0.7 L (0.9-1.6) Esequiel Results Last 24 Hours: Microbiology 12/23/20 19:27 Aerobic Blood Culture - Preliminary Blood - Venous - Lab Draw NO GROWTH AFTER 1 DAY Anaerobic Blood Culture - Preliminary NO GROWTH AFTER 1 DAY 12/23/20 19:08 Aerobic Blood Culture - Preliminary Blood - Venous NO GROWTH AFTER 1 DAY Anaerobic Blood Culture - Preliminary NO GROWTH AFTER 1 DAY 12/24/20 12:57 Gram Stain - Preliminary Neck Med Orders - Current: Current Medications Aspirin (Aspirin 81 Mg Tab.Chew) 81 mg PO DAILY [facility] Last Admin: 12/25/20 09:18 Dose: 81 mg Documented by: Dextrose/Water (50% Dextrose In Water 50 Ml Syringe) 50 ml IVPUSH ASDIRECTED PRN PRN Reason: Hypoglycemia Gabapentin (Gabapentin 300 Mg Cap) 600 mg PO QID [facility] Last Admin: 12/25/20 06:57 Dose: Not Given Documented by: Glucagon (Glucagon,Human Recombinant 1 Mg Vial) 1 mg IM ASDIRECTED PRN PRN Reason: Hypoglycemia Heparin Sodium (Porcine) (Heparin Sodium 5,000 Units/Ml Vial) 5,000 units SUBCUT Q8H [facility] Last Admin: 12/25/20 09:19 Dose: 5,000 units Documented by: Vancomycin HCl 1.5 gm/ Premix 300 mls @ 200 mls/hr IV Q12H [facility] Last Admin: 12/25/20 06:57 Dose: Not Given Documented by: Piperacillin Sod/Tazobactam (Sod 3.375 gm/ Sodium Chloride) 50 mls @ 100 mls/hr IV Q6H [facility] Last Admin: 12/25/20 09:00 Dose: 100 mls/hr Documented by: Insulin Aspart (Insulin Aspart 100 Units/Ml 3 Ml Pen) 0 unit SUBCUT TIDAC [facility]; Protocol Last Admin: 12/25/20 08:00 Dose: Not Given Documented by: Lisinopril (Lisinopril 10 Mg Tab) 10 mg PO DAILY [facility] Last Admin: 12/25/20 09:18 Dose: 10 mg Documented by: Morphine Sulfate (Morphine 2 Mg/Ml Syringe) 2 mg IVPUSH Q4H PRN PRN Reason: Pain Last Admin: 12/25/20 09:17 Dose: 2 mg Documented by: Oxycodone HCl (Oxycodone 5 Mg Tab) 10 mg PO Q6H [facility] Last Admin: 12/25/20 06:56 Dose: Not Given Documented by: Sodium Chloride (Sodium Chloride 0.9% 10 Ml Syringe) 10 ml FLUSH ASDIRECTED PRN PRN Reason: Keep Vein Open Sodium Chloride (Sodium Chloride 0.9% 2.5 Ml Syringe) 2.5 ml FLUSH ASDIRECTED PRN PRN Reason: Keep Vein Open Tamsulosin HCl (Tamsulosin 0.4 Mg Cap.Er) 0.4 mg PO BID [facility] Last Admin: 12/25/20 09:17 Dose: 0.4 mg Documented by: Vancomycin HCl (Pharmacy To Dose - Vancomycin) 1 dose .XX ASDIRECTED [facility] Discontinued Medications Albuterol (Albuterol 0.083% 2.5 Mg/3 Ml Neb Soln) 2.5 mg NEB ONETIME PRN PRN Reason: Wheezing Aspirin (Aspirin 81 Mg Tab.Chew) 243 mg PO ONETIME ONE Stop: 12/23/20 19:11 Last Admin: 12/23/20 19:30 Dose: 243 mg Documented by: Bupivacaine HCl (Bupivacaine 0.5% 30 Ml Sdv) Confirm Administered Dose 30 ml .ROUTE .STK-MED ONE Stop: 12/24/20 12:15 Bupivacaine HCl (Bupivacaine 0.5% 30 Ml Sdv) Confirm Administered Dose 30 ml .ROUTE .STK-MED ONE Stop: 12/24/20 12:27 Droperidol (Droperidol 5 Mg/2 Ml Sdv) 0.625 mg IVPUSH ONETIME PRN PRN Reason: Nausea/Vomiting Fentanyl (Fentanyl 100 Mcg/2 Ml Sdv) 50 mcg IVPUSH Q5M PRN PRN Reason: Pain (mild 1-3) Fentanyl (Fentanyl 250 Mcg/5 Ml Sdv) Confirm Administered Dose 250 mcg .ROUTE .STK-MED ONE Stop: 12/24/20 11:33 Glycopyrrolate (Glycopyrrolate 0.2 Mg/Ml Sdv) Confirm Administered Dose 0.2 mg .ROUTE .STK-MED ONE Stop: 12/24/20 11:34 Hydromorphone HCl (Hydromorphone 2 Mg/Ml Syringe) 0.5 mg IVPUSH Q10M PRN PRN Reason: Pain (moderate 4-6) Sodium Chloride (Normal Saline) 1,000 mls @ 999 mls/hr IV BOLUS ONE Stop: 12/23/20 19:47 Last Admin: 12/23/20 19:10 Dose: 999 mls/hr Documented by: Piperacillin Sod/Tazobactam (Sod 3.375 gm/ Sodium Chloride) 50 mls @ 100 mls/hr IV ONETIME ONE Stop: 12/23/20 19:38 Last Admin: 12/23/20 19:30 Dose: 100 mls/hr Documented by: Vancomycin HCl 1 gm/ Sodium (Chloride) 250 mls @ 166 mls/hr IV ONETIME ONE Stop: 12/23/20 20:39 Last Admin: 12/23/20 19:30 Dose: 166 mls/hr Documented by: Sodium Chloride (Normal Saline) 1,000 mls @ 999 mls/hr IV STAT ONE Stop: 12/23/20 20:53 Last Admin: 12/23/20 20:32 Dose: 999 mls/hr Documented by: Piperacillin Sod/Tazobactam (Sod 3.375 gm/ Sodium Chloride) 50 mls @ 100 mls/hr IV Q6H [facility] Last Admin: 12/24/20 03:27 Dose: Not Given Documented by: Sodium Chloride (Normal Saline) 1,000 mls @ 150 mls/hr IV ASDIRECTED [facility] Last Admin: 12/24/20 22:50 Dose: 150 mls/hr Documented by: Iopamidol (Iopamidol 755 Mg/Ml 500 Ml Multipack Bottle) 140 ml IVPUSH ONETIME STA Stop: 12/23/20 21:42 Last Admin: 12/23/20 21:43 Dose: 140 ml Documented by: Ketorolac Tromethamine (Ketorolac 30 Mg/Ml Sdv) Confirm Administered Dose 30 mg .ROUTE .STK-MED ONE Stop: 12/24/20 11:34 Lidocaine (Lidocaine 2% 5 Ml Sdv) Confirm Administered Dose 5 ml .ROUTE .STK-MED ONE Stop: 12/24/20 11:34 Metoclopramide HCl (Metoclopramide 10 Mg/2 Ml Sdv) 10 mg IVPUSH ONETIME PRN PRN Reason: Nausea/Vomiting Midazolam HCl (Midazolam 1 Mg/Ml 2 Ml Sdv) Confirm Administered Dose 2 mg .ROUTE .STK-MED ONE Stop: 12/24/20 11:33 Morphine Sulfate (Morphine 4 Mg/Ml Syringe) 4 mg IVPUSH ONETIME ONE Stop: 12/23/20 19:12 Last Admin: 12/23/20 19:29 Dose: 4 mg Documented by: Morphine Sulfate (Morphine 2 Mg/Ml Syringe) 2 mg IVPUSH ONETIME ONE Stop: 12/23/20 20:23 Last Admin: 12/23/20 20:31 Dose: 2 mg Documented by: Morphine Sulfate (Morphine 4 Mg/Ml Syringe) 4 mg IVPUSH ONETIME ONE Stop: 12/23/20 22:17 Last Admin: 12/23/20 22:24 Dose: 4 mg Documented by: Morphine Sulfate (Morphine 2 Mg/Ml Syringe) 2 mg IVPUSH Q2H PRN PRN Reason: Pain (severe 7-10) Stop: 12/25/20 01:18 Last Admin: 12/24/20 23:05 Dose: 2 mg Documented by: Naloxone HCl (Naloxone 0.4 Mg/Ml Syringe) 0.1 mg IVPUSH ASDIRECTED PRN PRN Reason: Respiratory Depression Ondansetron HCl (Ondansetron 4 Mg/2 Ml Sdv) 4 mg IVPUSH ONETIME PRN PRN Reason: Nausea/Vomiting Ondansetron HCl (Ondansetron 4 Mg/2 Ml Sdv) Confirm Administered Dose 4 mg .ROUTE .STK-MED ONE Stop: 12/24/20 11:34 Oxycodone HCl (Oxycodone 5 Mg Tab) 5 mg PO Q4H PRN PRN Reason: Pain (moderate 4-6) Last Admin: 12/24/20 07:49 Dose: 5 mg Documented by: Propofol (Propofol 200 Mg/20 Ml Sdv) Confirm Administered Dose 200 mg .ROUTE .STK-MED ONE Stop: 12/24/20 11:33 Rocuronium [place] (Rocuronium [place] 50 Mg/5 Ml Syringe) Confirm Administered Dose 50 mg .ROUTE .STK-MED ONE Stop: 12/24/20 11:34 Sugammadex Sodium (Sugammadex Sodium 200 Mg/2 Ml Vial) Confirm Administered Dose 200 mg .ROUTE .STK-MED ONE Stop: 12/24/20 11:34 - Exam Quality Assessment: DVT Prophylaxis. No: Supplemental Oxygen General: Alert, Oriented, Cooperative, No Acute Distress Lungs: Clear to Auscultation, Normal Respiratory Effort Cardiovascular: Regular Rate, Regular Rhythm GI/Abdominal Exam: Normal Bowel Sounds, Soft, Non-Tender Back Exam: Normal Inspection, Full Range of Motion Extremities: Normal Inspection, Normal Range of Motion, Non-Tender, No Pedal Edema Wound/Incisions: Drainage (Scant drainage noted to dressing posterior neck dressing was recently changed by general surgery.), Erythema Improving Neurological: No New Focal Deficit Psy/Mental Status: Alert, Normal Affect, Normal Mood - Patient Data Lab Results Last 24 hrs: Laboratory Results - last 24 hr 12/24/20 12/24/20 12/25/20 Range/Units 11:54 16:01 05:50 WBC 8.39 (4.0-11.0) K/uL RBC 3.99 L (4.50-5.90) M/uL Hgb 11.3 L (13.0-17.0) g/dL Hct 34.9 L (38.0-50.0) % MCV 87.5 (80.0-98.0) fL MCH 28.3 (27.0-32.0) pg MCHC 32.4 (31.0-37.0) g/dL RDW Std Deviation 49.3 (28.0-62.0) fl RDW Coeff of Candy 15 (11.0-15.0) % Plt Count 311 (150-400) K/uL MPV 9.80 (7.40-12.00) fL Neut % (Auto) 50.2 (48.0-80.0) % Lymph % (Auto) 36.5 (16.0-40.0) % [place] % (Auto) 7.0 (0.0-15.0) % Eos % (Auto) 5.8 (0.0-7.0) % Baso % (Auto) 0.5 (0.0-1.5) % Neut # (Auto) 4.2 (1.4-5.7) K/uL Lymph # (Auto) 3.1 H (0.6-2.4) K/uL [place] # (Auto) 0.6 (0.0-0.8) K/uL Eos # (Auto) 0.5 (0.0-0.7) K/uL Baso # (Auto) 0.0 (0.0-0.1) K/uL Nucleated RBC % 0.0 /100WBC Nucleated RBCs # 0 K/uL Sodium (136-148) mmol/L Potassium (3.5-5.1) mmol/L Chloride (98-107) mmol/L Carbon Dioxide (21.0-32.0) mmol/L BUN (7.0-18.0) mg/dL Creatinine (0.8-1.3) mg/dL Est Cr Clr Drug Dosing mL/min Estimated GFR (MDRD) ml/min Glucose (74-106) mg/dL POC Glucose 142 H 133 H (70-99) mg/dL Calcium (8.5-10.1) mg/dL Phosphorus (2.6-4.7) mg/dL Magnesium (1.8-2.4) mg/dL Total Bilirubin (0.2-1.0) mg/dL AST (15-37) IU/L ALT (14-63) IU/L Alkaline Phosphatase (46-116) U/L Total Protein (6.4-8.2) g/dL Albumin (3.4-5.0) g/dL Globulin (2.6-4.0) g/dL Albumin/Globulin Ratio (0.9-1.6) 12/25/20 12/25/20 Range/Units 05:50 07:56 WBC (4.0-11.0) K/uL RBC (4.50-5.90) M/uL Hgb (13.0-17.0) g/dL Hct (38.0-50.0) % MCV (80.0-98.0) fL MCH (27.0-32.0) pg MCHC (31.0-37.0) g/dL RDW Std Deviation (28.0-62.0) fl RDW Coeff of Candy (11.0-15.0) % Plt Count (150-400) K/uL MPV (7.40-12.00) fL Neut % (Auto) (48.0-80.0) % Lymph % (Auto) (16.0-40.0) % [place] % (Auto) (0.0-15.0) % Eos % (Auto) (0.0-7.0) % Baso % (Auto) (0.0-1.5) % Neut # (Auto) (1.4-5.7) K/uL Lymph # (Auto) (0.6-2.4) K/uL [place] # (Auto) (0.0-0.8) K/uL Eos # (Auto) (0.0-0.7) K/uL Baso # (Auto) (0.0-0.1) K/uL Nucleated RBC % /100WBC Nucleated RBCs # K/uL Sodium 142 (136-148) mmol/L Potassium 3.9 (3.5-5.1) mmol/L Chloride 108 H (98-107) mmol/L Carbon Dioxide 25.2 (21.0-32.0) mmol/L BUN 6 L (7.0-18.0) mg/dL Creatinine 0.9 (0.8-1.3) mg/dL Est Cr Clr Drug Dosing 89.60 mL/min Estimated GFR (MDRD) > 60.0 ml/min Glucose 111 H (74-106) mg/dL POC Glucose 114 H (70-99) mg/dL Calcium 7.8 L (8.5-10.1) mg/dL Phosphorus 3.9 (2.6-4.7) mg/dL Magnesium 1.8 (1.8-2.4) mg/dL Total Bilirubin 0.3 (0.2-1.0) mg/dL AST 17 (15-37) IU/L ALT 16 (14-63) IU/L Alkaline Phosphatase 93 (46-116) U/L Total Protein 5.9 L (6.4-8.2) g/dL Albumin 2.4 L (3.4-5.0) g/dL Globulin 3.5 (2.6-4.0) g/dL Albumin/Globulin Ratio 0.7 L (0.9-1.6) Result Diagrams: 12/25/20 05:50 12/25/20 05:50 Esequiel Results Last 24 hrs: Microbiology 12/23/20 19:27 Aerobic Blood Culture - Preliminary Blood - Venous - Lab Draw NO GROWTH AFTER 1 DAY Anaerobic Blood Culture - Preliminary NO GROWTH AFTER 1 DAY 12/23/20 19:08 Aerobic Blood Culture - Preliminary Blood - Venous NO GROWTH AFTER 1 DAY Anaerobic Blood Culture - Preliminary NO GROWTH AFTER 1 DAY 12/24/20 12:57 Gram Stain - Preliminary Neck Sepsis Event Note - Evaluation Sepsis Screening Result: No Definite Risk - Focused Exam Vital Signs: Vital Signs Temp Resp BP BP Pulse Ox 12/25/20 09:18 118/84 12/25/20 08:00 97.6 F 16 118/84 97 12/25/20 04:16 97.6 F 20 123/76 97 12/25/20 00:16 97.3 F 18 121/78 98 - Problem List & Annotations (1) Cellulitis and abscess of neck SNOMED Code(s): 929056269 Code(s): L03.221 - CELLULITIS OF NECK; L02.11 - CUTANEOUS ABSCESS OF NECK Status: Acute Priority: High Current Visit: Yes (2) Type 2 diabetes mellitus SNOMED Code(s): 46209979 Code(s): E11.9 - TYPE 2 DIABETES MELLITUS WITHOUT COMPLICATIONS Status: Acute Priority: Medium Current Visit: Yes (3) UTI (urinary tract infection) SNOMED Code(s): 33483093 Code(s): N39.0 - URINARY TRACT INFECTION, SITE NOT SPECIFIED Status: Acute Current Visit: Yes Qualifiers: Urinary tract infection type: site unspecified Hematuria presence: without hematuria Qualified Code(s): N39.0 - Urinary tract infection, site not specified (4) Below knee amputation SNOMED Code(s): 961373180 Code(s): S88.119A - COMPLETE TRAUM AMP AT LEV BETW KN & ANKL, UNSP LOW LEG, INIT Status: Acute Current Visit: Yes (5) HTN (hypertension) SNOMED Code(s): 08603702 Code(s): I10 - ESSENTIAL (PRIMARY) HYPERTENSION Status: Chronic Current Visit: No Qualifiers: Hypertension type: essential hypertension Qualified Code(s): I10 - Essential (primary) hypertension (6) Hx of partial nephrectomy SNOMED Code(s): 175573522, 074156746 Code(s): Z90.5 - ACQUIRED ABSENCE OF KIDNEY Status: Chronic Current Visit: No (7) Hx of renal cell cancer SNOMED Code(s): 779583185 Code(s): Z85.528 - PERSONAL HISTORY OF OTHER MALIGNANT NEOPLASM OF KIDNEY Status: Chronic Current Visit: No (8) Morbid obesity with BMI of 45.0-49.9, adult SNOMED Code(s): 740025620, 40245775169089 Code(s): E66.01 - MORBID (SEVERE) OBESITY DUE TO EXCESS CALORIES; Z68.42 - BODY MASS INDEX [BMI] 45.0-49.9, ADULT Status: Chronic Current Visit: No (9) Peripheral neuropathy SNOMED Code(s): 026469509 Code(s): G62.9 - POLYNEUROPATHY, UNSPECIFIED Status: Chronic Current Visit: No - Problem List Review Problem List Initiated/Reviewed/Updated: Yes - My Orders Last 24 Hours: My Active Orders 12/25/20 07:52 Resuscitation Status Routine 12/25/20 10:14 Ondansetron [Zofran] 4 mg IVPUSH Q4H PRN - Plan Plan:: 50 yo male with pmh BKA, HTN, Dm type 2, renal cell ca with subsequent L nephrectomy who presented with increasing neck, flank and abdominal pain. 1.Cellulitis/abscess posterior neck: -Dr. Davis took patient to the OR yesterday for I&D. Found old gauze that bottom of wound base. Cultures obtained -New cultures here showing gram-positive cocci in chains, pairs and clusters. -Blood cultures negative -Continue vancomycin and Zosyn for now. -Reginaldo in place to posterior neck dressing changed today by Dr. Davis would refer patient to follow-up with him in 1 week. -Continue pain control 2. Pancreatitis: Resolved -Monitor closely with this morning's nausea vomiting. Denies any abdominal pain 3. UTI: Asymptomatic -UC pending -Continue Zosyn 4. DM: -ADA diet -Continue sliding scale insulin - hold metformin. 5. Past medical history of hypertension, peripheral neuropathy renal cell carcinoma with left nephrectomy and BKA - continue with home medications. -Monitor labs closely. VTE prophylaxis: Heparin CODE STATUS: DNR Dispo: 1 to 2 days pending improvement as well as culture results.
[2020-12-25] MEDS: Pantoprazole 40 MG in Sodium Chloride 0.9% 10 ML IV SCH (10:45)
[2020-12-26] MEDS: Heparin Sodium 5,000 Units/ML Vial SUBCUT SCH ×2 (00:29→08:47)
[2020-12-26] MEDS: Piperacillin/Tazobactam 3.375 GM in Sodium Chloride 0.9% 50 ML IV SCH ×2 (03:25→08:48)
[2020-12-26] MEDS: Morphine 2 MG/ML SYRINGE IVPUSH PRN ×2 (03:27→08:06)
[2020-12-26] MEDS: oxyCODONE 5 MG Tab PO SCH ×2 (05:28→11:22)
[2020-12-26] MEDS: Gabapentin 300 MG Cap PO SCH ×2 (05:29→11:22)
[2020-12-26 06:09] LABS: BLOOD UREA NITROGEN,BUN 6 mg/dL (7.0-18.0); CARBON DIOXIDE,CO2 25.4 mmol/L (21.0-32.0); CHLORIDE,CL 106 mmol/L (98-107); GLUCOSE RANDOM 171 mg/dL (74-106); POTASSIUM,K 3.5 mmol/L (3.5-5.1); SODIUM,NA 139 mmol/L (136-148)
[2020-12-26] MEDS ORDERED: VANCOmycin 1.5 GM/300 ML 1.5 GM in Premix Bag 1 BAG IV SCH (07:00)
[2020-12-26] MEDS: Insulin Aspart 100 Units/ML 3 ML Pen SUBCUT SCH ×2 (08:27→13:05)
[2020-12-26] MEDS: Pantoprazole 40 MG in Sodium Chloride 0.9% 10 ML IV SCH (08:47)
[2020-12-26] MEDS: Aspirin 81 MG Tab.Chew PO SCH (08:47)
[2020-12-26] MEDS: Tamsulosin 0.4 MG Cap.ER PO SCH (08:48)
[2020-12-26] MEDS: Lisinopril 10 MG Tab PO SCH (09:04)
--- NOTE | 2020-12-26 12:08 | PCM.DCSUM1 ---
<Kasey Shukla - Last Filed: 12/26/20 17:53> Discharge Summary - Hospital Course HPI Initial Comments: 50 yo male with pmh BKA, HTN, Dm type 2, renal cell ca with subsequent L nephrectomy and recent hospitalization for posterior neck abscess. Patient reports he was hospitalized for a week and a half in [place] with IV antibiotics after and I&D of his neck abscess with bacteremia. He was then on Bactrim for 28 days. He finished his antibiotics last week. He reports he was on oxycodone 30mg at discharge. The [facility] had him on 7.5mg prior to his admission. Patient reports he ran out of his pain medications and does not have refills until Wednesday. He has reported an increase in his neck pain as well as fevers and chills. He reports increase drainage from his neck wound. Patient also reports pain in his right flank radiated to his mid abdomen. He tried to get in to his PCP clinic but they did not have any availability so he came to the ED. Brief History: Patient was admitted for cellulitis versus abscess on the posterior aspect of his neck. Patient underwent I&D performed by general surgeon Dr. Davis, who had found foreign body/gauze deep within lesion contributing to symptoms. Foreign body was removed patient was started on a ppropriate antibiotics, with cultures allowing for further narrowing of appropriate antibiotics. Patient was unable to tolerate a diet yesterday, however overnight he remained stable, was ready for discharge today. Patient sent home on appropriate pain medication control provided for 3 days. Patient is to closely follow-up with his PCP post discharge at which time he is to also discuss continuation of home dose of pain medication. Furthermore patient will follow up closely with Dr. Davis in 1 week's time as outpatient clinic. Diagnosis: Stroke: No - Discharge Data Discharge Date: 12/26/20 Discharge Disposition: Home, Self-Care 01 Condition: Good - Referral to Home Health Primary Care Physician: Zeyad Juan MD - Patient Summary/Data Operative Procedure(s) Performed: I & D recurrent left neck abscess Consults: Consultations 12/24/20 08:22 Consult to Physician [CONS] Routine - Patient Instructions Diet: Diabetic Diet Activity: As Tolerated, No Strenuous Activities Showering/Bathing: May Shower, No Tub Bathing/Swimming Showering/Bathing, Other: cover dressing to prevent getting wet during shower Wound/Incision Care: Do NOT Change Dressing Notify Provider of: Fever, Increased Pain, Swelling and Redness, Drainage, Nausea and/or Vomiting - Discharge Plan *PRESCRIPTION DRUG MONITORING PROGRAM REVIEWED*: Not Applicable *COPY OF PRESCRIPTION DRUG MONITORING REPORT IN PATIENT JUDY: Not Applicable Prescriptions/Med Rec: levoFLOXacin [Levaquin] 750 mg PO DAILY 11 Days #11 tab oxyCODONE 10 mg PO Q6H 3 Days #24 tab Home Medications: Home Meds metFORMIN [Glucophage] 1,000 mg PO BIDMEALS 09/29/19 [History] Aspirin 81 mg PO DAILY #30 tab.chew 09/30/19 [Rx] Tamsulosin HCl [Flomax] 0.4 mg PO BID #60 capsule 10/01/19 [Rx] lisinopriL [Lisinopril] 20 mg PO DAILY 04/28/20 [History] Hydrocodone/Acetaminophen [Hydrocodone-Acetamin 7.5-325] 12/23/20 [History] Gabapentin [Neurontin] 600 mg PO QID 12/24/20 [History] metFORMIN [Glucophage] 1,000 mg PO BIDMEALS 12/24/20 [History] levoFLOXacin [Levaquin] 750 mg PO DAILY 11 Days #11 tab 12/26/20 [Rx] oxyCODONE 10 mg PO Q6H 3 Days #24 tab 12/26/20 [Rx] Oxygen Therapy Mode: Room Air Patient Handouts: Oxycodone tablets or capsules, Urinary Tract Infection, Adult, [id number], Cellulitis, Adult, [id number], Incision and Drainage, Care After, Type 2 Diabetes Mellitus, Self Care, Adult, [id number], Levofloxacin tablets Referrals: Tony Davis MD [Physician] - 01/01/21 2:30 pm Zeyad Juan MD [Primary Care Provider] - 01/02/21 3:00 pm - Discharge Summary/Plan Comment DC Time >30 min.: No Discharge Summary/Plan Comment: Please return to the hospital in the event you develop any significant fever, chills, headache, inability to move your neck, significant neck pain. Otherwise patient is to follow-up closely with his PCP and general surgeon as an outpatient in 1 week's time. - Patient Data Vitals - Most Recent: Last Vital Signs Temp 97.3 F 12/26/20 08:00 Pulse 73 12/26/20 08:00 Resp 19 12/26/20 08:00 BP 132/81 12/26/20 09:04 Pulse Ox 97 12/26/20 08:00 Weight - Most Recent: 100.289 kg I&O - Last 24 hours: Intake & Output 12/25/20 12/26/20 12/26/20 22:59 06:59 14:59 Intake Total 2260 1710 Output Total 2650 975 Balance -390 735 Lab Results - Last 24 hrs: Laboratory Results - last 24 hr 12/25/20 12/25/20 12/25/20 Range/Units 12:30 17:30 18:01 WBC (4.0-11.0) K/uL RBC (4.50-5.90) M/uL Hgb (13.0-17.0) g/dL Hct (38.0-50.0) % MCV (80.0-98.0) fL MCH (27.0-32.0) pg MCHC (31.0-37.0) g/dL RDW Std Deviation (28.0-62.0) fl RDW Coeff of Candy (11.0-15.0) % Plt Count (150-400) K/uL MPV (7.40-12.00) fL Neut % (Auto) (48.0-80.0) % Lymph % (Auto) (16.0-40.0) % [place] % (Auto) (0.0-15.0) % Eos % (Auto) (0.0-7.0) % Baso % (Auto) (0.0-1.5) % Neut # (Auto) (1.4-5.7) K/uL Lymph # (Auto) (0.6-2.4) K/uL [place] # (Auto) (0.0-0.8) K/uL Eos # (Auto) (0.0-0.7) K/uL Baso # (Auto) (0.0-0.1) K/uL Nucleated RBC % /100WBC Nucleated RBCs # K/uL Sodium (136-148) mmol/L Potassium (3.5-5.1) mmol/L Chloride (98-107) mmol/L Carbon Dioxide (21.0-32.0) mmol/L BUN (7.0-18.0) mg/dL Creatinine (0.8-1.3) mg/dL Est Cr Clr Drug Dosing mL/min Estimated GFR (MDRD) ml/min Glucose (74-106) mg/dL POC Glucose 154 H 173 H (70-99) mg/dL Calcium (8.5-10.1) mg/dL Vancomycin Trough 19.7 H (5.0-10.0) ug/mL 12/26/20 12/26/20 12/26/20 Range/Units 05:35 05:35 07:45 WBC 8.31 (4.0-11.0) K/uL RBC 3.94 L (4.50-5.90) M/uL Hgb 11.3 L (13.0-17.0) g/dL Hct 34.4 L (38.0-50.0) % MCV 87.3 (80.0-98.0) fL MCH 28.7 (27.0-32.0) pg MCHC 32.8 (31.0-37.0) g/dL RDW Std Deviation 49.2 (28.0-62.0) fl RDW Coeff of Candy 15 (11.0-15.0) % Plt Count 280 (150-400) K/uL MPV 9.90 (7.40-12.00) fL Neut % (Auto) 46.3 L (48.0-80.0) % Lymph % (Auto) 38.5 (16.0-40.0) % [place] % (Auto) 8.2 (0.0-15.0) % Eos % (Auto) 6.6 (0.0-7.0) % Baso % (Auto) 0.4 (0.0-1.5) % Neut # (Auto) 3.9 (1.4-5.7) K/uL Lymph # (Auto) 3.2 H (0.6-2.4) K/uL [place] # (Auto) 0.7 (0.0-0.8) K/uL Eos # (Auto) 0.6 (0.0-0.7) K/uL Baso # (Auto) 0.0 (0.0-0.1) K/uL Nucleated RBC % 0.0 /100WBC Nucleated RBCs # 0 K/uL Sodium 139 (136-148) mmol/L Potassium 3.5 (3.5-5.1) mmol/L Chloride 106 (98-107) mmol/L Carbon Dioxide 25.4 (21.0-32.0) mmol/L BUN 6 L (7.0-18.0) mg/dL Creatinine 0.9 (0.8-1.3) mg/dL Est Cr Clr Drug Dosing 89.60 mL/min Estimated GFR (MDRD) > 60.0 ml/min Glucose 171 H (74-106) mg/dL POC Glucose 129 H (70-99) mg/dL Calcium 7.9 L (8.5-10.1) mg/dL Vancomycin Trough (5.0-10.0) ug/mL JEFFERY Results - Last 24 hrs: Microbiology 12/23/20 19:02 Urine Culture - Preliminary Urine Staphylococcus Aureus 12/24/20 12:57 Gram Stain - Preliminary Neck Wound Culture - Final (Mrsa) Staphylococcus Aureus Enterococcus Faecalis 12/23/20 19:27 Aerobic Blood Culture - Preliminary Blood - Venous - Lab Draw NO GROWTH AFTER 2 DAYS Anaerobic Blood Culture - Preliminary NO GROWTH AFTER 2 DAYS 12/23/20 19:08 Aerobic Blood Culture - Preliminary Blood - Venous NO GROWTH AFTER 2 DAYS Anaerobic Blood Culture - Preliminary NO GROWTH AFTER 2 DAYS Med Orders - Current: Current Medications Aspirin (Aspirin 81 Mg Tab.Chew) 81 mg PO DAILY [facility] Last Admin: 12/26/20 08:47 Dose: 81 mg Documented by: Dextrose/Water (50% Dextrose In Water 50 Ml Syringe) 50 ml IVPUSH ASDIRECTED PRN PRN Reason: Hypoglycemia Gabapentin (Gabapentin 300 Mg Cap) 600 mg PO QID [facility] Last Admin: 12/26/20 11:22 Dose: 600 mg Documented by: Glucagon (Glucagon,Human Recombinant 1 Mg Vial) 1 mg IM ASDIRECTED PRN PRN Reason: Hypoglycemia Heparin Sodium (Porcine) (Heparin Sodium 5,000 Units/Ml Vial) 5,000 units SUBCUT Q8H [facility] Last Admin: 12/26/20 08:47 Dose: 5,000 units Documented by: Piperacillin Sod/Tazobactam (Sod 3.375 gm/ Sodium Chloride) 50 mls @ 100 mls/hr IV Q6H [facility] Last Admin: 12/26/20 08:48 Dose: 100 mls/hr Documented by: Pantoprazole Sodium 40 mg/ (Sodium Chloride) 10 mls @ 300 mls/hr IV DAILY [facility] Last Admin: 12/26/20 08:47 Dose: 300 mls/hr Documented by: Vancomycin HCl 1.5 gm/ Premix 300 mls @ 200 mls/hr IV Q24H [facility] Last Admin: 12/26/20 06:50 Dose: 200 mls/hr Documented by: Insulin Aspart (Insulin Aspart 100 Units/Ml 3 Ml Pen) 0 unit SUBCUT TIDAC [facility]; Protocol Last Admin: 12/26/20 08:27 Dose: Not Given Documented by: Lisinopril (Lisinopril 10 Mg Tab) 10 mg PO DAILY [facility] Last Admin: 12/26/20 09:04 Dose: 10 mg Documented by: Morphine Sulfate (Morphine 2 Mg/Ml Syringe) 2 mg IVPUSH Q4H PRN PRN Reason: Pain Last Admin: 12/26/20 08:06 Dose: 2 mg Documented by: Ondansetron HCl (Ondansetron 4 Mg/2 Ml Sdv) 4 mg IVPUSH Q4H PRN PRN Reason: Nausea Last Admin: 12/25/20 10:35 Dose: 4 mg Documented by: Oxycodone HCl (Oxycodone 5 Mg Tab) 10 mg PO Q6H [facility] Last Admin: 12/26/20 11:22 Dose: 10 mg Documented by: Sodium Chloride (Sodium Chloride 0.9% 10 Ml Syringe) 10 ml FLUSH ASDIRECTED PRN PRN Reason: Keep Vein Open Sodium Chloride (Sodium Chloride 0.9% 2.5 Ml Syringe) 2.5 ml FLUSH ASDIRECTED PRN PRN Reason: Keep Vein Open Tamsulosin HCl (Tamsulosin 0.4 Mg Cap.Er) 0.4 mg PO BID [facility] Last Admin: 12/26/20 08:48 Dose: 0.4 mg Documented by: Vancomycin HCl (Pharmacy To Dose - Vancomycin) 1 dose .XX ASDIRECTED [facility] Discontinued Medications Albuterol (Albuterol 0.083% 2.5 Mg/3 Ml Neb Soln) 2.5 mg NEB ONETIME PRN PRN Reason: Wheezing Aspirin (Aspirin 81 Mg Tab.Chew) 243 mg PO ONETIME ONE Stop: 12/23/20 19:11 Last Admin: 12/23/20 19:30 Dose: 243 mg Documented by: Bupivacaine HCl (Bupivacaine 0.5% 30 Ml Sdv) Confirm Administered Dose 30 ml .ROUTE .STK-MED ONE Stop: 12/24/20 12:15 Bupivacaine HCl (Bupivacaine 0.5% 30 Ml Sdv) Confirm Administered Dose 30 ml .ROUTE .STK-MED ONE Stop: 12/24/20 12:27 Droperidol (Droperidol 5 Mg/2 Ml Sdv) 0.625 mg IVPUSH ONETIME PRN PRN Reason: Nausea/Vomiting Fentanyl (Fentanyl 100 Mcg/2 Ml Sdv) 50 mcg IVPUSH Q5M PRN PRN Reason: Pain (mild 1-3) Fentanyl (Fentanyl 250 Mcg/5 Ml Sdv) Confirm Administered Dose 250 mcg .ROUTE .STK-MED ONE Stop: 12/24/20 11:33 Glycopyrrolate (Glycopyrrolate 0.2 Mg/Ml Sdv) Confirm Administered Dose 0.2 mg .ROUTE .STK-MED ONE Stop: 12/24/20 11:34 Hydromorphone HCl (Hydromorphone 2 Mg/Ml Syringe) 0.5 mg IVPUSH Q10M PRN PRN Reason: Pain (moderate 4-6) Sodium Chloride (Normal Saline) 1,000 mls @ 999 mls/hr IV BOLUS ONE Stop: 12/23/20 19:47 Last Admin: 12/23/20 19:10 Dose: 999 mls/hr Documented by: Piperacillin Sod/Tazobactam (Sod 3.375 gm/ Sodium Chloride) 50 mls @ 100 mls/hr IV ONETIME ONE Stop: 12/23/20 19:38 Last Admin: 12/23/20 19:30 Dose: 100 mls/hr Documented by: Vancomycin HCl 1 gm/ Sodium (Chloride) 250 mls @ 166 mls/hr IV ONETIME ONE Stop: 12/23/20 20:39 Last Admin: 12/23/20 19:30 Dose: 166 mls/hr Documented by: Sodium Chloride (Normal Saline) 1,000 mls @ 999 mls/hr IV STAT ONE Stop: 12/23/20 20:53 Last Admin: 12/23/20 20:32 Dose: 999 mls/hr Documented by: Piperacillin Sod/Tazobactam (Sod 3.375 gm/ Sodium Chloride) 50 mls @ 100 mls/hr IV Q6H [facility] Last Admin: 12/24/20 03:27 Dose: Not Given Documented by: Vancomycin HCl 1.5 gm/ Premix 300 mls @ 200 mls/hr IV Q12H [facility] Last Admin: 12/25/20 19:20 Dose: Not Given Documented by: Sodium Chloride (Normal Saline) 1,000 mls @ 150 mls/hr IV ASDIRECTED [facility] Last Admin: 12/24/20 22:50 Dose: 150 mls/hr Documented by: Iopamidol (Iopamidol 755 Mg/Ml 500 Ml Multipack Bottle) 140 ml IVPUSH ONETIME STA Stop: 12/23/20 21:42 Last Admin: 12/23/20 21:43 Dose: 140 ml Documented by: Ketorolac Tromethamine (Ketorolac 30 Mg/Ml Sdv) Confirm Administered Dose 30 mg .ROUTE .STK-MED ONE Stop: 12/24/20 11:34 Lidocaine (Lidocaine 2% 5 Ml Sdv) Confirm Administered Dose 5 ml .ROUTE .STK-MED ONE Stop: 12/24/20 11:34 Metoclopramide HCl (Metoclopramide 10 Mg/2 Ml Sdv) 10 mg IVPUSH ONETIME PRN PRN Reason: Nausea/Vomiting Midazolam HCl (Midazolam 1 Mg/Ml 2 Ml Sdv) Confirm Administered Dose 2 mg .ROUTE .STK-MED ONE Stop: 12/24/20 11:33 Morphine Sulfate (Morphine 4 Mg/Ml Syringe) 4 mg IVPUSH ONETIME ONE Stop: 12/23/20 19:12 Last Admin: 12/23/20 19:29 Dose: 4 mg Documented by: Morphine Sulfate (Morphine 2 Mg/Ml Syringe) 2 mg IVPUSH ONETIME ONE Stop: 12/23/20 20:23 Last Admin: 12/23/20 20:31 Dose: 2 mg Documented by: Morphine Sulfate (Morphine 4 Mg/Ml Syringe) 4 mg IVPUSH ONETIME ONE Stop: 12/23/20 22:17 Last Admin: 12/23/20 22:24 Dose: 4 mg Documented by: Morphine Sulfate (Morphine 2 Mg/Ml Syringe) 2 mg IVPUSH Q2H PRN PRN Reason: Pain (severe 7-10) Stop: 12/25/20 01:18 Last Admin: 12/24/20 23:05 Dose: 2 mg Documented by: Naloxone HCl (Naloxone 0.4 Mg/Ml Syringe) 0.1 mg IVPUSH ASDIRECTED PRN PRN Reason: Respiratory Depression Ondansetron HCl (Ondansetron 4 Mg/2 Ml Sdv) 4 mg IVPUSH ONETIME PRN PRN Reason: Nausea/Vomiting Ondansetron HCl (Ondansetron 4 Mg/2 Ml Sdv) Confirm Administered Dose 4 mg .ROUTE .STK-MED ONE Stop: 12/24/20 11:34 Oxycodone HCl (Oxycodone 5 Mg Tab) 5 mg PO Q4H PRN PRN Reason: Pain (moderate 4-6) Last Admin: 12/24/20 07:49 Dose: 5 mg Documented by: Propofol (Propofol 200 Mg/20 Ml Sdv) Confirm Administered Dose 200 mg .ROUTE .STK-MED ONE Stop: 12/24/20 11:33 Rocuronium [place] (Rocuronium [place] 50 Mg/5 Ml Syringe) Confirm Administered Dose 50 mg .ROUTE .STK-MED ONE Stop: 12/24/20 11:34 Sugammadex Sodium (Sugammadex Sodium 200 Mg/2 Ml Vial) Confirm Administered Dose 200 mg .ROUTE .STK-MED ONE Stop: 12/24/20 11:34 <Cecil Zayas - Last Filed: 12/27/20 23:49> Discharge Summary - Referral to [facility] Primary Care Physician: Zeyad Juan MD - Patient Summary/Data Consults: Consultations 12/24/20 08:22 Consult to Physician [CONS] Routine - Patient Data Vitals - Most Recent: Last Vital Signs Temp 36.2 C 12/26/20 12:00 Pulse 85 12/26/20 12:00 Resp 20 12/26/20 12:00 BP 132/81 12/26/20 12:00 Pulse Ox 98 12/26/20 12:00 JEFFERY Results - Last 24 hrs: Microbiology 12/23/20 19:27 Aerobic Blood Culture - Preliminary Blood - Venous - Lab Draw NO GROWTH AFTER 4 DAYS Anaerobic Blood Culture - Preliminary NO GROWTH AFTER 4 DAYS 12/23/20 19:08 Aerobic Blood Culture - Preliminary Blood - Venous NO GROWTH AFTER 4 DAYS Anaerobic Blood Culture - Preliminary NO GROWTH AFTER 4 DAYS 12/23/20 19:02 Urine Culture - Final Urine Staphylococcus Aureus Mixed Gram Positive Addl Isol Med Orders - Current: Current Medications Discontinued Medications Albuterol (Albuterol 0.083% 2.5 Mg/3 Ml Neb Soln) 2.5 mg NEB ONETIME PRN PRN Reason: Wheezing Aspirin (Aspirin 81 Mg Tab.Chew) 243 mg PO ONETIME ONE Stop: 12/23/20 19:11 Last Admin: 12/23/20 19:30 Dose: 243 mg Documented by: Aspirin (Aspirin 81 Mg Tab.Chew) 81 mg PO DAILY [facility] Last Admin: 12/26/20 08:47 Dose: 81 mg Documented by: Bupivacaine HCl (Bupivacaine 0.5% 30 Ml Sdv) Confirm Administered Dose 30 ml .ROUTE .STK-MED ONE Stop: 12/24/20 12:15 Bupivacaine HCl (Bupivacaine 0.5% 30 Ml Sdv) Confirm Administered Dose 30 ml .ROUTE .STK-MED ONE Stop: 12/24/20 12:27 Dextrose/Water (50% Dextrose In Water 50 Ml Syringe) 50 ml IVPUSH ASDIRECTED PRN PRN Reason: Hypoglycemia Droperidol (Droperidol 5 Mg/2 Ml Sdv) 0.625 mg IVPUSH ONETIME PRN PRN Reason: Nausea/Vomiting Fentanyl (Fentanyl 100 Mcg/2 Ml Sdv) 50 mcg IVPUSH Q5M PRN PRN Reason: Pain (mild 1-3) Fentanyl (Fentanyl 250 Mcg/5 Ml Sdv) Confirm Administered Dose 250 mcg .ROUTE .STK-MED ONE Stop: 12/24/20 11:33 Gabapentin (Gabapentin 300 Mg Cap) 600 mg PO QID [facility] Last Admin: 12/26/20 11:22 Dose: 600 mg Documented by: Glucagon (Glucagon,Human Recombinant 1 Mg Vial) 1 mg IM ASDIRECTED PRN PRN Reason: Hypoglycemia Glycopyrrolate (Glycopyrrolate 0.2 Mg/Ml Sdv) Confirm Administered Dose 0.2 mg .ROUTE .STK-MED ONE Stop: 12/24/20 11:34 Heparin Sodium (Porcine) (Heparin Sodium 5,000 Units/Ml Vial) 5,000 units SUBCUT Q8H [facility] Last Admin: 12/26/20 08:47 Dose: 5,000 units Documented by: Hydromorphone HCl (Hydromorphone 2 Mg/Ml Syringe) 0.5 mg IVPUSH Q10M PRN PRN Reason: Pain (moderate 4-6) Sodium Chloride (Normal Saline) 1,000 mls @ 999 mls/hr IV BOLUS ONE Stop: 12/23/20 19:47 Last Admin: 12/23/20 19:10 Dose: 999 mls/hr Documented by: Piperacillin Sod/Tazobactam (Sod 3.375 gm/ Sodium Chloride) 50 mls @ 100 mls/hr IV ONETIME ONE Stop: 12/23/20 19:38 Last Admin: 12/23/20 19:30 Dose: 100 mls/hr Documented by: Vancomycin HCl 1 gm/ Sodium (Chloride) 250 mls @ 166 mls/hr IV ONETIME ONE Stop: 12/23/20 20:39 Last Admin: 12/23/20 19:30 Dose: 166 mls/hr Documented by: Sodium Chloride (Normal Saline) 1,000 mls @ 999 mls/hr IV STAT ONE Stop: 12/23/20 20:53 Last Admin: 12/23/20 20:32 Dose: 999 mls/hr Documented by: Piperacillin Sod/Tazobactam (Sod 3.375 gm/ Sodium Chloride) 50 mls @ 100 mls/hr IV Q6H [facility] Last Admin: 12/24/20 03:27 Dose: Not Given Documented by: Vancomycin HCl 1.5 gm/ Premix 300 mls @ 200 mls/hr IV Q12H [facility] Last Admin: 12/25/20 19:20 Dose: Not Given Documented by: Piperacillin Sod/Tazobactam (Sod 3.375 gm/ Sodium Chloride) 50 mls @ 100 mls/hr IV Q6H [facility] Last Admin: 12/26/20 08:48 Dose: 100 mls/hr Documented by: Sodium Chloride (Normal Saline) 1,000 mls @ 150 mls/hr IV ASDIRECTED [facility] Last Admin: 12/24/20 22:50 Dose: 150 mls/hr Documented by: Pantoprazole Sodium 40 mg/ (Sodium Chloride) 10 mls @ 300 mls/hr IV DAILY [facility] Last Admin: 12/26/20 08:47 Dose: 300 mls/hr Documented by: Vancomycin HCl 1.5 gm/ Premix 300 mls @ 200 mls/hr IV Q24H [facility] Last Admin: 12/26/20 06:50 Dose: 200 mls/hr Documented by: Insulin Aspart (Insulin Aspart 100 Units/Ml 3 Ml Pen) 0 unit SUBCUT TIDAC [facility]; Protocol Last Admin: 12/26/20 13:05 Dose: 1 unit Documented by: Iopamidol (Iopamidol 755 Mg/Ml 500 Ml Multipack Bottle) 140 ml IVPUSH ONETIME STA Stop: 12/23/20 21:42 Last Admin: 12/23/20 21:43 Dose: 140 ml Documented by: Ketorolac Tromethamine (Ketorolac 30 Mg/Ml Sdv) Confirm Administered Dose 30 mg .ROUTE .STK-MED ONE Stop: 12/24/20 11:34 Lidocaine (Lidocaine 2% 5 Ml Sdv) Confirm Administered Dose 5 ml .ROUTE .STK-MED ONE Stop: 12/24/20 11:34 Lisinopril (Lisinopril 10 Mg Tab) 10 mg PO DAILY [facility] Last Admin: 12/26/20 09:04 Dose: 10 mg Documented by: Metoclopramide HCl (Metoclopramide 10 Mg/2 Ml Sdv) 10 mg IVPUSH ONETIME PRN PRN Reason: Nausea/Vomiting Midazolam HCl (Midazolam 1 Mg/Ml 2 Ml Sdv) Confirm Administered Dose 2 mg .ROUTE .STK-MED ONE Stop: 12/24/20 11:33 Morphine Sulfate (Morphine 4 Mg/Ml Syringe) 4 mg IVPUSH ONETIME ONE Stop: 12/23/20 19:12 Last Admin: 12/23/20 19:29 Dose: 4 mg Documented by: Morphine Sulfate (Morphine 2 Mg/Ml Syringe) 2 mg IVPUSH ONETIME ONE Stop: 12/23/20 20:23 Last Admin: 12/23/20 20:31 Dose: 2 mg Documented by: Morphine Sulfate (Morphine 4 Mg/Ml Syringe) 4 mg IVPUSH ONETIME ONE Stop: 12/23/20 22:17 Last Admin: 12/23/20 22:24 Dose: 4 mg Documented by: Morphine Sulfate (Morphine 2 Mg/Ml Syringe) 2 mg IVPUSH Q2H PRN PRN Reason: Pain (severe 7-10) Stop: 12/25/20 01:18 Last Admin: 12/24/20 23:05 Dose: 2 mg Documented by: Morphine Sulfate (Morphine 2 Mg/Ml Syringe) 2 mg IVPUSH Q4H PRN PRN Reason: Pain Last Admin: 12/26/20 08:06 Dose: 2 mg Documented by: Naloxone HCl (Naloxone 0.4 Mg/Ml Syringe) 0.1 mg IVPUSH ASDIRECTED PRN PRN Reason: Respiratory Depression Ondansetron HCl (Ondansetron 4 Mg/2 Ml Sdv) 4 mg IVPUSH ONETIME PRN PRN Reason: Nausea/Vomiting Ondansetron HCl (Ondansetron 4 Mg/2 Ml Sdv) Confirm Administered Dose 4 mg .ROUTE .STK-MED ONE Stop: 12/24/20 11:34 Ondansetron HCl (Ondansetron 4 Mg/2 Ml Sdv) 4 mg IVPUSH Q4H PRN PRN Reason: Nausea Last Admin: 12/25/20 10:35 Dose: 4 mg Documented by: Oxycodone HCl (Oxycodone 5 Mg Tab) 5 mg PO Q4H PRN PRN Reason: Pain (moderate 4-6) Last Admin: 12/24/20 07:49 Dose: 5 mg Documented by: Oxycodone HCl (Oxycodone 5 Mg Tab) 10 mg PO Q6H [facility] Last Admin: 12/26/20 11:22 Dose: 10 mg Documented by: Propofol (Propofol 200 Mg/20 Ml Sdv) Confirm Administered Dose 200 mg .ROUTE .STK-MED ONE Stop: 12/24/20 11:33 Rocuronium [place] (Rocuronium [place] 50 Mg/5 Ml Syringe) Confirm Administered Dose 50 mg .ROUTE .STK-MED ONE Stop: 12/24/20 11:34 Sodium Chloride (Sodium Chloride 0.9% 10 Ml Syringe) 10 ml FLUSH ASDIRECTED PRN PRN Reason: Keep Vein Open Sodium Chloride (Sodium Chloride 0.9% 2.5 Ml Syringe) 2.5 ml FLUSH ASDIRECTED PRN PRN Reason: Keep Vein Open Sugammadex Sodium (Sugammadex Sodium 200 Mg/2 Ml Vial) Confirm Administered Dose 200 mg .ROUTE .STK-MED ONE Stop: 12/24/20 11:34 Tamsulosin HCl (Tamsulosin 0.4 Mg Cap.Er) 0.4 mg PO BID [facility] Last Admin: 12/26/20 08:48 Dose: 0.4 mg Documented by: Vancomycin HCl (Pharmacy To Dose - Vancomycin) 1 dose .XX ASDIRECTED [facility] - Free Text/Narrative Note: I have seen and examined the patient with the resident. I have discussed findings and treatment plan with resident. I agree with assessment and plan in the following note. Patient reports he is out of pain medications even though according to the data base he should have about two more weeks worth of oxycodone. Patient states he was taking more oxycodone after his first I&D in [place]. We spoke with Dr. Juan his pcp who did not want to refill his oxycodone early but was ok with us prescribing three days of oxycodone due to recent I&D.
== END 2020-12-26 14:50 | disposition home or self-care (01) | DRG 602 ==
LOC: MW.ED 17:48 → MW.ICU 12-24 00:22 → MW.MS 12-25 14:47 → MW.ICU 12-25 14:47
PROVIDERS: ADMIT Internal Medicine; ATTEND Internal Medicine
PROC: 0J9500Z Drainage of Left Neck Subcutaneous Tissue and Fascia with Drainage Device, Open Approach (ICD-10-PCS; principal; 2020-12-24)
DX: L03.221 Cellulitis of neck (principal); L02.11 Cutaneous abscess of neck; K85.90 Acute pancreatitis without necrosis or infection, unspecified; N39.0 Urinary tract infection, site not specified; E11.65 Type 2 diabetes mellitus with hyperglycemia; R78.81 Bacteremia; Z68.42 Body mass index [BMI] 45.0-49.9, adult; N40.0 Benign prostatic hyperplasia without lower urinary tract symptoms; Z20.822 Contact with and (suspected) exposure to COVID-19; G89.29 Other chronic pain; M54.9 Dorsalgia, unspecified; E66.9 Obesity, unspecified; I10 Essential (primary) hypertension; Z86.14 Personal history of Methicillin resistant Staphylococcus aureus infection; F17.210 Nicotine dependence, cigarettes, uncomplicated; Z88.8 Allergy status to other drugs, medicaments and biological substances; Z79.84 Long term (current) use of oral hypoglycemic drugs; Z79.82 Long term (current) use of aspirin; Z79.899 Other long term (current) drug therapy; Z79.4 Long term (current) use of insulin; Z85.528 Personal history of other malignant neoplasm of kidney; Z90.5 Acquired absence of kidney; H54.7 Unspecified visual loss; Z89.512 Acquired absence of left leg below knee; Z98.890 Other specified postprocedural states; Z66 Do not resuscitate; E66.01 Morbid (severe) obesity due to excess calories; E11.42 Type 2 diabetes mellitus with diabetic polyneuropathy; M54.5 Low back pain; M79.5 Residual foreign body in soft tissue
CPT/HCPCS: 0240U; 36415; 70491; 71045; 71275; 74177; 80048; 80053; 80202; 81001; 82947; 83605; 83690; 83735; 84100; 84484; 85025; 85379; 87040; 87070; 87075; 87086; 87186; 87205; 93005; 96365; 96366; 96367; 96375; 96376; 99284; 87077; 93010; A9270-GY; C9113; J1644; J1885; J2250; J2270; J2405; J2543; J2704; J3010; J3370; J3490; J7030; J7050; Q9967

== ENCOUNTER 2020-12-27 20:38 | Emergency (ER) | payer MEDICARE, MEDICAID ==
--- NOTE | 2020-12-27 20:58 | EDM.PDOC ---
ED HPI GENERAL MEDICAL PROBLEM - General Chief Complaint: Skin Complaint Stated Complaint: BACK OF NECK PAIN Time Seen by Provider: 12/27/20 20:39 Source of Information: Reports: Patient History Limitations: Reports: No Limitations - History of Present Illness INITIAL COMMENTS - FREE TEXT/NARRATIVE: 50-year-old male past medical history of DKA, hypertension, type 2 diabetes, re nal cell carcinoma status post left nephrectomy, recent hospitalization for posterior neck abscess discharged yesterday presents requesting refill of pain medication. Patient states that he is unable to get into his doctor this weekend and wants something to get through the weekend. Denies any acute changes otherwise. - Related Data Allergies Allergy/AdvReac Type Severity Reaction Status Date / Time ketorolac Allergy Hives Verified 12/23/20 18:22 Home Meds: Home Meds metFORMIN [Glucophage] 1,000 mg PO BIDMEALS 09/29/19 [History] Aspirin 81 mg PO DAILY #30 tab.chew 09/30/19 [Rx] Tamsulosin HCl [Flomax] 0.4 mg PO BID #60 capsule 10/01/19 [Rx] lisinopriL [Lisinopril] 20 mg PO DAILY 04/28/20 [History] Hydrocodone/Acetaminophen [Hydrocodone-Acetamin 7.5-325] 12/23/20 [History] Gabapentin [Neurontin] 600 mg PO QID 12/24/20 [History] metFORMIN [Glucophage] 1,000 mg PO BIDMEALS 12/24/20 [History] levoFLOXacin [Levaquin] 750 mg PO DAILY 11 Days #11 tab 12/26/20 [Rx] oxyCODONE 10 mg PO Q6H 3 Days #24 tab 12/26/20 [Rx] Past Medical History HEENT History: Reports: Impaired Vision, Other (See Below) Other HEENT History: wears glasses Cardiovascular History: Reports: Hypertension Respiratory History: Reports: None Gastrointestinal History: Reports: None Genitourinary History: Reports: BPH Other Genitourinary History: Renal CA, Left Kidney removed. 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 Cardiovascular Surgical History: Reports: None Respiratory Surgical History: Reports: None GI Surgical History: Reports: Colonoscopy, Hernia, Abdominal Male Surgical History: Reports: Nephrectomy (left) Other Male Surgeries/Procedures: nephrectomy 2014 Endocrine Surgical History: Reports: None Neurological Surgical History: Reports: None Musculoskeletal Surgical History: Reports: Amputation Other Musculoskeletal Surgeries/Procedures:: L BTK amputation 2017 Oncologic Surgical History: Reports: None Dermatological Surgical History: Reports: None Social & Family History - Family History Family Medical History: No Pertinent Family History - Caffeine Use Caffeine Use: Reports: Coffee, Tea ED ROS GENERAL - Review of Systems Review Of Systems: Comprehensive ROS is negative, except as noted in HPI. ED EXAM, SKIN/RASH Exam: See Below Exam Limited By: No Limitations General Appearance: Alert, WD/WN, No Apparent Distress Ears: Hearing Grossly Normal Throat/Mouth: Normal Voice, No Airway Compromise Head: Atraumatic, Normocephalic Neck: Normal Inspection Respiratory/Chest: No Respiratory Distress, No Accessory Muscle Use Cardiovascular: Normal Peripheral Pulses Neurological: Alert, Normal Cognition, Normal Gait Psychiatric: Normal Affect, Normal Mood Skin: Warm, Dry, Intact, Normal Color Course - Re-Assessments/Exams Free Text/Narrative Re-Assessment/Exam: 12/27/20 21:05 Through the prescription monitoring program it seems that patient has filled many prescriptions for narcotics within the last month. On November 22 he received 56 [place] 10 mg tablets. On 06 December he received 120 10 mg oxycodone tablets. On yesterday he received 24 oxycodone 5 mg tablets. I explained to patient that I will not be writing any more narcotic pain medication for him and that he needs to take the medicine he was given yesterday and follow-up with his primary care physician. Departure - Departure Time of Disposition: 21:03 Disposition: Home, Self-Care 01 Condition: Good Clinical Impression: Encounter for medical screening examination - Discharge Information Instructions: Prescription Drug Misuse Information Referrals: Zeyad Juan MD [Primary Care Provider] - Forms: ED Department Discharge Additional Instructions: Please follow-up with your primary care physician regarding your pain management. The following information is given to patients seen in the emergency department who are being discharged to home. This information is to outline your options for follow-up care. We provide all patients seen in our emergency department with a follow-up referral. The need for follow-up, as well as the timing and circumstances, are variable depending upon the specifics of your emergency department visit. If you don't have a primary care physician on staff, we will provide you with a referral. We always advise you to contact your personal physician following an emergency department visit to inform them of the circumstance of the visit and for follow-up with them and/or the need for any referrals to a consulting specialist. The emergency department will also refer you to a specialist when appropriate. This referral assures that you have the opportunity for follow-up care with a specialist. All of these measure are taken in an effort to provide you with optimal care, which includes your follow-up. Under all circumstances we always encourage you to contact your private physician who remains a resource for coordinating your care. When calling for follow-up care, please make the office aware that this follow-up is from your recent emergency room visit. If for any reason you are refused follow-up, please contact the [facility] Emergency Department at and asked to speak to the emergency department charge nurse. Please follow up with your primary care physician. If you do not have a primary care physician, see below: [facility] [address] [place] [address] [phone] [facility] [address] [place], [place] [id number] [facility] [address] [place] [address]
== END 2020-12-27 21:19 | disposition home or self-care (01) ==
LOC: MW.ED 20:38
DX: Z76.0 Encounter for issue of repeat prescription (principal); E11.42 Type 2 diabetes mellitus with diabetic polyneuropathy; I10 Essential (primary) hypertension; N40.0 Benign prostatic hyperplasia without lower urinary tract symptoms; E66.9 Obesity, unspecified; Z68.41 Body mass index [BMI] 40.0-44.9, adult; Z88.6 Allergy status to analgesic agent; Z79.82 Long term (current) use of aspirin; Z79.84 Long term (current) use of oral hypoglycemic drugs; Z79.899 Other long term (current) drug therapy
CPT/HCPCS: 99281; 99282

== ENCOUNTER 2021-01-23 23:52 | Emergency (ER) | payer MEDICARE, MEDICAID ==
[2021-01-24] MEDS ORDERED: Morphine 4 MG/ML Syringe IVPUSH ONE (00:56)
[2021-01-24] MEDS ORDERED: Lactated Ringers 1,000 ML IV ONE (00:56)
[2021-01-24 01:12] LABS: BLOOD UREA NITROGEN,BUN 5 mg/dL (7.0-18.0); CARBON DIOXIDE,CO2 28.8 mmol/L (21.0-32.0); CHLORIDE,CL 103 mmol/L (98-107); GLUCOSE RANDOM 203 mg/dL (74-106); POTASSIUM,K 4.2 mmol/L (3.5-5.1); SODIUM,NA 139 mmol/L (136-148)
[2021-01-24] MEDS ORDERED: HYDROmorphone 1 MG/ML Syringe IVPUSH ONE ×3 (02:08→04:09)
--- NOTE | 2021-01-24 02:11 | CR ---
Indication: Nail imbedded in anterior stomach. Technique: Chest 1 view Comparison: Chest x-ray 12/23/2020 Findings/Impression: Cardiovascular and mediastinum: Mild cardiomegaly. Lungs and pleural space: Low lung volumes with pulmonary cephalization. No pleural effusion or pneumothorax. Bones and soft tissues: Metal density overlies the upper abdomen consistent with the given history. Dictated by Clement Arevalo MD @ 01/24/2021 2:10:[address] Clement Arevalo @ Jan 24 2021 2:10AM
--- NOTE | 2021-01-24 02:15 | CT ---
INDICATION: Nail imbedded in anterior stomach. TECHNIQUE: Axial images were obtained from the diaphragm to the pubic symphysis. Reformats were obtained in the coronal and sagittal plane. IV Contrast: None Oral Contrast: None COMPARISON: Abdomen and pelvis CT 12/23/2020 FINDINGS: Lower chest: Unremarkable. Liver: Unremarkable. Normal in size and attenuation. No masses. Gallbladder and bile ducts: Unremarkable. No stones or inflammation. No biliary dilatation. Spleen: Unremarkable. Normal in size without mass. Pancreas: Unremarkable. No mass or inflammation. Adrenal glands: Unremarkable. No nodules. Kidneys: Unremarkable. No masses, stones, or hydronephrosis. Vasculature: Mild atherosclerotic calcification. GI tract: The stomach is unremarkable. No dilated loops of large or small intestine. A metal foreign body is present in the right anterior subcutaneous tissues which extends deep to the margin of the right rectus abdominis musculature. The muscle is slightly expanded and there is some fat stranding within the adjacent subcutaneous tissues. Foreign body does not enter the peritoneal cavity. Pelvis: Unremarkable. 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 IMPRESSION: 1. Radiopaque foreign body consistent with a nail extending through the subcutaneous tissues to the outer margin of the right rectus abdominus musculature. Small amount of subcutaneous hematoma as well as mild expansion of the right rectus abdominus muscle, likely a small amount of intramuscular hematoma. Nail does not enter the peritoneal cavity. Please note that all CT scans at this facility use dose modulation, iterative reconstruction, and/or weight-based dosing when appropriate to reduce radiation dose to as low as reasonably achievable. Dictated by Clement Arevalo MD @ 01/24/2021 2:14:[address] Clement Arevalo @ Jan 24 2021 2:14AM
[2021-01-24] MEDS ORDERED: ceFAZolin 1 GM in Premix Bag 1 BAG IV ONE ×4 (03:05)
--- NOTE | 2021-01-24 03:16 | PCM.OPNOTE ---
- General Post-Op/Procedure Note Date of Surgery/Procedure: 01/24/21 Operative Procedure(s): Removal of anterior abdominal wall foreign body(nail) Pre Op Diagnosis: FB anterior abdominal wall Post-Op Diagnosis: Same Anesthesia Technique: Local (10 cc 1% plain xylocaine) Primary Surgeon: Tony Davis Fluid Replacement, Intraop: 0 EBL in mLs: 0 Condition: Good Free Text/Narrative:: Patient fell on a nail on a deck. The nail penetrated his abdominal skin to the level of the right rectus abdominis muscle. CT does not reveal penetration of the posterior rectus by radiologic interpretation. No free air is noted on plain films or CT. At the bedside under betadine prep and xylocaine anesthesia, the head of the baldomero l was grasped and removed without difficulty. Patient is going to be observed in the ER for the next several hours and I will re-evaluate him again before going to the OR. He is up to date with his tetanus and will be given 2 Gms of Ancef IV. He does have a history of MRSA.
[2021-01-24] MEDS ORDERED: Ondansetron 4 MG/2 ML SDV IVPUSH ONE (04:09)
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
[2021-01-24] MEDS ORDERED: Acetaminophen/HYDROcodone 325-5 MG Tab PO ONE (07:28)
== END 2021-01-24 07:40 | disposition home or self-care (01) ==
LOC: MW.ED 23:52
DX: S30.851A Superficial foreign body of abdominal wall, initial encounter (principal); S30.1XXA Contusion of abdominal wall, initial encounter; I10 Essential (primary) hypertension; E11.40 Type 2 diabetes mellitus with diabetic neuropathy, unspecified; E66.9 Obesity, unspecified; Z68.38 Body mass index [BMI] 38.0-38.9, adult; Z88.6 Allergy status to analgesic agent; Z79.82 Long term (current) use of aspirin; Z79.84 Long term (current) use of oral hypoglycemic drugs; Z79.899 Other long term (current) drug therapy; W45.0XXA Nail entering through skin, initial encounter
CPT/HCPCS: 36415; 71045; 74176; 80053; 85025; 85610; 85730; 86850; 86900; 86901; 96365; 96366; 96375; 96376; 99284; A9270; J0690; J1170; J2270; J2405; J7120

== ENCOUNTER 2021-01-25 22:36 | Emergency (ER) | payer MEDICARE, MEDICAID ==
[2021-01-25] MEDS ORDERED: Sodium Chloride 0.9% 2.5 ML Syringe FLUSH PRN (23:02)
[2021-01-25] MEDS ORDERED: Sodium Chloride 0.9% 10 ML Syringe FLUSH PRN (23:02)
[2021-01-25] MEDS ORDERED: Sodium Chloride 0.9% 1,000 ML IV ONE (23:02)
[2021-01-25] MEDS ORDERED: Ondansetron 4 MG/2 ML SDV IVPUSH ONE ×2 (23:09→23:41)
[2021-01-25] MEDS ORDERED: HYDROmorphone 1 MG/ML Syringe IVPUSH ONE (23:09)
[2021-01-25] MEDS ORDERED: Piperacillin/Tazobactam 4.5 GM in Sodium Chloride 0.9% 100 ML IV ONE (23:09)
[2021-01-25] MEDS ORDERED: Ondansetron 4 MG/2 ML SDV ONE (23:42)
[2021-01-25 23:47] LABS: BLOOD UREA NITROGEN,BUN 7 mg/dL (7.0-18.0); CARBON DIOXIDE,CO2 25.5 mmol/L (21.0-32.0); CHLORIDE,CL 102 mmol/L (98-107); GLUCOSE RANDOM 217 mg/dL (74-106); LIPASE 246 U/L (73-393); POTASSIUM,K 3.9 mmol/L (3.5-5.1); SODIUM,NA 140 mmol/L (136-148)
[2021-01-25] MEDS ORDERED: Iopamidol 755 MG/ML 500 ML Multipack Bottle IVPUSH STA (23:58)
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
[2021-01-26] MEDS ORDERED: Iopamidol 755 MG/ML 500 ML Multipack Bottle IVPUSH ONE (01:14)
[2021-01-26] MEDS ORDERED: HYDROmorphone 1 MG/ML Syringe IVPUSH ONE ×2 (02:10→03:29)
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
[2021-01-26] MEDS ORDERED: metroNIDAZOLE 250 MG Tab PO ONE (03:28)
--- NOTE | 2021-01-26 03:36 | EDM.PDOC ---
ED HPI GENERAL MEDICAL PROBLEM - General Chief Complaint: Abdominal Pain Stated Complaint: FELL ON A NAIL A FEW DAYS AGO Time Seen by Provider: 01/25/21 23:11 - History of Present Illness INITIAL COMMENTS - FREE TEXT/NARRATIVE: HISTORY AND PHYSICAL: History of present illness: This is a 51-year-old gentleman with a history significant for renal cell CA status post nephrectomy, hypertension, diabetes, who was recently evaluated in the ED here 2 days ago after sustaining a injury to his abdominal wall with an nail that he fell upon. Patient had evaluation by surgery and had the nail removed here in the ED. CT scan revealed that the foreign body did not penetrate the abdominal wall. Patient presents for reevaluation secondary to persistent abdominal pain and discomfort with nausea and vomiting. Patient reports that he has decreased p.o. intake of solids but has been unable to tolerate p.o. liquids and broth yesterday. Patient denies any recent fevers, shakes, chills. Patient denies any diarrhea. Patient denies any bright red blood per rectum. Patient denies any coffee-ground emesis or hematemesis. Patient denies any URI symptoms. Patient reports that the pain that he is having currently is similar to the pain that he had when he was seen and evaluated in the ER for the injury. Patient was called by Dr. Rose to return to the ED for reevaluation and repeat CT scan with IV contrast. Review of systems: As per history of present illness and below otherwise all systems reviewed and negative. Past medical history: As per history of present illness and as reviewed below otherwise noncontributory. Surgical history: As per history of present illness and as reviewed below otherwise noncontributory. Social history: No reported history of drug abuse. Family history: As per history of present illness and as reviewed below otherwise noncontributory. Physical exam: This patient was seen and evaluated during the 2019 SARS-CoV-2 novel coronavirus pandemic period. Community viral transmission is ongoing at time of this encounter and the emergency department is operating under pandemic response procedures. Constitutional: Patient is oriented to person, place, and time. Appears well-de veloped and well-nourished. No distress. HEENT: Moist mucous membranes Head: Normocephalic and atraumatic Eyes: Right eye exhibits no discharge. Left eye exhibits no discharge. No scleral icterus Neck: Normal range of motion. No tracheal deviation present. Cardiovascular: Normal rate and regular rhythm. Pulmonary: Effort normal, no respiratory distress. Abd: Soft, nondistended, no guarding or rebound. Patient does have pain with palpation at the site of the injury. No purulent drainage was expressed from the wound. No crepitance palpable. Pt does not present with an exam that would be consistent with an acute surgical abdomen at this time. Patient does have inflammatory changes at the site of the injury with some warmth. Musculoskeletal: Normal range of motion Neurologic: Alert and oriented to person, place and time. Skin: [place], warm and dry. Psychiatric: Normal mood and affect. Behavior is normal. Judgment and thought content normal. Nursing note and vital signs have been reviewed Diagnostics: EKG: As interpreted by ER physician: Faustino: Nonspecific ST-T wave abnormalities Normal axis No evidence of ST elevation [place] Normal sinus rhythm heart rate of 82 CT scan of the abdomen and pelvis with IV and p.o. contrast. CT scan without IV contrast was initially obtained secondary to the patient's history of renal cell CA status post nephrectomy. Patient was unable to tolerate the p.o. contrast. Patient's CT scan of the abdomen pelvis without IV contrast did not reveal any significant intra-abdominal pathology. No free air or inflammatory changes wit hin the peritoneum. Patient does have inflammatory changes within the subcutaneous tissue. CT scan of the abdomen pelvis with IV contrast: No significant new findings from the CT scan without contrast. Patient's labs are all within normal limits except for an elevated lactic acid level of 2.9. Therapeutics: Zosyn 4.5 g IV Dilaudid 1 mg IV x3 throughout the course of the ED visit NSS x2 L wide open Zofran 4 mg IV Assessment and plan: This is a 51-year-old gentleman who presents ER today for reevaluation of his abdominal wall wound. Although the patient does have a significant amount of pa in and discomfort, he does not present with signs or symptoms of an acute surgical abdomen at this time. Patient CT scan not reveal any new pathology or concerns for intra-abdominal/intraperitoneal pathology. Patient does have a normal white count although his lactic acid level is elevated. I have discussed the case as well as the CT scan findings and the lactic acid level with Dr. Hauser who agrees with plan of patient going home at this time given that there is no new intra abdominal/peritoneal pathology. Patient reports that he feels much better after coming to the ED and feels reassured that the repeat CT scan did not reveal any intra-abdominal pathology. Patient will be given Percocet to take at home as well as Zofran and a prescription for Flagyl. Patient will be instructed to return to the ER if he is unable to keep down antibiotics or liquids. Patient be given instructions to take small frequent meals. Reassessment at the time of disposition demonstrates that the patient is in no acute distress. The patient has remained stable throughout the entire ED visit and is without objective evidence for acute process requiring urgent intervention or hospitalization. The patient is stable for discharge, counseling is provided as documented above, discussed symptomatic treatment and specific conditions for return. I have spoken with the patient/caregiver and discussed todays findings, in addition to providing specific details for the plan of care. Questions are answered and there is agreement with the plan. Definitive disposition and diagnosis as appropriate pending reevaluation and review of above. - Related Data Allergies Allergy/AdvReac Type Severity Reaction Status Date / Time ketorolac Allergy Hives Verified 01/24/21 00:37 Home Meds: Home Meds metFORMIN [Glucophage] 1,000 mg PO BIDMEALS 09/29/19 [History] Aspirin 81 mg PO DAILY #30 tab.chew 09/30/19 [Rx] Tamsulosin HCl [Flomax] 0.4 mg PO BID #60 capsule 10/01/19 [Rx] lisinopriL [Lisinopril] 20 mg PO DAILY 04/28/20 [History] Hydrocodone/Acetaminophen [HYDROcodone-Acetaminophen 7.5-325 MG] 12/23/20 [History] Gabapentin [Neurontin] 600 mg PO QID 12/24/20 [History] metFORMIN [Glucophage] 1,000 mg PO BIDMEALS 12/24/20 [History] levoFLOXacin [Levaquin] 750 mg PO DAILY 11 Days #11 tab 12/26/20 [Rx] oxyCODONE 10 mg PO Q6H 3 Days #24 tab 12/26/20 [Rx] Ondansetron [Zofran ODT] 4 mg PO Q6H PRN #12 tab.dis 01/26/21 [Rx] metroNIDAZOLE [Flagyl] 500 mg PO Q8H #30 tab 01/26/21 [Rx] oxyCODONE HCl/Acetaminophen [Percocet 5-325 mg Tablet] 1 each PO Q6HR PRN #12 tablet 01/26/21 [Rx] Past Medical History HEENT History: Reports: Impaired Vision, Other (See Below) Other HEENT History: wears glasses Cardiovascular History: Reports: Hypertension Respiratory History: Reports: None Gastrointestinal History: Reports: None Genitourinary History: Reports: BPH Other Genitourinary History: Renal CA, Left Kidney removed. 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 Cardiovascular Surgical History: Reports: None Respiratory Surgical History: Reports: None GI Surgical History: Reports: Colonoscopy, Hernia, Abdominal Male Surgical History: Reports: Nephrectomy Other Male Surgeries/Procedures: nephrectomy 2014 Endocrine Surgical History: Reports: None Neurological Surgical History: Reports: None Musculoskeletal Surgical History: Reports: Amputation Other Musculoskeletal Surgeries/Procedures:: L BTK amputation 2017 Oncologic Surgical History: Reports: None Dermatological Surgical History: Reports: None Social & Family History - Family History Family Medical History: No Pertinent Family History - Caffeine Use Caffeine Use: Reports: Coffee - Recreational Drug Use Recreational Drug Use: No ED ROS GENERAL - Review of Systems Review Of Systems: See Below ED EXAM, GENERAL - Physical Exam Exam: See Below Course - Vital Signs Last Recorded V/S: Last Vital Signs Temp 97.2 F 01/25/21 22:56 Pulse 72 01/25/21 22:56 Resp 20 01/25/21 22:56 BP 168/101 H 01/25/21 22:56 Pulse Ox 98 01/25/21 22:56 - Orders/Labs/Meds Orders: Active Orders 24 hr Category Date Time Status CULTURE BLOOD [BC] Stat Lab 01/25/21 23:12 Received CULTURE BLOOD [BC] Stat Lab 01/25/21 23:32 Received REFLEX LACTIC ACID YES OR NO [CHEM] Routine Lab 01/25/21 23:52 Received UA W/JEFFERY RFLX IF INDICATED [URIN] Stat Lab 01/25/21 23:03 Ordered HYDROmorphone [Dilaudid] Med 01/26/21 03:29 Once 1 mg IVPUSH ONETIME ONE Sodium Chloride 0.9% [Saline Flush] Med 01/25/21 23:02 Active 10 ml FLUSH ASDIRECTED PRN Sodium Chloride 0.9% [Saline Flush] Med 01/25/21 23:02 Active 2.5 ml FLUSH ASDIRECTED PRN metroNIDAZOLE Med 01/26/21 03:28 Once 500 mg PO ONETIME ONE Blood Culture x2 Reflex Set [OM.PC] Stat Oth 01/25/21 23:16 Ordered Saline Lock Insert [OM.PC] Stat Oth 01/25/21 23:03 Ordered Medication Orders Sodium Chloride (Sodium Chloride 0.9% 10 Ml Syringe) 10 ml FLUSH ASDIRECTED PRN PRN Reason: Keep Vein Open Sodium Chloride (Sodium Chloride 0.9% 2.5 Ml Syringe) 2.5 ml FLUSH ASDIRECTED PRN PRN Reason: Keep Vein Open Labs: Laboratory Tests 01/25/21 01/25/21 01/25/21 Range/Units 23:12 23:12 23:12 WBC 10.00 (4.0-11.0) K/uL RBC 4.54 (4.50-5.90) M/uL Hgb 13.1 (13.0-17.0) g/dL Hct 39.0 (38.0-50.0) % MCV 85.9 (80.0-98.0) fL MCH 28.9 (27.0-32.0) pg MCHC 33.6 (31.0-37.0) g/dL RDW Std Deviation 47.1 (28.0-62.0) fl RDW Coeff of Candy 15 (11.0-15.0) % Plt Count 302 (150-400) K/uL MPV 10.30 (7.40-12.00) fL Neut % (Auto) 66.8 (48.0-80.0) % Lymph % (Auto) 21.9 (16.0-40.0) % [place]borne % (Auto) 6.5 (0.0-15.0) % Eos % (Auto) 4.5 (0.0-7.0) % Baso % (Auto) 0.3 (0.0-1.5) % Neut # (Auto) 6.7 H (1.4-5.7) K/uL Lymph # (Auto) 2.2 (0.6-2.4) K/uL [place] # (Auto) 0.7 (0.0-0.8) K/uL Eos # (Auto) 0.5 (0.0-0.7) K/uL Baso # (Auto) 0.0 (0.0-0.1) K/uL Nucleated RBC % 0.0 /100WBC Nucleated RBCs # 0 K/uL Sodium 140 (136-148) mmol/L Potassium 3.9 (3.5-5.1) mmol/L Chloride 102 (98-107) mmol/L Carbon Dioxide 25.5 (21.0-32.0) mmol/L BUN 7 (7.0-18.0) mg/dL Creatinine 1.0 (0.8-1.3) mg/dL Est Cr Clr Drug Dosing TNP Estimated GFR (MDRD) > 60.0 ml/min Glucose 217 H (74-106) mg/dL Lactic Acid (0.4-2.0) mmol/L Calcium 8.5 (8.5-10.1) mg/dL Total Bilirubin 0.3 (0.2-1.0) mg/dL AST 17 (15-37) IU/L ALT 17 (14-63) IU/L Alkaline Phosphatase 96 (46-116) U/L Troponin I < 0.050 (0.000-0.056) ng/mL Total Protein 7.3 (6.4-8.2) g/dL Albumin 3.2 L (3.4-5.0) g/dL Globulin 4.1 H (2.6-4.0) g/dL Albumin/Globulin Ratio 0.8 L (0.9-1.6) Lipase 246 (73-393) U/L 01/25/21 Range/Units 23:12 WBC (4.0-11.0) K/uL RBC (4.50-5.90) M/uL Hgb (13.0-17.0) g/dL Hct (38.0-50.0) % MCV (80.0-98.0) fL MCH (27.0-32.0) pg MCHC (31.0-37.0) g/dL RDW Std Deviation (28.0-62.0) fl RDW Coeff of Candy (11.0-15.0) % Plt Count (150-400) K/uL MPV (7.40-12.00) fL Neut % (Auto) (48.0-80.0) % Lymph % (Auto) (16.0-40.0) % [place] % (Auto) (0.0-15.0) % Eos % (Auto) (0.0-7.0) % Baso % (Auto) (0.0-1.5) % Neut # (Auto) (1.4-5.7) K/uL Lymph # (Auto) (0.6-2.4) K/uL [place] # (Auto) (0.0-0.8) K/uL Eos # (Auto) (0.0-0.7) K/uL Baso # (Auto) (0.0-0.1) K/uL Nucleated RBC % /100WBC Nucleated RBCs # K/uL Sodium (136-148) mmol/L Potassium (3.5-5.1) mmol/L Chloride (98-107) mmol/L Carbon Dioxide (21.0-32.0) mmol/L BUN (7.0-18.0) mg/dL Creatinine (0.8-1.3) mg/dL Est Cr Clr Drug Dosing Estimated GFR (MDRD) ml/min Glucose (74-106) mg/dL Lactic Acid 2.9 H* (0.4-2.0) mmol/L Calcium (8.5-10.1) mg/dL Total Bilirubin (0.2-1.0) mg/dL AST (15-37) IU/L ALT (14-63) IU/L Alkaline Phosphatase (46-116) U/L Troponin I (0.000-0.056) ng/mL Total Protein (6.4-8.2) g/dL Albumin (3.4-5.0) g/dL Globulin (2.6-4.0) g/dL Albumin/Globulin Ratio (0.9-1.6) Lipase (73-393) U/L Meds: Medications Generic Name Dose Route Start Last Admin Trade Name Lori PRN Reason Stop Dose Admin Sodium Chloride 10 ml 01/25/21 23:02 Sodium Chloride 0.9% 10 Ml Syringe FLUSH ASDIRECTED PRN Keep Vein Open Sodium Chloride 2.5 ml 01/25/21 23:02 Sodium Chloride 0.9% 2.5 Ml Syringe FLUSH ASDIRECTED PRN Keep Vein Open Discontinued Medications Generic Name Dose Route Start Last Admin Trade Name Lori PRN Reason Stop Dose Admin Hydromorphone HCl 1 mg 01/25/21 23:09 01/25/21 23:26 Hydromorphone 1 Mg/Ml Syringe IVPUSH 01/25/21 23:10 1 mg ONETIME ONE Administration Hydromorphone HCl 1 mg 01/26/21 02:10 01/26/21 02:32 Hydromorphone 1 Mg/Ml Syringe IVPUSH 01/26/21 02:11 1 mg ONETIME ONE Administration Sodium Chloride 1,000 mls @ 999 mls/hr 01/25/21 23:02 01/25/21 23:25 Normal Saline IV 01/26/21 00:02 999 mls/hr .Bolus ONE Administration Piperacillin Sod/Tazobactam 100 mls @ 100 mls/hr 01/25/21 23:09 01/25/21 23:38 Sod 4.5 gm/ Sodium Chloride IV 01/26/21 00:08 100 mls/hr ONETIME ONE Administration Iopamidol 100 ml 01/25/21 23:58 01/26/21 01:27 Iopamidol 755 Mg/Ml 500 Ml Multipack Bottle IVPUSH 01/26/21 00:11 100 ml ONETIME STA Administration Iopamidol 100 ml 01/26/21 01:14 Iopamidol 755 Mg/Ml 500 Ml Multipack Bottle IVPUSH 01/26/21 01:15 ONETIME ONE Ondansetron HCl 4 mg 01/25/21 23:09 01/25/21 23:26 Ondansetron 4 Mg/2 Ml Sdv IVPUSH 01/25/21 23:10 4 mg ONETIME ONE Administration Ondansetron HCl 4 mg 01/25/21 23:41 01/25/21 23:45 Ondansetron 4 Mg/2 Ml Sdv IVPUSH 01/25/21 23:42 4 mg ONETIME ONE Administration Ondansetron HCl Confirm 01/25/21 23:42 01/25/21 23:45 Ondansetron 4 Mg/2 Ml Sdv Administered 01/25/21 23:43 Not Given Dose 4 mg .ROUTE .STK-MED ONE Departure - Departure Time of Disposition: 03:36 Disposition: Home, Self-Care 01 Condition: Good Clinical Impression: Abdominal wall cellulitis Abdominal pain Qualifiers: Abdominal location: generalized Qualified Code(s): R10.84 - Generalized abdominal pain - Discharge Information Instructions: Cellulitis, Adult Referrals: PCP,None [Primary Care Provider] - Additional Instructions: You were seen and evaluated in the ER today secondary to your stomach pain after penetration with a foreign object/nail. The CT scan did not reveal any significant intra-abdominal abnormalities. I have discussed the case with our surgery doctor on-call and she has recommended that we broaden your antibiotic spectrum to Flagyl in addition to the antibiotics that you are taking. I will also write a prescription for Percocet to help you with your pain and discomfort. Please continue to drink plenty of fluids and take plenty of small meals. You will also be given a prescription for Zofran to help you with your nausea. [facility] - General Surgery [address], [address] [place] [address] The following information is given to patients seen in the emergency department who are being discharged to home. This information is to outline your options for follow-up care. We provide all patients seen in our emergency department with a follow-up referral. The need for follow-up, as well as the timing and circumstances, are variable depending upon the specifics of your emergency department visit. If you don't have a primary care physician on staff, we will provide you with a referral. We always advise you to contact your personal physician following an emergency department visit to inform them of the circumstance of the visit and for follow-up with them and/or the need for any referrals to a consulting specialist. The emergency department will also refer you to a specialist when appropriate. This referral assures that you have the opportunity for follow-up care with a specialist. All of these measure are taken in an effort to provide you with optimal care, which includes your follow-up. Under all circumstances we always encourage you to contact your private dorita milleran who remains a resource for coordinating your care. When calling for follow-up care, please make the office aware that this follow-up is from your recent emergency room visit. If for any reason you are refused follow-up, please contact the [facility] Emergency Department at and asked to speak to the emergency department charge nurse. [facility] - Primary Care [address] [place] [address] [id number] [address] [address] Sepsis Event Note (ED) - Evaluation Sepsis Screening Result: No Definite Risk - Focused Exam Vital Signs: Vital Signs Temp Pulse Resp BP Pulse Ox 01/25/21 22:56 97.2 F 72 20 168/101 H 98 - My Orders Last 24 Hours: My Active Orders 01/25/21 23:02 Sodium Chloride 0.9% [Saline Flush] 10 ml FLUSH ASDIRECTED PRN Sodium Chloride 0.9% [Saline Flush] 2.5 ml FLUSH ASDIRECTED PRN 01/25/21 23:03 UA W/JEFFERY RFLX IF INDICATED [URIN] Stat Saline Lock Insert [OM.PC] Stat 01/25/21 23:12 CULTURE BLOOD [BC] Stat 01/25/21 23:16 Blood Culture x2 Reflex Set [OM.PC] Stat 01/25/21 23:32 CULTURE BLOOD [BC] Stat 01/25/21 23:52 REFLEX LACTIC ACID YES OR NO [CHEM] Routine 01/26/21 03:28 metroNIDAZOLE 500 mg PO ONETIME ONE 01/26/21 03:29 HYDROmorphone [Dilaudid] 1 mg IVPUSH ONETIME ONE - Assessment/Plan Last 24 Hours: My Active Orders 01/25/21 23:02 Sodium Chloride 0.9% [Saline Flush] 10 ml FLUSH ASDIRECTED PRN Sodium Chloride 0.9% [Saline Flush] 2.5 ml FLUSH ASDIRECTED PRN 01/25/21 23:03 UA W/JEFFERY RFLX IF INDICATED [URIN] Stat Saline Lock Insert [OM.PC] Stat 01/25/21 23:12 CULTURE BLOOD [BC] Stat 01/25/21 23:16 Blood Culture x2 Reflex Set [OM.PC] Stat 01/25/21 23:32 CULTURE BLOOD [BC] Stat 01/25/21 23:52 REFLEX LACTIC ACID YES OR NO [CHEM] Routine 01/26/21 03:28 metroNIDAZOLE 500 mg PO ONETIME ONE 01/26/21 03:29 HYDROmorphone [Dilaudid] 1 mg IVPUSH ONETIME ONE
== END 2021-01-26 03:55 | disposition home or self-care (01) ==
LOC: MW.ED 22:36
DX: L03.311 Cellulitis of abdominal wall (principal); I10 Essential (primary) hypertension; E11.42 Type 2 diabetes mellitus with diabetic polyneuropathy; E66.9 Obesity, unspecified; Z90.5 Acquired absence of kidney; Z88.5 Allergy status to narcotic agent; Z79.82 Long term (current) use of aspirin; Z79.84 Long term (current) use of oral hypoglycemic drugs; Z79.899 Other long term (current) drug therapy
CPT/HCPCS: 36415; 74176; 74177; 80053; 83605; 83690; 84484; 85025; 87040; 93005; 96365; 96375; 96376; 99284; A9270; J1170; J2405; J2543; J7030; Q9967; 93010

== ENCOUNTER 2021-01-28 17:20 | Inpatient (IN) | payer MEDICARE, MEDICAID ==
[2021-01-28] MEDS ORDERED: Sodium Chloride 0.9% 2.5 ML Syringe FLUSH PRN (17:55)
[2021-01-28] MEDS ORDERED: Sodium Chloride 0.9% 10 ML Syringe FLUSH PRN (17:55)
[2021-01-28] MEDS ORDERED: Haloperidol Lactate 5 MG/ML SDV IM ONE (17:58)
[2021-01-28] MEDS ORDERED: Acetaminophen 500 MG Tab PO ONE (18:00)
[2021-01-28 18:51] LABS: BLOOD UREA NITROGEN,BUN 4 mg/dL (7.0-18.0); CARBON DIOXIDE,CO2 24.7 mmol/L (21.0-32.0); CHLORIDE,CL 104 mmol/L (98-107); GLUCOSE RANDOM 200 mg/dL (74-106); POTASSIUM,K 3.4 mmol/L (3.5-5.1); SODIUM,NA 139 mmol/L (136-148)
--- NOTE | 2021-01-28 20:04 | CT ---
INDICATION: Anterior abdominal pain related to penetrating injury from a nail. COMPARISON: CT of the abdomen and pelvis from 01/26/2021 and 01/24/2021. TECHNIQUE: CT examination of the abdomen and pelvis was performed without contrast enhancement using 2.5 mm thick axial sections from the lung bases through the pubic symphysis. Oral contrast was not administered. Please note that all CT scans at this facility use dose modulation, iterative reconstruction, and/or weight-based dosing when appropriate to reduce radiation dose to as low as reasonably achievable. FINDINGS: There is increased soft tissue stranding in the subcutaneous fat of the right anterior abdominal wall, crossing the midline and extending minimally into the superior pelvis. There is no distinct fluid collection to suggest an abscess. The inflammation is located around the tract of the previously removed large caliber nail. The findings are that of progressive cellulitis without definite abscess formation. There is increasing inflammatory thickening of the superior rectus muscle sheath in the area of penetrating injury, consistent with worsening myositis, without distinct abscess formation. There is no sign of any inflammatory process involving the underlying peritoneal cavity and there is no sign of any free air or free fluid to suggest penetrating injury. Again seen are changes of mesh hernia repair in the anterior superior abdominal wall at the midline. In the abdomen, the unenhanced liver, spleen, pancreas, and adrenals are normal in appearance. The unenhanced right kidney is normal in appearance. The left kidney is absent with the few clips in the renal fossa consistent with nephrectomy. There is no sign of any residual or recurrent mass. The gallbladder is normal in appearance. The abdominal aorta is normal in caliber with no sign of dilatation. There is no sign of retroperitoneal mass or adenopathy. The stomach, loops of small bowel, and colon in the abdomen are normal in appearance. In the pelvis, the appendix is normal in appearance with no sign of inflammatory process. The loops of small bowel and colon in the pelvis are normal in appearance. The prostate remains normal in appearance. The urinary bladder is normal in appearance. There is no sign of pelvic or inguinal mass or adenopathy. There is no sign of free air or free fluid in the abdomen or pelvis. The lung bases are clear. 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 This is related to the mild scoliosis of the upper lumbar spine convex towards the left. Again seen is moderate bilateral facet arthropathy throughout the lumbar spine. The osseous structures are otherwise normal in appearance for the patient`s age. IMPRESSION: Worsening of cellulitis in the right anterior abdominal wall around the tract left by removal of the previously seen large caliber metal nail. Worsening inflammatory thickening of the underlying right rectus abdominus muscle belly. No sign of any associated abscess. No sign of intraperitoneal inflammation. CT of the abdomen shows changes of left nephrectomy and superior midline ventral hernia repair. Normal CT of the pelvis without contrast. Please note that all CT scans at this facility use dose modulation, iterative reconstruction, and/or weight-based dosing when appropriate to reduce radiation dose to as low as reasonably achievable. Dictated by Deny Chicas MD @ 01/28/2021 8:03:[address] Deny Chicas @ Jan 28 2021 8:03PM
[2021-01-28] MEDS ORDERED: Morphine 4 MG/ML Syringe IVPUSH ONE (20:09)
[2021-01-28] MEDS ORDERED: Clindamycin Phosphate in D5W 50 ML ONE (20:13)
[2021-01-28] MEDS ORDERED: Clindamycin Phosphate in D5W 600 MG in Premix Bag 1 BAG IV ONE ×2 (20:17)
[2021-01-28] MEDS ORDERED: Albuterol/Ipratropium 3.0-0.5 MG/3 ML Neb Soln NEB PRN (21:16)
[2021-01-28] MEDS ORDERED: Acetaminophen 325 MG Tab PO PRN (21:16)
[2021-01-28] MEDS ORDERED: Ondansetron 4 MG/2 ML SDV IVPUSH PRN (21:16)
[2021-01-28] MEDS ORDERED: 50% Dextrose in Water 50 ML Syringe IVPUSH PRN (21:27)
[2021-01-28] MEDS ORDERED: Glucagon,Human Recombinant 1 MG Vial IM PRN (21:27)
--- NOTE | 2021-01-28 21:36 | PCM.HP.2 ---
H&P History of Present Illness - General Date of Service: 01/28/21 Admit Problem/Dx: Admission Diagnosis/Problem Admission Diagnosis/Problem Cellulitis - History of Present Illness Initial Comments - Free Text/Narative: 50 yo male with pmh BKA, HTN, poorly controlled Dm type 2, renal cell ca with subsequent L nephrectomy and recent hospitalization for posterior neck abscess complicated by bacteremia who comes in for evalaution of abdominal wound which is getting worse for past few days. Patient had a recent injury to his abdomen when he fell on a paulina nail and ended up having a nail penetrate his anterior abdominal wall. He was started on oral antibiotics but his wound seems to be getting worse and has been draining as well. Labs were unremarekbale but patient had significant swelling, tenderness and erythema. CT [place] showed no drainable fluid but severe cellulitis of abdominal wall. Patient was admitted for further management. Abdominal Pain Score (Numeric/FACES): 10 - Related Data Allergies/Adverse Reactions: Allergies Allergy/AdvReac Type Severity Reaction Status Date / Time ketorolac Allergy Hives Verified 01/28/21 22:37 Home Medications: Home Meds Aspirin 81 mg PO DAILY #30 tab.chew 09/30/19 [Rx] Tamsulosin HCl [Flomax] 0.4 mg PO BID #60 capsule 10/01/19 [Rx] lisinopriL [Lisinopril] 20 mg PO DAILY 04/28/20 [History] Hydrocodone/Acetaminophen [HYDROcodone-Acetaminophen 7.5-325 MG] 12/23/20 [History] Gabapentin [Neurontin] 600 mg PO QID 12/24/20 [History] metFORMIN [Glucophage] 1,000 mg PO BIDMEALS 12/24/20 [History] oxyCODONE 10 mg PO Q6H 3 Days #24 tab 12/26/20 [Rx] Ondansetron [Zofran ODT] 4 mg PO Q6H PRN #12 tab.dis 01/26/21 [Rx] Past Medical History HEENT History: Reports: Impaired Vision, Other (See Below) Other HEENT History: wears glasses Cardiovascular History: Reports: Hypertension Respiratory History: Reports: None Gastrointestinal History: Reports: None Genitourinary History: Reports: BPH Other Genitourinary History: Renal CA, Left Kidney removed. 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 Cardiovascular Surgical History: Reports: None Respiratory Surgical History: Reports: None GI Surgical History: Reports: Colonoscopy, Hernia, Abdominal Male Surgical History: Reports: Nephrectomy Other Male Surgeries/Procedures: nephrectomy 2014 Endocrine Surgical History: Reports: None Neurological Surgical History: Reports: None Musculoskeletal Surgical History: Reports: Amputation Other Musculoskeletal Surgeries/Procedures:: L BTK amputation 2017 Oncologic Surgical History: Reports: None Dermatological Surgical History: Reports: None Social & Family History - Family History Family Medical History: No Pertinent Family History - Tobacco Use Tobacco Use Status *Q: Unknown Ever Used Tobacco - Caffeine Use Caffeine Use: Reports: None - Recreational Drug Use Recreational Drug Use: No H&P Review of Systems - Review of Systems: Review Of Systems: See Below General: Reports: Chills, Malaise, Weakness. Denies: Fever Pulmonary: Denies: Shortness of Breath Cardiovascular: Denies: Palpitations, Lightheadedness, Blood Pressure Problem Gastrointestinal: Reports: Abdominal Pain. Denies: Anorexia, Black Stool, Bloody Stool, Melena, Mucous in Stool Genitourinary: Denies: Dysuria, Frequency, Burning Musculoskeletal: Reports: Neck Pain. Denies: Shoulder Pain, Back Pain Skin: Reports: Wound, Other. Denies: Cyanosis, Jaundice, Mottled Psychiatric: Denies: Confusion, Depression, Mood Lability Exam - Exam Exam: See Below - Vital Signs Vital Signs: Last Vital Signs Temp 36.3 C 01/28/21 18:22 Pulse 76 01/28/21 18:22 Resp 18 01/28/21 18:22 BP 131/71 01/28/21 18:22 Pulse Ox 98 01/28/21 18:22 - Exam General: Alert, Oriented Neck: Supple, Trachea Midline Lungs: Clear to Auscultation, Normal Respiratory Effort Cardiovascular: Regular Rate, Regular Rhythm, Normal S1 GI/Abdominal Exam: Normal Bowel Sounds, Soft, Tender. No: Hepatomegaly, Splenomegaly Back Exam: Normal Inspection, Full Range of Motion Extremities: Other (left leg BKA) Skin: Wound, Other (significant redness and erythema, punture wound with some minimal drainage) - Patient Data Lab Results Last 24 hrs: Laboratory Results - last 24 hr 01/28/21 01/28/21 01/28/21 Range/Units 18:10 18:10 20:24 WBC 7.15 (4.0-11.0) K/uL RBC 4.50 (4.50-5.90) M/uL Hgb 12.8 L (13.0-17.0) g/dL Hct 37.7 L (38.0-50.0) % MCV 83.8 (80.0-98.0) fL MCH 28.4 (27.0-32.0) pg MCHC 34.0 (31.0-37.0) g/dL RDW Std Deviation 45.8 (28.0-62.0) fl RDW Coeff of Candy 15 (11.0-15.0) % Plt Count 333 (150-400) K/uL MPV 9.40 (7.40-12.00) fL Neut % (Auto) 74.6 (48.0-80.0) % Lymph % (Auto) 15.9 L (16.0-40.0) % [place] % (Auto) 6.2 (0.0-15.0) % Eos % (Auto) 3.2 (0.0-7.0) % Baso % (Auto) 0.1 (0.0-1.5) % Neut # (Auto) 5.3 (1.4-5.7) K/uL Lymph # (Auto) 1.1 (0.6-2.4) K/uL [place] # (Auto) 0.4 (0.0-0.8) K/uL Eos # (Auto) 0.2 (0.0-0.7) K/uL Baso # (Auto) 0.0 (0.0-0.1) K/uL Nucleated RBC % 0.0 /100WBC Nucleated RBCs # 0 K/uL Sodium 139 (136-148) mmol/L Potassium 3.4 L (3.5-5.1) mmol/L Chloride 104 (98-107) mmol/L Carbon Dioxide 24.7 (21.0-32.0) mmol/L BUN 4 L (7.0-18.0) mg/dL Creatinine 0.8 (0.8-1.3) mg/dL Est Cr Clr Drug Dosing TNP Estimated GFR (MDRD) > 60.0 ml/min Glucose 200 H (74-106) mg/dL Calcium 8.5 (8.5-10.1) mg/dL Total Bilirubin 0.5 (0.2-1.0) mg/dL AST 9 L (15-37) IU/L ALT 11 L (14-63) IU/L Alkaline Phosphatase 95 (46-116) U/L Total Protein 7.1 (6.4-8.2) g/dL Albumin 3.0 L (3.4-5.0) g/dL Globulin 4.1 H (2.6-4.0) g/dL Albumin/Globulin Ratio 0.7 L (0.9-1.6) SARS-CoV-2 RNA (ISABEL) NEGATIVE (NEGATIVE) Result Diagrams: 01/28/21 18:10 01/28/21 18:10 Sepsis Event Note - Evaluation Sepsis Screening Result: Possible Sepsis Risk - Focused Exam Vital Signs: Vital Signs Temp Pulse Resp BP Pulse Ox 01/28/21 18:22 36.3 C 76 18 131/71 98 01/28/21 17:44 36.4 C 98 17 158/88 H 98 - Problem List (1) Abdominal wall cellulitis SNOMED Code(s): 86685974 ICD Code: L03.311 - CELLULITIS OF ABDOMINAL WALL Status: Acute Current Visit: No (2) Below knee amputation SNOMED Code(s): 622635403 ICD Code: S88.119A - COMPLETE TRAUM AMP AT LEV BETW KN & ANKL, UNSP LOW LEG, INIT Status: Acute Current Visit: No (3) Diabetes SNOMED Code(s): 41001588 ICD Code: E11.9 - TYPE 2 DIABETES MELLITUS WITHOUT COMPLICATIONS Status: Acute Current Visit: No (4) Hx of partial nephrectomy SNOMED Code(s): 661491908, 317556814 ICD Code: Z90.5 - ACQUIRED ABSENCE OF KIDNEY Status: Chronic Current Visit: No (5) Hx of renal cell cancer SNOMED Code(s): 233223168 ICD Code: Z85.528 - PERSONAL HISTORY OF OTHER MALIGNANT NEOPLASM OF KIDNEY Status: Chronic Current Visit: No (6) Morbid obesity with BMI of 45.0-49.9, adult SNOMED Code(s): 874285471, 93986698223451 ICD Code: E66.01 - MORBID (SEVERE) OBESITY DUE TO EXCESS CALORIES; Z68.42 - BODY MASS INDEX [BMI] 45.0-49.9, ADULT Status: Chronic Current Visit: No (7) Peripheral neuropathy SNOMED Code(s): 737810711 ICD Code: G62.9 - POLYNEUROPATHY, UNSPECIFIED Status: Chronic Current Visit: No Problem List Initiated/Reviewed/Updated: Yes Orders Last 24hrs: Active Orders 24 hr Category Date Time Status Admission Status [Patient Status] [ADT] Stat ADT 01/28/21 20:16 Active Ambulate [RC] ASDIRECTED Care 01/28/21 21:16 Active Blood Glucose Check, Bedside [RC] WITHMEALSANDBED Care 01/28/21 21:16 Active Oxygen Therapy [RC] PRN Care 01/28/21 21:16 Active RT Aerosol Therapy [RC] ASDIRECTED Care 01/28/21 21:26 Active VTE/DVT Education [RC] PER UNIT ROUTINE Care 01/28/21 21:16 Active Vital Signs [RC] Q4H Care 01/28/21 21:16 Active [place] [employer] Diet [DIET] Diet 01/28/21 Dinner Active Acetaminophen [TylenoL] Med 01/28/21 21:16 Active 650 mg PO Q4H PRN Albuterol/Ipratropium [DuoNeb 3.0-0.5 MG/3 ML] Med 01/28/21 21:16 Active 3 ml NEB Q4HRRT PRN Dextrose 50% in Water Med 01/28/21 21:27 Active 50 ml IVPUSH ASDIRECTED PRN Glucagon,Human Recombinant [GlucaGen] Med 01/28/21 21:27 Active 1 mg IM ASDIRECTED PRN Heparin Sodium Med 01/28/21 21:30 Active 5,000 units SUBCUT Q8H Insulin Aspart [NovoLOG] Med 01/29/21 07:30 Active See Protocol SUBCUT TIDAC Lactated Ringers [Ringers, Lactated] 1,000 ml Med 01/28/21 21:30 Active IV ASDIRECTED Morphine Med 01/28/21 21:16 Active 1 mg IVPUSH Q4H PRN Ondansetron [Zofran] Med 01/28/21 21:16 Active 4 mg IVPUSH Q4H PRN Piperacillin/Tazobactam [Piperacil-Tazobact] 4.5 gm Med 01/28/21 21:30 Active Sodium Chloride 0.9% [Normal Saline] 100 ml IV Q8H Sodium Chloride 0.9% [Saline Flush] Med 01/28/21 17:55 Active 10 ml FLUSH ASDIRECTED PRN Sodium Chloride 0.9% [Saline Flush] Med 01/28/21 17:55 Active 2.5 ml FLUSH ASDIRECTED PRN Saline Lock Insert [OM.PC] Stat Oth 01/28/21 17:55 Ordered Resuscitation Status Routine Resus Stat 01/28/21 21:16 Ordered Medication Orders Acetaminophen (Acetaminophen 325 Mg Tab) 650 mg PO Q4H PRN PRN Reason: Pain (Mild 1-3)/fever Albuterol/Ipratropium (Albuterol/Ipratropium 3.0-0.5 Mg/3 Ml Neb Soln) 3 ml NEB Q4HRRT PRN PRN Reason: Shortness Of Breath/wheezing Dextrose/Water (50% Dextrose In Water 50 Ml Syringe) 50 ml IVPUSH ASDIRECTED PRN PRN Reason: Hypoglycemia Glucagon (Glucagon,Human Recombinant 1 Mg Vial) 1 mg IM ASDIRECTED PRN PRN Reason: Hypoglycemia Heparin Sodium (Porcine) (Heparin Sodium 5,000 Units/Ml Vial) 5,000 units SUB CUT Q8H [place] Lactated Ringer's (Ringers, Lactated) 1,000 mls @ 125 mls/hr IV ASDIRECTED [place] Piperacillin Sod/Tazobactam (Sod 4.5 gm/ Sodium Chloride) 100 mls @ 100 mls/hr IV Q8H [place] Insulin Aspart (Insulin Aspart 100 Units/Ml 3 Ml Pen) 0 unit SUBCUT TIDAC [place]; Protocol Morphine Sulfate (Morphine 2 Mg/Ml Syringe) 1 mg IVPUSH Q4H PRN PRN Reason: Pain (severe 7-10) Stop: 01/29/21 21:21 Ondansetron HCl (Ondansetron 4 Mg/2 Ml Sdv) 4 mg IVPUSH Q4H PRN PRN Reason: Nausea/Vomiting Sodium Chloride (Sodium Chloride 0.9% 10 Ml Syringe) 10 ml FLUSH ASDIRECTED PRN PRN Reason: Keep Vein Open Sodium Chloride (Sodium Chloride 0.9% 2.5 Ml Syringe) 2.5 ml FLUSH ASDIRECTED PRN PRN Reason: Keep Vein Open Assessment/Plan Comment:: 51 y/o M admitted for abdominal wall cellulitis failed outpatient oral therapy start IV vancomycin and Zosyn obtain wound culture SSI Accu checks TIDAC start Levemir at bedtime, patient will need to be on insulin upon dc, metformin isnt adequate for his control DuoNebs as needed Morphine for pain Resume home meds as appropriate
[2021-01-28] MEDS ORDERED: Potassium Chloride 20 MEQ Tab.ER PO ONE (21:47)
[2021-01-28] MEDS: Piperacillin/Tazobactam 4.5 GM in Sodium Chloride 0.9% 100 ML IV SCH (22:45)
[2021-01-28] MEDS: Insulin Detemir 100 Units/ML 3 ML Pen SUBCUT SCH (22:45)
[2021-01-28] MEDS: Heparin Sodium 5,000 Units/ML Vial SUBCUT SCH (22:45)
[2021-01-28] MEDS: Lactated Ringers 1,000 ML IV SCH (23:00)
[2021-01-28] MEDS: Morphine 2 MG/ML SYRINGE IVPUSH PRN (23:00)
[2021-01-29] MEDS: VANCOmycin 1.5 GM/300 ML 300 ML IV SCH ×3 (00:30→23:41)
[2021-01-29] MEDS: Morphine 2 MG/ML SYRINGE IVPUSH PRN ×5 (02:59→18:58)
[2021-01-29] MEDS: Piperacillin/Tazobactam 4.5 GM in Sodium Chloride 0.9% 100 ML IV SCH ×3 (06:00→20:59)
[2021-01-29] MEDS: Heparin Sodium 5,000 Units/ML Vial SUBCUT SCH ×3 (06:00→20:59)
[2021-01-29] MEDS: Gabapentin 300 MG Cap PO SCH ×4 (06:23→23:41)
[2021-01-29 06:36] LABS: BLOOD UREA NITROGEN,BUN 5 mg/dL (7.0-18.0); CARBON DIOXIDE,CO2 26.5 mmol/L (21.0-32.0); CHLORIDE,CL 104 mmol/L (98-107); GLUCOSE RANDOM 121 mg/dL (74-106); SODIUM,NA 142 mmol/L (136-148)
[2021-01-29] MEDS: Insulin Aspart 100 Units/ML 3 ML Pen SUBCUT SCH ×3 (07:53→18:09)
[2021-01-29] MEDS ORDERED: Tamsulosin 0.4 MG Cap.ER PO SCH (09:00)
[2021-01-29] MEDS: Lisinopril 10 MG Tab PO SCH (09:46)
[2021-01-29] MEDS: Aspirin 81 MG Tab.Chew PO SCH (09:46)
--- NOTE | 2021-01-29 14:11 | PCM.PN ---
- General Info Date of Service: 01/29/21 Admission Dx/Problem (Free Text): Admission Diagnosis/Problem Admission Diagnosis/Problem Cellulitis Functional Status: Reports: Pain Controlled, Tolerating Diet, Ambulating, Urinating - Review of Systems General: Denies: Fever, Weakness, Fatigue Pulmonary: Denies: Shortness of Breath, Pleuritic Chest Pain Cardiovascular: Denies: Chest Pain, Palpitations, Dyspnea on Exertion Gastrointestinal: Denies: Abdominal Pain, Constipation, Decreased Appetite Genitourinary: Denies: Dysuria, Frequency, Burning Skin: Reports: Other (Puncture wound in the abdomen, minimal drainage, erythema has improved, some skin excoriations due to latex adhesive) - Patient Data Vitals - Most Recent: Last Vital Signs Temp 35.9 C L 01/29/21 11:53 Pulse 59 L 01/29/21 11:53 Resp 20 01/29/21 11:53 BP 178/91 H 01/29/21 11:53 Pulse Ox 98 01/29/21 11:53 Weight - Most Recent: 106.226 kg I&O - Last 24 Hours: Intake & Output 01/28/21 01/29/21 01/29/21 22:59 06:59 14:59 Intake Total 1300 300 Output Total 750 Balance 550 300 Lab Results Last 24 Hours: Laboratory Results - last 24 hr 01/28/21 01/28/21 01/28/21 Range/Units 18:10 18:10 20:24 WBC 7.15 (4.0-11.0) K/uL RBC 4.50 (4.50-5.90) M/uL Hgb 12.8 L (13.0-17.0) g/dL Hct 37.7 L (38.0-50.0) % MCV 83.8 (80.0-98.0) fL MCH 28.4 (27.0-32.0) pg MCHC 34.0 (31.0-37.0) g/dL RDW Std Deviation 45.8 (28.0-62.0) fl RDW Coeff of Candy 15 (11.0-15.0) % Plt Count 333 (150-400) K/uL MPV 9.40 (7.40-12.00) fL Neut % (Auto) 74.6 (48.0-80.0) % Lymph % (Auto) 15.9 L (16.0-40.0) % [place] % (Auto) 6.2 (0.0-15.0) % Eos % (Auto) 3.2 (0.0-7.0) % Baso % (Auto) 0.1 (0.0-1.5) % Neut # (Auto) 5.3 (1.4-5.7) K/uL Lymph # (Auto) 1.1 (0.6-2.4) K/uL [place] # (Auto) 0.4 (0.0-0.8) K/uL Eos # (Auto) 0.2 (0.0-0.7) K/uL Baso # (Auto) 0.0 (0.0-0.1) K/uL Nucleated RBC % 0.0 /100WBC Nucleated RBCs # 0 K/uL Sodium 139 (136-148) mmol/L Potassium 3.4 L (3.5-5.1) mmol/L Chloride 104 (98-107) mmol/L Carbon Dioxide 24.7 (21.0-32.0) mmol/L BUN 4 L (7.0-18.0) mg/dL Creatinine 0.8 (0.8-1.3) mg/dL Est Cr Clr Drug Dosing TNP Estimated GFR (MDRD) > 60.0 ml/min Glucose 200 H (74-106) mg/dL POC Glucose (70-99) mg/dL Calcium 8.5 (8.5-10.1) mg/dL Phosphorus (2.6-4.7) mg/dL Magnesium (1.8-2.4) mg/dL Total Bilirubin 0.5 (0.2-1.0) mg/dL AST 9 L (15-37) IU/L ALT 11 L (14-63) IU/L Alkaline Phosphatase 95 (46-116) U/L Total Protein 7.1 (6.4-8.2) g/dL Albumin 3.0 L (3.4-5.0) g/dL Globulin 4.1 H (2.6-4.0) g/dL Albumin/Globulin Ratio 0.7 L (0.9-1.6) SARS-CoV-2 RNA (ISABEL) NEGATIVE (NEGATIVE) 01/28/21 01/29/21 01/29/21 Range/Units 23:04 05:54 05:54 WBC 7.38 (4.0-11.0) K/uL RBC 4.35 L (4.50-5.90) M/uL Hgb 12.5 L (13.0-17.0) g/dL Hct 36.3 L (38.0-50.0) % MCV 83.4 (80.0-98.0) fL MCH 28.7 (27.0-32.0) pg MCHC 34.4 (31.0-37.0) g/dL RDW Std Deviation 45.5 (28.0-62.0) fl RDW Coeff of Candy 15 (11.0-15.0) % Plt Count 306 (150-400) K/uL MPV 9.50 (7.40-12.00) fL Neut % (Auto) 60.3 (48.0-80.0) % Lymph % (Auto) 28.6 (16.0-40.0) % [place] % (Auto) 5.7 (0.0-15.0) % Eos % (Auto) 5.0 (0.0-7.0) % Baso % (Auto) 0.4 (0.0-1.5) % Neut # (Auto) 4.5 (1.4-5.7) K/uL Lymph # (Auto) 2.1 (0.6-2.4) K/uL [place] # (Auto) 0.4 (0.0-0.8) K/uL Eos # (Auto) 0.4 (0.0-0.7) K/uL Baso # (Auto) 0.0 (0.0-0.1) K/uL Nucleated RBC % 0.0 /100WBC Nucleated RBCs # 0 K/uL Sodium 142 (136-148) mmol/L Potassium 4.0 (3.5-5.1) mmol/L Chloride 104 (98-107) mmol/L Carbon Dioxide 26.5 (21.0-32.0) mmol/L BUN 5 L (7.0-18.0) mg/dL Creatinine 0.8 (0.8-1.3) mg/dL Est Cr Clr Drug Dosing 99.69 Estimated GFR (MDRD) > 60.0 ml/min Glucose 121 H (74-106) mg/dL POC Glucose 163 H (70-99) mg/dL Calcium 8.4 L (8.5-10.1) mg/dL Phosphorus 2.9 (2.6-4.7) mg/dL Magnesium 1.9 (1.8-2.4) mg/dL Total Bilirubin (0.2-1.0) mg/dL AST (15-37) IU/L ALT (14-63) IU/L Alkaline Phosphatase (46-116) U/L Total Protein (6.4-8.2) g/dL Albumin (3.4-5.0) g/dL Globulin (2.6-4.0) g/dL Albumin/Globulin Ratio (0.9-1.6) SARS-CoV-2 RNA (ISABEL) (NEGATIVE) 01/29/21 01/29/21 Range/Units 06:30 11:05 WBC (4.0-11.0) K/uL RBC (4.50-5.90) M/uL Hgb (13.0-17.0) g/dL Hct (38.0-50.0) % MCV (80.0-98.0) fL MCH (27.0-32.0) pg MCHC (31.0-37.0) g/dL RDW Std Deviation (28.0-62.0) fl RDW Coeff of Candy (11.0-15.0) % Plt Count (150-400) K/uL MPV (7.40-12.00) fL Neut % (Auto) (48.0-80.0) % Lymph % (Auto) (16.0-40.0) % [place] % (Auto) (0.0-15.0) % Eos % (Auto) (0.0-7.0) % Baso % (Auto) (0.0-1.5) % Neut # (Auto) (1.4-5.7) K/uL Lymph # (Auto) (0.6-2.4) K/uL [place] # (Auto) (0.0-0.8) K/uL Eos # (Auto) (0.0-0.7) K/uL Baso # (Auto) (0.0-0.1) K/uL Nucleated RBC % /100WBC Nucleated RBCs # K/uL Sodium (136-148) mmol/L Potassium (3.5-5.1) mmol/L Chloride (98-107) mmol/L Carbon Dioxide (21.0-32.0) mmol/L BUN (7.0-18.0) mg/dL Creatinine (0.8-1.3) mg/dL Est Cr Clr Drug Dosing Estimated GFR (MDRD) ml/min Glucose (74-106) mg/dL POC Glucose 126 H 129 H (70-99) mg/dL Calcium (8.5-10.1) mg/dL Phosphorus (2.6-4.7) mg/dL Magnesium (1.8-2.4) mg/dL Total Bilirubin (0.2-1.0) mg/dL AST (15-37) IU/L ALT (14-63) IU/L Alkaline Phosphatase (46-116) U/L Total Protein (6.4-8.2) g/dL Albumin (3.4-5.0) g/dL Globulin (2.6-4.0) g/dL Albumin/Globulin Ratio (0.9-1.6) SARS-CoV-2 RNA (ISABEL) (NEGATIVE) Med Orders - Current: Current Medications Acetaminophen (Acetaminophen 325 Mg Tab) 650 mg PO Q4H PRN PRN Reason: Pain (Mild 1-3)/fever Albuterol/Ipratropium (Albuterol/Ipratropium 3.0-0.5 Mg/3 Ml Neb Soln) 3 ml NEB Q4HRRT PRN PRN Reason: Shortness Of Breath/wheezing Aspirin (Aspirin 81 Mg Tab.Chew) 81 mg PO DAILY [facility] Last Admin: 01/29/21 09:46 Dose: 81 mg Documented by: Dextrose/Water (50% Dextrose In Water 50 Ml Syringe) 50 ml IVPUSH ASDIRECTED PRN PRN Reason: Hypoglycemia Gabapentin (Gabapentin 300 Mg Cap) 600 mg PO QID [facility] Last Admin: 01/29/21 12:29 Dose: 600 mg Documented by: Glucagon (Glucagon,Human Recombinant 1 Mg Vial) 1 mg IM ASDIRECTED PRN PRN Reason: Hypoglycemia Heparin Sodium (Porcine) (Heparin Sodium 5,000 Units/Ml Vial) 5,000 units SUBCUT Q8H [facility] Last Admin: 01/29/21 12:30 Dose: 5,000 units Documented by: Lactated Ringer's (Ringers, Lactated) 1,000 mls @ 125 mls/hr IV ASDIRECTED [facility] Last Admin: 01/28/21 23:00 Dose: 125 mls/hr Documented by: Piperacillin Sod/Tazobactam (Sod 4.5 gm/ Sodium Chloride) 100 mls @ 100 mls/hr IV Q8H [facility] Last Admin: 01/29/21 12:31 Dose: 100 mls/hr Documented by: Vancomycin HCl (Vancomycin 1.5 Gm/300 Ml) 300 mls @ 200 mls/hr IV Q12H [facility] Last Admin: 01/29/21 11:09 Dose: 200 mls/hr Documented by: Insulin Aspart (Insulin Aspart 100 Units/Ml 3 Ml Pen) 0 unit SUBCUT TIDAC [facility]; Protocol Last Admin: 01/29/21 11:06 Dose: Not Given Documented by: Insulin Detemir (Insulin Detemir 100 Units/Ml 3 Ml Pen) 10 unit SUBCUT BEDTIME [facility] Last Admin: 01/28/21 22:45 Dose: 10 unit Documented by: Lisinopril (Lisinopril 10 Mg Tab) 20 mg PO DAILY [facility] Last Admin: 01/29/21 09:46 Dose: 20 mg Documented by: Morphine Sulfate (Morphine 2 Mg/Ml Syringe) 1 mg IVPUSH Q4H PRN PRN Reason: Pain (severe 7-10) Stop: 01/29/21 21:21 Last Admin: 01/29/21 11:07 Dose: 1 mg Documented by: Ondansetron HCl (Ondansetron 4 Mg/2 Ml Sdv) 4 mg IVPUSH Q4H PRN PRN Reason: Nausea/Vomiting Sodium Chloride (Sodium Chloride 0.9% 10 Ml Syringe) 10 ml FLUSH ASDIRECTED PRN PRN Reason: Keep Vein Open Sodium Chloride (Sodium Chloride 0.9% 2.5 Ml Syringe) 2.5 ml FLUSH ASDIRECTED PRN PRN Reason: Keep Vein Open Tamsulosin HCl (Tamsulosin 0.4 Mg Cap.Er) 0.4 mg PO BID [facility] Last Admin: 01/29/21 09:46 Dose: 0.4 mg Documented by: Vancomycin HCl (Pharmacy To Dose - Vancomycin) 1 dose .XX ASDIRECTED [facility] Discontinued Medications Acetaminophen (Acetaminophen 500 Mg Tab) 1,000 mg PO ONETIME ONE Stop: 01/28/21 18:01 Last Admin: 01/28/21 18:10 Dose: 1,000 mg Documented by: Haloperidol Lactate (Haloperidol Lactate 5 Mg/Ml Sdv) 5 mg IM ONETIME ONE Stop: 01/28/21 17:59 Last Admin: 01/28/21 18:11 Dose: 5 mg Documented by: Clindamycin Phosphate 600 mg/ (Sodium Chloride) 54 mls @ 100 mls/hr IV ONETIME ONE Stop: 01/28/21 20:42 Last Admin: 01/28/21 20:18 Dose: Not Given Documented by: Clindamycin Phosphate (Cleocin In D5w 600 Mg/50 Ml) Confirm Administered Dose 50 mls @ as directed .ROUTE .STK-MED ONE Stop: 01/28/21 20:14 Last Admin: 01/28/21 20:18 Dose: Not Given Documented by: Clindamycin Phosphate 600 mg/ (Premix) 50 mls @ 100 mls/hr IV ONETIME ONE Stop: 01/28/21 20:46 Last Admin: 01/28/21 20:18 Dose: 100 mls/hr Documented by: Morphine Sulfate (Morphine 4 Mg/Ml Syringe) 4 mg IVPUSH ONETIME ONE Stop: 01/28/21 20:10 Last Admin: 01/28/21 20:18 Dose: 4 mg Documented by: Potassium Chloride (Potassium Chloride 20 Meq Tab.Er) 40 meq PO ONETIME ONE Stop: 01/28/21 21:48 Last Admin: 01/28/21 22:45 Dose: 40 meq Documented by: - Exam General: Alert, Oriented Lungs: Clear to Auscultation, Normal Respiratory Effort Cardiovascular: Regular Rate, Regular Rhythm GI/Abdominal Exam: Normal Bowel Sounds, Soft, Non-Tender Extremities: Normal Range of Motion, Non-Tender, No Pedal Edema, Other (Left BKA) - Patient Data Lab Results Last 24 hrs: Laboratory Results - last 24 hr 01/28/21 01/28/21 01/28/21 Range/Units 18:10 18:10 20:24 WBC 7.15 (4.0-11.0) K/uL RBC 4.50 (4.50-5.90) M/uL Hgb 12.8 L (13.0-17.0) g/dL Hct 37.7 L (38.0-50.0) % MCV 83.8 (80.0-98.0) fL MCH 28.4 (27.0-32.0) pg MCHC 34.0 (31.0-37.0) g/dL RDW Std Deviation 45.8 (28.0-62.0) fl RDW Coeff of Candy 15 (11.0-15.0) % Plt Count 333 (150-400) K/uL MPV 9.40 (7.40-12.00) fL Neut % (Auto) 74.6 (48.0-80.0) % Lymph % (Auto) 15.9 L (16.0-40.0) % [place] % (Auto) 6.2 (0.0-15.0) % Eos % (Auto) 3.2 (0.0-7.0) % Baso % (Auto) 0.1 (0.0-1.5) % Neut # (Auto) 5.3 (1.4-5.7) K/uL Lymph # (Auto) 1.1 (0.6-2.4) K/uL [place] # (Auto) 0.4 (0.0-0.8) K/uL Eos # (Auto) 0.2 (0.0-0.7) K/uL Baso # (Auto) 0.0 (0.0-0.1) K/uL Nucleated RBC % 0.0 /100WBC Nucleated RBCs # 0 K/uL Sodium 139 (136-148) mmol/L Potassium 3.4 L (3.5-5.1) mmol/L Chloride 104 (98-107) mmol/L Carbon Dioxide 24.7 (21.0-32.0) mmol/L BUN 4 L (7.0-18.0) mg/dL Creatinine 0.8 (0.8-1.3) mg/dL Est Cr Clr Drug Dosing TNP Estimated GFR (MDRD) > 60.0 ml/min Glucose 200 H (74-106) mg/dL POC Glucose (70-99) mg/dL Calcium 8.5 (8.5-10.1) mg/dL Phosphorus (2.6-4.7) mg/dL Magnesium (1.8-2.4) mg/dL Total Bilirubin 0.5 (0.2-1.0) mg/dL AST 9 L (15-37) IU/L ALT 11 L (14-63) IU/L Alkaline Phosphatase 95 (46-116) U/L Total Protein 7.1 (6.4-8.2) g/dL Albumin 3.0 L (3.4-5.0) g/dL Globulin 4.1 H (2.6-4.0) g/dL Albumin/Globulin Ratio 0.7 L (0.9-1.6) SARS-CoV-2 RNA (ISABEL) NEGATIVE (NEGATIVE) 01/28/21 01/29/21 01/29/21 Range/Units 23:04 05:54 05:54 WBC 7.38 (4.0-11.0) K/uL RBC 4.35 L (4.50-5.90) M/uL Hgb 12.5 L (13.0-17.0) g/dL Hct 36.3 L (38.0-50.0) % MCV 83.4 (80.0-98.0) fL MCH 28.7 (27.0-32.0) pg MCHC 34.4 (31.0-37.0) g/dL RDW Std Deviation 45.5 (28.0-62.0) fl RDW Coeff of Candy 15 (11.0-15.0) % Plt Count 306 (150-400) K/uL MPV 9.50 (7.40-12.00) fL Neut % (Auto) 60.3 (48.0-80.0) % Lymph % (Auto) 28.6 (16.0-40.0) % [place] % (Auto) 5.7 (0.0-15.0) % Eos % (Auto) 5.0 (0.0-7.0) % Baso % (Auto) 0.4 (0.0-1.5) % Neut # (Auto) 4.5 (1.4-5.7) K/uL Lymph # (Auto) 2.1 (0.6-2.4) K/uL [place] # (Auto) 0.4 (0.0-0.8) K/uL Eos # (Auto) 0.4 (0.0-0.7) K/uL Baso # (Auto) 0.0 (0.0-0.1) K/uL Nucleated RBC % 0.0 /100WBC Nucleated RBCs # 0 K/uL Sodium 142 (136-148) mmol/L Potassium 4.0 (3.5-5.1) mmol/L Chloride 104 (98-107) mmol/L Carbon Dioxide 26.5 (21.0-32.0) mmol/L BUN 5 L (7.0-18.0) mg/dL Creatinine 0.8 (0.8-1.3) mg/dL Est Cr Clr Drug Dosing 99.69 Estimated GFR (MDRD) > 60.0 ml/min Glucose 121 H (74-106) mg/dL POC Glucose 163 H (70-99) mg/dL Calcium 8.4 L (8.5-10.1) mg/dL Phosphorus 2.9 (2.6-4.7) mg/dL Magnesium 1.9 (1.8-2.4) mg/dL Total Bilirubin (0.2-1.0) mg/dL AST (15-37) IU/L ALT (14-63) IU/L Alkaline Phosphatase (46-116) U/L Total Protein (6.4-8.2) g/dL Albumin (3.4-5.0) g/dL Globulin (2.6-4.0) g/dL Albumin/Globulin Ratio (0.9-1.6) SARS-CoV-2 RNA (ISABEL) (NEGATIVE) 01/29/21 01/29/21 Range/Units 06:30 11:05 WBC (4.0-11.0) K/uL RBC (4.50-5.90) M/uL Hgb (13.0-17.0) g/dL Hct (38.0-50.0) % MCV (80.0-98.0) fL MCH (27.0-32.0) pg MCHC (31.0-37.0) g/dL RDW Std Deviation (28.0-62.0) fl RDW Coeff of Candy (11.0-15.0) % Plt Count (150-400) K/uL MPV (7.40-12.00) fL Neut % (Auto) (48.0-80.0) % Lymph % (Auto) (16.0-40.0) % [place] % (Auto) (0.0-15.0) % Eos % (Auto) (0.0-7.0) % Baso % (Auto) (0.0-1.5) % Neut # (Auto) (1.4-5.7) K/uL Lymph # (Auto) (0.6-2.4) K/uL [place] # (Auto) (0.0-0.8) K/uL Eos # (Auto) (0.0-0.7) K/uL Baso # (Auto) (0.0-0.1) K/uL Nucleated RBC % /100WBC Nucleated RBCs # K/uL Sodium (136-148) mmol/L Potassium (3.5-5.1) mmol/L Chloride (98-107) mmol/L Carbon Dioxide (21.0-32.0) mmol/L BUN (7.0-18.0) mg/dL Creatinine (0.8-1.3) mg/dL Est Cr Clr Drug Dosing Estimated GFR (MDRD) ml/min Glucose (74-106) mg/dL POC Glucose 126 H 129 H (70-99) mg/dL Calcium (8.5-10.1) mg/dL Phosphorus (2.6-4.7) mg/dL Magnesium (1.8-2.4) mg/dL Total Bilirubin (0.2-1.0) mg/dL AST (15-37) IU/L ALT (14-63) IU/L Alkaline Phosphatase (46-116) U/L Total Protein (6.4-8.2) g/dL Albumin (3.4-5.0) g/dL Globulin (2.6-4.0) g/dL Albumin/Globulin Ratio (0.9-1.6) SARS-CoV-2 RNA (ISABEL) (NEGATIVE) Result Diagrams: 01/29/21 05:54 01/29/21 05:54 Sepsis Event Note - Evaluation Sepsis Screening Result: No Definite Risk - Focused Exam Vital Signs: Vital Signs Temp Pulse Resp BP BP Pulse Ox 01/29/21 11:53 35.9 C L 59 L 20 178/91 H 98 01/29/21 09:46 168/91 H 01/29/21 08:00 35.7 C L 73 22 H 168/91 H 98 01/29/21 04:00 36.6 C 60 18 148/70 H 99 - Problem List & Annotations (1) Abdominal wall cellulitis SNOMED Code(s): 13458356 Code(s): L03.311 - CELLULITIS OF ABDOMINAL WALL Status: Acute Current Visit: No (2) Below knee amputation SNOMED Code(s): 552493241 Code(s): S88.119A - COMPLETE TRAUM AMP AT LEV BETW KN & ANKL, UNSP LOW LEG, INIT Status: Acute Current Visit: No (3) Diabetes SNOMED Code(s): 91207520 Code(s): E11.9 - TYPE 2 DIABETES MELLITUS WITHOUT COMPLICATIONS Status: Acute Current Visit: No (4) Hx of partial nephrectomy SNOMED Code(s): 187079756, 842358574 Code(s): Z90.5 - ACQUIRED ABSENCE OF KIDNEY Status: Chronic Current Visit: No (5) Hx of renal cell cancer SNOMED Code(s): 038977213 Code(s): Z85.528 - PERSONAL HISTORY OF OTHER MALIGNANT NEOPLASM OF KIDNEY Status: Chronic Current Visit: No (6) Morbid obesity with BMI of 45.0-49.9, adult SNOMED Code(s): 172549676, 02394700924174 Code(s): E66.01 - MORBID (SEVERE) OBESITY DUE TO EXCESS CALORIES; Z68.42 - BODY MASS INDEX [BMI] 45.0-49.9, ADULT Status: Chronic Current Visit: No (7) Peripheral neuropathy SNOMED Code(s): 256711884 Code(s): G62.9 - POLYNEUROPATHY, UNSPECIFIED Status: Chronic Current Visit: No - Problem List Review Problem List Initiated/Reviewed/Updated: Yes - My Orders Last 24 Hours: My Active Orders 01/28/21 Dinner [employer] Diet [DIET] 01/28/21 21:16 Ambulate [RC] ASDIRECTED Blood Glucose Check, Bedside [RC] WITHMEALSANDBED Oxygen Therapy [RC] PRN VTE/DVT Education [RC] PER UNIT ROUTINE Vital Signs [RC] Q4H Acetaminophen [TylenoL] 650 mg PO Q4H PRN Albuterol/Ipratropium [DuoNeb 3.0-0.5 MG/3 ML] 3 ml NEB Q4HRRT PRN Morphine 1 mg IVPUSH Q4H PRN Ondansetron [Zofran] 4 mg IVPUSH Q4H PRN Resuscitation Status Routine 01/28/21 21:26 RT Aerosol Therapy [RC] ASDIRECTED 01/28/21 21:27 Dextrose 50% in Water 50 ml IVPUSH ASDIRECTED PRN Glucagon,Human Recombinant [GlucaGen] 1 mg IM ASDIRECTED PRN 01/28/21 21:30 Heparin Sodium 5,000 units SUBCUT Q8H Lactated Ringers [Ringers, Lactated] 1,000 ml IV ASDIRECTED Piperacillin/Tazobactam [Piperacil-Tazobact] 4.5 gm Sodium Chloride 0.9% [No rmal Saline] 100 ml IV Q8H 01/28/21 21:44 Insulin Detemir [Levemir] 10 unit SUBCUT BEDTIME 01/28/21 21:45 Pharmacy to Dose - Vancomycin 1 dose .XX ASDIRECTED 01/28/21 23:30 VANCOmycin 1.5 GM/300 ML 300 ml IV Q12H 01/29/21 06:00 Gabapentin [Neurontin] 600 mg PO QID 01/29/21 07:30 Insulin Aspart [NovoLOG] See Protocol SUBCUT TIDAC 01/29/21 09:00 Aspirin 81 mg PO DAILY Tamsulosin [Flomax] 0.4 mg PO BID lisinopriL [Prinivil] 20 mg PO DAILY - Plan Plan:: 51 y/o M admitted for abdominal wall cellulitis failed outpatient oral therapy start IV vancomycin and Zosyn f/u on wound culture cont SSI for tight blood sugar control, Accu checks TIDAC start Levemir at bedtime, patient will need to be on insulin upon dc, metformin isnt adequate for his control DuoNebs as needed Morphine for pain Resume home meds as appropriate
[2021-01-29] MEDS: Lactated Ringers 1,000 ML IV SCH ×2 (14:13→23:41)
[2021-01-29] MEDS: Insulin Detemir 100 Units/ML 3 ML Pen SUBCUT SCH (21:04)
[2021-01-30] MEDS: Morphine 2 MG/ML SYRINGE IVPUSH PRN ×4 (01:30→21:35)
[2021-01-30 05:46] LABS: BLOOD UREA NITROGEN,BUN 3 mg/dL (7.0-18.0); CARBON DIOXIDE,CO2 26.6 mmol/L (21.0-32.0); CHLORIDE,CL 106 mmol/L (98-107); GLUCOSE RANDOM 93 mg/dL (74-106); POTASSIUM,K 4.3 mmol/L (3.5-5.1); SODIUM,NA 142 mmol/L (136-148)
[2021-01-30] MEDS: Heparin Sodium 5,000 Units/ML Vial SUBCUT SCH ×3 (06:00→21:00)
[2021-01-30] MEDS: Piperacillin/Tazobactam 4.5 GM in Sodium Chloride 0.9% 100 ML IV SCH ×3 (06:00→21:00)
[2021-01-30] MEDS: Gabapentin 300 MG Cap PO SCH ×3 (06:11→17:31)
[2021-01-30] MEDS: Lisinopril 10 MG Tab PO SCH (08:04)
[2021-01-30] MEDS: Aspirin 81 MG Tab.Chew PO SCH (08:05)
[2021-01-30] MEDS: Insulin Aspart 100 Units/ML 3 ML Pen SUBCUT SCH ×3 (08:10→18:49)
[2021-01-30] MEDS: VANCOmycin 1.5 GM/300 ML 300 ML IV SCH (12:25)
--- NOTE | 2021-01-30 12:44 | PCM.PN ---
- General Info Date of Service: 01/30/21 Admission Dx/Problem (Free Text): Admission Diagnosis/Problem Admission Diagnosis/Problem Cellulitis Subjective Update: Patient seen at bedside, resting comfortably, pain is better, the cellulitis looks much better today but still has drainage. Functional Status: Reports: Tolerating Diet, Ambulating - Review of Systems General: Denies: Fever, Weakness Pulmonary: Denies: Shortness of Breath, Pleuritic Chest Pain Cardiovascular: Denies: Chest Pain, Palpitations Gastrointestinal: Denies: Abdominal Pain, Constipation, Decreased Appetite Genitourinary: Denies: Dysuria, Frequency, Burning Musculoskeletal: Denies: Neck Pain, Shoulder Pain Skin: Denies: Cyanosis, Jaundice, Mottled Neurological: Denies: Confusion, Dizziness, Headache - Patient Data Vitals - Most Recent: Last Vital Signs Temp 36.6 C 01/30/21 11:00 Pulse 81 01/30/21 11:00 Resp 16 01/30/21 11:00 BP 137/77 01/30/21 11:00 Pulse Ox 99 01/30/21 11:00 Weight - Most Recent: 106.226 kg I&O - Last 24 Hours: Intake & Output 01/29/21 01/30/21 01/30/21 22:59 06:59 14:59 Intake Total 436 1200 Output Total 2100 1750 Balance -1664 -550 Lab Results Last 24 Hours: Laboratory Results - last 24 hr 01/29/21 01/29/21 01/30/21 Range/Units 17:06 21:03 05:14 WBC 6.46 (4.0-11.0) K/uL RBC 4.32 L (4.50-5.90) M/uL Hgb 12.2 L (13.0-17.0) g/dL Hct 36.4 L (38.0-50.0) % MCV 84.3 (80.0-98.0) fL MCH 28.2 (27.0-32.0) pg MCHC 33.5 (31.0-37.0) g/dL RDW Std Deviation 46.7 (28.0-62.0) fl RDW Coeff of Candy 15 (11.0-15.0) % Plt Count 332 (150-400) K/uL MPV 9.50 (7.40-12.00) fL Neut % (Auto) 51.5 (48.0-80.0) % Lymph % (Auto) 36.8 (16.0-40.0) % Stewart % (Auto) 6.7 (0.0-15.0) % Eos % (Auto) 4.8 (0.0-7.0) % Baso % (Auto) 0.2 (0.0-1.5) % Neut # (Auto) 3.3 (1.4-5.7) K/uL Lymph # (Auto) 2.4 (0.6-2.4) K/uL Stewart # (Auto) 0.4 (0.0-0.8) K/uL Eos # (Auto) 0.3 (0.0-0.7) K/uL Baso # (Auto) 0.0 (0.0-0.1) K/uL Nucleated RBC % 0.0 /100WBC Nucleated RBCs # 0 K/uL Sodium (136-148) mmol/L Potassium (3.5-5.1) mmol/L Chloride (98-107) mmol/L Carbon Dioxide (21.0-32.0) mmol/L BUN (7.0-18.0) mg/dL Creatinine (0.8-1.3) mg/dL Est Cr Clr Drug Dosing mL/min Estimated GFR (MDRD) ml/min Glucose (74-106) mg/dL POC Glucose 154 H 156 H (70-99) mg/dL Calcium (8.5-10.1) mg/dL Phosphorus (2.6-4.7) mg/dL Magnesium (1.8-2.4) mg/dL Vancomycin Trough (5.0-10.0) ug/mL 01/30/21 01/30/21 01/30/21 Range/Units 05:14 06:05 10:36 WBC (4.0-11.0) K/uL RBC (4.50-5.90) M/uL Hgb (13.0-17.0) g/dL Hct (38.0-50.0) % MCV (80.0-98.0) fL MCH (27.0-32.0) pg MCHC (31.0-37.0) g/dL RDW Std Deviation (28.0-62.0) fl RDW Coeff of Candy (11.0-15.0) % Plt Count (150-400) K/uL MPV (7.40-12.00) fL Neut % (Auto) (48.0-80.0) % Lymph % (Auto) (16.0-40.0) % Stewart % (Auto) (0.0-15.0) % Eos % (Auto) (0.0-7.0) % Baso % (Auto) (0.0-1.5) % Neut # (Auto) (1.4-5.7) K/uL Lymph # (Auto) (0.6-2.4) K/uL Stewart # (Auto) (0.0-0.8) K/uL Eos # (Auto) (0.0-0.7) K/uL Baso # (Auto) (0.0-0.1) K/uL Nucleated RBC % /100WBC Nucleated RBCs # K/uL Sodium 142 (136-148) mmol/L Potassium 4.3 (3.5-5.1) mmol/L Chloride 106 (98-107) mmol/L Carbon Dioxide 26.6 (21.0-32.0) mmol/L BUN 3 L (7.0-18.0) mg/dL Creatinine 0.8 (0.8-1.3) mg/dL Est Cr Clr Drug Dosing 99.69 mL/min Estimated GFR (MDRD) > 60.0 ml/min Glucose 93 (74-106) mg/dL POC Glucose 98 (70-99) mg/dL Calcium 8.6 (8.5-10.1) mg/dL Phosphorus 3.6 (2.6-4.7) mg/dL Magnesium 1.8 (1.8-2.4) mg/dL Vancomycin Trough 18.7 H (5.0-10.0) ug/mL 01/30/21 Range/Units 11:51 WBC (4.0-11.0) K/uL RBC (4.50-5.90) M/uL Hgb (13.0-17.0) g/dL Hct (38.0-50.0) % MCV (80.0-98.0) fL MCH (27.0-32.0) pg MCHC (31.0-37.0) g/dL RDW Std Deviation (28.0-62.0) fl RDW Coeff of Candy (11.0-15.0) % Plt Count (150-400) K/uL MPV (7.40-12.00) fL Neut % (Auto) (48.0-80.0) % Lymph % (Auto) (16.0-40.0) % Stewart % (Auto) (0.0-15.0) % Eos % (Auto) (0.0-7.0) % Baso % (Auto) (0.0-1.5) % Neut # (Auto) (1.4-5.7) K/uL Lymph # (Auto) (0.6-2.4) K/uL Stewart # (Auto) (0.0-0.8) K/uL Eos # (Auto) (0.0-0.7) K/uL Baso # (Auto) (0.0-0.1) K/uL Nucleated RBC % /100WBC Nucleated RBCs # K/uL Sodium (136-148) mmol/L Potassium (3.5-5.1) mmol/L Chloride (98-107) mmol/L Carbon Dioxide (21.0-32.0) mmol/L BUN (7.0-18.0) mg/dL Creatinine (0.8-1.3) mg/dL Est Cr Clr Drug Dosing mL/min Estimated GFR (MDRD) ml/min Glucose (74-106) mg/dL POC Glucose 126 H (70-99) mg/dL Calcium (8.5-10.1) mg/dL Phosphorus (2.6-4.7) mg/dL Magnesium (1.8-2.4) mg/dL Vancomycin Trough (5.0-10.0) ug/mL Med Orders - Current: Current Medications Acetaminophen (Acetaminophen 325 Mg Tab) 650 mg PO Q4H PRN PRN Reason: Pain (Mild 1-3)/fever Albuterol/Ipratropium (Albuterol/Ipratropium 3.0-0.5 Mg/3 Ml Neb Soln) 3 ml NEB Q4HRRT PRN PRN Reason: Shortness Of Breath/wheezing Aspirin (Aspirin 81 Mg Tab.Chew) 81 mg PO DAILY [facility] Last Admin: 01/30/21 08:05 Dose: 81 mg Documented by: Dextrose/Water (50% Dextrose In Water 50 Ml Syringe) 50 ml IVPUSH ASDIRECTED PRN PRN Reason: Hypoglycemia Gabapentin (Gabapentin 300 Mg Cap) 600 mg PO QID [facility] Last Admin: 01/30/21 12:18 Dose: 600 mg Documented by: Glucagon (Glucagon,Human Recombinant 1 Mg Vial) 1 mg IM ASDIRECTED PRN PRN Reason: Hypoglycemia Heparin Sodium (Porcine) (Heparin Sodium 5,000 Units/Ml Vial) 5,000 units SUBCUT Q8H [facility] Last Admin: 01/30/21 06:00 Dose: 5,000 units Documented by: Piperacillin Sod/Tazobactam (Sod 4.5 gm/ Sodium Chloride) 100 mls @ 100 mls/hr IV Q8H [facility] Last Admin: 01/30/21 06:00 Dose: 100 mls/hr Documented by: Vancomycin HCl (Vancomycin 1.5 Gm/300 Ml) 300 mls @ 200 mls/hr IV Q24H [facility] Insulin Aspart (Insulin Aspart 100 Units/Ml 3 Ml Pen) 0 unit SUBCUT TIDAC [facility]; Protocol Last Admin: 01/30/21 12:24 Dose: Not Given Documented by: Insulin Detemir (Insulin Detemir 100 Units/Ml 3 Ml Pen) 10 unit SUBCUT BEDTIME [facility] Last Admin: 01/29/21 21:04 Dose: 10 unit Documented by: Lisinopril (Lisinopril 10 Mg Tab) 20 mg PO DAILY [facility] Last Admin: 01/30/21 08:04 Dose: 20 mg Documented by: Morphine Sulfate (Morphine 2 Mg/Ml Syringe) 1 mg IVPUSH Q6H PRN PRN Reason: Pain Last Admin: 01/30/21 08:05 Dose: 1 mg Documented by: Ondansetron HCl (Ondansetron 4 Mg/2 Ml Sdv) 4 mg IVPUSH Q4H PRN PRN Reason: Nausea/Vomiting Sodium Chloride (Sodium Chloride 0.9% 10 Ml Syringe) 10 ml FLUSH ASDIRECTED PRN PRN Reason: Keep Vein Open Sodium Chloride (Sodium Chloride 0.9% 2.5 Ml Syringe) 2.5 ml FLUSH ASDIRECTED PRN PRN Reason: Keep Vein Open Tamsulosin HCl (Tamsulosin 0.4 Mg Cap.Er) 0.4 mg PO BEDTIME [facility] Vancomycin HCl (Pharmacy To Dose - Vancomycin) 1 dose .XX ASDIRECTED [facility] Discontinued Medications Acetaminophen (Acetaminophen 500 Mg Tab) 1,000 mg PO ONETIME ONE Stop: 01/28/21 18:01 Last Admin: 01/28/21 18:10 Dose: 1,000 mg Documented by: Haloperidol Lactate (Haloperidol Lactate 5 Mg/Ml Sdv) 5 mg IM ONETIME ONE Stop: 01/28/21 17:59 Last Admin: 01/28/21 18:11 Dose: 5 mg Documented by: Clindamycin Phosphate 600 mg/ (Sodium Chloride) 54 mls @ 100 mls/hr IV ONETIME ONE Stop: 01/28/21 20:42 Last Admin: 01/28/21 20:18 Dose: Not Given Documented by: Clindamycin Phosphate (Cleocin In D5w 600 Mg/50 Ml) Confirm Administered Dose 50 mls @ as directed .ROUTE .STK-MED ONE Stop: 01/28/21 20:14 Last Admin: 01/28/21 20:18 Dose: Not Given Documented by: Clindamycin Phosphate 600 mg/ (Premix) 50 mls @ 100 mls/hr IV ONETIME ONE Stop: 01/28/21 20:46 Last Admin: 01/28/21 20:18 Dose: 100 mls/hr Documented by: Lactated Ringer's (Ringers, Lactated) 1,000 mls @ 125 mls/hr IV ASDIRECTED [facility] Last Admin: 01/29/21 23:41 Dose: 125 mls/hr Documented by: Vancomycin HCl (Vancomycin 1.5 Gm/300 Ml) 300 mls @ 200 mls/hr IV Q12H [facility] Last Admin: 01/30/21 12:25 Dose: Not Given Documented by: Morphine Sulfate (Morphine 4 Mg/Ml Syringe) 4 mg IVPUSH ONETIME ONE Stop: 01/28/21 20:10 Last Admin: 01/28/21 20:18 Dose: 4 mg Documented by: Morphine Sulfate (Morphine 2 Mg/Ml Syringe) 1 mg IVPUSH Q4H PRN PRN Reason: Pain (severe 7-10) Stop: 01/29/21 21:21 Last Admin: 01/29/21 18:58 Dose: 1 mg Documented by: Potassium Chloride (Potassium Chloride 20 Meq Tab.Er) 40 meq PO ONETIME ONE Stop: 01/28/21 21:48 Last Admin: 01/28/21 22:45 Dose: 40 meq Documented by: Tamsulosin HCl (Tamsulosin 0.4 Mg Cap.Er) 0.4 mg PO BID [facility] Last Admin: 01/29/21 09:46 Dose: 0.4 mg Documented by: - Exam General: Alert, Oriented Lungs: Clear to Auscultation Cardiovascular: Regular Rate, Regular Rhythm GI/Abdominal Exam: Normal Bowel Sounds, Soft, Non-Tender Extremities: Other (Left BKA). No: Non-Tender, Pedal Edema Skin: Other (Abdominal wall erythema has improved, puncture wound is still draining purulent drainage) Wound/Incisions: Drainage, Erythema Improving. No: Dressing Dry and Intact - Patient Data Lab Results Last 24 hrs: Laboratory Results - last 24 hr 01/29/21 01/29/21 01/30/21 Range/Units 17:06 21:03 05:14 WBC 6.46 (4.0-11.0) K/uL RBC 4.32 L (4.50-5.90) M/uL Hgb 12.2 L (13.0-17.0) g/dL Hct 36.4 L (38.0-50.0) % MCV 84.3 (80.0-98.0) fL MCH 28.2 (27.0-32.0) pg MCHC 33.5 (31.0-37.0) g/dL RDW Std Deviation 46.7 (28.0-62.0) fl RDW Coeff of Candy 15 (11.0-15.0) % Plt Count 332 (150-400) K/uL MPV 9.50 (7.40-12.00) fL Neut % (Auto) 51.5 (48.0-80.0) % Lymph % (Auto) 36.8 (16.0-40.0) % Stewart % (Auto) 6.7 (0.0-15.0) % Eos % (Auto) 4.8 (0.0-7.0) % Baso % (Auto) 0.2 (0.0-1.5) % Neut # (Auto) 3.3 (1.4-5.7) K/uL Lymph # (Auto) 2.4 (0.6-2.4) K/uL Stewart # (Auto) 0.4 (0.0-0.8) K/uL Eos # (Auto) 0.3 (0.0-0.7) K/uL Baso # (Auto) 0.0 (0.0-0.1) K/uL Nucleated RBC % 0.0 /100WBC Nucleated RBCs # 0 K/uL Sodium (136-148) mmol/L Potassium (3.5-5.1) mmol/L Chloride (98-107) mmol/L Carbon Dioxide (21.0-32.0) mmol/L BUN (7.0-18.0) mg/dL Creatinine (0.8-1.3) mg/dL Est Cr Clr Drug Dosing mL/min Estimated GFR (MDRD) ml/min Glucose (74-106) mg/dL POC Glucose 154 H 156 H (70-99) mg/dL Calcium (8.5-10.1) mg/dL Phosphorus (2.6-4.7) mg/dL Magnesium (1.8-2.4) mg/dL Vancomycin Trough (5.0-10.0) ug/mL 01/30/21 01/30/21 01/30/21 Range/Units 05:14 06:05 10:36 WBC (4.0-11.0) K/uL RBC (4.50-5.90) M/uL Hgb (13.0-17.0) g/dL Hct (38.0-50.0) % MCV (80.0-98.0) fL MCH (27.0-32.0) pg MCHC (31.0-37.0) g/dL RDW Std Deviation (28.0-62.0) fl RDW Coeff of Candy (11.0-15.0) % Plt Count (150-400) K/uL MPV (7.40-12.00) fL Neut % (Auto) (48.0-80.0) % Lymph % (Auto) (16.0-40.0) % Stewart % (Auto) (0.0-15.0) % Eos % (Auto) (0.0-7.0) % Baso % (Auto) (0.0-1.5) % Neut # (Auto) (1.4-5.7) K/uL Lymph # (Auto) (0.6-2.4) K/uL Stewart # (Auto) (0.0-0.8) K/uL Eos # (Auto) (0.0-0.7) K/uL Baso # (Auto) (0.0-0.1) K/uL Nucleated RBC % /100WBC Nucleated RBCs # K/uL Sodium 142 (136-148) mmol/L Potassium 4.3 (3.5-5.1) mmol/L Chloride 106 (98-107) mmol/L Carbon Dioxide 26.6 (21.0-32.0) mmol/L BUN 3 L (7.0-18.0) mg/dL Creatinine 0.8 (0.8-1.3) mg/dL Est Cr Clr Drug Dosing 99.69 mL/min Estimated GFR (MDRD) > 60.0 ml/min Glucose 93 (74-106) mg/dL POC Glucose 98 (70-99) mg/dL Calcium 8.6 (8.5-10.1) mg/dL Phosphorus 3.6 (2.6-4.7) mg/dL Magnesium 1.8 (1.8-2.4) mg/dL Vancomycin Trough 18.7 H (5.0-10.0) ug/mL 01/30/21 Range/Units 11:51 WBC (4.0-11.0) K/uL RBC (4.50-5.90) M/uL Hgb (13.0-17.0) g/dL Hct (38.0-50.0) % MCV (80.0-98.0) fL MCH (27.0-32.0) pg MCHC (31.0-37.0) g/dL RDW Std Deviation (28.0-62.0) fl RDW Coeff of Candy (11.0-15.0) % Plt Count (150-400) K/uL MPV (7.40-12.00) fL Neut % (Auto) (48.0-80.0) % Lymph % (Auto) (16.0-40.0) % Stewart % (Auto) (0.0-15.0) % Eos % (Auto) (0.0-7.0) % Baso % (Auto) (0.0-1.5) % Neut # (Auto) (1.4-5.7) K/uL Lymph # (Auto) (0.6-2.4) K/uL Stewart # (Auto) (0.0-0.8) K/uL Eos # (Auto) (0.0-0.7) K/uL Baso # (Auto) (0.0-0.1) K/uL Nucleated RBC % /100WBC Nucleated RBCs # K/uL Sodium (136-148) mmol/L Potassium (3.5-5.1) mmol/L Chloride (98-107) mmol/L Carbon Dioxide (21.0-32.0) mmol/L BUN (7.0-18.0) mg/dL Creatinine (0.8-1.3) mg/dL Est Cr Clr Drug Dosing mL/min Estimated GFR (MDRD) ml/min Glucose (74-106) mg/dL POC Glucose 126 H (70-99) mg/dL Calcium (8.5-10.1) mg/dL Phosphorus (2.6-4.7) mg/dL Magnesium (1.8-2.4) mg/dL Vancomycin Trough (5.0-10.0) ug/mL Result Diagrams: 01/30/21 05:14 01/30/21 05:14 Sepsis Event Note - Evaluation Sepsis Screening Result: No Definite Risk - Focused Exam Vital Signs: Vital Signs Temp Pulse Resp BP BP BP Pulse Ox 01/30/21 11:00 36.6 C 81 16 137/77 99 01/30/21 08:04 160/74 H 01/30/21 07:39 36.5 C 69 16 160/74 H 97 01/30/21 04:00 36.6 C 76 18 136/78 98 - Problem List & Annotations (1) Abdominal wall cellulitis SNOMED Code(s): 00279759 Code(s): L03.311 - CELLULITIS OF ABDOMINAL WALL Status: Acute Current Visit: No (2) Below knee amputation SNOMED Code(s): 181077534 Code(s): S88.119A - COMPLETE TRAUM AMP AT LEV BETW KN & ANKL, UNSP LOW LEG, INIT Status: Acute Current Visit: No (3) Diabetes SNOMED Code(s): 48887498 Code(s): E11.9 - TYPE 2 DIABETES MELLITUS WITHOUT COMPLICATIONS Status: Acute Current Visit: No (4) Hx of partial nephrectomy SNOMED Code(s): 530454901, 788986496 Code(s): Z90.5 - ACQUIRED ABSENCE OF KIDNEY Status: Chronic Current Visit: No (5) Hx of renal cell cancer SNOMED Code(s): 275866030 Code(s): Z85.528 - PERSONAL HISTORY OF OTHER MALIGNANT NEOPLASM OF KIDNEY Status: Chronic Current Visit: No (6) Morbid obesity with BMI of 45.0-49.9, adult SNOMED Code(s): 791062832, 22223146417736 Code(s): E66.01 - MORBID (SEVERE) OBESITY DUE TO EXCESS CALORIES; Z68.42 - BODY MASS INDEX [BMI] 45.0-49.9, ADULT Status: Chronic Current Visit: No (7) Peripheral neuropathy SNOMED Code(s): 741852260 Code(s): G62.9 - POLYNEUROPATHY, UNSPECIFIED Status: Chronic Current Visit: No - Problem List Review Problem List Initiated/Reviewed/Updated: Yes - My Orders Last 24 Hours: My Active Orders 01/30/21 00:56 Morphine 1 mg IVPUSH Q6H PRN 01/30/21 21:00 Tamsulosin [Flomax] 0.4 mg PO BEDTIME 01/30/21 23:30 VANCOmycin 1.5 GM/300 ML 300 ml IV Q24H - Plan Plan:: 51 y/o M admitted for abdominal wall cellulitis failed outpatient oral therapy start IV vancomycin and Zosyn f/u on wound culture, results still pending cont SSI for tight blood sugar control, Accu checks TIDAC start Levemir at bedtime, patient will need to be on insulin upon dc, metformin isnt adequate for his control DuoNebs as needed Morphine for pain Resume home meds as appropriate
[2021-01-30] MEDS: Acidophilus with Citrus Pectin Tab PO SCH (19:43)
[2021-01-30] MEDS: Insulin Detemir 100 Units/ML 3 ML Pen SUBCUT SCH (21:00)
[2021-01-30] MEDS ORDERED: Tamsulosin 0.4 MG Cap.ER PO SCH (21:00)
[2021-01-30] MEDS ORDERED: VANCOmycin 1.5 GM/300 ML 300 ML IV SCH (23:30)
[2021-01-31] MEDS: Morphine 2 MG/ML SYRINGE IVPUSH PRN ×3 (04:18→15:10)
[2021-01-31] MEDS: Piperacillin/Tazobactam 4.5 GM in Sodium Chloride 0.9% 100 ML IV SCH (06:00)
[2021-01-31] MEDS: Gabapentin 300 MG Cap PO SCH ×3 (06:00→11:58)
[2021-01-31] MEDS: Heparin Sodium 5,000 Units/ML Vial SUBCUT SCH (06:00)
[2021-01-31 06:02] LABS: BLOOD UREA NITROGEN,BUN 6 mg/dL (7.0-18.0); CARBON DIOXIDE,CO2 25.8 mmol/L (21.0-32.0); CHLORIDE,CL 104 mmol/L (98-107); GLUCOSE RANDOM 107 mg/dL (74-106); POTASSIUM,K 3.7 mmol/L (3.5-5.1); SODIUM,NA 139 mmol/L (136-148)
[2021-01-31] MEDS: Insulin Aspart 100 Units/ML 3 ML Pen SUBCUT SCH ×2 (07:44→11:08)
[2021-01-31] MEDS: Acidophilus with Citrus Pectin Tab PO SCH (08:11)
[2021-01-31] MEDS: Aspirin 81 MG Tab.Chew PO SCH (08:11)
[2021-01-31] MEDS: Lisinopril 10 MG Tab PO SCH (08:11)
--- NOTE | 2021-01-31 12:38 | PCM.DCSUM1 ---
Discharge Summary - Hospital Course Free Text/Narrative:: 50 yo male with pmh BKA, HTN, poorly controlled Dm type 2, renal cell ca with subsequent L nephrectomy and recent hospitalization for posterior neck abscess complicated by bacteremia who comes in for evalaution of abdominal wound which is getting worse for past few days. Patient had a recent injury to his abdomen when he fell on a paulina nail and ended up having a nail penetrate his anterior abdominal wall. He was started on oral antibiotics but his wound seems to be getting worse and has been draining as well. Labs were unremarekbale but patient had significant swelling, tenderness and erythema. CT abdomen showed no drainable fluid but severe cellulitis of abdominal wall. Patient was admitted for further management. Patient was started on broad-spectrum antibiotics including vancomycin and Zosyn. Patient was also started on sliding scale insulin and bedtime Levemir for tight blood sugar control. Patient also received IV morphine for pain control. The culture from the abdominal wound was sent as well, patient was feeling better and his erythema was improving as well. His pain was getting better as well. Patient requested to be discharged home on day 3 of admission as he had a prior engagement and had to travel to [place] for his daughter's wedding. It was recommended to stay to get IV antibiotics and final culture results but patient insisted that he has to go. Given that patient was hemodynamically stable, his wound was improving and patient was afebrile, patient was sent home on oral antibiotics (Bactrim and Flagyl). Patient was requesting Percocet upon discharge but was recommended to take Tylenol instead as he had been getting frequent refills from his previous office visits. Patient was also sent on Levemir in addition to the Metformin for better blood sugar control and recommended to follow-up with his primary care as well as surgery upon discharge. Diagnosis: Stroke: No - Discharge Data Discharge Date: 01/31/21 Discharge Disposition: Home, Self-Care 01 Condition: Good - Referral to Home Health Primary Care Physician: Zeyad Juan MD - Discharge Diagnosis/Problem(s) (1) Abdominal wall cellulitis SNOMED Code(s): 50510317 ICD Code: L03.311 - CELLULITIS OF ABDOMINAL WALL Status: Acute (2) Below knee amputation SNOMED Code(s): 452295077 ICD Code: S88.119A - COMPLETE TRAUM AMP AT LEV BETW KN & ANKL, UNSP LOW LEG, INIT Status: Acute (3) Diabetes SNOMED Code(s): 05887666 ICD Code: E11.9 - TYPE 2 DIABETES MELLITUS WITHOUT COMPLICATIONS Status: Acute (4) Hx of partial nephrectomy SNOMED Code(s): 028341890, 062749781 ICD Code: Z90.5 - ACQUIRED ABSENCE OF KIDNEY Status: Chronic (5) Hx of renal cell cancer SNOMED Code(s): 003375506 ICD Code: Z85.528 - PERSONAL HISTORY OF OTHER MALIGNANT NEOPLASM OF KIDNEY Status: Chronic (6) Morbid obesity with BMI of 45.0-49.9, adult SNOMED Code(s): 704418554, 33051082678528 ICD Code: E66.01 - MORBID (SEVERE) OBESITY DUE TO EXCESS CALORIES; Z68.42 - BODY MASS INDEX [BMI] 45.0-49.9, ADULT Status: Chronic (7) Peripheral neuropathy SNOMED Code(s): 524184836 ICD Code: G62.9 - POLYNEUROPATHY, UNSPECIFIED Status: Chronic - Patient Summary/Data Consults: Consultations 01/28/21 22:43 Consult to Physician [CONS] Stat 01/29/21 10:46 Consult to Rim Roller Operator [Consult to Diabetic Nurse Specialist] [CONS] Routine - Patient Instructions Diet: Diabetic Diet Activity: As Tolerated Driving: May Drive Today Showering/Bathing: May Shower Wound/Incision Care: Keep Operative Site/Wound Site Clean and Dry, Change Dressing Daily Notify Provider of: Fever, Increased Pain, Swelling and Redness, Drainage, Nausea and/or Vomiting Other/Special Instructions: Return to ER if swelling, pain, drainage gets worse - Discharge Plan *PRESCRIPTION DRUG MONITORING PROGRAM REVIEWED*: No *COPY OF PRESCRIPTION DRUG MONITORING REPORT IN PATIENT JUDY: No Prescriptions/Med Rec: Lactobacillus Acidophilus [Acidophilus] 1 each PO DAILY #20 capsule Sulfamethoxazole/Trimethoprim [Bactrim Ds Tablet] 2 tab PO BID 10 Days #40 tablet metroNIDAZOLE [Flagyl] 500 mg PO Q8H #30 tab Insulin Detemir [Levemir] 10 unit SUBCUT BEDTIME #1 pen Home Medications: Home Meds Aspirin 81 mg PO DAILY #30 tab.chew 09/30/19 [Rx] lisinopriL [Lisinopril] 20 mg PO DAILY 04/28/20 [History] Gabapentin [Neurontin] 600 mg PO QID 12/24/20 [History] metFORMIN [Glucophage] 1,000 mg PO BIDMEALS 12/24/20 [History] Ondansetron [Zofran ODT] 4 mg PO Q6H PRN #12 tab.dis 01/26/21 [Rx] Tamsulosin [Flomax] 0.4 mg PO BEDTIME 01/29/21 [History] oxyCODONE HCl/Acetaminophen [Oxycodone-Acetaminophen 5-325] 1 - 2 tab PO Q6H PRN 01/29/21 [History] Insulin Detemir [Levemir] 10 unit SUBCUT BEDTIME #1 pen 01/31/21 [Rx] Lactobacillus Acidophilus [Acidophilus] 1 each PO DAILY #20 capsule 01/31/21 [Rx] Sulfamethoxazole/Trimethoprim [Bactrim Ds Tablet] 2 tab PO BID 10 Days #40 tablet 01/31/21 [Rx] metroNIDAZOLE [Flagyl] 500 mg PO Q8H #30 tab 01/31/21 [Rx] Patient Handouts: Lactobacillus Oral formulations, Cellulitis, Adult, [id number], Insulin Detemir injection, Sulfamethoxazole; Trimethoprim, SMX-TMP tablets, Metronidazole tablets or capsules Referrals: Tony Davis MD [Physician] - 02/06/21 3:15 pm Zeyad Juan MD [Resident] - 02/13/21 1:30 pm - Discharge Summary/Plan Comment DC Time >30 min.: No - Patient Data Vitals - Most Recent: Last Vital Signs Temp 36.2 C 01/31/21 11:00 Pulse 75 01/31/21 11:00 Resp 16 01/31/21 11:00 BP 155/97 H 01/31/21 11:00 Pulse Ox 98 01/31/21 11:00 Weight - Most Recent: 106.226 kg I&O - Last 24 hours: Intake & Output 01/30/21 01/31/21 01/31/21 22:59 06:59 14:59 Intake Total 1180 1580 Output Total 1500 1950 Balance -320 -370 Lab Results - Last 24 hrs: Laboratory Results - last 24 hr 01/30/21 01/30/21 01/31/21 Range/Units 17:30 21:31 05:11 WBC 6.82 (4.0-11.0) K/uL RBC 4.26 L (4.50-5.90) M/uL Hgb 12.0 L (13.0-17.0) g/dL Hct 35.9 L (38.0-50.0) % MCV 84.3 (80.0-98.0) fL MCH 28.2 (27.0-32.0) pg MCHC 33.4 (31.0-37.0) g/dL RDW Std Deviation 46.6 (28.0-62.0) fl RDW Coeff of Candy 15 (11.0-15.0) % Plt Count 340 (150-400) K/uL MPV 9.40 (7.40-12.00) fL Neut % (Auto) 52.7 (48.0-80.0) % Lymph % (Auto) 35.9 (16.0-40.0) % Dundy % (Auto) 7.0 (0.0-15.0) % Eos % (Auto) 4.0 (0.0-7.0) % Baso % (Auto) 0.4 (0.0-1.5) % Neut # (Auto) 3.6 (1.4-5.7) K/uL Lymph # (Auto) 2.5 H (0.6-2.4) K/uL Dundy # (Auto) 0.5 (0.0-0.8) K/uL Eos # (Auto) 0.3 (0.0-0.7) K/uL Baso # (Auto) 0.0 (0.0-0.1) K/uL Nucleated RBC % 0.0 /100WBC Nucleated RBCs # 0 K/uL Sodium (136-148) mmol/L Potassium (3.5-5.1) mmol/L Chloride (98-107) mmol/L Carbon Dioxide (21.0-32.0) mmol/L BUN (7.0-18.0) mg/dL Creatinine (0.8-1.3) mg/dL Est Cr Clr Drug Dosing mL/min Estimated GFR (MDRD) ml/min Glucose (74-106) mg/dL POC Glucose 127 H 159 H (70-99) mg/dL Calcium (8.5-10.1) mg/dL 01/31/21 01/31/21 01/31/21 Range/Units 05:11 06:28 11:07 WBC (4.0-11.0) K/uL RBC (4.50-5.90) M/uL Hgb (13.0-17.0) g/dL Hct (38.0-50.0) % MCV (80.0-98.0) fL MCH (27.0-32.0) pg MCHC (31.0-37.0) g/dL RDW Std Deviation (28.0-62.0) fl RDW Coeff of Candy (11.0-15.0) % Plt Count (150-400) K/uL MPV (7.40-12.00) fL Neut % (Auto) (48.0-80.0) % Lymph % (Auto) (16.0-40.0) % Dundy % (Auto) (0.0-15.0) % Eos % (Auto) (0.0-7.0) % Baso % (Auto) (0.0-1.5) % Neut # (Auto) (1.4-5.7) K/uL Lymph # (Auto) (0.6-2.4) K/uL Dundy # (Auto) (0.0-0.8) K/uL Eos # (Auto) (0.0-0.7) K/uL Baso # (Auto) (0.0-0.1) K/uL Nucleated RBC % /100WBC Nucleated RBCs # K/uL Sodium 139 (136-148) mmol/L Potassium 3.7 (3.5-5.1) mmol/L Chloride 104 (98-107) mmol/L Carbon Dioxide 25.8 (21.0-32.0) mmol/L BUN 6 L (7.0-18.0) mg/dL Creatinine 0.8 (0.8-1.3) mg/dL Est Cr Clr Drug Dosing 99.69 mL/min Estimated GFR (MDRD) > 60.0 ml/min Glucose 107 H (74-106) mg/dL POC Glucose 108 H 175 H (70-99) mg/dL Calcium 8.7 (8.5-10.1) mg/dL JEFFERY Results - Last 24 hrs: Microbiology 01/28/21 00:00 Miscellaneous Reference Culture - Preliminary Wound Gram Stain - Final 01/30/21 15:10 C. difficile Antigen & Toxins A,B - Final Stool / Feces Med Orders - Current: Current Medications Acetaminophen (Acetaminophen 325 Mg Tab) 650 mg PO Q4H PRN PRN Reason: Pain (Mild 1-3)/fever Acidophilus/Pectin (Acidophilus With [place] Pectin Tab) 1 tab PO DAILY [facility] Last Admin: 01/31/21 08:11 Dose: 1 tab Documented by: Albuterol/Ipratropium (Albuterol/Ipratropium 3.0-0.5 Mg/3 Ml Neb Soln) 3 ml NEB Q4HRRT PRN PRN Reason: Shortness Of Breath/wheezing Aspirin (Aspirin 81 Mg Tab.Chew) 81 mg PO DAILY [facility] Last Admin: 01/31/21 08:11 Dose: 81 mg Documented by: Dextrose/Water (50% Dextrose In Water 50 Ml Syringe) 50 ml IVPUSH ASDIRECTED PRN PRN Reason: Hypoglycemia Gabapentin (Gabapentin 300 Mg Cap) 600 mg PO QID [facility] Last Admin: 01/31/21 11:58 Dose: 600 mg Documented by: Glucagon (Glucagon,Human Recombinant 1 Mg Vial) 1 mg IM ASDIRECTED PRN PRN Reason: Hypoglycemia Heparin Sodium (Porcine) (Heparin Sodium 5,000 Units/Ml Vial) 5,000 units SUBCUT Q8H [facility] Last Admin: 01/31/21 06:00 Dose: 5,000 units Documented by: Piperacillin Sod/Tazobactam (Sod 4.5 gm/ Sodium Chloride) 100 mls @ 100 mls/hr IV Q8H [facility] Last Admin: 01/31/21 06:00 Dose: 100 mls/hr Documented by: Vancomycin HCl (Vancomycin 1.5 Gm/300 Ml) 300 mls @ 200 mls/hr IV Q24H [facility] Last Admin: 01/31/21 00:00 Dose: 200 mls/hr Documented by: Insulin Aspart (Insulin Aspart 100 Units/Ml 3 Ml Pen) 0 unit SUBCUT TIDAC [facility]; Protocol Last Admin: 01/31/21 11:08 Dose: 2 units Documented by: Insulin Detemir (Insulin Detemir 100 Units/Ml 3 Ml Pen) 10 unit SUBCUT BEDTIME [facility] Last Admin: 01/30/21 21:00 Dose: 10 unit Documented by: Lisinopril (Lisinopril 10 Mg Tab) 20 mg PO DAILY [facility] Last Admin: 01/31/21 08:11 Dose: 20 mg Documented by: Morphine Sulfate (Morphine 2 Mg/Ml Syringe) 1 mg IVPUSH Q6H PRN PRN Reason: Pain Last Admin: 01/31/21 11:02 Dose: 1 mg Documented by: Ondansetron HCl (Ondansetron 4 Mg/2 Ml Sdv) 4 mg IVPUSH Q4H PRN PRN Reason: Nausea/Vomiting Sodium Chloride (Sodium Chloride 0.9% 10 Ml Syringe) 10 ml FLUSH ASDIRECTED PRN PRN Reason: Keep Vein Open Sodium Chloride (Sodium Chloride 0.9% 2.5 Ml Syringe) 2.5 ml FLUSH ASDIRECTED PRN PRN Reason: Keep Vein Open Tamsulosin HCl (Tamsulosin 0.4 Mg Cap.Er) 0.4 mg PO BEDTIME [facility] Last Admin: 01/30/21 21:00 Dose: 0.4 mg Documented by: Vancomycin HCl (Pharmacy To Dose - Vancomycin) 1 dose .XX ASDIRECTED [place] Discontinued Medications Acetaminophen (Acetaminophen 500 Mg Tab) 1,000 mg PO ONETIME ONE Stop: 01/28/21 18:01 Last Admin: 01/28/21 18:10 Dose: 1,000 mg Documented by: Haloperidol Lactate (Haloperidol Lactate 5 Mg/Ml Sdv) 5 mg IM ONETIME ONE Stop: 01/28/21 17:59 Last Admin: 01/28/21 18:11 Dose: 5 mg Documented by: Clindamycin Phosphate 600 mg/ (Sodium Chloride) 54 mls @ 100 mls/hr IV ONETIME ONE Stop: 01/28/21 20:42 Last Admin: 01/28/21 20:18 Dose: Not Given Documented by: Clindamycin Phosphate (Cleocin In D5w 600 Mg/50 Ml) Confirm Administered Dose 50 mls @ as directed .ROUTE .STK-MED ONE Stop: 01/28/21 20:14 Last Admin: 01/28/21 20:18 Dose: Not Given Documented by: Clindamycin Phosphate 600 mg/ (Premix) 50 mls @ 100 mls/hr IV ONETIME ONE Stop: 01/28/21 20:46 Last Admin: 01/28/21 20:18 Dose: 100 mls/hr Documented by: Lactated Ringer's (Ringers, Lactated) 1,000 mls @ 125 mls/hr IV ASDIRECTED [facility] Last Admin: 01/29/21 23:41 Dose: 125 mls/hr Documented by: Vancomycin HCl (Vancomycin 1.5 Gm/300 Ml) 300 mls @ 200 mls/hr IV Q12H [facility] Last Admin: 01/30/21 12:25 Dose: Not Given Documented by: Morphine Sulfate (Morphine 4 Mg/Ml Syringe) 4 mg IVPUSH ONETIME ONE Stop: 01/28/21 20:10 Last Admin: 01/28/21 20:18 Dose: 4 mg Documented by: Morphine Sulfate (Morphine 2 Mg/Ml Syringe) 1 mg IVPUSH Q4H PRN PRN Reason: Pain (severe 7-10) Stop: 01/29/21 21:21 Last Admin: 01/29/21 18:58 Dose: 1 mg Documented by: Potassium Chloride (Potassium Chloride 20 Meq Tab.Er) 40 meq PO ONETIME ONE Stop: 01/28/21 21:48 Last Admin: 01/28/21 22:45 Dose: 40 meq Documented by: Tamsulosin HCl (Tamsulosin 0.4 Mg Cap.Er) 0.4 mg PO BID [facility] Last Admin: 01/29/21 09:46 Dose: 0.4 mg Documented by:
--- NOTE | 2021-02-07 11:41 | EDM.PDOC ---
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 Patient states he was supposed to follow up with Dr. Davis, general surgery, today but was told by the nursing staff at his clinic to come to the ED as his pain was not controlled. Patient states he fell on a nail of his abdomen and had it removed by Dr. Davis in the ED. States he has been on antibiotics but continues to have drainage of the nail site and taking antibiotics as prescribed. Patient states he came back to the ED and got placed on a second antibiotic and also taking that. Denies any other symptoms or concerns. Patient denies fever, chills, chest pain, shortness of breath, or cough. Denies headache, neck stiff ness, change in vision, syncope, or near syncope. Denies nausea, vomiting, abdominal pain, diarrhea, constipation, or dysuria. Has not noted any blood in urine or stool. Patient has been eating and drinking appropriately. Review of systems: As per history of present illness and below otherwise all systems reviewed and negative. Past medical history: As per history of present illness and as reviewed below otherwise noncontributory. Surgical history: As per history of present illness and as reviewed below otherwise noncontributory. Social history: See social history for further information Family history: As per history of present illness and as reviewed below otherwise noncontributory. Physical exam: General: Patient is alert, oriented, and in no acute distress. Patient laying on exam table, holding lower abdomen mildly-moderately uncomfortable/comfortable laying still but pain with movement. Vitals stable and reviewed by me. HEENT: Atraumatic, normocephalic, pupils equal and reactive bilaterally, negative for conjunctival pallor or scleral icterus, mucous membranes moist, TMs normal bilaterally, throat clear, neck supple, nontender, trachea midline. No drooling or trismus noted. No meningeal signs. No hot potato voice noted. Lungs: Clear to auscultation, breath sounds equal bilaterally, chest nontender. Heart: S1S2, regular rate and rhythm without overt murmur Abdomen: There is a 0.5cm wound with small amount of dark red drainage with surrounding erythema / cellulitics of the abdominal wall; no obvious abscess. Also noted contact dermatitis of the skin in relation to bandage adhesive. Pain to palpation of this area. Otherwise, Soft, nondistended, nontender. Negative for masses or hepatosplenomegaly. Negative for costovertebral tenderness. Pelvis: Stable nontender. Genitourinary: Deferred. Rectal: Deferred. Skin: Intact, warm, dry. No lesions or rashes noted. Extremities: Atraumatic, negative for cords or calf pain. Neurovascular unremarkable. Neuro: Awake, alert, oriented. Cranial nerves II through XII unremarkable. Cere bellum unremarkable. Motor and sensory unremarkable throughout. Exam nonfocal. Notes: Patient is a 51 year old male who presents to the emergency room today with concern of worsening abdominal pain after a penetrating injury with a nail that occurred several days ago. Upon arrival to the ED, patient is vitally stable and well-appearing on exam. Patient does have significant pain with movement b ut when lying still is rather comfortable. There is a 0.5 cm wound of his abdomen where the nail had penetrated with a small amount of dark red drainage with surrounding erythema and cellulitis of the abdominal wall. Patient also noted to have some contact dermatitis due to adhesive bandage on his abdomen. Patient was seen in the ED on 01/24/2021 and had the nail removed by general surgeon, Dr. Davis and placed on antibiotics. Patient had return to the ED on 01/26/2021 and had received lab work and a scan at that time and added on an additional antibiotic. Will obtain lab work as well as abdominal pelvic CT scanning to assess for possible underlying abscess or deepening infection. Mild derangements of CBC unremarkable. CMP noted to have mild hypokalemia at 3.4 and glucose mildly elevated at 200. Otherwise, mild derangements of CMP unremarkable. Abdominal pelvic CT scan shows worsening of cellulitis in the right anterior abdominal wall around the left track left by removal of the previously seen large caliber metal nail. Worsening inflammatory thickening of the underlying right rectus abdominis muscle belly. Given that patient has a history of poor healing of infections given his poorly controlled diabetes along with lower extremity amputation secondary to infection, and recent neck abscess requiring admission with worsening cellulitis outpatient, patient has failed outpatient treatment for abdominal wall cellulitis but I did call and speak to the hospitalist on-call, Dr. Barrera, and thoroughly discussed patient's case. Will admit to inpatient Dr. Barrera. Voices understanding and is agreeable to plan of care. Denies any further questions or concerns at this time. Diagnostics: CBC, CMP, Abd/Pelvic ct w/o contrast, COVID Therapeutics: Tylenol, clindamycin, Haldol, morphine, normal saline Impression: Abdominal wall cellulitis, failed outpatient treatment Plan: Admit to inpatient to Dr. Romero Definitive disposition and diagnosis as appropriate pending reevaluation and review of above. Abdominal Pain Score (Numeric/FACES): 8 - Related Data Allergies Allergy/AdvReac Type Severity Reaction Status Date / Time latex Allergy Mild Rash Verified 01/30/21 13:39 ketorolac Allergy Hives Verified 01/28/21 22:37 Home Meds: Home Meds Aspirin 81 mg PO DAILY #30 tab.chew 09/30/19 [Rx] lisinopriL [Lisinopril] 20 mg PO DAILY 04/28/20 [History] Gabapentin [Neurontin] 600 mg PO QID 12/24/20 [History] metFORMIN [Glucophage] 1,000 mg PO BIDMEALS 12/24/20 [History] Ondansetron [Zofran ODT] 4 mg PO Q6H PRN #12 tab.dis 01/26/21 [Rx] Tamsulosin [Flomax] 0.4 mg PO BEDTIME 01/29/21 [History] oxyCODONE HCl/Acetaminophen [Oxycodone-Acetaminophen 5-325] 1 - 2 tab PO Q6H PRN 01/29/21 [History] Insulin Detemir [Levemir] 10 unit SUBCUT BEDTIME #1 pen 01/31/21 [Rx] Lactobacillus Acidophilus [Acidophilus] 1 each PO DAILY #20 capsule 01/31/21 [Rx] Sulfamethoxazole/Trimethoprim [Bactrim Ds Tablet] 2 tab PO BID 10 Days #40 tablet 01/31/21 [Rx] metroNIDAZOLE [Flagyl] 500 mg PO Q8H #30 tab 01/31/21 [Rx] Past Medical History HEENT History: Reports: Impaired Vision, Other (See Below) Other HEENT History: wears glasses Cardiovascular History: Reports: Hypertension Respiratory History: Reports: None Gastrointestinal History: Reports: None Genitourinary History: Reports: BPH Other Genitourinary History: Renal CA, Left Kidney removed. Musculoskeletal History: Reports: Back Pain, Chronic Neurological History: Reports: Neuropathy, Diabetic, Neuropathy, Peripheral Psychiatric History: Reports: None Endocrine/Metabolic History: Reports: Diabetes, Type II, Obesity/BMI 30+ Insulin Pump Model and Radiology Asst: None Hematologic History: Reports: Blood Transfusion(s) Immunologic History: Reports: None Oncologic (Cancer) History: Reports: Renal Dermatologic History: Reports: Cellulitis - Infectious Disease History Infectious Disease History: Reports: MRSA Other Infectious Disease History: MRSA - Past Surgical History Head Surgeries/Procedures: Reports: None HEENT Surgical History: Reports: None Other HEENT Surgeries/Procedures: Incision and drainage left neck abscess 2 months ago Cardiovascular Surgical History: Reports: None Respiratory Surgical History: Reports: None GI Surgical History: Reports: Colonoscopy, Hernia, Abdominal Male Surgical History: Reports: Nephrectomy Other Male Surgeries/Procedures: nephrectomy 2014 Endocrine Surgical History: Reports: None Neurological Surgical History: Reports: None Musculoskeletal Surgical History: Reports: Amputation Other Musculoskeletal Surgeries/Procedures:: L BTK amputation 2017 Oncologic Surgical History: Reports: None Dermatological Surgical History: Reports: None Social & Family History - Family History Family Medical History: No Pertinent Family History - Tobacco Use Tobacco Use Status *Q: Current Every Day Tobacco User Years of Tobacco use: 15 Packs/Tins Daily: 0.5 Second Hand Smoke Exposure: Yes - Caffeine Use Caffeine Use: Reports: Coffee, Tea - Recreational Drug Use Recreational Drug Use: No ED ROS GENERAL - Review of Systems Review Of Systems: Comprehensive ROS is negative, except as noted in HPI. ED EXAM, GENERAL - Physical Exam Exam: See Below (see dictation) GI/Abdominal: Normal Bowel Sounds, Soft, Non-Tender Back Exam: Normal Inspection, Full Range of Motion Extremities: Other (Left BKA). No: Non-Tender, Pedal Edema Course - Vital Signs Last Recorded V/S: Last Vital Signs Temp 97.2 F 01/31/21 11:00 Pulse 75 01/31/21 11:00 Resp 16 01/31/21 11:00 BP 155/97 H 01/31/21 11:00 Pulse Ox 98 01/31/21 11:00 - Orders/Labs/Meds Labs: Laboratory Tests 01/28/21 01/28/21 Range/Units 18:10 18:10 WBC 7.15 (4.0-11.0) K/uL RBC 4.50 (4.50-5.90) M/uL Hgb 12.8 L (13.0-17.0) g/dL Hct 37.7 L (38.0-50.0) % MCV 83.8 (80.0-98.0) fL MCH 28.4 (27.0-32.0) pg MCHC 34.0 (31.0-37.0) g/dL RDW Std Deviation 45.8 (28.0-62.0) fl RDW Coeff of Candy 15 (11.0-15.0) % Plt Count 333 (150-400) K/uL MPV 9.40 (7.40-12.00) fL Neut % (Auto) 74.6 (48.0-80.0) % Lymph % (Auto) 15.9 L (16.0-40.0) % Hand % (Auto) 6.2 (0.0-15.0) % Eos % (Auto) 3.2 (0.0-7.0) % Baso % (Auto) 0.1 (0.0-1.5) % Neut # (Auto) 5.3 (1.4-5.7) K/uL Lymph # (Auto) 1.1 (0.6-2.4) K/uL Hand # (Auto) 0.4 (0.0-0.8) K/uL Eos # (Auto) 0.2 (0.0-0.7) K/uL Baso # (Auto) 0.0 (0.0-0.1) K/uL Nucleated RBC % 0.0 /100WBC Nucleated RBCs # 0 K/uL Sodium 139 (136-148) mmol/L Potassium 3.4 L (3.5-5.1) mmol/L Chloride 104 (98-107) mmol/L Carbon Dioxide 24.7 (21.0-32.0) mmol/L BUN 4 L (7.0-18.0) mg/dL Creatinine 0.8 (0.8-1.3) mg/dL Est Cr Clr Drug Dosing TNP Estimated GFR (MDRD) > 60.0 ml/min Glucose 200 H (74-106) mg/dL Calcium 8.5 (8.5-10.1) mg/dL Total Bilirubin 0.5 (0.2-1.0) mg/dL AST 9 L (15-37) IU/L ALT 11 L (14-63) IU/L Alkaline Phosphatase 95 (46-116) U/L Total Protein 7.1 (6.4-8.2) g/dL Albumin 3.0 L (3.4-5.0) g/dL Globulin 4.1 H (2.6-4.0) g/dL Albumin/Globulin Ratio 0.7 L (0.9-1.6) Meds: Medications Discontinued Medications Generic Name Dose Route Start Last Admin Trade Name Freq PRN Reason Stop Dose Admin Acetaminophen 1,000 mg 01/28/21 18:00 01/28/21 18:10 Acetaminophen 500 Mg Tab PO 01/28/21 18:01 1,000 mg ONETIME ONE Administration Acetaminophen 650 mg 01/28/21 21:16 Acetaminophen 325 Mg Tab PO Q4H PRN Pain (Mild 1-3)/fever Acidophilus/Pectin 1 tab 01/30/21 18:15 01/31/21 08:11 Acidophilus With [place] Pectin Tab PO 1 tab DAILY CAYDEN Administration Albuterol/Ipratropium 3 ml 01/28/21 21:16 Albuterol/Ipratropium 3.0-0.5 Mg/3 Ml Neb Soln NEB Q4HRRT PRN Shortness Of Breath/wheezing Aspirin 81 mg 01/29/21 09:00 01/31/21 08:11 Aspirin 81 Mg Tab.Chew PO 81 mg DAILY CAYDEN Administration Dextrose/Water 50 ml 01/28/21 21:27 50% Dextrose In Water 50 Ml Syringe IVPUSH ASDIRECTED PRN Hypoglycemia Gabapentin 600 mg 01/29/21 06:00 01/31/21 11:58 Gabapentin 300 Mg Cap PO 600 mg QID CAYDEN Administration Glucagon 1 mg 01/28/21 21:27 Glucagon,Human Recombinant 1 Mg Vial IM ASDIRECTED PRN Hypoglycemia Haloperidol Lactate 5 mg 01/28/21 17:58 01/28/21 18:11 Haloperidol Lactate 5 Mg/Ml Sdv IM 01/28/21 17:59 5 mg ONETIME ONE Administration Heparin Sodium (Porcine) 5,000 units 01/28/21 21:30 01/31/21 06:00 Heparin Sodium 5,000 Units/Ml Vial SUBCUT 5,000 units Q8H CAYDEN Administration Clindamycin Phosphate 600 mg/ 54 mls @ 100 mls/hr 01/28/21 20:10 01/28/21 20:18 Sodium Chloride IV 01/28/21 20:42 Not Given ONETIME ONE Clindamycin Phosphate Confirm 01/28/21 20:13 01/28/21 20:18 Cleocin In D5w 600 Mg/50 Ml Administered 01/28/21 20:14 Not Given Dose 50 mls @ as directed .ROUTE .STK-MED ONE Clindamycin Phosphate 600 mg/ 50 mls @ 100 mls/hr 01/28/21 20:17 01/28/21 20:18 Premix IV 01/28/21 20:46 100 mls/hr ONETIME ONE Administration Lactated Ringer's 1,000 mls @ 125 mls/hr 01/28/21 21:30 01/29/21 23:41 Ringers, Lactated IV 125 mls/hr ASDIRECTED CAYDEN Administration Piperacillin Sod/Tazobactam 100 mls @ 100 mls/hr 01/28/21 21:30 01/31/21 06:00 Sod 4.5 gm/ Sodium Chloride IV 100 mls/hr Q8H CAYDEN Administration Vancomycin HCl 300 mls @ 200 mls/hr 01/28/21 23:30 01/30/21 12:25 Vancomycin 1.5 Gm/300 Ml IV Not Given Q12H [facility] Vancomycin HCl 300 mls @ 200 mls/hr 01/30/21 23:30 01/31/21 00:00 Vancomycin 1.5 Gm/300 Ml IV 200 mls/hr Q24H [facility] Administration Insulin Aspart 0 unit 01/29/21 07:30 01/31/21 11:08 Insulin Aspart 100 Units/Ml 3 Ml Pen SUBCUT 2 units TIDAC [facility] Administration Protocol Insulin Detemir 10 unit 01/28/21 21:44 01/30/21 21:00 Insulin Detemir 100 Units/Ml 3 Ml Pen SUBCUT 10 unit BEDTIME [facility] Administration Lisinopril 20 mg 01/29/21 09:00 01/31/21 08:11 Lisinopril 10 Mg Tab PO 20 mg DAILY CAYDEN Administration Morphine Sulfate 4 mg 01/28/21 20:09 01/28/21 20:18 Morphine 4 Mg/Ml Syringe IVPUSH 01/28/21 20:10 4 mg ONETIME ONE Administration Morphine Sulfate 1 mg 01/28/21 21:16 01/29/21 18:58 Morphine 2 Mg/Ml Syringe IVPUSH 01/29/21 21:21 1 mg Q4H PRN Administration Pain (severe 7-10) Morphine Sulfate 1 mg 01/30/21 00:56 01/31/21 15:10 Morphine 2 Mg/Ml Syringe IVPUSH 1 mg Q6H PRN Administration Pain Ondansetron HCl 4 mg 01/28/21 21:16 Ondansetron 4 Mg/2 Ml Sdv IVPUSH Q4H PRN Nausea/Vomiting Potassium Chloride 40 meq 01/28/21 21:47 01/28/21 22:45 Potassium Chloride 20 Meq Tab.Er PO 01/28/21 21:48 40 meq ONETIME ONE Administration Sodium Chloride 10 ml 01/28/21 17:55 Sodium Chloride 0.9% 10 Ml Syringe FLUSH ASDIRECTED PRN Keep Vein Open Sodium Chloride 2.5 ml 01/28/21 17:55 Sodium Chloride 0.9% 2.5 Ml Syringe FLUSH ASDIRECTED PRN Keep Vein Open Tamsulosin HCl 0.4 mg 01/29/21 09:00 01/29/21 09:46 Tamsulosin 0.4 Mg Cap.Er PO 0.4 mg BID CAYDEN Administration Tamsulosin HCl 0.4 mg 01/30/21 21:00 01/30/21 21:00 Tamsulosin 0.4 Mg Cap.Er PO 0.4 mg BEDTIME CAYDEN Administration Vancomycin HCl 1 dose 01/28/21 21:45 Pharmacy To Dose - Vancomycin .XX ASDIRECTED CAYDEN Departure - Departure Time of Disposition: 11:46 Disposition: Admitted As Inpatient 67 Clinical Impression: Abdominal wall cellulitis - Discharge Information *PRESCRIPTION DRUG MONITORING PROGRAM REVIEWED*: No *COPY OF PRESCRIPTION DRUG MONITORING REPORT IN PATIENT JUDY: No Sepsis Event Note (ED) - Evaluation Sepsis Screening Result: No Definite Risk
== END 2021-01-31 15:25 | disposition home or self-care (01) | DRG 638 ==
LOC: MW.ED 17:20 → MW.MS 20:16
PROVIDERS: ADMIT Student in an Organized Health Care Education/Training Program; ATTEND Student in an Organized Health Care Education/Training Program
DX: E11.628 Type 2 diabetes mellitus with other skin complications (principal); Z68.42 Body mass index [BMI] 45.0-49.9, adult; L03.311 Cellulitis of abdominal wall; E66.01 Morbid (severe) obesity due to excess calories; G62.9 Polyneuropathy, unspecified; H54.7 Unspecified visual loss; I10 Essential (primary) hypertension; N40.0 Benign prostatic hyperplasia without lower urinary tract symptoms; E11.42 Type 2 diabetes mellitus with diabetic polyneuropathy; F17.210 Nicotine dependence, cigarettes, uncomplicated; Z20.822 Contact with and (suspected) exposure to COVID-19; G89.29 Other chronic pain; M54.9 Dorsalgia, unspecified; Z86.19 Personal history of other infectious and parasitic diseases; Z79.899 Other long term (current) drug therapy; Z85.528 Personal history of other malignant neoplasm of kidney; Z90.5 Acquired absence of kidney; Z91.040 Latex allergy status; Z88.8 Allergy status to other drugs, medicaments and biological substances; Z79.82 Long term (current) use of aspirin; Z79.4 Long term (current) use of insulin; E11.65 Type 2 diabetes mellitus with hyperglycemia; Z86.14 Personal history of Methicillin resistant Staphylococcus aureus infection; Z89.512 Acquired absence of left leg below knee; Z98.890 Other specified postprocedural states
CPT/HCPCS: 36415; 74176; 80053; 85025; 87070; 87205; A9270; J1630; 80048; 80202; 82947; 83735; 84100; 87324; 96372; 96374; 99222; 99232; 99238; 99283; 99285-25; J1644; J1815-GY; J2270; J2543; J3370; J3490; J7120; U0002

== ENCOUNTER 2021-08-09 16:25 | Emergency (ER) | payer MEDICARE, MEDICAID ==
[2021-08-09] MEDS ORDERED: Ondansetron 4 MG/2 ML SDV IVPUSH ONE (18:03)
[2021-08-09] MEDS ORDERED: Sodium Chloride 0.9% 1,000 ML IV ONE (18:03)
[2021-08-09] MEDS ORDERED: fentaNYL 50 MCG/ML SDV IVPUSH ONE (18:03)
[2021-08-09] MEDS ORDERED: Sodium Chloride 0.9% 2.5 ML Syringe FLUSH PRN (18:03)
[2021-08-09] MEDS ORDERED: Sodium Chloride 0.9% 10 ML Syringe FLUSH PRN (18:03)
[2021-08-09 18:29] LABS: BLOOD UREA NITROGEN,BUN 11 mg/dL (7.0-18.0); CARBON DIOXIDE,CO2 24.7 mmol/L (21.0-32.0); CHLORIDE,CL 104 mmol/L (98-107); GLUCOSE RANDOM 127 mg/dL (74-106); LIPASE 90 U/L (73-393); POTASSIUM,K 4.2 mmol/L (3.5-5.1); SODIUM,NA 137 mmol/L (136-148)
== END 2021-08-09 20:26 | disposition left against medical advice (07) ==
LOC: MW.ED 16:25
DX: L03.116 Cellulitis of left lower limb (principal); I10 Essential (primary) hypertension; N40.0 Benign prostatic hyperplasia without lower urinary tract symptoms; E11.42 Type 2 diabetes mellitus with diabetic polyneuropathy; E66.9 Obesity, unspecified; Z68.36 Body mass index [BMI] 36.0-36.9, adult; Z91.040 Latex allergy status; Z88.5 Allergy status to narcotic agent; Z79.82 Long term (current) use of aspirin; Z79.4 Long term (current) use of insulin; Z79.899 Other long term (current) drug therapy; Z20.822 Contact with and (suspected) exposure to COVID-19
CPT/HCPCS: 36415; 74176; 80053; 81003; 83605; 83690; 85025; 87040; 96374; 96375; 99284; J2405; J3010; J7030; U0002

== ENCOUNTER 2021-11-28 17:17 | Emergency (ER) | payer MEDICARE, MEDICAID ==
[2021-11-28] MEDS ORDERED: Morphine 4 MG/ML VIAL IVPUSH ONE ×2 (20:01→22:18)
[2021-11-28] MEDS ORDERED: Sodium Chloride 0.9% 500 ML IV SCH (20:15)
[2021-11-28] MEDS ORDERED: Sodium Chloride 0.9% 1,000 ML IV STA (20:42)
[2021-11-28 21:21] LABS: BLOOD UREA NITROGEN,BUN 6 mg/dL (7.0-18.0); CARBON DIOXIDE,CO2 22.4 mmol/L (21.0-32.0); CHLORIDE,CL 107 mmol/L (98-107); GLUCOSE RANDOM 138 mg/dL (74-106); LIPASE 687 U/L (73-393); POTASSIUM,K 3.6 mmol/L (3.5-5.1); SODIUM,NA 142 mmol/L (136-148)
[2021-11-28] MEDS ORDERED: Iopamidol 755 MG/ML 500 ML Multipack Bottle IVPUSH ONE (21:57)
[2021-11-28] MEDS ORDERED: Cephalexin 500 MG Cap PO ONE (23:49)
== END 2021-11-29 00:10 | disposition home or self-care (01) ==
LOC: MW.ED 17:17
DX: R10.9 Unspecified abdominal pain (principal); E11.40 Type 2 diabetes mellitus with diabetic neuropathy, unspecified; I10 Essential (primary) hypertension; E66.9 Obesity, unspecified; Z68.30 Body mass index [BMI] 30.0-30.9, adult; Z79.899 Other long term (current) drug therapy; Z79.82 Long term (current) use of aspirin; Z79.4 Long term (current) use of insulin; Z91.040 Latex allergy status; Z88.6 Allergy status to analgesic agent; Z20.822 Contact with and (suspected) exposure to COVID-19
CPT/HCPCS: 36415; 74177; 80053; 81001; 83605; 83690; 85025; 85610; 87040; 87070; 87075; 87205; 96374; 96376; 99284; A9270; J2270; J7030; Q9967; U0002; 87077; 87186